=== PATIENT | female | born 1955 | race Caucasian/White ===

== ENCOUNTER 2020-09-05 09:43 | Outpatient (REF) | payer MEDICARE, SELFPAY ==
[2020-09-05 12:10] LABS: Alanine Aminotransferase 17 U/L (0-31); Albumin Level 4.6 g/dL (3.5-5.0); Alkaline Phosphatase 70 U/L (39-117); Anion Gap 14 (12-20); Aspartate Amino Transferase 24 U/L (5-31); Bilirubin Total 0.5 mg/dL (0.0-1.0); Blood Urea Nitrogen 14 mg/dL (9-16); Calcium 9.6 mg/dL (8.4-10.2); Carbon Dioxide 28 mmol/L (22-29); Chloride 104 mmol/L (96-108); Cholesterol 216 mg/dL; Estimated Glomerular Filt Rate > 60; Glucose Fasting 95 mg/dL (60-99); HDL Cholesterol 79 mg/dL; LDL Cholesterol Calculated 109 mg/dl; Potassium 4.9 mmol/L (3.3-5.1); Sodium 141 mmol/L (135-145); Total Protein 7.3 g/dL (6.5-8.0); Triglycerides 140 mg/dL
[2020-09-05 12:33] LABS: TSH reflex Free T4 1.23 uIU/mL (0.32-4.0); Vitamin D 25-OH Total 34.9 ng/mL (>30)
== END 2020-09-05 09:44 | disposition home or self-care (01) ==
LOC: HO.HMGCLDS 09:43
PROVIDERS: PCP Nurse Practitioner Family; Visit Provider Nurse Practitioner Family
DX: Z00.00 Encounter for general adult medical examination without abnormal findings (principal); Z78.0 Asymptomatic menopausal state
CPT/HCPCS: 36415; 80053; 80061; 82306; 84443

== ENCOUNTER 2020-09-08 07:20 | Outpatient (REF) | payer MEDICARE, SELFPAY ==
--- NOTE | ~2020-09-08 | MM_ITS ---
EXAMINATION: MM SCREENING DIGITAL BREAST TOMOSYNTHESIS, BILATERAL CLINICAL INFORMATION: Screening. Asymptomatic. Prior history right breast biopsy 2:00 and 3:00 position 05/07/2007 (sclerotic fibroadenoma and fibrocystic changes, respectively). No clips placed. The lifetime risk of breast cancer based on the Tyrer-Cuzick Model is 4%. COMPARISON: Mammography: 10/26/2018, 06/26/2016 TECHNIQUE: Digital breast tomosynthesis is performed in both the craniocaudal and mediolateral oblique views along with computer-aided detection (CAD). Synthesized 2D images are generated from the tomosynthesis. Additional left MLO view is provided. FINDINGS: The breasts are heterogeneously dense, which may obscure small masses (ACR BI-RADS breast composition Category c). There are no significant masses, abnormal calcifications, or other abnormalities. The previously sampled fibroadenoma mid 3:00 right breast is stable from prior studies (no clip placed). There is a dermal lesion overlying the upper left breast, marked with skin mole marker. The axilla are unremarkable. There are no significant changes from prior studies. MM/MM tomosynthesis screening BI IMPRESSION: 1. No mammographic evidence of malignancy. 2. 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 ASSESSMENT: BI-RADS 2: Benign RECOMMENDATION: Routine annual mammography screening. This patient's information was entered into a reminder system with a target due date for their next mammogram.
== END 2020-09-08 07:21 | disposition home or self-care (01) ==
LOC: HO.MAMMO 07:20
PROVIDERS: PCP Internal Medicine; Visit Provider Internal Medicine
DX: Z12.31 Encounter for screening mammogram for malignant neoplasm of breast (principal)
CPT/HCPCS: 77063; 77067

== ENCOUNTER 2020-09-11 08:06 | Outpatient (REF) | payer MEDICARE, SELFPAY ==
--- NOTE | ~2020-09-11 | MM_ITS ---
EXAMINATION: BONE DENSITOMETRY CLINICAL INDICATION: Asymptomatic menopausal state. COMPARISON: None (current study represents initial baseline exam). TECHNIQUE: Using a [employer] DXA System (software version: 13.1) manufactured by [employer], dual-energy x-ray absorptiometry was performed of the lumbar spine and left hip. The images are of good technical quality. Summary results are attached. FINDINGS: AP SPINE L1-L4: BMD 0.990 g/cm2, Z-score -0.7, T-score -1.6, osteopenia. LEFT FEMUR, NECK: BMD 0.747 g/cm2, Z-score -1.0, T-score -2.1, osteopenia. LEFT FEMUR, TOTAL: BMD 0.845 g/cm2, Z-score -0.5, T-score -1.3, osteopenia. IDENTIFIED RISK FACTORS: Height loss, hysterectomy, menopause. HISTORY OF FRACTURE: None listed. MEDICATIONS: Multivitamin. MM/XR DEXA axial skeleton IMPRESSION: 1. DIAGNOSIS: Osteopenia based on the lowest T-score value of -2.1 in the femoral neck applying World Health Organization criteria. 2. 10-YEAR FRACTURE RISK PREDICTION, FRAX: Major osteoporotic fracture (clinical spine, forearm, hip or shoulder) 11.0%. Hip fracture 1.9%. 3. Treatment Recommendations: NOF guidelines recommend consideration for treatment in postmenopausal women and men age 50 and older presenting with the following: -A hip or vertebral (clinical or morphometric) fracture. -T-score less than or equal to -2.5 at the femoral neck or spine after appropriate evaluation to exclude secondary causes. -Low bone mass at the hip or spine and a 10-year fracture probability by FRAX of greater than or equal to 3% for hip fracture or greater than or equal to 20% for major osteoporotic fracture based on the [place] adapted WHO algorithm. 4. Other Recommendations: All treatment decisions require clinical judgment and consideration of individual patient factors, including patient preferences, comorbidities, previous drug use, risk factors not captured in the FRAX model (e.g. frailty, falls, vitamin D deficiency, increased bone turnover, interval significant decline in bone density) and possible under or overestimation of fracture risk by FRAX. Additional medical evaluation for secondary cause of low bone mineral density may be appropriate. FUTURE SCAN RECOMMENDATION: People with diagnosed cases of osteoporosis or at high risk for fracture should have regular bone mineral density tests. For patients eligible for Medicare, routine testing is allowed once every 2 years. The testing frequency can be increased to one year for patients who have rapidly progressing disease, those who are receiving or discontinuing medical therapy to restore bone mass, or have additional risk factors.
== END 2020-09-11 08:07 | disposition home or self-care (01) ==
LOC: HO.MAMMO 08:06
PROVIDERS: PCP Nurse Practitioner Family; Visit Provider Nurse Practitioner Family
DX: Z13.820 Encounter for screening for osteoporosis (principal); Z78.0 Asymptomatic menopausal state
CPT/HCPCS: 77080

== ENCOUNTER 2020-11-12 07:27 | Outpatient (REF) | payer MEDICARE, SELFPAY ==
[2020-11-12 11:46] LABS: Cholesterol 203 mg/dL; HDL Cholesterol 68 mg/dL; LDL Cholesterol Calculated 107 mg/dl; Triglycerides 142 mg/dL
== END 2020-11-12 07:28 | disposition home or self-care (01) ==
LOC: HO.HMGCLDS 07:27
PROVIDERS: PCP Nurse Practitioner Family; Visit Provider Nurse Practitioner Family
DX: E78.5 Hyperlipidemia, unspecified (principal)
CPT/HCPCS: 36415; 80061

== ENCOUNTER 2021-03-15 07:00 | Outpatient (REF) | payer MEDICARE, SELFPAY ==
[2021-03-15 12:26] LABS: Alanine Aminotransferase 19 U/L (0-31); Albumin Level 4.4 g/dL (3.5-5.0); Alkaline Phosphatase 72 U/L (39-117); Anion Gap 14 (12-20); Aspartate Amino Transferase 26 U/L (5-31); Bilirubin Total 0.6 mg/dL (0.0-1.0); Blood Urea Nitrogen 12 mg/dL (9-16); Calcium 9.9 mg/dL (8.4-10.2); Carbon Dioxide 30 mmol/L (22-29); Chloride 103 mmol/L (96-108); Cholesterol 212 mg/dL; Estimated Glomerular Filt Rate > 60; Glucose Fasting 93 mg/dL (60-99); HDL Cholesterol 76 mg/dL; LDL Cholesterol Calculated 111 mg/dl; Potassium 4.7 mmol/L (3.3-5.1); Sodium 142 mmol/L (135-145); Total Protein 7.2 g/dL (6.5-8.0); Triglycerides 128 mg/dL
[2021-03-15 12:46] LABS: TSH reflex Free T4 3.97 uIU/mL (0.32-4.0)
== END 2021-03-15 07:01 | disposition home or self-care (01) ==
LOC: HO.HMGCLDS 07:00
PROVIDERS: PCP Nurse Practitioner Family; Visit Provider Nurse Practitioner Family
DX: E78.5 Hyperlipidemia, unspecified (principal)
CPT/HCPCS: 36415; 80053; 80061; 84443

== ENCOUNTER 2021-05-28 08:20 | Outpatient (REF) | payer MEDICARE, SELFPAY ==
[2021-05-28 12:02] LABS: Cholesterol 206 mg/dL; HDL Cholesterol 74 mg/dL; LDL Cholesterol Calculated 107 mg/dl; Triglycerides 129 mg/dL
== END 2021-05-28 08:21 | disposition home or self-care (01) ==
LOC: HO.HMGCLDS 08:20
PROVIDERS: PCP Internal Medicine; Visit Provider Nurse Practitioner Family
DX: E78.5 Hyperlipidemia, unspecified (principal)
CPT/HCPCS: 36415; 80061

== ENCOUNTER 2021-09-14 07:22 | Outpatient (REF) | payer MEDICARE, SELFPAY ==
--- NOTE | ~2021-09-14 | MM_ITS ---
EXAMINATION: MM SCREENING DIGITAL BREAST TOMOSYNTHESIS, BILATERAL CLINICAL INFORMATION: Screening. Asymptomatic. Prior history right breast biopsy 2:00 and 3:00 position 05/07/2007 (sclerotic fibroadenoma and fibrocystic changes, respectively). No clips placed. The lifetime risk of breast cancer based on the Tyrer-Cuzick Model is 4%. COMPARISON: Mammography: 09/08/2020, 10/26/2018, 06/26/2016 TECHNIQUE: Digital breast tomosynthesis is performed in both the craniocaudal and mediolateral oblique views along with computer-aided detection (CAD). Synthesized 2D images are generated from the tomosynthesis. FINDINGS: The breasts are heterogeneously dense, which may obscure small masses (ACR BI-RADS breast composition Category c). Breast tissue composition borders on average fibroglandular. There is no significant mass or architectural abnormality. Left breast shows no abnormal calcifications. Right breast has a stable macrolobulated nodule mid 3:00 right breast likely corresponding to prior biopsy proven fibroadenoma (no clips placed). Right breast has interval grouped calcifications central 12:00 position, 7-8 cm from nipple, representing change from prior study. Patient will be recalled for additional imaging. MM/MM tomosynthesis screening BI IMPRESSION: Right: -Grouped calcifications mid posterior central 12:00 position. Left: -No mammographic evidence of malignancy. ASSESSMENT: BI-RADS 0: Incomplete - Need Additional Imaging Evaluation RECOMMENDATION: 1. Additional views of the right breast (magnification CC, magnification ML). 2. Radiology department staff will contact the patient for additional imaging. This patient's information was entered into a reminder system with a target due date for their next mammogram.
== END 2021-09-14 07:23 | disposition home or self-care (01) ==
LOC: HO.MAMMO 07:22
PROVIDERS: Visit Provider Internal Medicine
DX: Z12.31 Encounter for screening mammogram for malignant neoplasm of breast (principal)
CPT/HCPCS: 77063; 77067

== ENCOUNTER 2021-09-18 09:20 | Outpatient (REF) | payer MEDICARE, SELFPAY ==
--- NOTE | ~2021-09-18 | MM_ITS ---
EXAMINATION: MM DIAGNOSTIC DIGITAL MAMMOGRAPHY, RIGHT CLINICAL INFORMATION: Recall from screening for grouped calcifications mid posterior central 12:00 right breast. COMPARISON: Mammography: 09/14/2021, 09/08/2020, 10/26/2018 TECHNIQUE: Digital mammography is performed in the following views: Magnification CC, magnification ML x2. FINDINGS: The breasts are heterogeneously dense, which may obscure small masses (ACR BI-RADS breast composition Category c). The additional magnification views confirm numerous loosely grouped fine calcifications central 11:30 position. Calcifications vary in shape and attenuation in size. This represents change from prior studies. Stereotactic sampling is recommended. Results are discussed with the patient at time of visit. MM/MM added views RT IMPRESSION: Grouped pleomorphic calcifications central upper right breast. ASSESSMENT: BI-RADS 4: Suspicious RECOMMENDATION: Stereotactic sampling right breast calcifications. This patient's information was entered into a reminder system with a target due date for their next mammogram.
== END 2021-09-18 09:21 | disposition home or self-care (01) ==
LOC: HO.MAMMO 09:20
PROVIDERS: Visit Provider Internal Medicine
DX: R92.1 Mammographic calcification found on diagnostic imaging of breast (principal)
CPT/HCPCS: 77065

== ENCOUNTER 2021-09-20 09:05 | Outpatient (REF) | payer MEDICARE, SELFPAY ==
--- NOTE | ~2021-09-20 | MM_ITS ---
EXAMINATION: STEREOTACTIC TOMOSYNTHESIS-GUIDED VACUUM-ASSISTED BREAST BIOPSY, RIGHT SPECIMEN RADIOGRAPH, RIGHT POST PROCEDURE DIGITAL MAMMOGRAM, RIGHT CLINICAL INFORMATION: Loosely grouped pleomorphic calcifications central 12:00 right breast. COMPARISON: Mammography 09/14/2021, 09/18/2021. TECHNIQUE/PROCEDURE: Informed consent was obtained from the patient after discussion of the benefits, risks, and alternatives to biopsy today. Patient appeared to understand. Gave opportunity for questions. Patient signed consent form. BIOPSY TABLE: [employer] Affirm Prone Biopsy System. LESION: Loosely grouped pleomorphic calcifications mid central 12:00. LOCAL ANESTHESIA: 10 mL carbonated 1% lidocaine; 10 mL 1% lidocaine with epinephrine. DERMATOTOMY: Single skin lucy dermatotomy performed. NEEDLE: Neov[employer] 9-gauge vacuum assisted core biopsy device. APPROACH: Craniocaudal. TARGETING: Combination of digital breast tomosynthesis and stereotactic digital mammography used for targeting. CORES: 14. CLIP: [employer] T-shaped marker. SPECIMEN RADIOGRAPH: Specimen radiograph is taken in separate room using digital mammography. The index calcifications are in the excised cores. There are at least 9 calcifications in the cores. POST PROCEDURE UNILATERAL DIGITAL MAMMOGRAM: The post biopsy mammogram is performed in separate room using separate digital mammography equipment from the biopsy procedure. CC and ML views are obtained. The breasts are heterogeneously dense, which may obscure small masses (breast composition category: c). The clip marker is in position. The calcifications are decreased at the biopsy site. No gross hematoma. The patient tolerated the procedure well. No immediate complications. Home instructions reviewed with the patient. Final pathology results are pending. MM/MM stereotactic biopsy RT IMPRESSION: 1. Digital tomosynthesis-guided core biopsy right breast with clip placement. 2. Specimen radiograph taken and post procedure mammogram. There is satisfactory positioning of the biopsy clip. 3. Final pathology results pending. An addendum report will be issued.
[2021-09-20] MEDS: Lidocaine HCl 1 % 20 ML VIAL 10 ML SUBCUT (10:37)
[2021-09-20] MEDS: Sodium Bicarbonate 8.4% 50 MEQ/50 ML VIAL SUBCUT (10:38)
== END 2021-09-20 09:06 | disposition home or self-care (01) ==
LOC: HO.MAMMO 09:05
PROVIDERS: PCP Internal Medicine; Visit Provider Surgery
DX: R92.8 Other abnormal and inconclusive findings on diagnostic imaging of breast (principal)
CPT/HCPCS: 19081; 88305; 88360; 99202; A4648

== ENCOUNTER → 2021-09-26 08:45 | Outpatient (BNVA) | payer MEDICARE, SELFPAY | PROVIDERS: PCP Internal Medicine; Visit Provider Surgery | DX: C50.811 Malignant neoplasm of overlapping sites of right female breast (principal); Z17.0 Estrogen receptor positive status [ER+] | CPT/HCPCS: 99212 ==

== ENCOUNTER 2021-10-02 08:49 | Day surgery (SDC) | payer MEDICARE, SELFPAY ==
--- NOTE | 2021-09-30 | ECG_ITS ---
Test Reason : PREOP Blood Pressure : / mmHG Vent. Rate : 085 BPM Atrial Rate : 085 BPM P-R Int : 172 ms QRS Dur : 150 ms QT Int : 402 ms P-R-T Axes : 063 -47 102 degrees QTc Int : 478 ms Normal sinus rhythm Left axis deviation Left bundle branch block Abnormal ECG When compared with ECG of 03-JUL-2016 10:22, No significant change was found Referred By: Earnestine Diane Electronically Signed By:TRUMAN CROWE
[2021-09-30 12:15] VITALS: BP 143/86; PULSE 95; RESP 20; O2SAT 97; BMI 34.2
--- NOTE | 2021-09-30 12:26 | P.CONAN_ITS ---
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) Past Medical History Medical History Arthritis COVID-19 vaccine series completed Elevated cholesterol Family history of anesthesia complication LBBB (left bundle branch block) Family History Family History Mother Melanoma Maternal Aunt Vocal cord cancer Maternal Aunt Uterine cancer Maternal Aunt Comer Syndrome Family history of problems with anesthesia: No Surgical History Surgical History History of bilateral breast biopsy History of hysterectomy History of tonsillectomy and adenoidectomy History of Problems with Anesthesia: No Social History Social History Housing: House Are you a primary home visit field care manager to a significant other at home: No Do you presently have visiting nurse or other home services: No Alcohol intake: current Alcohol intake frequency: holidays/special occasions only Patient Tobacco Use Status: Former Tobacco user Quit Date: 1980 Tobacco use type: Cigarette Years Smoked: 5 e-Cigarette/Vaping Use: Never Used Second Hand Smoke Exposure: No Use of substances other than those prescribed or required for medical reasons: No Have you been hit, kicked, punched, or otherwise hurt by someone within the past year? If so, by whom?: No Are you DNR?: No Advance Directives: Yes ( Swapnil) Advance Directives Information Provided: Yes (copy on chart) Advance Directives on File: Yes Advance Directives Date on File: 09/30/21 Recently lost weight without trying: No Nutrition Risks: No Nutritional Risk Poor oral hygiene: No service: No Current occupational status: retired Narrative Narrative: No recent illness No CP/SOB with >4 mets Meds Allergies Allergy/AdvReac Type Severity Reaction Status Date / Time amoxicillin [AMOXICILLIN] Allergy Mild flushing/sw Verified 09/30/21 12:14 elling/rash Home Medications Medication Instructions Recorded Confirmed Last Taken Type acetaminophen 500 mg capsule 1,000 mg PO Q12H PRN Pain 09/05/20 09/30/21 Unknown History calcium carbonate 500 mg calcium 1,000 mg PO DAILY 09/05/20 09/30/21 Unknown H istory (1,250 mg) chewable tablet docusate sodium 100 mg capsule 300 mg PO QPM 09/05/20 09/30/21 Unknown History (Colace) fluticasone propionate 50 1 spray intranasal Q12H PRN 09/05/20 09/30/21 Unknown History mcg/actuation nasal Allergy Symptoms spray,suspension magnesium 200 mg tablet 400 mg PO DAILY 09/05/20 09/30/21 Unknown History vit A 7,160 unit-vit C 113 mg-vit 1 tab PO DAILY 09/05/20 09/30/21 Unknown History E 100 uvvm-pmxh-ahknjk tablet cetirizine 10 mg tablet 10 mg PO DAILY PRN Allergy Symptoms 03/13/21 09/30/21 Unknown History cholecalciferol (vitamin D3) 125 125 mcg PO DAILY 03/13/21 09/30/21 Unknown History mcg (5,000 unit) capsule atorvastatin 40 mg tablet 40 mg PO QAM 09/30/21 09/30/21 Unknown History flaxseed oil 1,000 mg capsule 1,000 mg PO DAILY 09/30/21 09/30/21 Unknown History kgwudhpk-die-gqexb ac 400 1 tab PO DAILY 09/30/21 09/30/21 Unknown History mcg-calcium carb 500 mg-vit K1 20 mcg tablet Exam Exam Date and Time: September 30, 2021 1226 Height,Weight and Vital Signs: Height 5 ft 5 in Weight 93.5 kg Last Vital Signs Pulse 95 09/30/21 12:15 Resp 20 09/30/21 12:15 BP 143/86 H 09/30/21 12:15 Pulse Ox 97 09/30/21 12:15 O2 Del Method 09/30/21 12:15 Pertinent Lab Results Pertinent Lab Results: Laboratory Tests 09/30/21 09/30/21 12:56 12:56 WBC 8.0 Hgb 13.4 Hct 40.8 Plt Count 327 Sodium 142 Potassium 5.2 H Chloride 105 Carbon Dioxide 29 BUN 12 Creatinine 0.92 Narrative Narrative: EKG 09/2021 Vent. Rate : 085 BPM ? ? Atrial Rate : 085 BPM ?? P-R Int : 172 ms? QRS Dur : 150 ms ? ? QT Int : 402 ms ? ? ? P-R-T Axes : 063 -47 102 degrees ?? QTc Int : 478 ms ? Normal sinus rhythm Left axis deviation Left bundle branch block Abnormal ECG When compared with ECG of 03-JUL-2016 10:22, No significant change was found Airway Mallampati Class: I TM Dist: >3cm Neck ROM: Full Loose/Missing/Broken Teeth: No Heart: RRR Lungs: CTAB Assessment and Plan Assessment Anesthesia Assessment: Anesthesia Plan Discussed and PAT Visit Final Anesthetic Review Family History of Problems with Anesthesia: No History of Problems with Anesthesia: No Documented by User: Jason Zimmerman MD 10/02/21 10:55 PMFSH Past Medical History Medical History Arthritis COVID-19 vaccine series completed Elevated cholesterol Family history of anesthesia complication LBBB (left bundle branch block) Family History Family History Mother Melanoma Maternal Aunt Vocal cord cancer Maternal Aunt Uterine cancer Maternal Aunt Comer Syndrome Surgical History Surgical History History of bilateral breast biopsy History of hysterectomy History of tonsillectomy and adenoidectomy Social History Social History Housing: House Are you a primary home visit field care manager to a significant other at home: No Do you presently have visiting nurse or other home services: No Alcohol intake: current Alcohol intake frequency: holidays/special occasions only Patient Tobacco Use Status: Former Tobacco user Quit Date: 1980 Tobacco use type: Cigarette Years Smoked: 5 e-Cigarette/Vaping Use: Never Used Second Hand Smoke Exposure: No Use of substances other than those prescribed or required for medical reasons: No Have you been hit, kicked, punched, or otherwise hurt by someone within the past year? If so, by whom?: No Are you DNR?: No Advance Directives: Yes ( Swapnil) Advance Directives Information Provided: Yes (copy on chart) Advance Directives on File: Yes Advance Directives Date on File: 09/30/21 Recently lost weight without trying: No Nutrition Risks: No Nutritional Risk Poor oral hygiene: No service: No Current occupational status: retired [employer] Allergies Allergy/AdvReac Type Severity Reaction Status Date / Time amoxicillin [AMOXICILLIN] Allergy Mild flushing/sw Verified 09/30/21 12:14 elling/rash Home Medications Medication Instructions Recorded Confirmed Last Taken Type acetaminophen 500 mg capsule 1,000 mg PO Q12H PRN Pain 09/05/20 09/30/21 Unknown History calcium carbonate 500 mg calcium 1,000 mg PO DAILY 09/05/20 09/30/21 Unknown History (1,250 mg) chewable tablet docusate sodium 100 mg capsule 300 mg PO QPM 09/05/20 09/30/21 Unknown History (Colace) fluticasone propionate 50 1 spray intranasal Q12H PRN 09/05/20 09/30/21 Unknown History mcg/actuation nasal Allergy Symptoms spray,suspension magnesium 200 mg tablet 400 mg PO DAILY 09/05/20 09/30/21 Unknown History vit A 7,160 unit-vit C 113 mg-vit 1 tab PO DAILY 09/05/20 09/30/21 Unknown History E 100 nzko-nvzw-ybqiae tablet cetirizine 10 mg tablet 10 mg PO DAILY PRN Allergy Symptoms 03/13/21 09/30/21 Unknown History cholecalciferol (vitamin D3) 125 125 mcg PO DAILY 03/13/21 09/30/21 Unknown History mcg (5,000 unit) capsule atorvastatin 40 mg tablet 40 mg PO QAM 09/30/21 09/30/21 Unknown History flaxseed oil 1,000 mg capsule 1,000 mg PO DAILY 09/30/21 09/30/21 Unknown History wjgttgxa-heb-kcsap ac 400 1 tab PO DAILY 09/30/21 09/30/21 Unknown History mcg-calcium carb 500 mg-vit K1 20 mcg tablet Exam Airway Mallampati Class: II Assessment and Plan Final Anesthetic Review NPO: Yes ASA Class: II Final Preanesthetic Review: No Changes in Pt Med Stat, Meds/Allgs Chart Reviewed, Consent Obtained/Reviewed and Anes Risks/Benef Reviewed Patient Risk: Intermediate Procedure Risk: Low Anesthetic Plan Anesthetic Plan: GA Disposition: Standard PACU
[2021-09-30 13:04] LABS: Hematocrit 40.8 % (37.0-47.0); Hemoglobin 13.4 g/dl (12.0-16.0); Mean Corpuscular HGB Conc 32.8 g/dl (31.0-35.0); Mean Corpuscular Hemoglobin 30.7 pg (27.0-33.0); Mean Corpuscular Volume 93.4 fL (80.0-98.0); Mean Platelet Volume 9.9 fL (9.4-12.3); Platelet Count 327 X10*3/uL (160-400); Red Blood Count 4.37 X10*6/uL (4.20-5.50); Red Cell Distribution Width 13.7 % (11.0-16.0)
[2021-09-30 14:38] LABS: Anion Gap 13 (12-20); Blood Urea Nitrogen 12 mg/dL (9-16); Calcium 10.2 mg/dL (8.4-10.2); Carbon Dioxide 29 mmol/L (22-29); Chloride 105 mmol/L (96-108); Creatinine Clr Calc Pharmacy 66.1; Estimated Glomerular Filt Rate > 60; Glucose Random 96 mg/dL (60-115); Potassium 5.2 mmol/L (3.3-5.1); Sodium 142 mmol/L (135-145)
[2021-10-02] VITALS (7 sets, daily range): BP systolic 129–138; BP diastolic 65–70; PULSE 62–73; RESP 16–18; TEMP 36.3–36.8; O2SAT 97–100; BMI 33.6
--- NOTE | ~2021-10-02 | NM_ITS ---
PROCEDURE: NM LYMPH SCINTIGRAPHY CLINICAL INFORMATION: Right breast cancer. COMPARISON: None TECHNIQUE: The right breast was injected with 4 separate aliquots of 0.125 mCi technetium 99m labeled Lymphoseek for total dose of 0.5 mCi of the 12, 3, 6 and 9 o'clock axes of the right breast at the skin nipple interface. Imaging of the chest in the anterior VEGA and right lateral projections was performed at 20 minutes. FINDINGS: There is adequate radiotracer uptake at the skin nipple interface. There is positive sentinel node activity in the right axilla. NM/NM sentinel node w imaging IMPRESSION: Positive sentinel node activity in the right axilla.
--- NOTE | ~2021-10-02 | MM_ITS ---
EXAMINATION: MM MAMMOGRAM GUIDED NEEDLE LOCALIZATION BREAST, RIGHT MM NEEDLE LOCALIZATION SPECIMEN FROM THE RIGHT BREAST CLINICAL INFORMATION: Invasive ductal cancer with DCIS right breast 12:00. COMPARISON: Mammography 09/14/2021, 09/18/2021, 09/20/2021 TECHNIQUE NEEDLE LOC: Proper informed consent is obtained from the patient for both the needle localization and nuclear sentinel lymph node mapping after discussion of the procedure, potential risks and complications, and alternatives including declining the procedure today. Patient was given an opportunity for questions. The patient appeared to understand. The patient consented to the procedure and signed the consent form. GUIDANCE: Digital mammography. APPROACH: Cranio-caudal. TARGET: Biopsy clip marker with surrounding calcifications. ANESTHESIA: Carbonated lidocaine 1%: 7 mL. LOCALIZATION MARKER: [place] Mamma[employer]. 10 cm length. The skin is prepped and local anesthesia administered. The needle is positioned and position assessed with mammography. The wire is hooked into position. [place] needle protector placed. The patient tolerated the procedure well and had no immediate complication. Following the procedure, 4% lidocaine ointment was administered to the left areola and covered with Tegaderm in anticipation of nuclear lymphoscintigraphy injection for sentinel lymph node mapping, separate report. Procedure findings called to certified medical assistant (Lennie) for Dr. Tobin on 10/02/2021. TECHNIQUE SPECIMEN RADIOGRAPH: Imaging of the excised specimen is performed using digital mammography in 1 view. FINDINGS SPECIMEN RADIOGRAPH: The specimen shows the distal needle and distal hookwire are delivered intact. The biopsy clip marker and numerous index calcifications are identified in the specimen. Results were called to Dr. Candido Tobin in the operating room at the time of imaging. MM/MM needle loc RT IMPRESSION: 1. Status post right breast needle localization with wire hooked into position. 2. Post operative specimen radiograph obtained.
[2021-10-02] MEDS: Lactated Ringers 1,000 ML 100 ML IVCONT (09:22)
--- NOTE | 2021-10-02 10:10 | PC.NURSE ---
to radiology with lidocaine for biopsy/localization
--- NOTE | 2021-10-02 10:17 | MHC.SHP ---
Pre-Procedural Eval Section A Date of Service: 10/02/21 The patient is an INPATIENT: No Changes since office visit: Yes Patient answered all questions; No Cold of Flu in the past 2 weeks, No New Medical Problems and No Changes in Medication The History & Physical has been completed within 30 days and I have reviewed it.: Yes Section B Chief Complaint: malignant neoplasm breast Allergies: Allergies Allergy/AdvReac Type Severity Reaction Status Date / Time amoxicillin [AMOXICILLIN] Allergy Mild flushing/sw Verified 09/30/21 12:14 elling/rash Plan Diagnosis/Plan: Unchanged I have reviewed the history and physical and performed a pertinent physical examination on my patient. No changes have occurred unless specified.
--- NOTE | 2021-10-02 10:36 | P.CONAN_ITS ---
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) Past Medical History Medical History (Updated 09/30/21 @ 12:25 by Elyse Smith RN) Arthritis COVID-19 vaccine series completed Elevated cholesterol Family history of anesthesia complication LBBB (left bundle branch block) Family History Family History Mother Melanoma Maternal Aunt Vocal cord cancer Maternal Aunt Uterine cancer Maternal Aunt Comer Syndrome Family history of problems with anesthesia: No Surgical History Surgical History (Updated 09/30/21 @ 12:10 by Elyse Smith RN) History of bilateral breast biopsy History of hysterectomy History of tonsillectomy and adenoidectomy History of Problems with Anesthesia: No Social History Social History Housing: House Are you a primary director of managed care to a significant other at home: No Do you presently have visiting nurse or other home services: No Alcohol intake: current Alcohol intake frequency: holidays/special occasions only Patient Tobacco Use Status: Former Tobacco user Quit Date: 1980 Tobacco use type: Cigarette Years Smoked: 5 e-Cigarette/Vaping Use: Never Used Second Hand Smoke Exposure: No Use of substances other than those prescribed or required for medical reasons: No Have you been hit, kicked, punched, or otherwise hurt by someone within the past year? If so, by whom?: No Are you DNR?: No Advance Directives: Yes ( Swapnil) Advance Directives Information Provided: Yes (copy on chart) Advance Directives on File: Yes Advance Directives Date on File: 09/30/21 Recently lost weight without trying: No Nutrition Risks: No Nutritional Risk Poor oral hygiene: No service: No Current occupational status: retired [employer] Allergies Allergy/AdvReac Type Severity Reaction Status Date / Time amoxicillin [AMOXICILLIN] Allergy Mild flushing/sw Verified 09/30/21 12:14 elling/rash Active Medications: Current Medications Fentanyl (Fentanyl Citrate/Pf 100 Mcg/2 Ml Vial) 25 mcg IVPUSH Q5M PRN; Protocol PRN Reason: Pain, Moderate (Pain Scale 4-6 Lactated Ringer's (Lr) 1,000 mls @ 100 mls/hr IVCONT .Q10H MAGNUS Last Admin: 10/02/21 09:22 Dose: 100 mls/hr Vancomycin HCl 1,500 mg/ (Sodium Chloride) 500 mls @ 333.333 mls/hr IV PREOP ONE Stop: 10/02/21 10:44 Ondansetron HCl (Ondansetron Hcl 4 Mg/2 Ml Vial) 4 mg IVPUSH ONCE PRN PRN Reason: Nausea and Vomiting Pharmacy Consult (Consult Rx Vancomycin Dosing) 1 each MISCELLANE DAILY PRN PRN Reason: Consult order Home Medications Medication Instructions Recorded Confirmed Last Taken Type acetaminophen 500 mg capsule 1,000 mg PO Q12H PRN Pain 09/05/20 09/30/21 Unknown History calcium carbonate 500 mg calcium 1,000 mg PO DAILY 09/05/20 09/30/21 Unknown History (1,250 mg) chewable tablet docusate sodium 100 mg capsule 300 mg PO QPM 09/05/20 09/30/21 Unknown History (Colace) fluticasone propionate 50 1 spray intranasal Q12H PRN 09/05/20 09/30/21 Unknown History mcg/actuation nasal Allergy Symptoms spray,suspension magnesium 200 mg tablet 400 mg PO DAILY 09/05/20 09/30/21 Unknown History vit A 7,160 unit-vit C 113 mg-vit 1 tab PO DAILY 09/05/20 09/30/21 Unknown History E 100 gihm-vymv-svoziu tablet cetirizine 10 mg tablet 10 mg PO DAILY PRN Allergy Symptoms 03/13/21 09/30/21 Unknown History cholecalciferol (vitamin D3) 125 125 mcg PO DAILY 03/13/21 09/30/21 Unknown History mcg (5,000 unit) capsule atorvastatin 40 mg tablet 40 mg PO QAM 09/30/21 09/30/21 Unknown History flaxseed oil 1,000 mg capsule 1,000 mg PO DAILY 09/30/21 09/30/21 Unknown History vbiglygi-qla-nlbkk ac 400 1 tab PO DAILY 09/30/21 09/30/21 Unknown History mcg-calcium carb 500 mg-vit K1 20 mcg tablet Exam Exam Date and Time: October 02, 2021 1036 Height,Weight and Vital Signs: Height 5 ft 5 in Weight 91.626 kg Last Vital Signs Pulse 95 09/30/21 12:15 Resp 20 09/30/21 12:15 BP 143/86 H 09/30/21 12:15 Pulse Ox 97 09/30/21 12:15 O2 Del Method 09/30/21 12:15 Pertinent Lab Results Pertinent Lab Results: Laboratory Tests 09/30/21 09/30/21 12:56 12:56 WBC 8.0 RBC 4.37 Hgb 13.4 Hct 40.8 MCV 93.4 MCH 30.7 MCHC 32.8 RDW 13.7 Plt Count 327 MPV 9.9 Absolute Nucleated RBC 0.000 Nucleated RBC % (auto) 0.0 Sodium 142 Potassium 5.2 H Chloride 105 Carbon Dioxide 29 Anion Gap 13 BUN 12 Creatinine 0.92 Estim Creat Clear Calc 66.1 Estimated GFR > 60 Random Glucose 96 Calcium 10.2 Assessment and Plan Final Anesthetic Review Family History of Problems with Anesthesia: No History of Problems with Anesthesia: No NPO: Yes
[2021-10-02] MEDS: vancomycin HCL 1,500 MG in 0.9 % Sodium Chloride 500 ML 333.33 MG IV (11:01)
--- NOTE | 2021-10-02 11:07 | PC.NURSE ---
to nuclear medicine with vancomycin running
[2021-10-02] MEDS: Lidocaine HCl 1 % 20 ML VIAL 9 ML SUBCUT (11:11)
[2021-10-02] MEDS: Sodium Bicarbonate 8.4% 50 MEQ/50 ML VIAL SUBCUT (11:11)
--- NOTE | 2021-10-02 13:55 | P.OP_ITS ---
Operative Note Operative Note Date of Service: 10/02/21 Narrative: Preoperative diagnosis: Right breast invasive ductal carcinoma Postoperative diagnosis: same Procedure: right breast lumpectomy with needle localization right axillary sentinel node biopsy Surgeon: Candido Tobin MD Repeat Chief: DIANE Torres, DIANE Reis Anesthesia:General LMA Indications for procedure: 66-year-old female patient presenting with a recent mammogram with a cluster of classifications at the 12:00 o'clock location right breast. Subsequent stereotactic guided core biopsy confirmed invasive ductal carcinoma. She presents now for right breast lumpectomy with needle localizati on, right axillary sentinel node biopsy. Operative findings: Specimen x-ray confirmed the marking clip within the specimen. Gross pathology confirmed grossly negative margins. Specimen: Right breast lumpectomy, right axillary sentinel nodes 1 through 5 Estimated blood loss: 10 mL Complications: none Procedure details: patient was brought to the OR placed in a supine position. After administering general anesthesia the patient's right breast was prepped with ChloraPrep and draped in a sterile fashion . A surgical time-out was called the consent confirmed. Patient received preoperative antibiotics and Venodyne boots were in place. Local anesthesia consisting of 0.5% Sensorcaine without infiltrated around the localizing wire. A transverse incision was made between the wire entrance site and the nipple-areolar complex and carried out through subcutaneous tissue. Superior inferior skin flaps were then created. The superior flap was continued up to the localizing wire. The inferior was continued down around the tip of the wire. Medial and lateral margins were then excised with a combination of electrocautery and sharp dissection with curved Grey scissors. The posterior margin was then excised over the chest wall. Lesion was completely removed and sent to pathology for further examination. Specimen x-ray confirmed the marking clip within the specimen. Wounds were checked for hemostasis, irrigated with saline solution and suctioned dry. Deep breast tissue was then reapproximated using interrupted 3-0 Polysorb sutures. Superficial breast tissue and dermis were reapproximated using interrupted 3-0 Polysorb sutures. Skin was closed using a running subcuticular 4-0 Polysorb suture. Attention was then directed to the axilla on the right side. Using the gamma probe an area of increased activity was identified in the mid axilla. A curvilinear incision was made over this location carried out through subcutaneous tissue. The incision was carried into the clavipectoral fascia into the axillary compartment. Using the gamma probe approximately 5 sentinel nodes were identified and excised using electrocautery. Hemostasis was assured using electrocautery. Each was sent as a separate specimen. The wounds were irrigated with saline solution and suctioned dry. Clavipectoral fascia was then reapproximated using interrupted 3-0 Polysorb sutures. Dermis was reapproximated using interrupted 3-0 Polysorb sutures. Skin was then closed using a running subcuticular 4-0 Polysorb suture. Steri-Strips 2 x 2 gauze and Tegaderm were then applied to both incisions. The patient tolerated the procedure well. Sponge, instrument, needle counts reported as correct. Patient was transferred to PACU in stable condition. Breast [place] Node Biopsy Substrate(s) used for sentinel node biopsy in the non-neoadjuvant setting: Radiotracer Substrate(s) used for sentinel node biopsy in the neoadjuvant setting: N/A All colored nodes or non-colored nodes present at the end of a dye filled lymphatic channel were removed, if dye was used as the substrate for loca lization: N/A All significantly radioactive nodes were removed, if radionuclide was used as the substrate for localization: Yes All palpably suspicious nodes were removed, if present: Yes If clips were placed in pathology-involved nodes, those nodes were identified and removed: N/A General Surg. - Synoptic Notes Breast [place] Node Biopsy Substrate(s) used for sentinel node biopsy in the non-neoadjuvant setting: Radiotracer Substrate(s) used for sentinel node biopsy in the neoadjuvant setting: N/A All colored nodes or non-colored nodes present at the end of a dye filled lymphatic channel were removed, if dye was used as the substrate for localization: N/A All significantly radioactive nodes were removed, if radionuclide was used as the substrate for localization: Yes All palpably suspicious nodes were removed, if present: Yes If clips were placed in pathology-involved nodes, those nodes were identified and removed: N/A
[2021-10-02] MEDS: ondansetron HCL 4 MG/2 ML VIAL IVPUSH (14:18)
[2021-10-02] MEDS: oxyCODONE HCl Immed Release 5 MG TABLET PO (14:28)
== END 2021-10-02 15:45 | disposition home or self-care (01) ==
PROVIDERS: Nurse Practitioner; PCP Internal Medicine; Visit Provider Surgery
PROC: (CPT 19301; principal; 2021-10-02 12:50)
PROC: (CPT 19301; 2021-10-02 12:50)
DX: C50.811 Malignant neoplasm of overlapping sites of right female breast (principal); C77.3 Secondary and unspecified malignant neoplasm of axilla and upper limb lymph nodes; Z17.0 Estrogen receptor positive status [ER+]; I44.7 Left bundle-branch block, unspecified; E78.5 Hyperlipidemia, unspecified; Z79.899 Other long term (current) drug therapy; Z88.1 Allergy status to other antibiotic agents
CPT/HCPCS: 19301; 38525; 19281; 36415; 78195; 80048; 85027; 88304; 88305; 88307; 88329; 88342; 93005; A4648; A9520; J1100; J1885; J2250; J2405; J3010; J3370

== ENCOUNTER → 2021-10-21 14:49 | Outpatient (BNV) | payer MEDICARE, SELFPAY | PROVIDERS: PCP Internal Medicine; Visit Provider Internal Medicine | DX: C50.911 Malignant neoplasm of unspecified site of right female breast (principal) | CPT/HCPCS: 99205; 99213; 99214; 99215; G2211 ==

== ENCOUNTER 2021-12-05 07:36 | Outpatient (REF) | payer MEDICARE, SELFPAY ==
[2021-12-05 11:36] LABS: MANUAL DIFF FLAG NO
[2021-12-05 11:42] LABS: Basophils Percent Auto 0.6 % (0-2); Eosinophils Absolute Auto 0.2 X10*3/uL (0.0-0.4); Eosinophils Percent Auto 2.9 % (0-4); Hematocrit 39.5 % (37.0-47.0); Hemoglobin 13.1 g/dl (12.0-16.0); Imm Gran Abs Auto 0.03 X10*3/uL (0.00-0.03); Imm Gran Pct Auto 0.4 % (0.0-0.4); Lymphocytes Absolute Auto 2.1 X10*3/uL (1.2-4.9); Lymphocytes Percent Auto 30.1 % (20-40); Mean Corpuscular HGB Conc 33.2 g/dl (31.0-35.0); Mean Corpuscular Volume 93.6 fL (80.0-98.0); Mean Platelet Volume 10.9 fL (9.4-12.3); Monocytes Absolute Auto 0.5 X10*3/uL (0.1-1.2); Monocytes Percent Auto 7.1 % (2-11); Neutrophils Absolute Auto 4.1 x10*3/uL (2.0-8.3); Neutrophils Percent Auto 58.9 % (45-73); Platelet Count 284 X10*3/uL (160-400); Red Blood Count 4.22 X10*6/uL (4.20-5.50); Red Cell Distribution Width 13.2 % (11.0-16.0)
[2021-12-05 12:06] LABS: Alanine Aminotransferase 16 U/L (0-31); Albumin Level 4.2 g/dL (3.5-5.0); Alkaline Phosphatase 70 U/L (39-117); Anion Gap 16 (12-20); Aspartate Amino Transferase 21 U/L (5-31); Bilirubin Total 0.3 mg/dL (0.0-1.0); Blood Urea Nitrogen 10 mg/dL (9-16); Calcium 9.3 mg/dL (8.4-10.2); Carbon Dioxide 26 mmol/L (22-29); Chloride 106 mmol/L (96-108); Cholesterol 219 mg/dL; Estimated Glomerular Filt Rate > 60; Glucose Fasting 95 mg/dL (60-99); HDL Cholesterol 70 mg/dL; LDL Cholesterol Calculated 112 mg/dl; Potassium 4.8 mmol/L (3.3-5.1); Sodium 143 mmol/L (135-145); Total Protein 6.8 g/dL (6.5-8.0); Triglycerides 187 mg/dL
[2021-12-05 12:13] LABS: TSH reflex Free T4 2.13 uIU/mL (0.32-4.0)
[2021-12-05 13:31] LABS: Appearance Urine Clear; Color Urine Yellow; Glucose Urine UA Negative (Negative); Leukocyte Esterase Urine Negative (Negative); Nitrite Urine Negative (Negative); Urine Blood Negative (Negative); Urine Ketones Negative (Negative); Urine Protein Negative (Neg-Trace)
== END 2021-12-05 07:37 | disposition home or self-care (01) ==
LOC: HO.HMGCLDS 07:36
PROVIDERS: PCP Nurse Practitioner Family; Visit Provider Nurse Practitioner Family
DX: Z00.00 Encounter for general adult medical examination without abnormal findings (principal)
CPT/HCPCS: 36415; 80053; 80061; 81003; 84443; 85025

== ENCOUNTER 2022-02-17 07:22 | Outpatient (REF) | payer MEDICARE, SELFPAY ==
[2022-02-17 12:17] LABS: Alanine Aminotransferase 26 U/L (0-31); Albumin Level 4.4 g/dL (3.5-5.0); Alkaline Phosphatase 95 U/L (39-117); Anion Gap 16 (12-20); Aspartate Amino Transferase 33 U/L (5-31); Bilirubin Total 0.5 mg/dL (0.0-1.0); Blood Urea Nitrogen 11 mg/dL (9-16); Calcium 9.5 mg/dL (8.4-10.2); Carbon Dioxide 26 mmol/L (22-29); Chloride 104 mmol/L (96-108); Cholesterol 176 mg/dL; Estimated Glomerular Filt Rate > 60; Glucose Fasting 97 mg/dL (60-99); HDL Cholesterol 64 mg/dL; LDL Cholesterol Calculated 78 mg/dl; Potassium 4.2 mmol/L (3.3-5.1); Sodium 142 mmol/L (135-145); Total Protein 7.1 g/dL (6.5-8.0); Triglycerides 174 mg/dL
== END 2022-02-17 07:23 | disposition home or self-care (01) ==
LOC: HO.HMGCLDS 07:22
PROVIDERS: PCP Nurse Practitioner Family; Visit Provider Nurse Practitioner Family
DX: E78.5 Hyperlipidemia, unspecified (principal)
CPT/HCPCS: 36415; 80053; 80061

== ENCOUNTER → 2022-02-18 10:23 | Outpatient (BNVA) | payer MEDICARE, SELFPAY | PROVIDERS: PCP Nurse Practitioner Family; Visit Provider Surgery | DX: C50.911 Malignant neoplasm of unspecified site of right female breast (principal); C77.9 Secondary and unspecified malignant neoplasm of lymph node, unspecified | CPT/HCPCS: 99212 ==

== ENCOUNTER → 2022-05-23 08:45 | Outpatient (BNVA) | payer MEDICARE, SELFPAY | PROVIDERS: PCP Nurse Practitioner Family; Visit Provider Surgery | DX: R92.1 Mammographic calcification found on diagnostic imaging of breast (principal); C50.911 Malignant neoplasm of unspecified site of right female breast; L59.9 Disorder of the skin and subcutaneous tissue related to radiation, unspecified; Z86.000 Personal history of in-situ neoplasm of breast; Z17.0 Estrogen receptor positive status [ER+]; Z92.3 Personal history of irradiation | CPT/HCPCS: 99212 ==

== ENCOUNTER 2022-09-03 07:12 | Outpatient (REF) | payer MEDICARE, SELFPAY ==
[2022-09-03 11:10] LABS: MANUAL DIFF FLAG NO
[2022-09-03 11:23] LABS: Appearance Urine Clear; Color Urine Yellow; Glucose Urine UA Negative (Negative); Leukocyte Esterase Urine Large (3+) (Negative); Nitrite Urine Negative (Negative); PH 7.5 (5.0-9.0); Specific Gravity - Urine 1.015 (1.005-1.025); UMIC TRIGGER UACC YES; Urine Blood Negative (Negative); Urine Ketones Negative (Negative); Urine Protein Negative (Neg-Trace)
[2022-09-03 11:31] LABS: Bacteria Urine Trace (None Seen); Hyaline Casts Urine 0-2 /LPF (0-2); RBC Urine 0-2 /HPF (0-2); UACC Culture Trigger YES; WBC Urine 21-50 /HPF (0-5)
[2022-09-03 11:39] LABS: Basophils Percent Auto 0.8 % (0-2); Eosinophils Absolute Auto 0.1 X10*3/uL (0.0-0.4); Eosinophils Percent Auto 3.7 % (0-4); Hematocrit 37.5 % (37.0-47.0); Hemoglobin 12.2 g/dl (12.0-16.0); Imm Gran Abs Auto 0.01 X10*3/uL (0.00-0.03); Imm Gran Pct Auto 0.3 % (0.0-0.4); Lymphocytes Absolute Auto 1.2 X10*3/uL (1.2-4.9); Lymphocytes Percent Auto 30.9 % (20-40); Mean Corpuscular HGB Conc 32.5 g/dl (31.0-35.0); Mean Corpuscular Hemoglobin 32.4 pg (27.0-33.0); Mean Corpuscular Volume 99.7 fL (80.0-98.0); Mean Platelet Volume 10.3 fL (9.4-12.3); Monocytes Absolute Auto 0.5 X10*3/uL (0.1-1.2); Neutrophils Percent Auto 52.3 % (45-73); Platelet Count 235 X10*3/uL (160-400); Red Blood Count 3.76 X10*6/uL (4.20-5.50); Red Cell Distribution Width 14.8 % (11.0-16.0); White Blood Count 3.8 X10*3/uL (4.8-10.8)
[2022-09-03 11:48] LABS: Alanine Aminotransferase 17 U/L (0-31); Albumin Level 4.2 g/dL (3.5-5.0); Alkaline Phosphatase 98 U/L (39-117); Anion Gap 12 (12-20); Aspartate Amino Transferase 26 U/L (5-31); Bilirubin Total 0.5 mg/dL (0.0-1.0); Blood Urea Nitrogen 14 mg/dL (9-16); Calcium 9.7 mg/dL (8.4-10.2); Carbon Dioxide 29 mmol/L (22-29); Chloride 106 mmol/L (96-108); Cholesterol 154 mg/dL; Estimated Glomerular Filt Rate 55; Glucose Fasting 95 mg/dL (60-99); HDL Cholesterol 58 mg/dL; LDL Cholesterol Calculated 68 mg/dl; Potassium 4.4 mmol/L (3.3-5.1); Sodium 143 mmol/L (135-145); Total Protein 6.8 g/dL (6.5-8.0); Triglycerides 140 mg/dL
== END 2022-09-03 07:13 | disposition home or self-care (01) ==
LOC: HO.HMGCLDS 07:12
PROVIDERS: PCP Nurse Practitioner Family; Visit Provider Nurse Practitioner Family
DX: E78.5 Hyperlipidemia, unspecified (principal); R82.90 Unspecified abnormal findings in urine
CPT/HCPCS: 36415; 80053; 80061; 81001; 84443; 85025; 87086

== ENCOUNTER 2022-09-20 07:16 | Outpatient (REF) | payer MEDICARE, SELFPAY | END 2022-09-20 07:17 | disposition home or self-care (01) | LOC: HO.MAMMO 07:16 | PROVIDERS: PCP Nurse Practitioner Family; Visit Provider Nurse Practitioner Family | DX: Z13.89 Encounter for screening for other disorder (principal) ==

== ENCOUNTER 2022-09-29 13:44 | Outpatient (REF) | payer MEDICARE, SELFPAY ==
--- NOTE | ~2022-09-29 | MM_ITS ---
EXAMINATION: MM DIAGNOSTIC DIGITAL BREAST TOMOSYNTHESIS, BILATERAL CLINICAL INFORMATION: Right IDC and DCIS status post lumpectomy 10/02/2021. Due for yearly. COMPARISON: Mammography: 10/02/2021, 09/20/2021, 09/18/2021, 09/14/2021, 09/08/2020, 10/26/2018 TECHNIQUE: Digital breast tomosynthesis is performed in both the craniocaudal and mediolateral oblique views along with computer-aided detection (CAD). Synthesized 2D images are generated from the tomosynthesis. Additional magnification right CC and magnification right ML views are obtained. FINDINGS: The breasts are heterogeneously dense, which may obscure small masses (ACR BI-RADS breast composition Category c). Left breast parenchymal pattern is similar to prior studies and there is no developing density or interval mass or architectural abnormality. No abnormal calcifications. The axilla and skin contours are unremarkable. Right breast has post therapy changes since prior imaging with reduced breast size and scarring and smooth skin thickening. No abnormal calcifications. The axilla is unremarkable. Results are provided to the patient at time of visit by the technologist. MM/MM tomosynthesis diagnostic BI IMPRESSION: Right: -Post therapy changes. Left: -No mammographic evidence of malignancy. ASSESSMENT: BI-RADS 3: Probably Benign RECOMMENDATION: Diagnostic right mammography in 6 months to follow-up postsurgical changes. This patient's information was entered into a reminder system with a target due date for their next mammogram.
== END 2022-09-29 13:45 | disposition home or self-care (01) ==
LOC: HO.MAMMO 13:44
PROVIDERS: PCP Nurse Practitioner Family; Visit Provider Nurse Practitioner Family
DX: Z85.3 Personal history of malignant neoplasm of breast (principal)
CPT/HCPCS: 77062; 77066

== ENCOUNTER 2022-10-14 08:58 | Outpatient (AMB) | payer MEDICARE, SELFPAY ==
--- NOTE | 2022-10-14 09:13 | A.OFFVIS_ITS ---
Intake Vital Signs 10/14/22 09:20 Height 5 ft 5 in Weight 207 lb 8 oz BMI 34.5 BP 141/79 H Blood Pressure Location Lt brachial Position Sitting Pulse 97 Intake Visit Reasons: 4 MTH BREAST EXAM Intake Note: Patient is seen in office for 4 month follow up visit, breast exam. Patient c/o: right breast in tender, had a recent mammogram done and was told is scar tissue, has to repeat it in 6 months, denies any other concerns Desolderer Required: No Accompanied by: Self / Same As Patient Allergies amoxicillin [AMOXICILLIN] Allergy (Mild, Verified 10/14/22 09:15) flushing/swelling/rash Medication List - Last Reconciled 10/14/22 by Candido Tobin MD acetaminophen 1,000 mg PO Q12H PRN anastrozole 1 mg PO DAILY calcium carbonate 1,000 mg PO DAILY cholecalciferol (vitamin D3) 125 mcg PO DAILY coenzyme Q10 100 mg PO DAILY docusate sodium (Colace) 300 mg PO QPM famotidine 10 mg PO DAILY flaxseed oil 1,000 mg PO DAILY fluticasone propionate 50 mcg/actuation 1 spray intranasal Q12H PRN levocetirizine (Xyzal) 5 mg PO DAILY magnesium 500 mg PO DAILY metoprolol succinate ER (Toprol XL) 12.5 mg (1/2 x 25 mg) PO DAILY 90 days rd-tti-npilg-calcium carb-K1 400 mcg-500 mg calcium-20 mcg 1 tab PO DAILY ondansetron 4 mg PO Q6H PRN rosuvastatin (Crestor) 20 mg PO BEDTIME 90 days trazodone 50 mg PO BEDTIME PRN vit A-vit C-vit [id number] [id number] 1 tab PO DAILY HPI HPI Comments History of Present Illness Details 67-year-old female patient presenting with a cluster of microcalcifications in the right breast felt to be suspicious for malignancy. Patient reports a prior history of an ultrasound-guided core biopsy in 2007 which was benign but is unsure with side this procedure was performed. Her family history is negative for breast cancer, as far she knows. She is 1 para 1 and did not breast feed her child. She denies a previous history of breast infections or breast surgery. She underwent right breast stereotactic guided core biopsy and pathology revealed: Invasive ductal carcinoma, MSBR grade 3.; DCIS, high nuclear grade, cribriform type with comedonecrosis and microcalcifications. Lymphovascular invasion not identified. ER/GA positive, HER2 Mesfin negative, Ki-67 expression high. 10/02/2021: Right breast lumpectomy with needle localization, right axillary sentinel node biopsy. She returns today to review pathology results which revealed: A.? Breast, right, lumpectomy with needle localization: - Invasive ductal carcinoma, MSBR grade 3. - Ductal carcinoma in situ, high nuclear grade, cribriform type with comedonecrosis and microcalcifications. - Lymphovascular invasion identified. - Resection margins are negative for invasive carcinoma (> 5 mm from all margins). - DCIS is present 1.5 mm from closest inferior margin; remainder margins are widely negative (> 4 mm). - Previous biopsy site changes and focal atypical lobular hyperplasia identified. - AJCC staging (8th edition):? [id number] B.? [place] lymph node #[id number], excision:? One lymph node involved by?metastatic carcinoma?(04/06). C.? [place] lymph node #[id number], excision:? One lymph node involved by?metastatic carcinoma?(04/06). D.? Additional soft tissue, excision:? Fibroadipose tissue, negative for lymph node tissue or malignancy. E.? [place] lymph node, excision:? Four lymph nodes, negative for malignancy (0/4). F.? [place] lymph node #[id number], excision:? One lymph node, negative for malignancy (0/1). She was evaluated by Dr. Kay and started on anastrozole with Abemaciclib. She was unable to tolerate the Abemaciclib due to severe changes in her mood and appetite. She reported no quality of life while on the medication. This is subsequently markedly improved after stopping the medication. She underwent radiation therapy at [facility] (Dr. Morris) and reports skin burn in the right shoulder from the axillary boost. She continues to have pain in the axilla especially when carrying her pocketbook. She underwent a bilateral mammogram on 09/29/2022. This revealed post therapy changes in the right breast with reduced breast size and scarring and smooth skin thickening. No abnormal calcifications were identified. Findings were felt to be low suspicion for kelin gnancy (BI-RADS 3) and six-month follow-up diagnostic right breast mammogram was recommended. This is scheduled at the [facility] on 04/08/2023. [facility] Medical History Arthritis COVID-19 vaccine series completed Elevated cholesterol Family history of anesthesia complication LBBB (left bundle branch block) Surgical History History of bilateral breast biopsy History of hysterectomy History of lumpectomy of right breast (10/02/21) History of tonsillectomy and adenoidectomy Family History Mother Melanoma Maternal Aunt Vocal cord cancer Maternal Aunt Uterine cancer Maternal Aunt Comer Syndrome Social History Household Members: Spouse Housing: House Are you a primary primary health care nurse to a significant other at home: No Do you presently have visiting nurse or other home services: No Alcohol intake: current Alcohol intake frequency: holidays/special occasions only Patient Tobacco Use Status: Former Tobacco user Quit Date: 1980 Tobacco use type: Cigarette Years Smoked: 5 e-Cigarette/Vaping Use: Never Used Second Hand Smoke Exposure: No Advance Directives Date on File: 09/30/21 service: No Current occupational status: retired Cognitive needs: No Hearing needs: No Vision needs: No Review of Systems Const Denies chills, Denies fever(s), Denies headache(s) and Denies poor appetite ENT Denies dizziness and Denies headache(s) Card Denies chest pain, Denies rapid heart rate, Denies palpitations and Denies slow heart rate Resp Denies chest congestion, Denies cough, Denies pain on inspiration and Denies wheezing GI Denies abdominal pain, Denies bloating, Denies change in stool character, Denies constipation, Denies diarrhea, Denies nausea, Denies vomiting and Denies hematemesis Denies nipple discharge Musc Denies back pain, Denies arthralgias, Denies joint swelling and Denies numbness Skin/Breast Reports breast skin changes, Reports breast pain, Denies breast mass, Denies change in pigmentation, Denies nipple discharge, Denies erythema and Denies rash Neuro Denies dizziness, Denies headache(s) and Denies numbness Psych Denies anxiety and Denies depression Endo Denies palpitations Titus/Lymph Denies easy bleeding, Denies easy bruising and Denies lymphadenopathy Aller/Immun Denies wheezing Physical Exam Vital Signs: Last Vital Signs Pulse 97 10/14/22 09:20 BP 141/79 H 10/14/22 09:20 BMI result Body Mass Index 34.5 Const General: comfortable and no acute distress Nutritional Appearance: well nourished Orientation/consciousness: patient oriented x3 Limitations: no limitations HEENT Head: Yes normocephalic and Yes atraumatic Chest Other: Right breast with residual radiation change extending down lower chest wall. There is loss of breast volume and thickening of breast tissue. No discrete masses appreciated. No new skin changes, nipple discharge or enlarged lymph nodes appreciated. Left breast with no palpable mass, nipple discharge, skin change, or enlarged lymph nodes. Resp Effort & Inspection: normal respiratory effort Back/Spine/Pelvis Other: Radiation change noted in right upper back with no ulceration or skin lesion. Skin Other: Warm, dry, no rash Neuro General: patient oriented x3 Extrem Other: No edema General: Yes no clubbing, cyanosis or edema Assessment & Plan Assessment & Plan (1) Invasive ductal carcinoma of right breast: Code(s): C50.911 - Malignant neoplasm of unspecified site of right female breast (2) Ductal carcinoma in situ of right breast: Code(s): D05.11 - Intraductal carcinoma in situ of right breast Plan Patient returns following right breast lumpectomy with needle localization, right axillary sentinel node biopsy. Pathology reveals negative margins however DCIS is focally within 2 mm. In addition 2/7 sentinel lymph nodes revealed metastatic disease. She has been evaluated both by Dr. Kay and [facility] and no wider excision is required at this time. She completed radiation therapy and tolerated this fairly well. She did have some skin burn in the supraclavicular region. This is now much improved. She continues on anastrozole 1 mg p.o. daily is tolerating this well. Her most recent mammogram of 10/02/2022 revealed a low suspicion changes of the right breast for which a six-month follow-up mammogram is recommended, scheduled for 04/08/2023. Examination today revealed no suspicious findings in either breast with the expected postoperative and radiation change to the right breast. She will follow-up in 6 months but is welcome to call sooner for any new concerns. Coding Level of Care Code Est Pt Level 3 (48115) Diagnoses Invasive ductal carcinoma of right breast C50.911 Ductal carcinoma in situ of right breast D05.11
[2022-10-14 09:20] VITALS: BP 141/79; PULSE 97; BMI 34.5
== END 2022-10-14 09:34 | disposition home or self-care (01) ==
PROVIDERS: PCP Nurse Practitioner Family; Visit Provider Surgery
DX: C50.911 Malignant neoplasm of unspecified site of right female breast (principal)
CPT/HCPCS: 99213

== ENCOUNTER → 2022-10-14 08:58 | Outpatient (BNVA) | payer MEDICARE, SELFPAY | PROVIDERS: PCP Nurse Practitioner Family; Visit Provider Surgery | DX: C50.911 Malignant neoplasm of unspecified site of right female breast (principal); Z79.811 Long term (current) use of aromatase inhibitors | CPT/HCPCS: 99212 ==

== ENCOUNTER 2022-10-15 15:06 | Inpatient (IN) | payer MEDICARE, SELFPAY ==
[2022-10-15] VITALS (10 sets, daily range): BP systolic 119–144; BP diastolic 58–77; PULSE 87–115; RESP 16–20; TEMP 35.7–37.5; O2SAT 94–98; BMI 36.2
--- NOTE | 2022-10-15 | ECG_ITS ---
Test Reason : ABDOMINAL PAIN Blood Pressure : / mmHG Vent. Rate : 112 BPM Atrial Rate : 112 BPM P-R Int : 170 ms QRS Dur : 144 ms QT Int : 360 ms P-R-T Axes : 040 -17 129 degrees QTc Int : 491 ms Sinus tachycardia Left bundle branch block Abnormal ECG When compared with ECG of 30-SEP-2021 12:58, No significant change was found Referred By: Gagan Snell Electronically Signed By:PAMELLA MCNALLY MD
--- NOTE | ~2022-10-15 | CT_ITS ---
EXAMINATION: CT ABDOMEN AND PELVIS WITH CONTRAST CLINICAL INFORMATION: Abdominal pain COMPARISON: None available. TECHNIQUE: Multidetector volumetric images were obtained from the superior aspect of the liver through the pubic symphysis following administration 85 mL of Omnipaque 350 intravenous contrast. Sagittal and coronal reformatted images were obtained on the technologist's workstation. Oral contrast: No This CT examination was performed using dose optimization techniques as appropriate, variously including the following: *Automated exposure control *Adjustment of mA and/or kV according to patient size (this includes techniques or standardized protocols for targeted exams where dose is matched to indication/reason for exam; i.e. extremities or head) *Use of iterative reconstruction technique DLP: 737 mGy-cm FINDINGS: LUNG BASES: The visualized lung bases are unremarkable. LIVER, GALLBLADDER, AND BILIARY TREE: Multiple hepatic cysts. No suspicious hepatic lesion. No intrahepatic bile duct dilatation. The gallbladder is unremarkable with no evidence of radiopaque gallstones, gallbladder wall thickening, or obvious pericholecystic inflammatory changes. PANCREAS: Unremarkable. SPLEEN: Unremarkable. ADRENAL GLANDS: Unremarkable. KIDNEYS AND URETERS: The kidneys are normal in size, shape, and attenuation. No hydronephrosis, hydroureter, or calculi seen. No perinephric stranding. BLADDER: Unremarkable. GASTROINTESTINAL TRACT: Numerous diverticula sigmoid colon. There is focal bowel wall thickening and pericolonic edema consistent with a diverticulitis of the sigmoid colon. Moderate volume of free air in the peritoneal cavity. Findings likely due to a perforated diverticulitis of the sigmoid colon. No abscess. There is no bowel obstruction. No abnormally dilated bowel loop. ABDOMINAL WALL: No significant hernia is appreciated. LYMPH NODES: Normal. VASCULAR: Unremarkable. PELVIC VISCERA: Uterus is absent. OSSEOUS STRUCTURES: Unremarkable. CT/CT abdomen pelvis w IV con IMPRESSION: Perforated diverticulitis of the sigmoid colon. Fleischner guidelines were followed. This critical result was discussed with Dr. Estes on 10/15/2022, 5:00 PM and it was ascertained that the content and urgency of the report was understood at the time of direct communication.
--- NOTE | ~2022-10-15 | CT_ITS ---
PROCEDURE: CT GUIDED ABSCESS DRAINAGE CLINICAL INFORMATION: 67-year-old female status post Celi pouch creation complicated by intra-abdominal abscess formation. COMPARISON: CT of the abdomen dated 10/22/2022. TECHNIQUE: The patient was positioned supine on the CT examination table. Preliminary CT scan confirms the presence of the midline intra-abdominal fluid collection that did not appear contiguous with bowel. This was selected for drainage. The overlying skin was prepped and draped. 1% lidocaine was injected subcutaneously and extended to the peritoneum. A very small incision was made in the skin with a #11 blade. Through the incision and under progressive CT guidance, a OnForce needle catheter was advanced into the collection. The needle was removed and through the catheter a Lopez wire was coiled within the collection. Over the wire, serial dilatation was performed until a 10 [place] pigtail drainage catheter could be placed. CT guidance confirmed proper drain placement. A 10 mL specimen was obtained and sent to the laboratory for analysis. It was connected to KOBE bulb suction and sutured at the exit site. An overlying sterile dressing was placed. This CT examination was performed using dose optimization techniques as appropriate, variously including the following: *Automated exposure control *Adjustment of mA and/or kV according to patient size (this includes techniques or standardized protocols for targeted exams where dose is matched to indication/reason for exam; i.e. extremities or head) *Use of iterative reconstruction technique DLP: 388 mGy-cm FINDINGS: Intra-abdominal abscess CT/CT guided drainage IMPRESSION: Successful CT-guided drainage of intra-abdominal abscess as described. Criteria for maintaining the drain conclude absence of fever, normalization of white count, and less than 10 mL of drainage per 24-hour period.
--- NOTE | ~2022-10-15 | CT_ITS ---
EXAMINATION: CT ABDOMEN AND PELVIS WITH CONTRAST CLINICAL INFORMATION: Perforated sigmoid: Post Celi procedure. Rule out abscess. COMPARISON: Previous CT of the abdomen and pelvis 10/15/2022 TECHNIQUE: Multidetector volumetric images were obtained from the superior aspect of the liver through the pubic symphysis following administration 85 mL of Omnipaque 350 intravenous contrast. Sagittal and coronal reformatted images were obtained on the technologist's workstation. Oral contrast: Yes This CT examination was performed using dose optimization techniques as appropriate, variously including the following: *Automated exposure control *Adjustment of mA and/or kV according to patient size (this includes techniques or standardized protocols for targeted exams where dose is matched to indication/reason for exam; i.e. extremities or head) *Use of iterative reconstruction technique DLP: 681 mGy-cm FINDINGS: LUNG BASES: Small bilateral pleural effusions and bilateral lower lobe atelectasis/consolidation. This is increased from previous exam. LIVER, GALLBLADDER, AND BILIARY TREE: Stable low-attenuation liver lesions suggestive of cysts. Largest measures 3 cm in the central liver. Upper normal-size gallbladder with fluid fluid level probably representing sludge. No biliary duct dilatation. PANCREAS: Unremarkable. SPLEEN: Unremarkable. ADRENAL GLANDS: Unremarkable. KIDNEYS AND URETERS: The kidneys are normal in size, shape, and attenuation. No hydronephrosis, hydroureter, or calculi seen. No perinephric stranding. Bilateral small renal cysts. No imaging follow-up recommended. BLADDER: Small amount of air in the bladder. This may be related to recent Mauricio catheter. Clinical correlation recommended. GASTROINTESTINAL TRACT: New postsurgical changes following left lower quadrant colostomy and Celi pouch. There is a drainage catheter in the pelvis just above the bladder. There is an air-fluid level in the upper midline abdomen just inferior to the stomach and superior to the transverse colon suggestive of an abscess. This measures 7.6 x 5 cm in AP and transverse dimension and 6 cm in longitudinal dimension axial image 43 series 3 and sagittal reconstructed image 49 and coronal reconstructed image 28. There is a question of a second adjacent abscess measuring 3 x 6 cm in transverse and AP dimension axial image 44 series 3. It is uncertain whether these 2 abscesses communicate. There is significant surrounding fat stranding and stranding of the bowel mesentery. There is trace free ascites. No free air is seen. ABDOMINAL WALL: Postsurgical changes to the anterior abdominal wall. Small umbilical hernia containing fat. LYMPH NODES: Normal. VASCULAR: Unremarkable. PELVIC VISCERA: Uterus appears to have been removed. No pelvic mass. OSSEOUS STRUCTURES: Unremarkable. CT/CT abdomen pelvis w IV con IMPRESSION: New postsurgical changes following left lower quadrant colostomy and Celi pouch. Pelvic drainage catheter superior to the bladder. No surrounding fluid collection. Air-fluid level in the upper midline abdomen inferior to the stomach and superior to the transverse colon suggestive of an abscess and probable smaller adjacent abscess to the right. It is uncertain whether these 2 abscesses communicate. Liver cysts. Small amount of air in the bladder. This may be related to recent Mauricio catheter. Clinical correlation recommended. Bilateral lower lobe atelectasis/consolidation and pleural effusions. 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 Fleischner guidelines were followed.
--- NOTE | 2022-10-15 15:15 | ED_ITS ---
HPI - Abdominal Pain General Chief Complaint: Abdominal Pain Stated Complaint: ABD PAIN History of Present Illness HPI narrative: Patient is a 66-year-old female presents today with having abdominal pain. Started last night. After a bowel movement. Patient never had any history of diverticulitis. No history of abdominal surgery in the past. Positive history of breast cancer currently on hormonal treatment. Patient denies any fever chills. Denies any coughing congestion upper respiratory symptoms. Denies any pain on urination. Never had a kidney stone. The pain is worse over the lower abdomen both sides. Worse on the left. Patient never had similar pain in the past. Related Data Home Medications Medication Instructions Recorded Confirmed acetaminophen 500 mg capsule 1,000 mg PO Q12H PRN Pain 09/05/20 10/14/22 calcium carbonate 500 mg calcium 1,000 mg PO DAILY 09/05/20 10/14/22 (1,250 mg) chewable tablet docusate sodium 100 mg capsule 300 mg PO QPM 09/05/20 10/14/22 (Colace) fluticasone propionate 50 1 spray intranasal Q12H PRN 09/05/20 10/14/22 mcg/actuation nasal Allergy Symptoms spray,suspension magnesium 200 mg tablet 500 mg PO DAILY 09/05/20 10/14/22 vit A 7,160 unit-vit C 113 mg-vit 1 tab PO DAILY 09/05/20 10/14/22 E 100 zmzf-ewws-ppqkfm tablet cholecalciferol (vitamin D3) 125 125 mcg PO DAILY 03/13/21 10/14/22 mcg (5,000 unit) capsule flaxseed oil 1,000 mg capsule 1,000 mg PO DAILY 09/30/21 10/14/22 aotbhpwd-ljd-yqoph ac 400 1 tab PO DAILY 09/30/21 10/14/22 mcg-calcium carb 500 mg-vit K1 20 mcg tablet famotidine 10 mg tablet 10 mg PO DAILY 09/09/22 10/14/22 levocetirizine 5 mg tablet (Xyzal) 5 mg PO DAILY 09/09/22 10/14/22 Previous Rx's Medication Instructions Recorded anastrozole 1 mg tablet 1 mg PO DAILY #30 tabs 06/04/22 ondansetron 4 mg disintegrating 4 mg PO Q6H PRN Nausea #30 tabs 06/04/22 tablet coenzyme Q10 100 mg capsule 100 mg PO DAILY #90 caps 07/05/22 trazodone 50 mg tablet 50 mg PO BEDTIME PRN sleep #30 tabs 07/15/22 metoprolol succinate 25 mg 12.5 mg PO DAILY 90 days #45 tabs 08/18/22 tablet,extended release 24 hr (Toprol XL) rosuvastatin 20 mg tablet (Crestor) 20 mg PO BEDTIME 90 days #90 tabs 08/29/22 Allergies Allergy/AdvReac Type Severity Reaction Status Date / Time amoxicillin [AMOXICILLIN] Allergy Mild flushing/sw Verified 10/15/22 15:14 elling/rash Review of Systems Review of Systems Positive abdominal pain Yes all other systems are reviewed and are negative PMFSH Past Medical History Attestation statement: The following information was validated with the patient. Medical History Arthritis COVID-19 vaccine series completed Elevated cholesterol Family history of anesthesia complication LBBB (left bundle branch block) Perforation of sigmoid colon due to diverticulitis Surgical History History of bilateral breast biopsy History of hysterectomy History of lumpectomy of right breast (10/02/21) History of tonsillectomy and adenoidectomy Family History Family History Mother Melanoma Maternal Aunt Vocal cord cancer Maternal Aunt Uterine cancer Maternal Aunt Comer Syndrome Social History Social History Household Members: Spouse Housing: House Are you a primary palliative care nurse to a significant other at home: No Do you presently have visiting nurse or other home services: No Alcohol intake: current Alcohol intake frequency: holidays/special occasions only Patient Tobacco Use Status: Former Tobacco user Quit Date: 1980 Tobacco use type: Cigarette Years Smoked: 5 e-Cigarette/Vaping Use: Never Used Second Hand Smoke Exposure: No Advance Directives: Yes Advance Directives on File: Yes Advance Directives Date on File: 09/30/21 Nutrition Risks: No Nutritional Risk service: No Current occupational status: retired Cognitive needs: No Hearing needs: No Vision needs: No Physical Exam ED Vital Signs: Vital Signs - 24 hr 10/15/22 15:14 10/15/22 15:23 10/15/22 16:44 Temperature 98.1 F Pulse Rate 112 H 100 Respiratory Rate 18 16 16 Blood Pressure 119/77 127/68 Pulse Oximetry 98 97 Oxygen Delivery Method Nasal Cannula Room Air BMI result Body Mass Index 36.2 Appearance: Alert. Oriented X3. No acute distress. Eyes: Pupils equal, round and reactive to light. ENT: Pharynx normal. Neck: Normal inspection. Neck supple. No lymph nodes noted. No crepitus CVS: Normal heart rate and rhythm. Pulses normal. Normal S1 and S2 Respiratory: No respiratory distress. Breath sounds normal. No Wheezing. No rales Abdomen: Soft and nontender. No rigidity. No distention. good BS x4 Skin: Skin warm and dry. Normal skin color. Normal skin turgor. Extremities: No lower extremity edema. Neurovascular intact to all extremities. No Lacerations. No Rash Neuro: Oriented X 3. No motor deficit. No sensory deficit. Moving all extermities. No slurred speech Medical Decision Making Medical Decision Making [facility] Narrative: Positive abdominal pain. Worse over the left lower quadrant. Extreme pain. History of breast cancer. No other abdominal surgery in the past. CT scan positive for perforated diverticulitis. Cultures obtained. Antibiotics started. Case consulted by surgery. Patient to be admitted. Differential Diagnosis Differential Diagnoses: The differential diagnosis associated with the presentation includes Perforated diverticulitis, diverticulitis, obstruction, abscess, perforation, kidney stone Admission/Observation Consideration of admission/observation: Escalation of care including admiss ion/observation considered Consult Healthcare Provider Management of the patient was discussed with: Geotechnical Laboratory Technician Surgery Lab Data [facility] Lab Attestation statement: I reviewed the patient's lab results. 10/15/22 15:42 10/15/22 15:42 Labs: Lab Results 10/15/22 10/15/22 10/15/22 Range/Units 15:42 15:42 17:16 WBC 7.8 (4.8-10.8) X10*3/uL RBC 3.67 L (4.20-5.50) X10*6/uL Hgb 11.9 L (12.0-16.0) g/dl Hct 35.7 L (37.0-47.0) % MCV 97.3 (80.0-98.0) fL MCH 32.4 (27.0-33.0) pg MCHC 33.3 (31.0-35.0) g/dl RDW 12.4 (11.0-16.0) % Plt Count 205 (160-400) X10*3/uL MPV 10.0 (9.4-12.3) fL Immature Gran % (Auto) 0.3 (0.0-0.4) % Neut % (Auto) 89.2 H (45-73) % Lymph % (Auto) 5.1 L (20-40) % Hooker % (Auto) 5.3 (2-11) % Eos % (Auto) 0.0 (0-4) % Baso % (Auto) 0.1 (0-2) % Lymph # (Auto) 0.4 L (1.2-4.9) X10*3/uL Hooker # (Auto) 0.4 (0.1-1.2) X10*3/uL Eos # (Auto) 0.0 (0.0-0.4) X10*3/uL Baso # (Auto) 0.0 (0.0-0.2) X10*3/uL Abs Immat Gran (auto) 0.02 (0.00-0.03) X10*3/uL Absolute Neuts (auto) 6.9 (2.0-8.3) x10*3/uL Absolute Nucleated RBC 0.000 (0.0-0.012) X10*3/uL Nucleated RBC % (auto) 0.0 (0.0-0.2) /100WBC Sodium 139 (135-145) mmol/L Potassium 4.0 (3.3-5.1) mmol/L Chloride 108 (96-108) mmol/L Carbon Dioxide 21 L (22-29) mmol/L Anion Gap 14 (12-20) BUN 16 (9-16) mg/dL Creatinine 0.80 (0.5-1.4) mg/dL Estim Creat Clear Calc 77.2 Estimated GFR > 60 Random Glucose 145 H (60-115) mg/dL Lactic Acid 2.0 (0.5-2.0) mmol/L Calcium 9.6 (8.4-10.2) mg/dL Total Bilirubin 0.7 (0.0-1.0) mg/dL Direct Bilirubin 0.3 (0.0-0.5) mg/dL AST 23 (5-31) U/L ALT 20 (0-31) U/L Alkaline Phosphatase 73 (39-117) U/L Total Protein 6.4 L (6.5-8.0) g/dL Albumin 3.9 (3.5-5.0) g/dL Lipase 11 (8-78) U/L Independent Interpretation I performed an independent interpretation of an: CT Scan Interpretation: Perforated diverticulitis Radiology Impression Discussion of test interpretation with radiology: I have reviewed the radiologist's reading. External Record Review External record reviewed: Office record Chronic Conditions Breast cancer, hypercholesterolemia Medications Administered Generic Name Dose Route Start Last Admin Trade Name Freq PRN Reason Stop Dose Admin Levofloxacin 500 mg in 100 mls @ 100 mls/hr 10/15/22 17:03 10/15/22 17:27 Levaquin IV 10/15/22 18:02 100 mls/hr ONCE ONE Administration Discontinued Medications Generic Name Dose Route Start Last Admin Trade Name Freq PRN Reason Stop Dose Admin Hydromorphone HCl 0.5 mg 10/15/22 15:13 10/15/22 15:23 Hydromorphone Hcl 0.5 Mg/0.5 Ml Syringe IVPUSH 10/15/22 15:14 0.5 mg ONCE ONE Administration Protocol Sodium Chloride 1,000 mls @ 999 mls/hr 10/15/22 15:15 10/15/22 16:25 Ns IV 10/15/22 16:15 Infused .Q1H1M MAGNUS Infusion Iohexol 100 ml 10/15/22 16:18 10/15/22 16:18 Iohexol 350 Mg/Ml 100 Ml Infus..Btl IV 10/15/22 16:19 85 ml ONCE ONE Administration Ondansetron HCl 4 mg 10/15/22 15:13 10/15/22 15:23 Ondansetron Hcl 4 Mg/2 Ml Vial IVPUSH 10/15/22 15:14 4 mg ONCE ONE Administration Discharge Plan Discharge Clinical Impression: Perforation of sigmoid colon due to diverticulitis Patient Disposition: Admitted As Inpatient Prescriptions: No Action coenzyme Q10 100 mg capsule 100 mg PO DAILY Qty: 90 1RF trazodone 50 mg tablet 50 mg PO BEDTIME PRN (Reason: sleep) Qty: 30 5RF metoprolol succinate [Toprol XL] 25 mg tablet extended release 24 hr 12.5 mg PO DAILY 90 Days Qty: 45 1RF rosuvastatin [Crestor] 20 mg tablet 20 mg PO BEDTIME 90 Days Qty: 90 1RF flaxseed oil 1,000 mg Capsule 1,000 mg PO DAILY Rx Instructions: administer with a meal [id number]-del-fhdce-calcium carb-K1 400 mcg-500 mg calcium-20 mcg Tablet 1 tab PO DAILY anastrozole 1 mg Tablet 1 mg PO DAILY Qty: 30 6RF ondansetron 4 mg Tablet,Disintegrating 4 mg PO Q6H PRN (Reason: Nausea) Qty: 30 3RF cholecalciferol (vitamin D3) 125 mcg (5,000 unit) capsule 125 mcg PO DAILY docusate sodium [Colace] 100 mg capsule 300 mg PO QPM magnesium 200 mg tablet 500 mg PO DAILY fluticasone propionate 50 mcg/actuation spray,suspension 1 spray intranasal Q12H PRN (Reason: Allergy Symptoms) Rx Instructions: administer into each nostril calcium carbonate 500 mg calcium (1,250 mg) tablet,chewable 1,000 mg PO DAILY acetaminophen 500 mg capsule 1,000 mg PO Q12H PRN (Reason: Pain) vit A-vit C-vit [id number]-izvwwe 7,160-113-100 iwrf-th-mskb tablet 1 tab PO DAILY levocetirizine [Xyzal] 5 mg tablet 5 mg PO DAILY famotidine 10 mg tablet 10 mg PO DAILY
[2022-10-15] MEDS: ondansetron HCL 4 MG/2 ML VIAL IVPUSH ×2 (15:23→22:00)
[2022-10-15] MEDS: HYDROmorphone HCl 0.5 MG/0.5 ML SYRINGE IVPUSH (15:23)
[2022-10-15] MEDS: 0.9 % Sodium Chloride 1,000 ML 999 ML IV (15:23)
[2022-10-15 15:46] LABS: MANUAL DIFF FLAG NO
[2022-10-15 15:54] LABS: Basophils Percent Auto 0.1 % (0-2); Hematocrit 35.7 % (37.0-47.0); Hemoglobin 11.9 g/dl (12.0-16.0); Imm Gran Abs Auto 0.02 X10*3/uL (0.00-0.03); Imm Gran Pct Auto 0.3 % (0.0-0.4); Lymphocytes Absolute Auto 0.4 X10*3/uL (1.2-4.9); Lymphocytes Percent Auto 5.1 % (20-40); Mean Corpuscular HGB Conc 33.3 g/dl (31.0-35.0); Mean Corpuscular Hemoglobin 32.4 pg (27.0-33.0); Mean Corpuscular Volume 97.3 fL (80.0-98.0); Monocytes Absolute Auto 0.4 X10*3/uL (0.1-1.2); Monocytes Percent Auto 5.3 % (2-11); Neutrophils Absolute Auto 6.9 x10*3/uL (2.0-8.3); Neutrophils Percent Auto 89.2 % (45-73); Platelet Count 205 X10*3/uL (160-400); Red Blood Count 3.67 X10*6/uL (4.20-5.50); Red Cell Distribution Width 12.4 % (11.0-16.0); White Blood Count 7.8 X10*3/uL (4.8-10.8)
[2022-10-15 16:05] LABS: Alanine Aminotransferase 20 U/L (0-31); Albumin Level 3.9 g/dL (3.5-5.0); Alkaline Phosphatase 73 U/L (39-117); Anion Gap 14 (12-20); Aspartate Amino Transferase 23 U/L (5-31); Bilirubin Direct 0.3 mg/dL (0.0-0.5); Bilirubin Total 0.7 mg/dL (0.0-1.0); Blood Urea Nitrogen 16 mg/dL (9-16); Calcium 9.6 mg/dL (8.4-10.2); Carbon Dioxide 21 mmol/L (22-29); Chloride 108 mmol/L (96-108); Creatinine Clr Calc Pharmacy 77.2; Estimated Glomerular Filt Rate > 60; Glucose Random 145 mg/dL (60-115); Lipase 11 U/L (8-78); Sodium 139 mmol/L (135-145); Total Protein 6.4 g/dL (6.5-8.0)
[2022-10-15] MEDS: iohexoL 350 MG/ML 100 ML INFUS..BTL IV (16:18)
--- NOTE | 2022-10-15 17:26 | PM.HPGS ---
History of Present Illness History of Present Illness Date of Service: 10/21/22 Chief complaint: Perforated Diverticulitis Narrative: Lilibeth Bardales is a 67 year old female here in the ER for abdominal pain. She says this started after dinner last night. She says this was mostly on the lower abdomen. This persisted throughout the night. She describes some nausea and vomiting as well She says that she noticed the pain to be worsening this after no should she eventually decided to come to the ER. Her CAT scan shows pneumoperitoneum from what appears to be perforated diverticulitis. She has never had any colonoscopy in the past. She says she was scheduled to have a colonoscopy about 3 years ago but this was canceled during onset of COVID. She also was diagnosed to have breast cancer last year and she underwent right breast lumpectomy a needle localization and sentinel node biopsy. She is on hormonal treatment at this time. She admits to a long hx of chronic constipation. She says she has a bowel movement once every 3 days and needs to take laxatives and stool softeners all the time. Review of Systems Constitutional: Constitutional: Denies chills and Denies fever(s) Cardiovascular: Cardiovascular: Denies chest pain, Denies dyspnea and Denies dyspnea on exertion Respiratory: Respiratory: Denies cough, Denies dyspnea and Denies dyspnea on exertion Gastrointestinal: Gastrointestinal: Denies hematochezia and Denies change in bowel habits Genitourinary: Genitourinary: Denies hematuria Musculoskeletal: Musculoskeletal: Denies back pain and Denies limited range of motion Neurologic: Denies focal weakness and Denies convulsions Psychiatric: Psychiatric: Denies depression and Denies mood swings [facility] Past Medical History Medical History Arthritis COVID-19 vaccine series completed Elevated cholesterol Family history of anesthesia complication LBBB (left bundle branch block) Perforation of sigmoid colon due to diverticulitis Family History Family History Mother Melanoma Maternal Aunt Vocal cord cancer Maternal Aunt Uterine cancer Maternal Aunt Comer Syndrome Surgical History Surgical History History of bilateral breast biopsy History of hysterectomy History of lumpectomy of right breast (10/02/21) History of tonsillectomy and adenoidectomy Social History Social History Household Members: Family Housing: House Are you a primary director of healthcare systems to a significant other at home: No Do you presently have visiting nurse or other home services: No Unable to assess alcohol history related to: Unknown Alcohol intake: current Alcohol intake frequency: holidays/special occasions only Patient Tobacco Use Status: Former Tobacco user Quit Date: 1980 Tobacco use type: Cigarette Years Smoked: 5 e-Cigarette/Vaping Use: Never Used Second Hand Smoke Exposure: No Use of substances other than those prescribed or required for medical reasons: No Currently Displaying Signs/Symptoms of Drug Intoxication Withdrawal: No Advance Directives: Yes Advance Directives on File: Yes Advance Directives Date on File: 09/30/21 Do you have thoughts of harming others: None Do you have a plan to hurt others: No Plan Nutrition Risks: No Nutritional Risk Patient : No : No Poor oral hygiene: No service: No Current occupational status: retired Cognitive needs: No Hearing needs: No Vision needs: No Meds Allergies Allergy/AdvReac Type Severity Reaction Status Date / Time amoxicillin [AMOXICILLIN] Allergy Mild flushing/sw Verified 10/15/22 15:14 elling/rash Active Medications: Current Medications Levofloxacin (Levaquin) 500 mg in 100 mls @ 100 mls/hr IV ONCE ONE Stop: 10/15/22 18:02 Home Medications Medication Instructions Recorded Confirmed Last Taken Type acetaminophen 500 mg capsule 1,000 mg PO Q12H PRN Pain 09/05/20 10/15/22 Unknown History calcium carbonate 500 mg calcium 1,500 mg PO DAILY INDEGESTION 09/05/20 10/15/22 Unknown History (1,250 mg) chewable tablet docusate sodium 100 mg capsule 300 mg PO BEDTIME PRN Constipation 09/05/20 10/15/22 Unknown History (Colace) fluticasone propionate 50 1 spray intranasal Q12H PRN 09/05/20 10/15/22 Unknown History mcg/actuation nasal Allergy Symptoms spray,suspension magnesium 200 mg tablet 400 mg PO DAILY 09/05/20 10/15/22 Unknown History vit A 7,160 unit-vit C 113 mg-vit 1 tab PO DAILY 09/05/20 10/15/22 Unknown History E 100 hgzv-obeg-xgchng tablet cholecalciferol (vitamin D3) 125 125 mcg PO DAILY 03/13/21 10/15/22 Unknown History mcg (5,000 unit) capsule flaxseed oil 1,000 mg capsule 1,000 mg PO DAILY 09/30/21 10/15/22 Unknown History xbwyxfsb-fhc-slxqz ac 400 1 tab PO DAILY 09/30/21 10/15/22 Unknown History mcg-calcium carb 500 mg-vit K1 20 mcg tablet famotidine 10 mg tablet 10 mg PO DAILY 09/09/22 10/15/22 Unknown History levocetirizine 5 mg tablet (Xyzal) 5 mg PO DAILY 09/09/22 10/15/22 Unknown History Physical Exam Vital Signs: Vital Signs: Last Vital Signs Temp 98.1 F 10/15/22 15:14 Pulse 100 10/15/22 16:44 Resp 16 10/15/22 16:44 BP 127/68 10/15/22 16:44 Pulse Ox 97 10/15/22 16:44 O2 Del Method Room Air 10/15/22 16:44 Oxygen Flow Rate 2 10/15/22 15:14 BMI result Body Mass Index 36.2 Const: Other: Appears uncomfortable General: no acute distress Orientation/consciousness: patient oriented x3 Neck: Neck: Yes no lymphadenopathy Resp: Auscultation: clear to auscultation bilaterally Cardio: Rhythm: regular rhythm GI: Other: Diffusely tender, mostly on the lower abdomen Palpation (GI): Soft to palpation, Tenderness to palpation present (GI) and no guarding Neuro: General: patient oriented x3 Results Results Labs: Short CBC 10/15/22 Range/Units 15:42 WBC 7.8 (4.8-10.8) X10*3/uL Hgb 11.9 L (12.0-16.0) g/dl Hct 35.7 L (37.0-47.0) % Plt Count 205 (160-400) X10*3/uL BMP 10/15/22 15:42 Sodium 139 Potassium 4.0 Chloride 108 Carbon Dioxide 21 L BUN 16 Creatinine 0.80 Calcium 9.6 Liver Function 10/15/22 Range/Units 15:42 Total Bilirubin 0.7 (0.0-1.0) mg/dL Direct Bilirubin 0.3 (0.0-0.5) mg/dL AST 23 (5-31) U/L ALT 20 (0-31) U/L Alkaline Phosphatase 73 (39-117) U/L Albumin 3.9 (3.5-5.0) g/dL Additional studies: Laboratory Results WBC 7.8 X10*3/uL (4.8-10.8) 10/15/22 15:42 RBC 3.67 X10*6/uL (4.20-5.50) L 10/15/22 15:42 Hgb 11.9 g/dl (12.0-16.0) L 10/15/22 15:42 Hct 35.7 % (37.0-47.0) L 10/15/22 15:42 MCV 97.3 fL (80.0-98.0) 10/15/22 15:42 MCH 32.4 pg (27.0-33.0) 10/15/22 15:42 MCHC 33.3 g/dl (31.0-35.0) 10/15/22 15:42 RDW 12.4 % (11.0-16.0) 10/15/22 15:42 Plt Count 205 X10*3/uL (160-400) 10/15/22 15:42 MPV 10.0 fL (9.4-12.3) 10/15/22 15:42 Immature Gran % (Auto) 0.3 % (0.0-0.4) 10/15/22 15:42 Neut % (Auto) 89.2 % (45-73) H 10/15/22 15:42 Lymph % (Auto) 5.1 % (20-40) L 10/15/22 15:42 Gilliam % (Auto) 5.3 % (2-11) 10/15/22 15:42 Eos % (Auto) 0.0 % (0-4) 10/15/22 15:42 Baso % (Auto) 0.1 % (0-2) 10/15/22 15:42 Lymph # (Auto) 0.4 X10*3/uL (1.2-4.9) L 10/15/22 15:42 Gilliam # (Auto) 0.4 X10*3/uL (0.1-1.2) 10/15/22 15:42 Eos # (Auto) 0.0 X10*3/uL (0.0-0.4) 10/15/22 15:42 Baso # (Auto) 0.0 X10*3/uL (0.0-0.2) 10/15/22 15:42 Abs Immat Gran (auto) 0.02 X10*3/uL (0.00-0.03) 10/15/22 15:42 Absolute Neuts (auto) 6.9 x10*3/uL (2.0-8.3) 10/15/22 15:42 Absolute Nucleated RBC 0.000 X10*3/uL (0.0-0.012) 10/15/22 15:42 Nucleated RBC % (auto) 0.0 /100WBC (0.0-0.2) 10/15/22 15:42 Sodium 139 mmol/L (135-145) 10/15/22 15:42 Potassium 4.0 mmol/L (3.3-5.1) 10/15/22 15:42 Chloride 108 mmol/L (96-108) 10/15/22 15:42 Carbon Dioxide 21 mmol/L (22-29) L 10/15/22 15:42 Anion Gap 14 (12-20) 10/15/22 15:42 BUN 16 mg/dL (9-16) 10/15/22 15:42 Creatinine 0.80 mg/dL (0.5-1.4) 10/15/22 15:42 Estim Creat Clear Calc 77.2 10/15/22 15:42 Estimated GFR > 60 10/15/22 15:42 Random Glucose 145 mg/dL (60-115) H 10/15/22 15:42 Calcium 9.6 mg/dL (8.4-10.2) 10/15/22 15:42 Total Bilirubin 0.7 mg/dL (0.0-1.0) 10/15/22 15:42 Direct Bilirubin 0.3 mg/dL (0.0-0.5) 10/15/22 15:42 AST 23 U/L (5-31) 10/15/22 15:42 ALT 20 U/L (0-31) 10/15/22 15:42 Alkaline Phosphatase 73 U/L (39-117) 10/15/22 15:42 Total Protein 6.4 g/dL (6.5-8.0) L 10/15/22 15:42 Albumin 3.9 g/dL (3.5-5.0) 10/15/22 15:42 Lipase 11 U/L (8-78) 10/15/22 15:42 Impressions Abdomen/Pelvis CT 10/15/22 16:22 IMPRESSION: Perforated diverticulitis of the sigmoid colon. Fleischner guidelines were followed. This critical result was discussed with Dr. Estes on 10/15/2022, 5:00 PM and it was ascertained that the content and urgency of the report was understood at the time of direct communication. Assessment and Plan (1) Perforation of sigmoid colon due to diverticulitis: Status: Acute She has had lower abdominal pain, mostly on the lower abdomen since last night. She had a CAT scan here in the ER showing large amounts of pneumoperitoneum along with inflammatory changes in the sigmoid consistent with perforated diverticulitis. She does have large amounts of stool as well throughout the colon and has a long history of chronic constipation. I therefore explained to her that we need to proceed with laparotomy and likely sigmoid resection and colostomy. I discussed with the technique of this procedure. I had a long discussion with her about the risks including but not limited to bleeding, infections, injury to bowel, urinary tract, other organs, as well as the benefits and alternatives. I explained to her what to expect postoperatively. She has agreed to proceed Her family including her daughter and her spouse was with her during the discussion in the ED. We will do her laparotomy tonight. Time Spent With Patient Time: Total time managing care of this patient today ____ minutes. Quality Stroke Does the patient have a stroke diagnosis?: No VTE Prior VTE?: No VTE Risk Level:: Medical - moderate - high VTE Device Contraindication: N/A - Device Ordered VTE Drug Contraindication: N/A - Med Ordered Procedures Date of Service Date of Service: 10/21/22
[2022-10-15] MEDS: levoFLOXacin/D5W 500 MG/100 ML PIGGYBACK 100 MG IV (17:27)
--- NOTE | 2022-10-15 17:50 | P.CONAN_ITS ---
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) Past Medical History Medical History Arthritis COVID-19 vaccine series completed Elevated cholesterol Family history of anesthesia complication LBBB (left bundle branch block) Perforation of sigmoid colon due to diverticulitis Functional capacity: independent ambulation Patient : No Family History Family History Mother Melanoma Maternal Aunt Vocal cord cancer Maternal Aunt Uterine cancer Maternal Aunt Comer Syndrome Family history of problems with anesthesia: No Surgical History Surgical History History of bilateral breast biopsy History of hysterectomy History of lumpectomy of right breast (10/02/21) History of tonsillectomy and adenoidectomy History of Problems with Anesthesia: No Social History Social History Household Members: Spouse Housing: House Are you a primary physician primary care sports medicine to a significant other at home: No Do you presently have visiting nurse or other home services: No Alcohol intake: current Alcohol intake frequency: holidays/special occasions only Patient Tobacco Use Status: Former Tobacco user Quit Date: 1980 Tobacco use type: Cigarette Years Smoked: 5 e-Cigarette/Vaping Use: Never Used Second Hand Smoke Exposure: No Advance Directives Date on File: 09/30/21 service: No Current occupational status: retired Cognitive needs: No Hearing needs: No Vision needs: No Meds Allergies Allergy/AdvReac Type Severity Reaction Status Date / Time amoxicillin [AMOXICILLIN] Allergy Mild flushing/sw Verified 10/15/22 15:14 elling/rash Active Medications: Current Medications Heparin Sodium (Porcine) (Heparin Sodium,Porcine 5,000 Unit/Ml Vial) 5,000 unit SUBCUT Q8H MAGNUS Levofloxacin (Levaquin) 500 mg in 100 mls @ 100 mls/hr IV ONCE ONE Stop: 10/15/22 18:02 Last Admin: 10/15/22 17:27 Dose: 100 mls/hr Cefotetan Disodium 2 gm/ (Sodium Chloride) 50 mls @ 100 mls/hr IV PREOP ONE Stop: 10/15/22 18:00 Lactated Ringer's (Lr) 1,000 mls @ 100 mls/hr IVCONT .Q10H [facility] Sodium Chloride (0.9 % Sodium Chloride Flush 3 Ml Syringe) 3 ml IVFLUSH QSHIFT [facility] Home Medications Medication Instructions Recorded Confirmed Last Taken Type acetaminophen 500 mg capsule 1,000 mg PO Q12H PRN Pain 09/05/20 10/14/22 Unknown History calcium carbonate 500 mg calcium 1,000 mg PO DAILY 09/05/20 10/14/22 Unknown History (1,250 mg) chewable tablet docusate sodium 100 mg capsule 300 mg PO QPM 09/05/20 10/14/22 Unknown History (Colace) fluticasone propionate 50 1 spray intranasal Q12H PRN 09/05/20 10/14/22 Unknown History mcg/actuation nasal Allergy Symptoms spray,suspension magnesium 200 mg tablet 500 mg PO DAILY 09/05/20 10/14/22 Unknown History vit A 7,160 unit-vit C 113 mg-vit 1 tab PO DAILY 09/05/20 10/14/22 Unknown History E 100 [id number] tablet cholecalciferol (vitamin D3) 125 125 mcg PO DAILY 03/13/21 10/14/22 Unknown History mcg (5,000 unit) capsule flaxseed oil 1,000 mg capsule 1,000 mg PO DAILY 09/30/21 10/14/22 Unknown History pdiyugyi-dmy-opbah ac 400 1 tab PO DAILY 09/30/21 10/14/22 Unknown History mcg-calcium carb 500 mg-vit K1 20 mcg tablet famotidine 10 mg tablet 10 mg PO DAILY 09/09/22 10/14/22 Unknown History levocetirizine 5 mg tablet (Xyzal) 5 mg PO DAILY 09/09/22 10/14/22 Unknown History Exam Exam Date and Time: October 15, 2022 1750 Height,Weight and Vital Signs: Height 5 ft 5 in Weight 98.7 kg Last Vital Signs Temp 98.1 F 10/15/22 15:14 Pulse 100 10/15/22 16:44 Resp 16 10/15/22 16:44 BP 127/68 10/15/22 16:44 Pulse Ox 97 10/15/22 16:44 O2 Del Method Room Air 10/15/22 16:44 Oxygen Flow Rate 2 10/15/22 15:14 Pertinent Lab Results Pertinent Lab Results: Laboratory Tests 10/15/22 10/15/22 10/15/22 15:42 15:42 17:16 WBC 7.8 RBC 3.67 L Hgb 11.9 L Hct 35.7 L MCV 97.3 MCH 32.4 MCHC 33.3 RDW 12.4 Plt Count 205 MPV 10.0 Immature Gran % (Auto) 0.3 Neut % (Auto) 89.2 H Lymph % (Auto) 5.1 L [place] % (Auto) 5.3 Eos % (Auto) 0.0 Baso % (Auto) 0.1 Lymph # (Auto) 0.4 L [place] # (Auto) 0.4 Eos # (Auto) 0.0 Baso # (Auto) 0.0 Abs Immat Gran (auto) 0.02 Absolute Neuts (auto) 6.9 Absolute Nucleated RBC 0.000 Nucleated RBC % (auto) 0.0 Sodium 139 Potassium 4.0 Chloride 108 Carbon Dioxide 21 L Anion Gap 14 BUN 16 Creatinine 0.80 Estim Creat Clear Calc 77.2 Estimated GFR > 60 Random Glucose 145 H Lactic Acid 2.0 Calcium 9.6 Total Bilirubin 0.7 Direct Bilirubin 0.3 AST 23 ALT 20 Alkaline Phosphatase 73 Total Protein 6.4 L Albumin 3.9 Lipase 11 Airway Mallampati Class: Patient Non-Cooperative TM Dist: >3cm Neck ROM: Full Heart: RRR Lungs: CTA Assessment and Plan Final Anesthetic Review Family History of Problems with Anesthesia: No History of Problems with Anesthesia: No ASA Class: II and Emergency Final Preanesthetic Review: Meds/Allgs Chart Reviewed, Consent Obtained/Reviewed and Anes Risks/Benef Reviewed Patient Risk: Intermediate Procedure Risk: Intermediate Anesthetic Plan Anesthetic Plan: GA Disposition: Standard PACU
--- NOTE | 2022-10-15 20:15 | W.PM.OPN ---
Operative Note Operative Note Date of Service: 10/15/22 Narrative: Preop diagnosis: Perforated viscus Postop diagnosis: Perforated sigmoid, possibly stercoral in etiology versus secondary to acute diverticulitis Procedure: Laparotomy, sigmoid resection, end colostomy, intra-abdominal washout Surgeon: Gagan Snell MD The patient is a 67 year female admitted for abdominal pain with a CAT scan showing amounts of free air with what appeared to be a perforation of the sigmoid colon. She understood the technique of laparotomy with resection and colostomy. She was aware of the risks, benefits, and alternatives. FINDINGS: The transverse colon, left colon, and sigmoid had a very high fecal load with very hard rock like stools; there was a perforation in the mid sigmoid area with note of stools extraluminally, and surrounding peritonitis; etiology may therefore be stercoral versus acute diverticulitis. Procedure: The patient was brought to the operating room and placed supine under general anesthesia via endotracheal tube. A Mauricio catheter was inserted. The abdomen was prepped and draped usual sterile fashion. A surgical time-out was done. The patient received Levaquin and Flagyl as ordered earlier preoperatively A low midline incision was made on the skin using blade 10. And this was carried down through the full-thickness of the skin and subcutaneous fat. Please note the patient had a thick amount of subcutaneous fat in view of her obesity. I reached the fascia and expose this. I incised the fascia with electrocautery and the peritoneum was entered. I lengthened the fascial incision to optimize the skin incision. There was no free fluid but was note of significant erythema of bowel loops. I retracted the small bowel loops away from the pelvis. After this was done, there was note of fecal spillage surrounding this area. I was able to visualize the sigmoid. I followed this proximally and distally. In the mid sigmoid was note of a large perforation with note of surrounding stool particles. Some of the stools outside the sigmoid were noted to be pebble like in size. There was note of large amounts of hard stools in the sigmoid, left colon as well as the transverse colon. The stools were rock hard in consistency. The perforation measured about 2 cm in diameter. It is possible that the perforation secondary to stercoral colitis in view of the hard stools throughout the colon. I was able to mobilize more of the sigmoid and the left colon by dividing the ligamentous attachments at the white line of [place] with electrocautery.. It appeared that we have enough length of adequately mobilize sigmoid. I chose my point of dissection proximal and distal and created a mesenteric window on each point. I divided the sigmoid colon proximal and distal to this perforation using the JESI 60 mm stapler. I transected the attached mesentery using the LigaSure and this segment of sigmoid with the perforation was sent for pathology. The proximal and distal staple lines appeared viable without any evidence of any ischemia. I mobilized more of the proximal stump by dividing the rest of peritoneal attachments. I created my discoid excision on the skin on the left lower quadrant that had been previously marked and divided through the thick subcutaneous fat down to the fascia. I incised the anterior fascia and did muscle-splitting to create my stoma opening. I was able to pull up the proximal sigmoid through this stoma opening. The stoma was matured by opening the staple line and applying a circumferential row of Polysorb 3-0 simple after sutures full-thickness to the bowel wall and to the subdermal layer. The stoma appeared viable without any signs of ischemia. I then proceeded to copiously irrigate the peritoneal cavity. I examined the distal rectal stump. The staple line was intact. I applied a blue colored stitch to the peritoneum on the left side to the rectosigmoid stump to secure this in place and make it easier to identify with reversal. I examined the surrounding small bowel loops and these appeared to be viable without any injury but with some peritonitis on adjacent bowel loops. I did more copiious irrigation to remove any other stool particles. I observed for hemostasis. Once hemostasis was confirmed, I proceeded to then position a KOBE drain to the pelvis and this was brought out through an exit site on the right lower quadrant. This was secured to the skin with a nylon 3-0 anchoring stitch. I closed the fascia with a running Maxon 1 stitch. Skin closure was achieved loosely with skin lali. I applied Iodoform packings in between the lali through the thick subcutaneous fat . I then applied a stoma appliance. Dressings were placed. The procedure was completed. I infiltrated the incisions with Marcaine 0.5% for postop analgesia. The patient tolerated the procedure well. There were no immediate complications. Initial and final counts of sponges and instruments were correct. Estimated blood loss was about 100 cc. The patient was extubated without difficulty and transferred to the recovery room with stable vital signs.
[2022-10-15] MEDS: Acetaminophen 1,000 MG/100 ML PIGGYBACK 400 MG IV (20:39)
--- NOTE | 2022-10-15 21:03 | PHA.MEDREC ---
Pharmacy Consult ? Medication Reconciliation Pharmacy has completed the medication reconciliation. SPOKE TO DAUGHTER WHO HAS LIST LUKE
[2022-10-15] MEDS: metroNIDAZOLE/NS 500 MG/100 ML PIGGYBACK 100 MG IV (21:51)
[2022-10-15] MEDS: Lactated Ringers 1,000 ML 100 ML IVCONT (21:51)
[2022-10-15] MEDS: Docusate Sodium 100 MG CAPSULE PO (22:00)
[2022-10-15] MEDS: Morphine Sulfate 4 MG/ML CARTRIDGE IVPUSH (22:00)
[2022-10-16] MEDS: Ketorolac Tromethamine 15 MG/ML VIAL IVPUSH ×4 (01:08→19:36)
[2022-10-16] MEDS: Acetaminophen 1,000 MG/100 ML PIGGYBACK 400 MG IV ×4 (01:09→19:37)
[2022-10-16 03:42] VITALS: BP 128/74; PULSE 91; RESP 18; TEMP 36.6; O2SAT 96
[2022-10-16] MEDS: metroNIDAZOLE/NS 500 MG/100 ML PIGGYBACK 100 MG IV ×3 (04:48→21:23)
[2022-10-16] MEDS: Morphine Sulfate 4 MG/ML CARTRIDGE IVPUSH ×2 (04:50→11:40)
[2022-10-16 06:54] LABS: Hematocrit 35.8 % (37.0-47.0); Hemoglobin 11.7 g/dl (12.0-16.0); Mean Corpuscular HGB Conc 32.7 g/dl (31.0-35.0); Mean Corpuscular Volume 97.8 fL (80.0-98.0); Mean Platelet Volume 10.4 fL (9.4-12.3); Platelet Count 187 X10*3/uL (160-400); Red Blood Count 3.66 X10*6/uL (4.20-5.50); Red Cell Distribution Width 12.5 % (11.0-16.0); White Blood Count 5.2 X10*3/uL (4.8-10.8)
[2022-10-16 07:25] LABS: Anion Gap 11 (12-20); Blood Urea Nitrogen 16 mg/dL (9-16); Calcium 9.5 mg/dL (8.4-10.2); Carbon Dioxide 22 mmol/L (22-29); Chloride 109 mmol/L (96-108); Creatinine Clr Calc Pharmacy 78.1; Estimated Glomerular Filt Rate > 60; Glucose Random 135 mg/dL (60-115); Potassium 4.2 mmol/L (3.3-5.1); Sodium 138 mmol/L (135-145)
[2022-10-16 07:43] VITALS: BP 119/58; PULSE 86; RESP 20; TEMP 36.4; O2SAT 95
--- NOTE | 2022-10-16 08:11 | P.PNGS_ITS ---
Subjective Subjective Date of Service: 10/16/22 <Mary Thornton PA-C - Last Filed: 10/16/22 08:16> 10/16/22 <Gagan Snell MD - Last Filed: 10/16/22 08:40> Interval history: Feels fairly well this morning. Tolerating sips of renae monique. Pain well controlled. Has not been OOB yet. <Mary Thornton PA-C - Last Filed: 10/16/22 08:16> Physical Exam Vital Signs: Vital Signs: Last Vital Signs Temp 97.6 F 10/16/22 07:43 Pulse 86 10/16/22 07:43 Resp 20 10/16/22 07:43 BP 119/58 L 10/16/22 07:43 Pulse Ox 95 10/16/22 07:43 O2 Del Method Nasal Cannula 10/16/22 07:43 O2 Flow Rate 3 10/16/22 07:43 Oxygen Flow Rate 2 10/15/22 15:14 BMI result Body Mass Index 36.2 <Mary Thornton PA-C - Last Filed: 10/16/22 08:16> Const: General: comfortable, no acute distress and alert <Mary Thornton PA-C - Last Filed: 10/16/22 08:16> Orientation/consciousness: patient oriented x3 <Mary Thornton PA-C - Last Filed: 10/16/22 08:16> Resp: Effort & Inspection: normal respiratory effort <Mary Thornton PA-C - Last Filed: 10/16/22 08:16> GI: Other: KOBE drain dark sanguineous output colostomy with some clots, no output <Mary Thornton PA-C - Last Filed: 10/16/22 08:16> Inspection: No distended and Yes incision (dressing intact ) <MICHELE Pendleton Last Filed: 10/16/22 08:16> Skin: General skin exam: no rashes or lesions noted <MICHELE Pendleton Last Filed: 10/16/22 08:16> Neuro: General: patient oriented x3 and moves all extremities <MICHELE Pendleton Last Filed: 10/16/22 08:16> Objective Data Active Medications Docusate Sodium (Docusate Sodium 100 Mg Capsule) 100 mg PO BID [facility] Last Admin: 10/15/22 22:00 Dose: 100 mg Documented By: LINETTE Fentanyl (Fentanyl Citrate/Pf 100 Mcg/2 Ml Vial) 25 mcg IVPUSH Q5M PRN; Protocol PRN Reason: Pain, Moderate(Pain Scale 4-6) Heparin Sodium (Porcine) (Heparin Sodium,Porcine 5,000 Unit/Ml Vial) 5,000 unit SUBCUT Q8H [facility] Lactated Ringer's (Lr) 1,000 mls @ 100 mls/hr IVCONT .Q10H [facility] Last Admin: 10/16/22 03:17 Dose: Not Given Documented By: LINETTE Non-Admin Reason: IV Running Levofloxacin (Levaquin) 500 mg in 100 mls @ 100 mls/hr IV Q24H [facility] Metronidazole (Flagyl) 500 mg in 100 mls @ 100 mls/hr IV Q8H [facility] Last Infusion: 10/16/22 06:30 Dose: 0 mls/hr Documented By: LINETTE Acetaminophen (Ofirmev) 1,000 mg in 100 mls @ 400 mls/hr IV Q6H [facility] Last Infusion: 10/16/22 01:54 Dose: 0 mls/hr Documented By: LINETTE Ketorolac Tromethamine (Ketorolac Tromethamine 15 Mg/Ml Vial) 15 mg IVPUSH Q6H [facility] Last Admin: 10/16/22 06:59 Dose: 15 mg Documented By: LINETTE Metoprolol Succinate (Metoprolol Succinate Er 25 Mg Tab.Er.24h) 25 mg PO DAILY [facility]; Protocol Morphine Sulfate (Morphine Sulfate 4 Mg/Ml Cartridge) 4 mg IVPUSH Q3H PRN; Protocol PRN Reason: Pain, Severe (Pain Scale 7-10) Last Admin: 10/16/22 04:50 Dose: 4 mg Documented By: LINETTE Ondansetron HCl (Ondansetron Hcl 4 Mg/2 Ml Vial) 4 mg IVPUSH Q8H PRN PRN Reason: nausea Polyethylene Glycol (Polyethylene Glycol 3350 17 Gm Powd.Pack) 17 gm PO DAILY PRN PRN Reason: Constipation Sodium Chloride (0.9 % Sodium Chloride Flush 3 Ml Syringe) 3 ml IVFLUSH QSHIFT [facility] Last Admin: 10/16/22 01:20 Dose: Not Given Documented By: LINETTE Non-Admin Reason: Previously Administered <Mary Thornton PA-C - Last Filed: 10/16/22 08:16> Labs CBC & Chem 7: 10/16/22 06:17 10/16/22 06:17 <Mary Thornton PA-C - Last Filed: 10/16/22 08:16> Labs: Laboratory Results - last 24 hr 10/15/22 10/15/22 10/15/22 15:42 15:42 17:16 MCV 97.3 MCH 32.4 MCHC 33.3 RDW 12.4 Plt Count 205 MPV 10.0 Immature Gran % (Auto) 0.3 Neut % (Auto) 89.2 H Lymph % (Auto) 5.1 L [place] % (Auto) 5.3 Eos % (Auto) 0.0 Baso % (Auto) 0.1 Lymph # (Auto) 0.4 L [place] # (Auto) 0.4 Eos # (Auto) 0.0 Baso # (Auto) 0.0 Abs Immat Gran (auto) 0.02 Absolute Neuts (auto) 6.9 Absolute Nucleated RBC 0.000 Nucleated RBC % (auto) 0.0 Anion Gap 14 Estim Creat Clear Calc 77.2 Estimated GFR > 60 Random Glucose 145 H Lactic Acid 2.0 Calcium 9.6 Magnesium Total Bilirubin 0.7 Direct Bilirubin 0.3 AST 23 ALT 20 Alkaline Phosphatase 73 Total Protein 6.4 L Albumin 3.9 Lipase 11 Blood Type Antibody Screen 10/15/22 10/16/22 10/16/22 17:24 06:17 06:17 MCV 97.8 MCH 32.0 MCHC 32.7 RDW 12.5 Plt Count 187 MPV 10.4 Immature Gran % (Auto) Neut % (Auto) Lymph % (Auto) [place] % (Auto) Eos % (Auto) Baso % (Auto) Lymph # (Auto) [place] # (Auto) Eos # (Auto) Baso # (Auto) Abs Immat Gran (auto) Absolute Neuts (auto) Absolute Nucleated RBC 0.000 Nucleated RBC % (auto) 0.0 Anion Gap 11 L Estim Creat Clear Calc 78.1 Estimated GFR > 60 Random Glucose 135 H Lactic Acid Calcium 9.5 Magnesium 2.0 Total Bilirubin Direct Bilirubin AST ALT Alkaline Phosphatase Total Protein Albumin Lipase Blood Type A Positive Antibody Screen NEGATIVE <Mary Thornton PA-C - Last Filed: 10/16/22 08:16> Procedures Date of Service Date of Service: 10/16/22 <Mary Thornton PA-C - Last Filed: 10/16/22 08:16> 10/16/22 <Gagan Snell MD - Last Filed: 10/16/22 08:40> Progress Note: A&P Assessment and plan (1) Perforated sigmoid colon: Status: Acute <Mary Thornton PA-C - Last Filed: 10/16/22 08:16> Assessment and Plan: States she feels much better this morning compared to yesterday preop Pain seems to be well controlled Good urine output Stoma without output yet; viable although edematous IV antibiotics Clear liquids Await stoma function Out of bed Seen and examined independently <Gagan Snell MD - Last Filed: 10/16/22 08:40> (2) Status post Celi procedure: Status: Acute <Mary Thornton PA-C - Last Filed: 10/16/22 08:16> Assessment and Plan: 67 year old female admitted with perforated viscus now POD # 1 s/p laparotomy, sigmoid resection, end colostomy, intra-abdominal washout. Found to have perforated sigmoid intraop. Transverse colon, left colon, and sigmoid with very high fecal load with very hard rock like stools with note of? stools extraluminally and surrounding peritonitis. Etiology stercoral versus acute diverticulitis. Doing fairly well post op. VSS. Abd exam benign with dressing intact, KOBE with old bloody drainage. Colostomy viable appearing. Labs reviewed. Cont clear liquids for now. Await colostomy output. Cont IV abx. Encouraged OOB/ambulation and IS use. Dc montero today. Await pathology. Will need good bowel regimen. <Mary Thornton PA-C - Last Filed: 10/16/22 08:16> Time Spent With Patient Time: Total time managing care of this patient today ____ minutes. <Mary Thornton PA-C - Last Filed: 10/16/22 08:16> Quality Stroke Does the patient have a stroke diagnosis?: No <Mary Thornton PA-C - Last Filed: 10/16/22 08:16> VTE Prior VTE?: No <Mary Thornton PA-C - Last Filed: 10/16/22 08:16> VTE Risk Level:: Medical - moderate - high <Mary Thornton PA-C - Last Filed: 10/16/22 08:16> VTE Device Contraindication: N/A - Device Ordered <Mary Thornton PA-C - Last Filed: 10/16/22 08:16> VTE Drug Contraindication: N/A - Med Ordered <Mary Thornton PA-C - Last Filed: 10/16/22 08:16>
--- NOTE | 2022-10-16 08:19 | MHC.CM.PN ---
CM met with Patient at bedside and addressed IMM with her, providing Patient with the original and placing a copy on the chart. Patient lives in a house with her /HCP and she uses a cane PRN. Home/self care is the goal and CM has initiated and will follow for dc planning. Patient has received covid vax x2 and her PCP is Dr. Candido Clark.
[2022-10-16] MEDS: Metoprolol Succinate ER 25 MG TAB.ER.24H PO (09:39)
[2022-10-16] MEDS: Heparin Sodium,Porcine 5,000 UNIT/ML VIAL 5000 UNIT SUBCUT ×2 (09:40→17:16)
[2022-10-16] MEDS: Docusate Sodium 100 MG CAPSULE PO ×2 (09:40→21:24)
[2022-10-16] MEDS: Lactated Ringers 1,000 ML 100 ML IVCONT ×2 (09:50→21:27)
[2022-10-16 11:18] VITALS: BP 113/61; PULSE 80; RESP 20; TEMP 36.6; O2SAT 97
--- NOTE | 2022-10-16 11:35 | HO.PM.IMCN ---
History of Present Illness Data of Consult Service Date: 10/16/22 Primary Care Provider: Candido Clark, [facility]- HPI Reason for consult: Medical management Pt is a 67-year-old female with a PMH significant for?breast cancer, HLD, HTN, GERD, and seasonal allergies who is admitted to the hospital under general surgery for perforated diverticulitis of the sigmoid colon. Pt is POD #1 s/p laparotomy, sigmoid resection, end colostomy, and intra-abdominal washout. Hospitalist consult for medical management. Pt complains of occasional abdominal pain usually associated with movement. Reasonably controlled with current pain management. Small amount of serosanguineous output. No gas or fecal output as of yet. KOBE drains in place with small amount of serosanguineous output. Patient's diet has been advanced to clears and she has been tolerating this well. Patient started heparin anticoagulation this morning and still with pneumatic boots in place, complains of bilateral ankle swelling. Pt otherwise has no acute medical complaints at this time. Denies chest pain/pressure, palpitations. No shortness of breath or difficulty breathing. Denies fever, chills, nausea, vomiting, diarrhea. Labs today significant for stable H&H of 11.7/35.8, otherwise grossly unremarkable. Review of Systems Review of Systems: Intermittent abdominal pain Ankle swelling bilaterally Otherwise patient has no acute medical complaints at this time Yes all other systems are reviewed and are negative [facility] Medical History Arthritis COVID-19 vaccine series completed Elevated cholesterol Family history of anesthesia complication LBBB (left bundle branch block) Perforation of sigmoid colon due to diverticulitis Functional capacity: independent ambulation Family History Mother Melanoma Maternal Aunt Vocal cord cancer Maternal Aunt Uterine cancer Maternal Aunt Comer Syndrome Surgical History History of bilateral breast biopsy History of hysterectomy History of lumpectomy of right breast (10/02/21) History of tonsillectomy and adenoidectomy Social History Household Members: Family Housing: House Are you a primary care advocate to a significant other at home: No Do you presently have visiting nurse or other home services: No Unable to assess alcohol history related to: Unknown Alcohol intake: current Alcohol intake frequency: holidays/special occasions only Patient Tobacco Use Status: Former Tobacco user Quit Date: 1980 Tobacco use type: Cigarette Years Smoked: 5 e-Cigarette/Vaping Use: Never Used Second Hand Smoke Exposure: No Use of substances other than those prescribed or required for medical reasons: No Currently Displaying Signs/Symptoms of Drug Intoxication Withdrawal: No Advance Directives: Yes Advance Directives on File: Yes Advance Directives Date on File: 09/30/21 Do you have thoughts of harming others: None Do you have a plan to hurt others: No Plan Nutrition Risks: No Nutritional Risk Patient : No : No Poor oral hygiene: No service: No Current occupational status: retired Cognitive needs: No Hearing needs: No Vision needs: No Meds Allergies Allergy/AdvReac Type Severity Reaction Status Date / Time amoxicillin [AMOXICILLIN] Allergy Mild flushing/sw Verified 10/15/22 15:14 elling/rash Active Medications: Current Medications Docusate Sodium (Docusate Sodium 100 Mg Capsule) 100 mg PO BID [facility] Last Admin: 10/16/22 09:40 Dose: 100 mg Fentanyl (Fentanyl Citrate/Pf 100 Mcg/2 Ml Vial) 25 mcg IVPUSH Q5M PRN; Protocol PRN Reason: Pain, Moderate(Pain Scale 4-6) Heparin Sodium (Porcine) (Heparin Sodium,Porcine 5,000 Unit/Ml Vial) 5,000 unit SUBCUT Q8H [facility] Last Admin: 10/16/22 09:40 Dose: 5,000 unit Lactated Ringer's (Lr) 1,000 mls @ 100 mls/hr IVCONT .Q10H [facility] Last Admin: 10/16/22 09:50 Dose: 100 mls/hr Levofloxacin (Levaquin) 500 mg in 100 mls @ 100 mls/hr IV Q24H [facility] Metronidazole (Flagyl) 500 mg in 100 mls @ 100 mls/hr IV Q8H [facility] Last Infusion: 10/16/22 06:30 Dose: Infused Acetaminophen (Ofirmev) 1,000 mg in 100 mls @ 400 mls/hr IV Q6H [facility] Last Infusion: 10/16/22 10:04 Dose: Infused Ketorolac Tromethamine (Ketorolac Tromethamine 15 Mg/Ml Vial) 15 mg IVPUSH Q6H [facility] Last Admin: 10/16/22 06:59 Dose: 15 mg Metoprolol Succinate (Metoprolol Succinate Er 25 Mg Tab.Er.24h) 25 mg PO DAILY [facility]; Protocol Last Admin: 10/16/22 09:39 Dose: 25 mg Morphine Sulfate (Morphine Sulfate 4 Mg/Ml Cartridge) 4 mg IVPUSH Q3H PRN; Protocol PRN Reason: Pain, Severe (Pain Scale 7-10) Last Admin: 10/16/22 04:50 Dose: 4 mg Ondansetron HCl (Ondansetron Hcl 4 Mg/2 Ml Vial) 4 mg IVPUSH Q8H PRN PRN Reason: nausea Polyethylene Glycol (Polyethylene Glycol 3350 17 Gm Powd.Pack) 17 gm PO DAILY PRN PRN Reason: Constipation Sodium Chloride (0.9 % Sodium Chloride Flush 3 Ml Syringe) 3 ml IVFLUSH QSHIFT [facility] Last Admin: 10/16/22 09:41 Dose: Not Given Home Medications Medication Instructions Recorded Confirmed Last Taken Type acetaminophen 500 mg capsule 1,000 mg PO Q12H PRN Pain 09/05/20 10/15/22 Unknown History calcium carbonate 500 mg calcium 1,500 mg PO DAILY INDEGESTION 09/05/20 10/15/22 Unknown History (1,250 mg) chewable tablet docusate sodium 100 mg capsule 300 mg PO BEDTIME PRN Constipation 09/05/20 10/15/22 Unknown History (Colace) fluticasone propionate 50 1 spray intranasal Q12H PRN 09/05/20 10/15/22 Unknown History mcg/actuation nasal Allergy Symptoms spray,suspension magnesium 200 mg tablet 400 mg PO DAILY 09/05/20 10/15/22 Unknown History vit A 7,160 unit-vit C 113 mg-vit 1 tab PO DAILY 09/05/20 10/15/22 Unknown History E 100 crde-vpcm-oglvad tablet cholecalciferol (vitamin D3) 125 125 mcg PO DAILY 03/13/21 10/15/22 Unknown History mcg (5,000 unit) capsule flaxseed oil 1,000 mg capsule 1,000 mg PO DAILY 09/30/21 10/15/22 Unknown History krnfixge-asi-pyaip ac 400 1 tab PO DAILY 09/30/21 10/15/22 Unknown History mcg-calcium carb 500 mg-vit K1 20 mcg tablet famotidine 10 mg tablet 10 mg PO DAILY 09/09/22 10/15/22 Unknown History levocetirizine 5 mg tablet (Xyzal) 5 mg PO DAILY 09/09/22 10/15/22 Unknown History Physical Exam Vital Signs and Narrative: Vital Signs: Last Vital Signs Temp 97.8 F 10/16/22 11:18 Pulse 80 10/16/22 11:18 Resp 20 10/16/22 11:18 BP 113/61 10/16/22 11:18 Pulse Ox 97 10/16/22 11:18 O2 Del Method Nasal Cannula 10/16/22 11:18 O2 Flow Rate 3 10/16/22 11:18 Oxygen Flow Rate 2 10/15/22 15:14 BMI result Body Mass Index 36.2 General: AOx3, no acute distress Resp: CTA bilaterally CVS: S1, S2, RRR GI: +BS, no distention, diffusely tender. KOBE drain in place with serosanguineous output. Ostomy in place with small amount of serosanguineous output. Skin: No rash Neuro: Cranial nerves II-XII grossly intact bilaterally. Motor grossly intact bilaterally Extremities: Mild nonpitting edema ankles bilaterally Psych: Appropriate affect Results Labs 10/16/22 06:17 10/16/22 06:17 Labs: Laboratory Results - last 24 hr 10/15/22 10/15/22 10/15/22 15:42 15:42 17:16 MCV 97.3 MCH 32.4 MCHC 33.3 RDW 12.4 Plt Count 205 MPV 10.0 Immature Gran % (Auto) 0.3 Neut % (Auto) 89.2 H Lymph % (Auto) 5.1 L [place] % (Auto) 5.3 Eos % (Auto) 0.0 Baso % (Auto) 0.1 Lymph # (Auto) 0.4 L [place] # (Auto) 0.4 Eos # (Auto) 0.0 Baso # (Auto) 0.0 Abs Immat Gran (auto) 0.02 Absolute Neuts (auto) 6.9 Absolute Nucleated RBC 0.000 Nucleated RBC % (auto) 0.0 Anion Gap 14 Estim Creat Clear Calc 77.2 Estimated GFR > 60 Random Glucose 145 H Lactic Acid 2.0 Calcium 9.6 Magnesium Total Bilirubin 0.7 Direct Bilirubin 0.3 AST 23 ALT 20 Alkaline Phosphatase 73 Total Protein 6.4 L Albumin 3.9 Lipase 11 Blood Type Antibody Screen 10/15/22 10/16/22 10/16/22 17:24 06:17 06:17 MCV 97.8 MCH 32.0 MCHC 32.7 RDW 12.5 Plt Count 187 MPV 10.4 Immature Gran % (Auto) Neut % (Auto) Lymph % (Auto) [place] % (Auto) Eos % (Auto) Baso % (Auto) Lymph # (Auto) [place] # (Auto) Eos # (Auto) Baso # (Auto) Abs Immat Gran (auto) Absolute Neuts (auto) Absolute Nucleated RBC 0.000 Nucleated RBC % (auto) 0.0 Anion Gap 11 L Estim Creat Clear Calc 78.1 Estimated GFR > 60 Random Glucose 135 H Lactic Acid Calcium 9.5 Magnesium 2.0 Total Bilirubin Direct Bilirubin AST ALT Alkaline Phosphatase Total Protein Albumin Lipase Blood Type A Positive Antibody Screen NEGATIVE Imaging Radiologist's Impressions: Impressions Abdomen/Pelvis CT 10/15/22 16:22 IMPRESSION: Perforated diverticulitis of the sigmoid colon. Fleischner guidelines were followed. This critical result was discussed with Dr. Estes on 10/15/2022, 5:00 PM and it was ascertained that the content and urgency of the report was understood at the time of direct communication. Assessment and Plan (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 (2) Perforated sigmoid colon: Status: Acute Plan Pt is a 67-year-old female with a PMH significant for?breast cancer, HLD, HTN, GERD, and seasonal allergies who is admitted to the hospital under general surgery for perforated diverticulitis of the sigmoid colon. Pt is POD #1 s/p laparotomy, sigmoid resection, end colostomy, and intra-abdominal washout. Hospitalist consult for medical management. Perforated sigmoid colon Plan as per General Surgery Hx of breast cancer Continue anastrozole HTN Continue metoprolol Patient's dosage has been updated to 12.5 mg daily HLD Continue statin Lower leg ankle edema Most likely secondary to IVF and limited mobility Pt on heparin anticoagulation and with pneumatic boots in place Showed reduce with ambulation Seasonal allergies Continue home meds Thank you for allowing us to participate in the care of this patient. Signing off at this time. Please let us know if there are any acute complaints or questions. Time Spent With Patient Time: Total time managing care of this patient today ____ minutes.
[2022-10-16] MEDS: Famotidine 20 MG TABLET 10 MG PO (12:50)
[2022-10-16] MEDS: Anastrozole 1 MG TABLET PO (14:08)
[2022-10-16 15:00] VITALS: BP 109/58; PULSE 92; RESP 18; TEMP 36.7; O2SAT 96
--- NOTE | 2022-10-16 15:27 | PC.NURSE ---
Received order to d/c montero catheter. Catheter removed at 1415 patient tolerated procedure well, due to void by 2014
--- NOTE | 2022-10-16 16:39 | HO.POSTANES ---
Post Anesthesia Evaluation Post Anesthesia Evaluation Date of Service: 10/16/22 Vital Signs: Vital Signs Temp Pulse Resp BP Pulse Ox O2 Del Method O2 Flow Rate 10/16/22 15:00 98.0 F 92 18 109/58 L 96 Nasal Cannula 3 10/16/22 11:18 97.8 F 80 20 113/61 97 Nasal Cannula 3 10/16/22 07:43 97.6 F 86 20 119/58 L 95 Nasal Cannula 3 Anesthesia: General Endotracheal-GETA Mental Status: Awake Pain Control: Satisfactory Nausea/Vomiting: None Hydration: Adequate Anesthesia-Related Issues: No Anes. Related Issues
[2022-10-16] MEDS: levoFLOXacin/D5W 500 MG/100 ML PIGGYBACK 100 MG IV (17:16)
[2022-10-16 18:00] VITALS: O2SAT 97
[2022-10-16 19:24] VITALS: BP 128/69; PULSE 98; RESP 14; TEMP 36.1; O2SAT 94
[2022-10-16] MEDS: ondansetron HCL 4 MG/2 ML VIAL IVPUSH (19:36)
[2022-10-16] MEDS: 0.9 % Sodium Chloride Flush 3 ML SYRINGE IVFLUSH (19:40)
[2022-10-16] MEDS: Atorvastatin Calcium 80 MG TABLET PO (21:24)
[2022-10-16] MEDS: traZODone HCL 50 MG TABLET PO (21:27)
[2022-10-17] VITALS (8 sets, daily range): BP systolic 102–132; BP diastolic 57–65; PULSE 88–100; RESP 14–20; TEMP 36.3–36.9; O2SAT 91–98
[2022-10-17] MEDS: Heparin Sodium,Porcine 5,000 UNIT/ML VIAL 5000 UNIT SUBCUT ×3 (01:16→14:47)
[2022-10-17] MEDS: Ketorolac Tromethamine 15 MG/ML VIAL IVPUSH ×4 (01:17→18:20)
[2022-10-17] MEDS: Acetaminophen 1,000 MG/100 ML PIGGYBACK 400 MG IV ×3 (01:17→20:09)
[2022-10-17] MEDS: metroNIDAZOLE/NS 500 MG/100 ML PIGGYBACK 100 MG IV ×3 (04:58→20:12)
[2022-10-17] MEDS: Morphine Sulfate 4 MG/ML CARTRIDGE IVPUSH ×2 (04:59→09:06)
[2022-10-17] MEDS: 0.9 % Sodium Chloride Flush 3 ML SYRINGE IVFLUSH ×3 (07:42→20:08)
[2022-10-17] MEDS: Famotidine 20 MG TABLET 10 MG PO (07:47)
[2022-10-17] MEDS: Cholecalciferol (Vitamin D3) 25 MCG TABLET 125 MCG PO (07:47)
[2022-10-17] MEDS: Metoprolol Succinate ER 12.5 MG HALFTAB.ER.24H PO (07:49)
[2022-10-17] MEDS: Magnesium Oxide 400 MG TABLET PO (07:49)
[2022-10-17] MEDS: Loratadine 10 MG TABLET PO (07:49)
[2022-10-17] MEDS: Docusate Sodium 100 MG CAPSULE PO ×2 (07:49→20:07)
[2022-10-17] MEDS: Anastrozole 1 MG TABLET PO (07:49)
--- NOTE | 2022-10-17 08:57 | P.PNGS_ITS ---
Subjective Subjective Date of Service: 10/17/22 <Mary Thornton PA-C - Last Filed: 10/17/22 09:01> 10/17/22 <Gagan Snell MD - Last Filed: 10/17/22 14:02> Interval history: Feels ok this morning, pain improving. Tolerating clear liquids. Passing flatus from ostomy. Dangled legs from bed yesterday. <Mary Thornton PA-C - Last Filed: 10/17/22 09:01> Physical Exam Vital Signs: Vital Signs: Last Vital Signs Temp 98.0 F 10/17/22 07:31 Pulse 90 10/17/22 07:31 Resp 20 10/17/22 07:31 BP 102/62 10/17/22 07:31 Pulse Ox 97 10/17/22 07:31 O2 Del Method Nasal Cannula 10/17/22 07:31 O2 Flow Rate 3 10/17/22 07:31 Oxygen Flow Rate 2 10/16/22 18:00 BMI result Body Mass Index 36.2 <Mary Thornton PA-C - Last Filed: 10/17/22 09:01> Const: General: comfortable, no acute distress and alert <Mary Thornton PA-C - Last Filed: 10/17/22 09:01> Orientation/consciousness: patient oriented x3 <Mary Thornton PA-C - Last Filed: 10/17/22 09:01> Resp: Effort & Inspection: normal respiratory effort <Mary Thornton PA-C - Last Filed: 10/17/22 09:01> GI: Other: ostomy pink, no output in appliance KOBE drain with serosanguineous drainage <Mary Thornton PA-C - Last Filed: 10/17/22 09:01> Inspection: No distended and Yes incision (clean appearing, wound abad removed) <MICHELE Pendleton Last Filed: 10/17/22 09:01> Palpation (GI): Soft to palpation, Tenderness to palpation present (GI) (incisional), no guarding and not rigid <MICHELE Pendleton Last Filed: 10/17/22 09:01> Percussion: Yes normal to percussion <Mary Thornton PA-C - Last Filed: 10/17/22 09:01> Skin: General skin exam: no rashes or lesions noted <Mary Thornton PA-C - Last Filed: 10/17/22 09:01> Neuro: General: patient oriented x3 and moves all extremities <Mary Thornton PA-C - Last Filed: 10/17/22 09:01> Objective Data Active Medications Anastrozole (Anastrozole 1 Mg Tablet) 1 mg PO DAILY [facility] Last Admin: 10/17/22 07:49 Dose: 1 mg Documented By: VÍCTOR Atorvastatin Calcium (Atorvastatin Calcium 80 Mg Tablet) 80 mg PO BEDTIME [facility] Last Admin: 10/16/22 21:24 Dose: 80 mg Documented By: YAN Docusate Sodium (Docusate Sodium 100 Mg Capsule) 100 mg PO BID [facility] Last Admin: 10/17/22 07:49 Dose: 100 mg Documented By: VÍCTOR Famotidine (Famotidine 20 Mg Tablet) 10 mg PO DAILY [facility] Last Admin: 10/17/22 07:47 Dose: 10 mg Documented By: VÍCTOR Fentanyl (Fentanyl Citrate/Pf 100 Mcg/2 Ml Vial) 25 mcg IVPUSH Q5M PRN; Protocol PRN Reason: Pain, Moderate(Pain Scale 4-6) Fluticasone Propionate (Fluticasone Propionate Nasal 16 Gm [place]) 1 spray NOSTRIL-B Q12H PRN PRN Reason: Allergy Symptoms Heparin Sodium (Porcine) (Heparin Sodium,Porcine 5,000 Unit/Ml Vial) 5,000 unit SUBCUT Q8H [facility] Last Admin: 10/17/22 07:46 Dose: 5,000 unit Documented By: VÍCTOR Lactated Ringer's (Lr) 1,000 mls @ 100 mls/hr IVCONT .Q10H [facility] Last Admin: 10/16/22 21:27 Dose: 100 mls/hr Documented By: YAN Levofloxacin (Levaquin) 500 mg in 100 mls @ 100 mls/hr IV Q24H [facility] Last Infusion: 10/16/22 18:21 Dose: 0 mls/hr Documented By: YASMIN Metronidazole (Flagyl) 500 mg in 100 mls @ 100 mls/hr IV Q8H [facility] Last Infusion: 10/17/22 06:33 Dose: 0 mls/hr Documented By: YAN Acetaminophen (Ofirmev) 1,000 mg in 100 mls @ 400 mls/hr IV Q6H [facility] Last Infusion: 10/17/22 01:35 Dose: 0 mls/hr Documented By: YAN Ketorolac Tromethamine (Ketorolac Tromethamine 15 Mg/Ml Vial) 15 mg IVPUSH Q6H [facility] Last Admin: 10/17/22 07:42 Dose: 15 mg Documented By: VÍCTOR Loratadine (Loratadine 10 Mg Tablet) 10 mg PO DAILY [facility] Last Admin: 10/17/22 07:49 Dose: 10 mg Documented By: VÍCTOR Magnesium Oxide (Magnesium Oxide 400 Mg Tablet) 400 mg PO DAILY [facility] Last Admin: 10/17/22 07:49 Dose: 400 mg Documented By: VÍCTOR Metoprolol Succinate (Metoprolol Succinate Er 12.5 Mg Halftab.Er.24h) 12.5 mg PO DAILY [facility]; Protocol Last Admin: 10/17/22 07:49 Dose: 12.5 mg Documented By: VÍCTOR Morphine Sulfate (Morphine Sulfate 4 Mg/Ml Cartridge) 4 mg IVPUSH Q3H PRN; Prot ocol PRN Reason: Pain, Severe (Pain Scale 7-10) Last Admin: 10/17/22 04:59 Dose: 4 mg Documented By: YAN Ondansetron HCl (Ondansetron Hcl 4 Mg/2 Ml Vial) 4 mg IVPUSH Q8H PRN PRN Reason: nausea Last Admin: 10/16/22 19:36 Dose: 4 mg Documented By: YAN Polyethylene Glycol (Polyethylene Glycol 3350 17 Gm Powd.Pack) 17 gm PO DAILY PRN PRN Reason: Constipation Sodium Chloride (0.9 % Sodium Chloride Flush 3 Ml Syringe) 3 ml IVFLUSH QSHIFT [facility] Last Admin: 10/17/22 07:42 Dose: 3 ml Documented By: VÍCTOR Trazodone HCl (Trazodone Hcl 50 Mg Tablet) 50 mg PO BEDTIME PRN PRN Reason: sleep Last Admin: 10/16/22 21:27 Dose: 50 mg Documented By: YAN Vitamin D (Cholecalciferol (Vitamin D3) 25 Mcg Tablet) 125 mcg PO DAILY [facility] Last Admin: 10/17/22 07:47 Dose: 125 mcg Documented By: VÍCTOR <Mary Thornton PA-C - Last Filed: 10/17/22 09:01> Labs CBC & Chem 7: 10/16/22 06:17 10/16/22 06:17 <Mary Thornton PA-C - Last Filed: 10/17/22 09:01> Microbiology Microbiology Results: Microbiology 10/15/22 17:24 Blood Culture - Preliminary Blood - Venous No growth after 24 hours. 10/15/22 17:16 Blood Culture - Preliminary Blood - Venous No growth after 24 hours. <Mary Thornton PA-C - Last Filed: 10/17/22 09:01> Procedures Date of Service Date of Service: 10/17/22 <Mary Thornton PA-C - Last Filed: 10/17/22 09:01> 10/17/22 <Gagan Snell MD - Last Filed: 10/17/22 14:02> Progress Note: A&P Assessment and plan (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 <Mary Thornton PA-C - Last Filed: 10/17/22 09:01> Assessment and Plan: doing well postoperatively passing flatus through her colostomy pain well controlled tolerating clear liquids well has chronic constipation advance diet slowly await return of GI function on Colace b.i.d. MiraLax p.r.n. out of bed to chair looks well packings remove had stoma education today seen and examined independently <Gagan Snell MD - Last Filed: 10/17/22 14:02> (2) Perforated sigmoid colon: Status: Acute <Mary Thornton PA-C - Last Filed: 10/17/22 09:01> Assessment and Plan: 67 year old female admitted with perforated viscus now POD # 2 s/p lapar otomy, sigmoid resection, end colostomy, intra-abdominal washout. Found to have perforated sigmoid intraop. Transverse colon, left colon, and sigmoid with very high fecal load with very hard rock like stools with note of? stools extraluminally and surrounding peritonitis. Etiology stercoral versus acute diverticulitis. Continues to do well post op, with some evidence of GI function today. VSS. Abd exam benign with appropriate post op tenderness, incision clean and wound abad removed. KOBE with serosanguineous drainage. Colostomy viable appearing. Will advance to full liquids. Await colostomy output. Cont IV abx. Encouraged OOB/ambulation today and IS use. Await pathology. Will need good bowel regimen. Colostomy education. <Mary Thornton PA-C - Last Filed: 10/17/22 09:01> Time Spent With Patient Time: Total time managing care of this patient today ____ minutes. <MICHELE Pendleton Last Filed: 10/17/22 09:01> Quality Stroke Does the patient have a stroke diagnosis?: No <MICHELE Pendleton Last Filed: 10/17/22 09:01> VTE Prior VTE?: No <Mary Thornton PA-C - Last Filed: 10/17/22 09:01> VTE Risk Level:: Medical - moderate - high <MICHELE Pendleton Last Filed: 10/17/22 09:01> VTE Device Contraindication: N/A - Device Ordered <MICHELE Pendleton Last Filed: 10/17/22 09:01> VTE Drug Contraindication: N/A - Med Ordered <MICHELE Pendleton Last Filed: 10/17/22 09:01>
[2022-10-17] MEDS: Lactated Ringers 1,000 ML 100 ML IVCONT (09:01)
--- NOTE | 2022-10-17 14:57 | MHC.CM.PN ---
EMR reviewed and pt is not medically cleared for D/C as she is s/p new colostomy and is awaiting colostomy output. CM will continue to follow.
[2022-10-17] MEDS: levoFLOXacin/D5W 500 MG/100 ML PIGGYBACK 100 MG IV (18:20)
[2022-10-17] MEDS: Atorvastatin Calcium 80 MG TABLET PO (20:07)
[2022-10-18] MEDS: Ketorolac Tromethamine 15 MG/ML VIAL IVPUSH ×4 (02:42→18:06)
[2022-10-18] MEDS: Heparin Sodium,Porcine 5,000 UNIT/ML VIAL 5000 UNIT SUBCUT ×3 (02:42→18:06)
[2022-10-18] MEDS: Acetaminophen 1,000 MG/100 ML PIGGYBACK 400 MG IV ×4 (02:43→22:09)
[2022-10-18 04:00] VITALS: BP 137/63; PULSE 83; RESP 18; TEMP 37.1; O2SAT 98
[2022-10-18] MEDS: metroNIDAZOLE/NS 500 MG/100 ML PIGGYBACK 100 MG IV ×3 (04:25→22:00)
[2022-10-18 07:56] VITALS: BP 142/75; PULSE 94; RESP 20; TEMP 37.2; O2SAT 96
[2022-10-18] MEDS: ondansetron HCL 4 MG/2 ML VIAL IVPUSH (08:25)
[2022-10-18] MEDS: Famotidine 20 MG TABLET 10 MG PO (08:25)
[2022-10-18] MEDS: Docusate Sodium 100 MG CAPSULE PO ×2 (08:27→21:58)
[2022-10-18] MEDS: Cholecalciferol (Vitamin D3) 25 MCG TABLET 125 MCG PO (08:27)
[2022-10-18] MEDS: Anastrozole 1 MG TABLET PO (08:27)
[2022-10-18] MEDS: 0.9 % Sodium Chloride Flush 3 ML SYRINGE IVFLUSH ×2 (08:28→18:06)
[2022-10-18] MEDS: Metoprolol Succinate ER 12.5 MG HALFTAB.ER.24H PO (08:28)
[2022-10-18] MEDS: Loratadine 10 MG TABLET PO (08:28)
[2022-10-18] MEDS: Magnesium Oxide 400 MG TABLET PO (08:28)
[2022-10-18 11:30] VITALS: BP 126/59; PULSE 86; RESP 20; TEMP 36.6; O2SAT 99
[2022-10-18] MEDS: Morphine Sulfate 4 MG/ML CARTRIDGE IVPUSH (11:39)
[2022-10-18 15:29] VITALS: BP 130/61; PULSE 85; RESP 18; TEMP 37.1; O2SAT 99
--- NOTE | 2022-10-18 17:00 | P.PNGS_ITS ---
Subjective Subjective Date of Service: 10/18/22 Interval history: pt is feeling well, passing some stool material in bag, no nausea, pain is good sats wee a little low so needing .5L on n/c oxygen Physical Exam Vital Signs: Vital Signs: Last Vital Signs Temp 98.8 F 10/18/22 15:29 Pulse 85 10/18/22 15:29 Resp 18 10/18/22 15:29 BP 130/61 10/18/22 15:29 Pulse Ox 99 10/18/22 15:29 O2 Del Method Nasal Cannula 10/18/22 15:29 O2 Flow Rate 0.5 10/18/22 15: Oxygen Flow Rate 1 10/17/22 18:00 BMI result Body Mass Index 36.2 Const: General: cooperative and healthy appearing Chest: Chest palpation & inspection: normal inspection of the chest Resp: Effort & Inspection: normal respiratory effort Auscultation: clear to auscultation bilaterally (little decreased at bases) Cardio: Rate: regular rate Rhythm: regular rhythm GI: Other: abdo- soft nontender nondistended, ostomy looks good, bandages intact Extrem: General: Yes normal to inspection Psych: Appearance: grossly normal Objective Data Active Medications Anastrozole (Anastrozole 1 Mg Tablet) 1 mg PO DAILY [facility] Last Admin: 10/18/22 08:27 Dose: 1 mg Documented By: ALBINO Atorvastatin Calcium (Atorvastatin Calcium 80 Mg Tablet) 80 mg PO BEDTIME [facility] Last Admin: 10/17/22 20:07 Dose: 80 mg Documented By: DREW Docusate Sodium (Docusate Sodium 100 Mg Capsule) 100 mg PO BID [facility] Last Admin: 10/18/22 08:27 Dose: 100 mg Documented By: ALBINO Famotidine (Famotidine 20 Mg Tablet) 10 mg PO DAILY [facility] Last Admin: 10/18/22 08:25 Dose: 10 mg Documented By: ALBINO Fentanyl (Fentanyl Citrate/Pf 100 Mcg/2 Ml Vial) 25 mcg IVPUSH Q5M PRN; Protocol PRN Reason: Pain, Moderate(Pain Scale 4-6) Fluticasone Propionate (Fluticasone Propionate Nasal 16 Gm [place]) 1 spray NOSTRIL-B Q12H PRN PRN Reason: Allergy Symptoms Heparin Sodium (Porcine) (Heparin Sodium,Porcine 5,000 Unit/Ml Vial) 5,000 unit SUBCUT Q8H [facility] Last Admin: 10/18/22 08:25 Dose: 5,000 unit Documented By: ALBINO Levofloxacin (Levaquin) 500 mg in 100 mls @ 100 mls/hr IV Q24H [facility] Last Infusion: 10/17/22 20:21 Dose: 0 mls/hr Documented By: DREW Metronidazole (Flagyl) 500 mg in 100 mls @ 100 mls/hr IV Q8H [facility] Last Infusion: 10/18/22 12:47 Dose: 0 mls/hr Documented By: ALBINO Acetaminophen (Ofirmev) 1,000 mg in 100 mls @ 400 mls/hr IV Q6H [facility] Last Infusion: 10/18/22 14:08 Dose: 0 mls/hr Documented By: ALBINO Ketorolac Tromethamine (Ketorolac Tromethamine 15 Mg/Ml Vial) 15 mg IVPUSH Q6H [facility] Last Admin: 10/18/22 13:48 Dose: 15 mg Documented By: ALBINO Loratadine (Loratadine 10 Mg Tablet) 10 mg PO DAILY [facility] Last Admin: 10/18/22 08:28 Dose: 10 mg Documented By: ALBINO Magnesium Oxide (Magnesium Oxide 400 Mg Tablet) 400 mg PO DAILY [facility] Last Admin: 10/18/22 08:28 Dose: 400 mg Documented By: ALBINO Metoprolol Succinate (Metoprolol Succinate Er 12.5 Mg Halftab.Er.24h) 12.5 mg PO DAILY [facility]; Protocol Last Admin: 10/18/22 08:28 Dose: 12.5 mg Documented By: ALBINO Morphine Sulfate (Morphine Sulfate 4 Mg/Ml Cartridge) 4 mg IVPUSH Q3H PRN; Protocol PRN Reason: Pain, Severe (Pain Scale 7-10) Last Admin: 10/18/22 11:39 Dose: 4 mg Documented By: ALBINO Ondansetron HCl (Ondansetron Hcl 4 Mg/2 Ml Vial) 4 mg IVPUSH Q8H PRN PRN Reason: nausea Last Admin: 10/18/22 08:25 Dose: 4 mg Documented By: ALBINO Polyethylene Glycol (Polyethylene Glycol 3350 17 Gm Powd.Pack) 17 gm PO DAILY PRN PRN Reason: Constipation Sodium Chloride (0.9 % Sodium Chloride Flush 3 Ml Syringe) 3 ml IVFLUSH QSHIFT [facility] Last Admin: 10/18/22 08:28 Dose: 3 ml Documented By: ALBINO Trazodone HCl (Trazodone Hcl 50 Mg Tablet) 50 mg PO BEDTIME PRN PRN Reason: sleep Last Admin: 10/16/22 21:27 Dose: 50 mg Documented By: YAN Vitamin D (Cholecalciferol (Vitamin D3) 25 Mcg Tablet) 125 mcg PO DAILY [facility] Last Admin: 10/18/22 08:27 Dose: 125 mcg Documented By: ALBINO Labs 10/16/22 06:17 10/16/22 06:17 Microbiology Microbiology Results: Microbiology 10/15/22 17:24 Blood Culture - Preliminary Blood - Venous No growth after 48 hours. 10/15/22 17:16 Blood Culture - Preliminary Blood - Venous No growth after 48 hours. Procedures Date of Service Date of Service: 10/18/22 Progress Note: A&P Assessment and plan (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 Plan pod#3 s/p lang procedure for perf divertics - doing well, tolerating po liqui d, iv antibx, ostomy starting to function a bit keep on clears, ambulate incentive spirometer and wean off oxygen advance diet as ostomy progresses with function Time Spent With Patient Time: Total time managing care of this patient today ____ minutes. Quality Stroke Does the patient have a stroke diagnosis?: No VTE Prior VTE?: No VTE Risk Level:: Medical - moderate - high VTE Device Contraindication: N/A - Device Ordered VTE Drug Contraindication: N/A - Med Ordered
[2022-10-18 18:00] VITALS: O2SAT 96
[2022-10-18] MEDS: polyethylene glycoL 3350 17 GM POWD.PACK PO (18:05)
[2022-10-18] MEDS: levoFLOXacin/D5W 500 MG/100 ML PIGGYBACK 100 MG IV (18:06)
[2022-10-18 19:14] VITALS: BP 147/70; PULSE 98; RESP 20; TEMP 37; O2SAT 97
[2022-10-18 19:55] LABS: Appearance Urine Clear; Color Urine Dark Yellow; Glucose Urine UA Negative (Negative); Leukocyte Esterase Urine Trace (Negative); Nitrite Urine Negative (Negative); Specific Gravity - Urine 1.025 (1.005-1.025); UMIC TRIGGER UACC YES; Urine Blood Negative (Negative); Urine Ketones Trace mg/dL (Negative); Urine Protein 30 (1+) mg/dL (Neg-Trace)
[2022-10-18 20:01] LABS: Bacteria Urine None Seen (None Seen); Hyaline Casts Urine 0-2 /LPF (0-2); RBC Urine 0-2 /HPF (0-2); Squamous Epithelial Cell Urine 0-2 /HPF (0-2); WBC Urine 0-5 /HPF (0-5)
[2022-10-18] MEDS: Atorvastatin Calcium 80 MG TABLET PO (21:58)
[2022-10-19] VITALS (7 sets, daily range): BP systolic 126–144; BP diastolic 62–81; PULSE 74–106; RESP 16–20; TEMP 36.4–37.1; O2SAT 92–96
[2022-10-19] MEDS: Ketorolac Tromethamine 15 MG/ML VIAL IVPUSH ×4 (01:04→19:54)
[2022-10-19] MEDS: Heparin Sodium,Porcine 5,000 UNIT/ML VIAL 5000 UNIT SUBCUT ×3 (01:04→14:23)
[2022-10-19] MEDS: 0.9 % Sodium Chloride Flush 3 ML SYRINGE IVFLUSH ×2 (01:05→08:41)
[2022-10-19] MEDS: Acetaminophen 1,000 MG/100 ML PIGGYBACK 400 MG IV (01:05)
[2022-10-19] MEDS: metroNIDAZOLE/NS 500 MG/100 ML PIGGYBACK 100 MG IV ×3 (05:15→19:42)
[2022-10-19] MEDS: Cholecalciferol (Vitamin D3) 25 MCG TABLET 125 MCG PO (08:35)
[2022-10-19] MEDS: ondansetron HCL 4 MG/2 ML VIAL IVPUSH (08:35)
[2022-10-19] MEDS: Metoprolol Succinate ER 12.5 MG HALFTAB.ER.24H PO (08:36)
[2022-10-19] MEDS: Anastrozole 1 MG TABLET PO (08:36)
[2022-10-19] MEDS: Docusate Sodium 100 MG CAPSULE PO ×2 (08:37→19:55)
[2022-10-19] MEDS: Famotidine 20 MG TABLET 10 MG PO (08:37)
[2022-10-19] MEDS: Magnesium Oxide 400 MG TABLET PO (08:37)
[2022-10-19] MEDS: Loratadine 10 MG TABLET PO (08:37)
[2022-10-19 14:11] LABS: Hematocrit 32.4 % (37.0-47.0); Hemoglobin 10.7 g/dl (12.0-16.0); Mean Platelet Volume 10.4 fL (9.4-12.3); Platelet Count 245 X10*3/uL (160-400); Red Blood Count 3.34 X10*6/uL (4.20-5.50); Red Cell Distribution Width 12.7 % (11.0-16.0); White Blood Count 9.8 X10*3/uL (4.8-10.8)
[2022-10-19 14:16] LABS: Anion Gap 15 (12-20); Blood Urea Nitrogen 18 mg/dL (9-16); Calcium 9.6 mg/dL (8.4-10.2); Carbon Dioxide 22 mmol/L (22-29); Chloride 105 mmol/L (96-108); Creatinine Clr Calc Pharmacy 79.1; Estimated Glomerular Filt Rate > 60; Glucose Random 94 mg/dL (60-115); Potassium 4.3 mmol/L (3.3-5.1); Sodium 138 mmol/L (135-145)
[2022-10-19 14:24] LABS: Band Neutrophils Percent 0 % (3-5); Eosinophils Absolute Manual 0.1 X10*3/uL (0.0-0.4); Eosinophils Percent Manual 1 % (0-4); Lymphocytes Absolute Manual 1.1 X10*3/uL (1.2-4.9); Lymphocytes Percent Manual 11 % (20-40); Monocytes Absolute Manual 0.4 X10*3/uL (0.1-1.2); Monocytes Percent Manual 4 % (2-11); Myelocytes Absolute 0.1 X10*/uL; Myelocytes Percent 1 %; Neutrophils Absolute Manual 8.1 X10*3/uL (2.0-8.3); Neutrophils Percent Manual 83 % (45-73)
[2022-10-19 14:25] LABS: Burr Cells 2+ (3-5) /OIF; Platelet Estimate NORMAL (NORMAL); Platelet Morphology Comment NORMAL; RBC Morphology NORMAL
[2022-10-19] MEDS: Dextrose 5 % and 0.9 % NaCl 1,000 ML 120 ML IVCONT ×2 (15:43→23:59)
--- NOTE | 2022-10-19 17:21 | PM.PNGS ---
Subjective Subjective Date of Service: 10/19/22 Interval history: TODAY FEELING A LITTLE NAUSeated did not throw up but not tolerating diet as before, ostomy has more stool and some gas thinks her urine looks more concentrated Physical Exam Vital Signs: Vital Signs: Last Vital Signs Temp 98.7 F 10/19/22 15:21 Pulse 106 H 10/19/22 15:21 Resp 20 10/19/22 15:21 BP 128/62 10/19/22 15:21 Pulse Ox 94 10/19/22 15:21 O2 Del Method Room Air 10/19/22 15:21 O2 Flow Rate 3 10/19/22 11:12 Oxygen Flow Rate 1 10/18/22 18:00 BMI result Body Mass Index 36.2 Const: General: cooperative, healthy appearing, comfortable and no acute distress Resp: Effort & Inspection: normal respiratory effort Auscultation: clear to auscultation bilaterally Cardio: Rate: regular rate Rhythm: regular rhythm GI: Other: abdo soft nontender incision looks good ostomy working with gas and stool bs still little quiet but present Objective Data Active Medications Anastrozole (Anastrozole 1 Mg Tablet) 1 mg PO DAILY [facility] Last Admin: 10/19/22 08:36 Dose: 1 mg Documented By: KEKE Atorvastatin Calcium (Atorvastatin Calcium 80 Mg Tablet) 80 mg PO BEDTIME [facility] Last Admin: 10/18/22 21:58 Dose: 80 mg Documented By: DREW Docusate Sodium (Docusate Sodium 100 Mg Capsule) 100 mg PO BID [facility] Last Admin: 10/19/22 08:37 Dose: 100 mg Documented By: KEKE Famotidine (Famotidine 20 Mg Tablet) 10 mg PO DAILY [facility] Last Admin: 10/19/22 08:37 Dose: 10 mg Documented By: KEKE Fentanyl (Fentanyl Citrate/Pf 100 Mcg/2 Ml Vial) 25 mcg IVPUSH Q5M PRN; Protocol PRN Reason: Pain, Moderate(Pain Scale 4-6) Fluticasone Propionate (Fluticasone Propionate Nasal 16 Gm [place]) 1 spray NOSTRIL-B Q12H PRN PRN Reason: Allergy Symptoms Heparin Sodium (Porcine) (Heparin Sodium,Porcine 5,000 Unit/Ml Vial) 5,000 unit SUBCUT Q8H [facility] Last Admin: 10/19/22 14:23 Dose: 5,000 unit Documented By: KEKE Levofloxacin (Levaquin) 500 mg in 100 mls @ 100 mls/hr IV Q24H [facility] Last Infusion: 10/18/22 19:34 Dose: 0 mls/hr Documented By: ALBINO Metronidazole (Flagyl) 500 mg in 100 mls @ 100 mls/hr IV Q8H [facility] Last Infusion: 10/19/22 15:44 Dose: 0 mls/hr Documented By: KEKE Dextrose/Sodium Chloride (D5ns) 1,000 mls @ 120 mls/hr IVCONT .Q8H20M [facility] Last Admin: 10/19/22 15:43 Dose: 120 mls/hr Documented By: KEKE Ketorolac Tromethamine (Ketorolac Tromethamine 15 Mg/Ml Vial) 15 mg IVPUSH Q6H [facility] Last Admin: 10/19/22 14:22 Dose: 15 mg Documented By: KEKE Loratadine (Loratadine 10 Mg Tablet) 10 mg PO DAILY [facility] Last Admin: 10/19/22 08:37 Dose: 10 mg Documented By: KEKE Magnesium Oxide (Magnesium Oxide 400 Mg Tablet) 400 mg PO DAILY [facility] Last Admin: 10/19/22 08:37 Dose: 400 mg Documented By: KEKE Metoprolol Succinate (Metoprolol Succinate Er 12.5 Mg Halftab.Er.24h) 12.5 mg PO DAILY [facility]; Protocol Last Admin: 10/19/22 08:36 Dose: 12.5 mg Documented By: KEKE Morphine Sulfate (Morphine Sulfate 4 Mg/Ml Cartridge) 4 mg IVPUSH Q3H PRN; Protocol PRN Reason: Pain, Severe (Pain Scale 7-10) Last Admin: 10/18/22 11:39 Dose: 4 mg Documented By: ALBINO Ondansetron HCl (Ondansetron Hcl 4 Mg/2 Ml Vial) 4 mg IVPUSH Q8H PRN PRN Reason: nausea Last Admin: 10/19/22 08:35 Dose: 4 mg Documented By: KEKE Polyethylene Glycol (Polyethylene Glycol 3350 17 Gm Powd.Pack) 17 gm PO DAILY PRN PRN Reason: Constipation Last Admin: 10/18/22 18:05 Dose: 17 gm Documented By: ALBINO Sodium Chloride (0.9 % Sodium Chloride Flush 3 Ml Syringe) 3 ml IVFLUSH QSHIFT [facility] Last Admin: 10/19/22 16:03 Dose: Not Given Documented By: KEKE Non-Admin Reason: IV Running Trazodone HCl (Trazodone Hcl 50 Mg Tablet) 50 mg PO BEDTIME PRN PRN Reason: sleep Last Admin: 10/16/22 21:27 Dose: 50 mg Documented By: YAN Vitamin D (Cholecalciferol (Vitamin D3) 25 Mcg Tablet) 125 mcg PO DAILY [facility] Last Admin: 10/19/22 08:35 Dose: 125 mcg Documented By: KEKE Labs 10/19/22 13:42 10/19/22 13:42 Labs: Laboratory Results - last 24 hr 10/18/22 10/19/22 10/19/22 19:30 13:42 13:42 MCV 97.0 MCH 32.0 MCHC 33.0 RDW 12.7 Plt Count 245 D MPV 10.4 Immature Gran % (Auto) Cancelled Neut % (Auto) Cancelled Lymph % (Auto) Cancelled Richardson % (Auto) Cancelled Eos % (Auto) Cancelled Baso % (Auto) Cancelled Lymph # (Auto) Cancelled Richardson # (Auto) Cancelled Eos # (Auto) Cancelled Baso # (Auto) Cancelled Abs Immat Gran (auto) Cancelled Absolute Neuts (auto) Cancelled Absolute Nucleated RBC 0.000 Nucleated RBC % (auto) 0.0 Neutrophils % (Manual) 83 H Band Neutrophils % 0 L Lymphocytes % (Manual) 11 L Monocytes % (Manual) 4 Eosinophils % (Manual) 1 Myelocytes % 1 Abs Neuts (Manual) 8.1 Lymphocytes # (Manual) 1.1 L Monocytes # (Manual) 0.4 Eosinophils # (Manual) 0.1 Myelocytes # 0.1 Platelet Estimate NORMAL Plt Morphology Comment NORMAL RBC Morphology NORMAL Julian Cells 2+ (3-5) Anion Gap 15 Estim Creat Clear Calc 79.1 Estimated GFR > 60 Random Glucose 94 Calcium 9.6 Urine Color Dark Yellow Urine Appearance Clear Urine pH 6.0 Ur Specific Enders 1.025 Urine Protein 30 (1+) H Urine Glucose (UA) Negative Urine Ketones Trace Urine Blood Negative Urine Nitrite Negative Ur Leukocyte Esterase Trace H Urine RBC 0-2 Urine WBC 0-5 Ur Squamous Epith Cells 0-2 Urine Bacteria None Seen Hyaline Casts 0-2 Procedures Date of Service Date of Service: 10/19/22 Progress Note: A&P Assessment and plan (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 Assessment and Plan: pt is pod#4 sp Celi- doing ok but maybe a little ileus - slow down po intake to sips of clear liquids, resume ivf, check labs, ambulate she understands and agrees with the plan cont with drain - not much output Time Spent With Patient Time: Total time managing care of this patient today ____ minutes. Quality Stroke Does the patient have a stroke diagnosis?: No VTE Prior VTE?: No VTE Risk Level:: Medical - moderate - high VTE Device Contraindication: N/A - Device Ordered VTE Drug Contraindication: N/A - Med Ordered
[2022-10-19] MEDS: levoFLOXacin/D5W 500 MG/100 ML PIGGYBACK 100 MG IV (18:29)
[2022-10-19] MEDS: polyethylene glycoL 3350 17 GM POWD.PACK PO (18:31)
[2022-10-19] MEDS: Atorvastatin Calcium 80 MG TABLET PO (19:55)
[2022-10-20] VITALS (7 sets, daily range): BP systolic 135–147; BP diastolic 55–80; PULSE 95–107; RESP 14–20; TEMP 36.8–37.4; O2SAT 90–92
[2022-10-20] MEDS: Heparin Sodium,Porcine 5,000 UNIT/ML VIAL 5000 UNIT SUBCUT ×3 (00:02→18:39)
[2022-10-20] MEDS: Ketorolac Tromethamine 15 MG/ML VIAL IVPUSH ×2 (00:42→06:02)
[2022-10-20] MEDS: metroNIDAZOLE/NS 500 MG/100 ML PIGGYBACK 100 MG IV ×3 (04:41→21:30)
[2022-10-20] MEDS: ondansetron HCL 4 MG/2 ML VIAL IVPUSH (05:56)
[2022-10-20] MEDS: Dextrose 5 % and 0.9 % NaCl 1,000 ML 120 ML IVCONT ×2 (09:36→21:42)
--- NOTE | 2022-10-20 10:02 | PM.PNGS ---
Subjective Subjective Date of Service: 10/20/22 <Mary Thornton PA-C - Last Filed: 10/20/22 10:11> 10/20/22 <Gagan Snell MD - Last Filed: 10/20/22 11:25> Interval history: More nausea this morning, improved with zofran. Ostomy having solid stool output. OOB and ambulating halls. <Mary Thornton PA-C - Last Filed: 10/20/22 10:11> Physical Exam Vital Signs: Vital Signs: Last Vital Signs Temp 98.9 F 10/20/22 08:00 Pulse 95 10/20/22 08:00 Resp 19 10/20/22 08:00 BP 135/64 10/20/22 08:00 Pulse Ox 90 L 10/20/22 08:00 O2 Del Method Room Air 10/20/22 08:00 O2 Flow Rate 3 10/19/22 11:12 Oxygen Flow Rate 5 10/19/22 18:00 BMI result Body Mass Index 36.2 <Mary Thornton PA-C - Last Filed: 10/20/22 10:11> Const: General: comfortable, no acute distress and alert <Mray Thornton PA-C - Last Filed: 10/20/22 10:11> Orientation/consciousness: patient oriented x3 <Mary Thornton PA-C - Last Filed: 10/20/22 10:11> Resp: Effort & Inspection: normal respiratory effort <Mary Thornton PA-C - Last Filed: 10/20/22 10:11> Cardio: Rate: regular rate <Mary Thornton PA-C - Last Filed: 10/20/22 10:11> GI: Other: ostomy pink; soft brown stool in appliance KOBE drain with serosanguineous output <MICHELE Pendleton Last Filed: 10/20/22 10:11> Inspection: No distended and Yes incision (clean) <MICHELE Pendleton Last Filed: 10/20/22 10:11> Palpation (GI): Soft to palpation, Tenderness to palpation present (GI) (incisional), no guarding and not rigid <MICHELE Pendleton Last Filed: 10/20/22 10:11> Skin: General skin exam: no rashes or lesions noted <Mary Thornton PA-C - Last Filed: 10/20/22 10:11> Neuro: General: patient oriented x3 and moves all extremities <Mary Thornton PA-C - Last Filed: 10/20/22 10:11> Objective Data Active Medications Anastrozole (Anastrozole 1 Mg Tablet) 1 mg PO DAILY [facility] Last Admin: 10/19/22 08:36 Dose: 1 mg Documented By: KEKE Atorvastatin Calcium (Atorvastatin Calcium 80 Mg Tablet) 80 mg PO BEDTIME [facility] Last Admin: 10/19/22 19:55 Dose: 80 mg Documented By: EBEN Docusate Sodium (Docusate Sodium 100 Mg Capsule) 100 mg PO BID [facility] Last Admin: 10/19/22 19:55 Dose: 100 mg Documented By: EBEN Famotidine (Famotidine 20 Mg Tablet) 10 mg PO DAILY [facility] Last Admin: 10/19/22 08:37 Dose: 10 mg Documented By: EKKE Fluticasone Propionate (Fluticasone Propionate Nasal 16 Gm [place]) 1 spray NOSTRIL-B Q12H PRN PRN Reason: Allergy Symptoms Heparin Sodium (Porcine) (Heparin Sodium,Porcine 5,000 Unit/Ml Vial) 5,000 unit SUBCUT Q8H [facility] Last Admin: 10/20/22 09:47 Dose: 5,000 unit Documented By: KEKE Levofloxacin (Levaquin) 500 mg in 100 mls @ 100 mls/hr IV Q24H [facility] Last Infusion: 10/19/22 19:35 Dose: 0 mls/hr Documented By: KEKE Metronidazole (Flagyl) 500 mg in 100 mls @ 100 mls/hr IV Q8H [facility] Last Infusion: 10/20/22 05:49 Dose: 0 mls/hr Documented By: EBEN Dextrose/Sodium Chloride (D5ns) 1,000 mls @ 120 mls/hr IVCONT .Q8H20M [facility] Last Admin: 10/20/22 09:36 Dose: 120 mls/hr Documented By: KEKE Ketorolac Tromethamine (Ketorolac Tromethamine 15 Mg/Ml Vial) 15 mg IVPUSH Q6H [facility] Last Admin: 10/20/22 06:02 Dose: 15 mg Documented By: EBEN Loratadine (Loratadine 10 Mg Tablet) 10 mg PO DAILY [facility] Last Admin: 10/19/22 08:37 Dose: 10 mg Documented By: KEKE Magnesium Oxide (Magnesium Oxide 400 Mg Tablet) 400 mg PO DAILY [facility] Last Admin: 10/19/22 08:37 Dose: 400 mg Documented By: KEKE Metoprolol Succinate (Metoprolol Succinate Er 12.5 Mg Halftab.Er.24h) 12.5 mg PO DAILY [facility]; Protocol Last Admin: 10/19/22 08:36 Dose: 12.5 mg Documented By: KEKE Morphine Sulfate (Morphine Sulfate 4 Mg/Ml Cartridge) 4 mg IVPUSH Q3H PRN; Protocol PRN Reason: Pain, Severe (Pain Scale 7-10) Last Admin: 10/18/22 11:39 Dose: 4 mg Documented By: ALBINO Ondansetron HCl (Ondansetron Hcl 4 Mg/2 Ml Vial) 4 mg IVPUSH Q8H PRN PRN Reason: nausea Last Admin: 10/20/22 05:56 Dose: 4 mg Documented By: EBEN Polyethylene Glycol (Polyethylene Glycol 3350 17 Gm Powd.Pack) 17 gm PO DAILY [facility] Last Admin: 10/19/22 18:31 Dose: 17 gm Documented By: KEKE Sodium Chloride (0.9 % Sodium Chloride Flush 3 Ml Syringe) 3 ml IVFLUSH QSHIFT [facility] Last Admin: 10/20/22 00:00 Dose: Not Given Documented By: EBEN Non-Admin Reason: IV Running Trazodone HCl (Trazodone Hcl 50 Mg Tablet) 50 mg PO BEDTIME PRN PRN Reason: sleep Last Admin: 10/16/22 21:27 Dose: 50 mg Documented By: YAN Vitamin D (Cholecalciferol (Vitamin D3) 25 Mcg Tablet) 125 mcg PO DAILY [facility] Last Admin: 10/19/22 08:35 Dose: 125 mcg Documented By: KEKE <Mary Thornton PA-C - Last Filed: 10/20/22 10:11> Labs CBC & Chem 7: 10/19/22 13:42 10/19/22 13:42 <Mary Thornton PA-C - Last Filed: 10/20/22 10:11> Labs: Laboratory Results - last 24 hr 10/19/22 10/19/22 13:42 13:42 MCV 97.0 MCH 32.0 MCHC 33.0 RDW 12.7 Plt Count 245 D MPV 10.4 Immature Gran % (Auto) Cancelled Neut % (Auto) Cancelled Lymph % (Auto) Cancelled [place] % (Auto) Cancelled Eos % (Auto) Cancelled Baso % (Auto) Cancelled Lymph # (Auto) Cancelled [place] # (Auto) Cancelled Eos # (Auto) Cancelled Baso # (Auto) Cancelled Abs Immat Gran (auto) Cancelled Absolute Neuts (auto) Cancelled Absolute Nucleated RBC 0.000 Nucleated RBC % (auto) 0.0 Neutrophils % (Manual) 83 H Band Neutrophils % 0 L Lymphocytes % (Manual) 11 L Monocytes % (Manual) 4 Eosinophils % (Manual) 1 Myelocytes % 1 Abs Neuts (Manual) 8.1 Lymphocytes # (Manual) 1.1 L Monocytes # (Manual) 0.4 Eosinophils # (Manual) 0.1 Myelocytes # 0.1 Platelet Estimate NORMAL Plt Morphology Comment NORMAL RBC Morphology NORMAL [place] Cells 2+ (3-5) Anion Gap 15 Estim Creat Clear Calc 79.1 Estimated GFR > 60 Random Glucose 94 Calcium 9.6 <Mary Thornton PA-C - Last Filed: 10/20/22 10:11> Procedures Date of Service Date of Service: 10/20/22 <Mary Thornton PA-C - Last Filed: 10/20/22 10:11> 10/20/22 <Gagan Snell MD - Last Filed: 10/20/22 11:25> Progress Note: A&P Assessment and plan (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 <Mary Thornton PA-C - Last Filed: 10/20/22 10:11> (2) Perforated sigmoid colon: Status: Acute <MICHELE Pendleton Last Filed: 10/20/22 10:11> (3) Stercoral colitis: Status: Acute <Mary Thornton PA-C - Last Filed: 10/20/22 10:11> Assessment and Plan: stoma functioning pt with nausea, no vomitting KOBE scanty, serosanguinous output dressings changed - some bloody staining; no pus or cellulitis likely with some ileus looks well exam benign ambulate path report noted- perforation likely stercoral in etiology seen and examined independently <Gagan Snell MD - Last Filed: 10/20/22 11:25> Assessment and Plan: 67 year old female admitted with perforated viscus now s/p laparotomy, sigmoid resection, end colostomy, intra-abdominal washout. Found to have perforated sigmoid intraop. Transverse colon, left colon, and sigmoid with very high fecal load with very hard rock like stools with note of stools extraluminally and surrounding peritonitis. Pathology consistent with a stercoral ulcer. Developed ileus over the weekend- will continue sips of liquids only. Cont IVF. Abd exam is benign with clean incision and colostomy with good stool output. Cont IV abx. Encouraged OOB/ambulation today and IS use. Will need good bowel regimen once ileus resolved. Continue colostomy education. <Mary Thornton PA-C - Last Filed: 10/20/22 10:11> Time Spent With Patient Time: Total time managing care of this patient today ____ minutes. <Mary Thornton PA-C - Last Filed: 10/20/22 10:11> Quality Stroke Does the patient have a stroke diagnosis?: No <Mary Thornton PA-C - Last Filed: 10/20/22 10:11> VTE Prior VTE?: No <Mary Thornton PA-C - Last Filed: 10/20/22 10:11> VTE Risk Level:: Medical - moderate - high <Mary Thornton PA-C - Last Filed: 10/20/22 10:11> VTE Device Contraindication: N/A - Device Ordered <Mary Thornton PA-C - Last Filed: 10/20/22 10:11> VTE Drug Contraindication: N/A - Med Ordered <MICHELE Pendleton Last Filed: 10/20/22 10:11>
[2022-10-20] MEDS: Cholecalciferol (Vitamin D3) 25 MCG TABLET 125 MCG PO (10:22)
[2022-10-20] MEDS: 0.9 % Sodium Chloride Flush 3 ML SYRINGE IVFLUSH ×2 (10:22→18:40)
[2022-10-20] MEDS: Famotidine 20 MG TABLET 10 MG PO (10:22)
[2022-10-20] MEDS: Magnesium Oxide 400 MG TABLET PO (10:23)
[2022-10-20] MEDS: Metoprolol Succinate ER 12.5 MG HALFTAB.ER.24H PO (10:23)
[2022-10-20] MEDS: Docusate Sodium 100 MG CAPSULE PO ×2 (10:24→21:29)
[2022-10-20] MEDS: Loratadine 10 MG TABLET PO (10:24)
[2022-10-20] MEDS: Anastrozole 1 MG TABLET PO (10:26)
--- NOTE | 2022-10-20 14:56 | PM.EVENT ---
Event Note Date of Service: 10/20/22 Event Note: Seen on afternoon rounds She feels better Nausea improved Stoma continues to function well Keep on clear liquids today Encouraged to ambulate and get out of bed Abdomen soft and benign She looks well overall Family at bedside Time Spent With Patient Time: Total time managing care of this patient today ____ minutes.
--- NOTE | 2022-10-20 15:13 | MHC.CM.PN ---
EMR reviewed and pt is not medically cleared for D/C, she developed an ileus over the weekend and continued on IV abx. CM will continue to follow.
[2022-10-20] MEDS: levoFLOXacin/D5W 500 MG/100 ML PIGGYBACK 100 MG IV (18:39)
[2022-10-20] MEDS: Morphine Sulfate 4 MG/ML CARTRIDGE 2 MG IVPUSH (21:27)
[2022-10-20] MEDS: Atorvastatin Calcium 80 MG TABLET PO (21:29)
[2022-10-21 04:00] VITALS: BP 131/76; PULSE 103; RESP 20; TEMP 36.9; O2SAT 92
[2022-10-21] MEDS: Dextrose 5 % and 0.9 % NaCl 1,000 ML 120 ML IVCONT (06:19)
[2022-10-21] MEDS: metroNIDAZOLE/NS 500 MG/100 ML PIGGYBACK 100 MG IV ×3 (06:22→20:18)
[2022-10-21] MEDS: Morphine Sulfate 4 MG/ML CARTRIDGE 2 MG IVPUSH (06:58)
[2022-10-21 07:45] VITALS: BP 131/69; PULSE 97; RESP 20; TEMP 36.9; O2SAT 94
--- NOTE | 2022-10-21 08:40 | PC.NURSE ---
pt abdominal dressings saturated with BRB and clots. Dressing changed and bleeding/oozing noted at 7 O'clock at [facility]. MD and surgical team aware. Dresssing partially saturated and changed again at 0600. smaller amt bleeding noted. pressure dressing again applied as tolerated.
--- NOTE | 2022-10-21 09:28 | PM.PNGS ---
Subjective Subjective Date of Service: 10/22/22 Interval history: some nausea this morning stoma with good output - hard stools no vomitting oozing from upper part of midline incision overnight - with blood Physical Exam Vital Signs: Vital Signs: Last Vital Signs Temp 98.4 F 10/21/22 07:45 Pulse 97 10/21/22 07:45 Resp 20 10/21/22 07:45 BP 131/69 10/21/22 07:45 Pulse Ox 94 10/21/22 07:45 O2 Del Method Nasal Cannula 10/21/22 07:45 O2 Flow Rate 2 10/21/22 07:45 Oxygen Flow Rate 5 10/19/22 18:00 BMI result Body Mass Index 36.2 Const: General: comfortable and no acute distress Resp: Effort & Inspection: normal respiratory effort Cardio: Rate: regular rate GI: Other: stoma with large amounts of hard stools incision - oozing, bright blood on upper part, with hematoma Palpation (GI): Soft to palpation, not firm and no guarding Objective Data Active Medications Anastrozole (Anastrozole 1 Mg Tablet) 1 mg PO DAILY [facility] Last Admin: 10/20/22 10:26 Dose: 1 mg Documented By: KEKE Atorvastatin Calcium (Atorvastatin Calcium 80 Mg Tablet) 80 mg PO BEDTIME [facility] Last Admin: 10/20/22 21:29 Dose: 80 mg Documented By: DEEJAY Docusate Sodium (Docusate Sodium 100 Mg Capsule) 100 mg PO BID [facility] Last Admin: 10/20/22 21:29 Dose: 100 mg Documented By: DEEJAY Famotidine (Famotidine 20 Mg Tablet) 10 mg PO DAILY [facility] Last Admin: 10/20/22 10:22 Dose: 10 mg Documented By: KEKE Fluticasone Propionate (Fluticasone Propionate Nasal 16 Gm [place]) 1 spray NOSTRIL-B Q12H PRN PRN Reason: Allergy Symptoms Heparin Sodium (Porcine) (Heparin Sodium,Porcine 5,000 Unit/Ml Vial) 5,000 unit SUBCUT Q8H [facility] Last Admin: 10/21/22 01:07 Dose: Not Given Documented By: DEEJAY Non-Admin Reason: bleeding this shift, aware, boots on Levofloxacin (Levaquin) 500 mg in 100 mls @ 100 mls/hr IV Q24H [facility] Last Infusion: 10/20/22 19:47 Dose: 0 mls/hr Documented By: KEKE Metronidazole (Flagyl) 500 mg in 100 mls @ 100 mls/hr IV Q8H [facility] Last Admin: 10/21/22 06:22 Dose: 100 mls/hr Documented By: DEEJAY Dextrose/Sodium Chloride (D5ns) 1,000 mls @ 80 mls/hr IVCONT .[id number] [facility] Last Admin: 10/21/22 06:19 Dose: 120 mls/hr Documented By: DEEJAY Ketorolac Tromethamine (Ketorolac Tromethamine 15 Mg/Ml Vial) 15 mg IVPUSH Q6H PRN PRN Reason: Pain, Severe (Pain Scale 7-10) Loratadine (Loratadine 10 Mg Tablet) 10 mg PO DAILY [facility] Last Admin: 10/20/22 10:24 Dose: 10 mg Documented By: KEKE Magnesium Oxide (Magnesium Oxide 400 Mg Tablet) 400 mg PO DAILY [facility] Last Admin: 10/20/22 10:23 Dose: 400 mg Documented By: KEKE Metoprolol Succinate (Metoprolol Succinate Er 12.5 Mg Halftab.Er.24h) 12.5 mg PO DAILY [facility]; Protocol Last Admin: 10/20/22 10:23 Dose: 12.5 mg Documented By: KEKE Morphine Sulfate (Morphine Sulfate 4 Mg/Ml Cartridge) 2 mg IVPUSH Q3H PRN; Protocol PRN Reason: Pain, Severe (Pain Scale 7-10) Last Admin: 10/21/22 06:58 Dose: 2 mg Documented By: DEEJAY Ondansetron HCl (Ondansetron Hcl 4 Mg/2 Ml Vial) 4 mg IVPUSH Q8H PRN PRN Reason: nausea Last Admin: 10/20/22 05:56 Dose: 4 mg Documented By: EBEN Oxycodone HCl (Oxycodone Hcl Immed Release 5 Mg Tablet) 10 mg PO Q4H PRN PRN Reason: Pain, Moderate(Pain Scale 4-6) Polyethylene Glycol (Polyethylene Glycol 3350 17 Gm Powd.Pack) 17 gm PO DAILY [facility] Last Admin: 10/20/22 10:24 Dose: Not Given Documented By: KEKE Non-Admin Reason: Patient Refused Sodium Chloride (0.9 % Sodium Chloride Flush 3 Ml Syringe) 3 ml IVFLUSH QSHIFT [facility] Last Admin: 10/21/22 01:08 Dose: Not Given Documented By: DEEJAY Non-Admin Reason: Previously Administered Trazodone HCl (Trazodone Hcl 50 Mg Tablet) 50 mg PO BEDTIME PRN PRN Reason: sleep Last Admin: 10/16/22 21:27 Dose: 50 mg Documented By: YAN Vitamin D (Cholecalciferol (Vitamin D3) 25 Mcg Tablet) 125 mcg PO DAILY [facility] Last Admin: 10/20/22 10:22 Dose: 125 mcg Documented By: KEKE Labs 10/19/22 13:42 10/19/22 13:42 Microbiology Microbiology Results: Microbiology 10/15/22 17:24 Blood Culture - Final Blood - Venous No growth after 5 days. 10/15/22 17:16 Blood Culture - Final Blood - Venous No growth after 5 days. Procedures Date of Service Date of Service: 10/22/22 Progress Note: A&P Assessment and plan (1) Perforated sigmoid colon: Status: Acute Assessment and Plan: S/P Celi's procedure stoma with good output oozing from upper part of incision - dressings changed, thick gauze applied will hold subcu heparin try full liquids OOB looks well Time Spent With Patient Time: Total time managing care of this patient today ____ minutes. Quality Stroke Does the patient have a stroke diagnosis?: No VTE Prior VTE?: No VTE Risk Level:: Medical - moderate - high VTE Device Contraindication: N/A - Device Ordered VTE Drug Contraindication: N/A - Med Ordered
[2022-10-21] MEDS: Cholecalciferol (Vitamin D3) 25 MCG TABLET 125 MCG PO (10:20)
[2022-10-21] MEDS: Metoprolol Succinate ER 12.5 MG HALFTAB.ER.24H PO (10:22)
[2022-10-21] MEDS: Docusate Sodium 100 MG CAPSULE PO ×2 (10:23→20:18)
[2022-10-21] MEDS: Magnesium Oxide 400 MG TABLET PO (10:23)
[2022-10-21] MEDS: Famotidine 20 MG TABLET 10 MG PO (10:23)
[2022-10-21] MEDS: Loratadine 10 MG TABLET PO (10:24)
[2022-10-21] MEDS: 0.9 % Sodium Chloride Flush 3 ML SYRINGE IVFLUSH ×3 (10:24→20:19)
[2022-10-21] MEDS: Anastrozole 1 MG TABLET PO (10:24)
[2022-10-21] MEDS: polyethylene glycoL 3350 17 GM POWD.PACK PO (10:31)
[2022-10-21 11:07] VITALS: BP 127/67; PULSE 92; RESP 20; TEMP 36.9; O2SAT 95
[2022-10-21 15:25] VITALS: BP 124/70; PULSE 99; RESP 20; TEMP 35.8; O2SAT 96
[2022-10-21] MEDS: levoFLOXacin/D5W 500 MG/100 ML PIGGYBACK 100 MG IV (18:04)
[2022-10-21] MEDS: Dextrose 5 % and 0.9 % NaCl 1,000 ML 80 ML IVCONT (18:06)
[2022-10-21 19:06] VITALS: BP 128/77; PULSE 102; RESP 20; TEMP 36.7; O2SAT 97
[2022-10-21] MEDS: traZODone HCL 50 MG TABLET PO (20:18)
[2022-10-21] MEDS: Atorvastatin Calcium 80 MG TABLET PO (20:18)
[2022-10-21] MEDS: Ketorolac Tromethamine 15 MG/ML VIAL IVPUSH (20:28)
[2022-10-21 23:56] VITALS: BP 119/68; PULSE 97; RESP 18; TEMP 36.5; O2SAT 95
[2022-10-22 04:00] VITALS: BP 138/73; PULSE 106; RESP 20; TEMP 36.9; O2SAT 93
[2022-10-22] MEDS: metroNIDAZOLE/NS 500 MG/100 ML PIGGYBACK 100 MG IV ×3 (04:35→21:00)
--- NOTE | 2022-10-22 06:33 | PC.NURSE ---
Approx 0030, pt abdominal dressing saturated in sangeous fluid. When removing dressing large thick clot noted. Gauzed/ABD pads & tape applied. Proximal end of incision noted to be oozing blood. monitoring dressing for further bleeding.
[2022-10-22 07:48] VITALS: BP 129/69; PULSE 102; RESP 20; TEMP 37.3; O2SAT 95
[2022-10-22] MEDS: Morphine Sulfate 4 MG/ML CARTRIDGE 2 MG IVPUSH ×3 (08:55→17:21)
[2022-10-22] MEDS: ondansetron HCL 4 MG/2 ML VIAL IVPUSH (08:56)
--- NOTE | 2022-10-22 09:21 | P.PNGS_ITS ---
Subjective Subjective Date of Service: 10/22/22 <Mary Thornton PA-C - Last Filed: 10/22/22 09:27> 10/22/22 <Gagan Snell MD - Last Filed: 10/22/22 09:46> Interval history: Dressing saturated this morning. Last changed at 11pm last night. C/o nausea this morning- was able to tolerate apple sauce yesterday. Colostomy with good output- has not participated in care yet. <Mary Thornton PA-C - Last Filed: 10/22/22 09:27> Physical Exam Vital Signs: Vital Signs: Last Vital Signs Temp 99.1 F 10/22/22 07:48 Pulse 102 H 10/22/22 07:48 Resp 20 10/22/22 07:48 BP 129/69 10/22/22 07:48 Pulse Ox 95 10/22/22 07:48 O2 Del Method Room Air 10/22/22 07:48 O2 Flow Rate 2 10/21/22 19:06 Oxygen Flow Rate 5 10/19/22 18:00 BMI result Body Mass Index 36.2 <Mary Thornton PA-C - Last Filed: 10/22/22 09:27> Const: General: comfortable, no acute distress and alert <MICHELE Pendleton Last Filed: 10/22/22 09:27> Orientation/consciousness: patient oriented x3 <MICHELE Pendleton Last Filed: 10/22/22 09:27> Resp: Effort & Inspection: normal respiratory effort <MICHELE Pendleton Last Filed: 10/22/22 09:27> Cardio: Rate: tachycardic <MICHELE Pendleton Last Filed: 10/22/22 09:27> GI: Other: incision with active oozing noted from superior aspect- one staple removed and oozing noted from subcutaneous tissue which was cauterized with silver nitrate with good hemostasis achieved colostomy pink, stool in appliance KOBE drain with serous output <MICHELE Pendleton Last Filed: 10/22/22 09:27> Inspection: No distended <MICHELE Pendleton Last Filed: 10/22/22 09:27> Palpation (GI): Soft to palpation, Tenderness to palpation present (GI) (incisional), no guarding and not rigid <Mary Thornton PA-C - Last Filed: 10/22/22 09:27> Skin: General skin exam: no rashes or lesions noted <Mary Thornton PA-C - Last Filed: 10/22/22 09:27> Neuro: General: patient oriented x3 and moves all extremities <Mary Thornton PA-C - Last Filed: 10/22/22 09:27> Objective Data Active Medications Anastrozole (Anastrozole 1 Mg Tablet) 1 mg PO DAILY [facility] Last Admin: 10/21/22 10:24 Dose: 1 mg Documented By: KEKE Atorvastatin Calcium (Atorvastatin Calcium 80 Mg Tablet) 80 mg PO BEDTIME [facility] [place] Last Admin: 10/21/22 20:18 Dose: 80 mg Documented By: YAN Docusate Sodium (Docusate Sodium 100 Mg Capsule) 100 mg PO BID [facility] [place] Last Admin: 10/21/22 20:18 Dose: 100 mg Documented By: YAN Famotidine (Famotidine 20 Mg Tablet) 10 mg PO DAILY [facility] [place] Last Admin: 10/21/22 10:23 Dose: 10 mg Documented By: KEKE Fluticasone Propionate (Fluticasone Propionate Nasal 16 Gm [place]) 1 spray NOSTRIL-B Q12H PRN PRN Reason: Allergy Symptoms Levofloxacin (Levaquin) 500 mg in 100 mls @ 100 mls/hr IV Q24H [facility] [place] Last Infusion: 10/21/22 19:49 Dose: 0 mls/hr Documented By: YAN Metronidazole (Flagyl) 500 mg in 100 mls @ 100 mls/hr IV Q8H [facility] [place] Last Infusion: 10/22/22 05:45 Dose: 0 mls/hr Documented By: YAN Ketorolac Tromethamine (Ketorolac Tromethamine 15 Mg/Ml Vial) 15 mg IVPUSH Q6H PRN PRN Reason: Pain, Severe (Pain Scale 7-10) Last Admin: 10/21/22 20:28 Dose: 15 mg Documented By: YAN Loratadine (Loratadine 10 Mg Tablet) 10 mg PO DAILY [facility] [place] Last Admin: 10/21/22 10:24 Dose: 10 mg Documented By: KEKE Magnesium Oxide (Magnesium Oxide 400 Mg Tablet) 400 mg PO DAILY [facility] [place] Last Admin: 10/21/22 10:23 Dose: 400 mg Documented By: KEKE Metoprolol Succinate (Metoprolol Succinate Er 12.5 Mg Halftab.Er.24h) 12.5 mg PO DAILY [facility] [place]; Protocol Last Admin: 10/21/22 10:22 Dose: 12.5 mg Documented By: KEKE Morphine Sulfate (Morphine Sulfate 4 Mg/Ml Cartridge) 2 mg IVPUSH Q3H PRN; Protocol PRN Reason: Pain, Severe (Pain Scale 7-10) Last Admin: 10/22/22 08:55 Dose: 2 mg Documented By: FIORDALIZA Ondansetron HCl (Ondansetron Hcl 4 Mg/2 Ml Vial) 4 mg IVPUSH Q8H PRN PRN Reason: nausea Last Admin: 10/22/22 08:56 Dose: 4 mg Documented By: FIORDALIZA Oxycodone HCl (Oxycodone Hcl Immed Release 5 Mg Tablet) 10 mg PO Q4H PRN PRN Reason: Pain, Moderate(Pain Scale 4-6) Polyethylene Glycol (Polyethylene Glycol 3350 17 Gm Powd.Pack) 17 gm PO DAILY [facility] [place] Last Admin: 10/21/22 10:31 Dose: 17 gm Documented By: KEKE Sodium Chloride (0.9 % Sodium Chloride Flush 3 Ml Syringe) 3 ml IVFLUSH QSHIFT [facility] [place] Last Admin: 10/21/22 20:19 Dose: 3 ml Documented By: YAN Trazodone HCl (Trazodone Hcl 50 Mg Tablet) 50 mg PO BEDTIME PRN PRN Reason: sleep Last Admin: 10/21/22 20:18 Dose: 50 mg Documented By: YAN Vitamin D (Cholecalciferol (Vitamin D3) 25 Mcg Tablet) 125 mcg PO DAILY [facility] [place] Last Admin: 10/21/22 10:20 Dose: 125 mcg Documented By: KEKE <Mary Thornton PA-C - Last Filed: 10/22/22 09:27> Labs CBC & Chem 7: 10/19/22 13:42 10/19/22 13:42 <Mary Thornton PA-C - Last Filed: 10/22/22 09:27> Procedures Date of Service Date of Service: 10/22/22 <Mary Thornton PA-C - Last Filed: 10/22/22 09:27> 10/22/22 <Gagan Snell MD - Last Filed: 10/22/22 09:46> Progress Note: A&P Assessment and plan (1) Stercoral colitis: Status: Acute <Mary Thornton PA-C - Last Filed: 10/22/22 09:27> (2) Status post Celi procedure: Status: Acute <Mary Thornton PA-C - Last Filed: 10/22/22 09:27> Assessment and Plan: Dressings were saturated this morning Incision examined - steady oozing on the subdermal layer on the upper part of the incision on the right Controlled with silver nitrate cauterization Stoma functioning well with good output She complained of nausea this morning although she did tolerate full liquids yesterday Will not advance diet therefore Abdomen soft and benign She otherwise looks well Seen and examined independently <Gagan Snell MD - Last Filed: 10/22/22 09:46> (3) Perforated sigmoid colon: Status: Acute <Mary Thornton PA-C - Last Filed: 10/22/22 09:27> Assessment and Plan: 67 year old female admitted with perforated viscus now s/p laparotomy, sigmoid resection, end colostomy, intra-abdominal washout. Found to have perforated sigmoid intraop. Transverse colon, left colon, and sigmoid with very high fecal load with very hard rock like stools with note of stools extraluminally and surrounding peritonitis. Pathology consistent with a stercoral ulcer. Incisional bleeding as noted above- will reassess later today. Has continued nausea- will hold on advancing diet. If unable to advance diet soon may need PPN vs TPN. Will consult nutrition for recs. Cont IV abx. Will repeat labs given continued tachycardia. Encouraged OOB/ambulation today and IS use. Will need good bowel regimen upon discharge. Continue colostomy education, encouraged to participate in care. <Mary Thornton PA-C - Last Filed: 10/22/22 09:27> Time Spent With Patient Time: Total time managing care of this patient today ____ minutes. <Mary Thornton PA-C - Last Filed: 10/22/22 09:27> Quality Stroke Does the patient have a stroke diagnosis?: No <Mary Thornton PA-C - Last Filed: 10/22/22 09:27> VTE Prior VTE?: No <Mary Thornton PA-C - Last Filed: 10/22/22 09:27> VTE Risk Level:: Medical - moderate - high <Mary Thornton PA-C - Last Filed: 10/22/22 09:27> VTE Device Contraindication: N/A - Device Ordered <Mary Thronton PA-C - Last Filed: 10/22/22 09:27> VTE Drug Contraindication: N/A - Med Ordered <Mary Thornton PA-C - Last Filed: 10/22/22 09:27>
[2022-10-22] MEDS: Magnesium Oxide 400 MG TABLET PO (09:29)
[2022-10-22] MEDS: Metoprolol Succinate ER 12.5 MG HALFTAB.ER.24H PO (09:29)
[2022-10-22] MEDS: Anastrozole 1 MG TABLET PO (09:29)
[2022-10-22] MEDS: Famotidine 20 MG TABLET 10 MG PO (09:29)
[2022-10-22] MEDS: polyethylene glycoL 3350 17 GM POWD.PACK PO (09:32)
[2022-10-22] MEDS: 0.9 % Sodium Chloride Flush 3 ML SYRINGE IVFLUSH ×2 (09:37→17:28)
[2022-10-22 10:00] LABS: Hematocrit 28.3 % (37.0-47.0); Hemoglobin 9.5 g/dl (12.0-16.0); Mean Corpuscular HGB Conc 33.6 g/dl (31.0-35.0); Mean Corpuscular Hemoglobin 32.4 pg (27.0-33.0); Mean Corpuscular Volume 96.6 fL (80.0-98.0); Mean Platelet Volume 10.2 fL (9.4-12.3); Platelet Count 285 X10*3/uL (160-400); Red Blood Count 2.93 X10*6/uL (4.20-5.50); Red Cell Distribution Width 13.2 % (11.0-16.0); White Blood Count 16.3 X10*3/uL (4.8-10.8)
--- NOTE | 2022-10-22 10:16 | MHC.CM.PN ---
Patient has not yet been medically cleared for dc; Patient is likely to benefit from new VNA r/t wound care. CM will follow.
[2022-10-22 10:27] LABS: Band Neutrophils Percent 3 % (3-5); Basophils Abs Manual 0.2 X10*3/uL (0.0-0.2); Basophils Percent Manual 1 % (0-2); Eosinophils Absolute Manual 0.2 X10*3/uL (0.0-0.4); Eosinophils Percent Manual 1 % (0-4); Lymphocytes Percent Manual 6 % (20-40); Monocytes Absolute Manual 0.8 X10*3/uL (0.1-1.2); Monocytes Percent Manual 5 % (2-11); Neutrophils Absolute Manual 14.2 X10*3/uL (2.0-8.3); Neutrophils Percent Manual 84 % (45-73)
[2022-10-22 10:28] LABS: Platelet Estimate NORMAL (NORMAL); Platelet Morphology Comment NORMAL; RBC Morphology NORMAL
[2022-10-22 11:13] VITALS: BP 130/64; PULSE 103; RESP 20; TEMP 37.4; O2SAT 91
[2022-10-22] MEDS: Ketorolac Tromethamine 15 MG/ML VIAL IVPUSH ×2 (12:35→21:09)
--- NOTE | 2022-10-22 13:04 | P.EN_ITS ---
Event Note Date of Service: 10/22/22 Event Note: Dressings remained dry No further oozing from incision after cauterization with silver nitrate Stoma with good function Abdomen remained soft WBC elevated - will order for CT scan as patient is at high risk for intra- abdominal abscess from fecal spillage She continues to look well No vomiting Tolerating liquids Time Spent With Patient Time: Total time managing care of this patient today ____ minutes.
[2022-10-22] MEDS: iohexoL 350 MG/ML 100 ML INFUS..BTL IV (15:54)
[2022-10-22 16:08] VITALS: BP 126/74; PULSE 106; RESP 18; TEMP 36.1; O2SAT 91
[2022-10-22] MEDS: Mag&Al/Sim/Diphenhyd/Lidocaine 10 ML ORAL.SUSP PO (17:21)
[2022-10-22] MEDS: levoFLOXacin/D5W 500 MG/100 ML PIGGYBACK 100 MG IV (17:22)
[2022-10-22 19:26] VITALS: BP 125/69; PULSE 105; RESP 18; TEMP 36.6; O2SAT 93
[2022-10-22] MEDS: Atorvastatin Calcium 80 MG TABLET PO (21:00)
[2022-10-22] MEDS: Docusate Sodium 100 MG CAPSULE PO (21:00)
[2022-10-23] VITALS (10 sets, daily range): BP systolic 110–147; BP diastolic 56–80; PULSE 101–115; RESP 18–20; TEMP 36–38.2; O2SAT 90–96
[2022-10-23] MEDS: 0.9 % Sodium Chloride Flush 3 ML SYRINGE IVFLUSH ×2 (00:37→10:09)
[2022-10-23] MEDS: metroNIDAZOLE/NS 500 MG/100 ML PIGGYBACK 100 MG IV ×3 (04:33→20:29)
[2022-10-23] MEDS: Ketorolac Tromethamine 15 MG/ML VIAL IVPUSH (04:39)
--- NOTE | 2022-10-23 08:04 | PM.PNGS ---
Subjective Subjective Date of Service: 10/24/22 Interval history: feels well this AM says she had a restful night stoma continues to function Physical Exam Vital Signs: Vital Signs: Last Vital Signs Temp 97.8 F 10/23/22 07:28 Pulse 103 H 10/23/22 07:28 Resp 19 10/23/22 07:28 BP 138/80 10/23/22 07:28 Pulse Ox 94 10/23/22 07:28 O2 Del Method Room Air 10/23/22 07:28 O2 Flow Rate 2 10/21/22 19:06 Oxygen Flow Rate 5 10/19/22 18:00 BMI result Body Mass Index 36.2 Const: General: comfortable and no acute distress Resp: Effort & Inspection: normal respiratory effort Cardio: Rhythm: regular rhythm GI: Other: soft, stoma with good output; incision dry - no further oozing Objective Data Active Medications Anastrozole (Anastrozole 1 Mg Tablet) 1 mg PO DAILY [facility] Last Admin: 10/22/22 09:29 Dose: 1 mg Documented By: PAOLA Atorvastatin Calcium (Atorvastatin Calcium 80 Mg Tablet) 80 mg PO BEDTIME [facility] Last Admin: 10/22/22 21:00 Dose: 80 mg Documented By: KELLEN Docusate Sodium (Docusate Sodium 100 Mg Capsule) 100 mg PO BID [facility] Last Admin: 10/22/22 21:00 Dose: 100 mg Documented By: KELLEN Famotidine (Famotidine 20 Mg Tablet) 10 mg PO DAILY [facility] Last Admin: 10/22/22 09:29 Dose: 10 mg Documented By: PAOLA Fluticasone Propionate (Fluticasone Propionate Nasal 16 Gm [place]) 1 spray NOSTRIL-B Q12H PRN PRN Reason: Allergy Symptoms Levofloxacin (Levaquin) 500 mg in 100 mls @ 100 mls/hr IV Q24H [facility] Last Infusion: 10/22/22 18:28 Dose: 0 mls/hr Documented By: FIORDALIZA Metronidazole (Flagyl) 500 mg in 100 mls @ 100 mls/hr IV Q8H [facility] Last Infusion: 10/23/22 06:52 Dose: 100 mls/hr Documented By: KELLEN Lactated Ringer's (Lr) 1,000 mls @ 80 mls/hr IVCONT .[id number] [facility] Ketorolac Tromethamine (Ketorolac Tromethamine 15 Mg/Ml Vial) 15 mg IVPUSH Q6H PRN PRN Reason: Pain, Severe (Pain Scale 7-10) Last Admin: 10/23/22 04:39 Dose: 15 mg Documented By: KELLEN Lidocaine/Diphenhydr/Alum/Mg/Simeth (Mag&Al/Sim/Diphenhyd/Lidocaine 10 Ml Oral.Susp) 10 ml PO Q4H PRN; Protocol PRN Reason: Mouth Sore Pain Last Admin: 10/22/22 17:21 Dose: 10 ml Documented By: FIORDALIZA Loratadine (Loratadine 10 Mg Tablet) 10 mg PO DAILY [facility] Last Admin: 10/22/22 09:36 Dose: Not Given Documented By: PAOLA Non-Admin Reason: Patient Refused Magnesium Oxide (Magnesium Oxide 400 Mg Tablet) 400 mg PO DAILY [facility] Last Admin: 10/22/22 09:29 Dose: 400 mg Documented By: PAOLA Metoprolol Succinate (Metoprolol Succinate Er 12.5 Mg Halftab.Er.24h) 12.5 mg PO DAILY [facility]; Protocol Last Admin: 10/22/22 09:29 Dose: 12.5 mg Documented By: PAOLA Morphine Sulfate (Morphine Sulfate 4 Mg/Ml Cartridge) 2 mg IVPUSH Q3H PRN; Protocol PRN Reason: Pain, Severe (Pain Scale 7-10) Last Admin: 10/22/22 17:21 Dose: 2 mg Documented By: FIORDALIZA Ondansetron HCl (Ondansetron Hcl 4 Mg/2 Ml Vial) 4 mg IVPUSH Q8H PRN PRN Reason: nausea Last Admin: 10/22/22 08:56 Dose: 4 mg Documented By: FIORDALIZA Oxycodone HCl (Oxycodone Hcl Immed Release 5 Mg Tablet) 10 mg PO Q4H PRN PRN Reason: Pain, Moderate(Pain Scale 4-6) Polyethylene Glycol (Polyethylene Glycol 3350 17 Gm Powd.Pack) 17 gm PO DAILY [facility] Last Admin: 10/22/22 09:32 Dose: 17 gm Documented By: PAOLA Sodium Chloride (0.9 % Sodium Chloride Flush 3 Ml Syringe) [address] [facility] Last Admin: 10/23/22 00:37 Dose: 3 ml Documented By: KELLEN Trazodone HCl (Trazodone Hcl 50 Mg Tablet) 50 mg PO BEDTIME PRN PRN Reason: sleep Last Admin: 10/21/22 20:18 Dose: 50 mg Documented By: YAN Vitamin D (Cholecalciferol (Vitamin D3) 25 Mcg Tablet) 125 mcg PO DAILY [facility] Last Admin: 10/22/22 09:35 Dose: Not Given Documented By: PAOLA Non-Admin Reason: Patient Refused Labs 10/22/22 08:59 10/19/22 13:42 Labs: Laboratory Results - last 24 hr 10/22/22 08:59 MCV 96.6 MCH 32.4 MCHC 33.6 RDW 13.2 Plt Count 285 MPV 10.2 Immature Gran % (Auto) Cancelled Neut % (Auto) Cancelled Lymph % (Auto) Cancelled [place] % (Auto) Cancelled Eos % (Auto) Cancelled Baso % (Auto) Cancelled Lymph # (Auto) Cancelled [place] # (Auto) Cancelled Eos # (Auto) Cancelled Baso # (Auto) Cancelled Abs Immat Gran (auto) Cancelled Absolute Neuts (auto) Cancelled Absolute Nucleated RBC 0.000 Nucleated RBC % (auto) 0.0 Neutrophils % (Manual) 84 H Band Neutrophils % 3 Lymphocytes % (Manual) 6 L Monocytes % (Manual) 5 Eosinophils % (Manual) 1 Basophils % (Manual) 1 Abs Neuts (Manual) 14.2 H Lymphocytes # (Manual) 1.0 L Monocytes # (Manual) 0.8 Eosinophils # (Manual) 0.2 Basophils # (Manual) 0.2 Platelet Estimate NORMAL Plt Morphology Comment NORMAL RBC Morphology NORMAL Procedures Date of Service Date of Service: 10/24/22 Progress Note: A&P Assessment and plan (1) Perforated sigmoid colon: Status: Acute Assessment and Plan: looks well this AM CT yesterday - small abscess in upper abdomen will review with radiologist for poss. CT drain otherwise doing well good GI function plan to advance diet later Time Spent With Patient Time: Total time managing care of this patient today ____ minutes. Quality Stroke Does the patient have a stroke diagnosis?: No VTE Prior VTE?: No VTE Risk Level:: Medical - moderate - high VTE Device Contraindication: N/A - Device Ordered VTE Drug Contraindication: N/A - Med Ordered
[2022-10-23 09:18] LABS: INTERNATIONAL NORM RATIO 1.4 (0.9-1.1)
[2022-10-23] MEDS: Lactated Ringers 1,000 ML 80 ML IVCONT (10:08)
[2022-10-23] MEDS: Morphine Sulfate 4 MG/ML CARTRIDGE 2 MG IVPUSH ×2 (15:39→20:29)
--- NOTE | 2022-10-23 16:10 | PM.EVENT ---
Event Note Date of Service: 10/23/22 Event Note: Seen on late afternoon rounds Successful CT drainage of abscess done She complains of pain on the drainage site [place] purulent drainage noted on the bulb Stoma functioning well I will advance her diet Pain management Continue IV antibiotics Time Spent With Patient Time: Total time managing care of this patient today ____ minutes.
[2022-10-23] MEDS: levoFLOXacin/D5W 500 MG/100 ML PIGGYBACK 100 MG IV (17:08)
[2022-10-23] MEDS: ondansetron HCL 4 MG/2 ML VIAL IVPUSH (17:46)
[2022-10-23] MEDS: Acetaminophen 325 MG TABLET 650 MG PO (17:46)
[2022-10-23] MEDS: Docusate Sodium 100 MG CAPSULE PO (20:29)
[2022-10-23] MEDS: Mag&Al/Sim/Diphenhyd/Lidocaine 10 ML ORAL.SUSP PO (20:40)
[2022-10-23 21:16] LABS: Hemoglobin 8.8 g/dl (12.0-16.0); Mean Corpuscular HGB Conc 33.8 g/dl (31.0-35.0); Mean Corpuscular Hemoglobin 32.6 pg (27.0-33.0); Mean Corpuscular Volume 96.3 fL (80.0-98.0); Mean Platelet Volume 9.7 fL (9.4-12.3); NRBC Pct Auto 0.1 /100WBC (0.0-0.2); Platelet Count 343 X10*3/uL (160-400); Red Cell Distribution Width 13.3 % (11.0-16.0); White Blood Count 21.6 X10*3/uL (4.8-10.8)
[2022-10-23] MEDS: Lactated Ringers 1,000 ML 100 ML IVCONT (23:20)
[2022-10-24 03:31] VITALS: BP 133/75; PULSE 106; RESP 18; TEMP 36.9; O2SAT 95
[2022-10-24] MEDS: metroNIDAZOLE/NS 500 MG/100 ML PIGGYBACK 100 MG IV ×3 (03:51→22:07)
[2022-10-24] MEDS: Morphine Sulfate 4 MG/ML CARTRIDGE 2 MG IVPUSH ×3 (03:56→22:15)
--- NOTE | 2022-10-24 04:03 | PC.NURSE ---
KOBE drain to the R of midline incision drained 40ml of serosanguineous fluid overnight. Drain to the L of midline about 3ml of brown purulent drainage. At 1999, surgeon information operator was notified that pt had moderate bleeding from midline incision. Dressings were saturated. VS WNL except for elevated pulse (no change.) Dressing changed per surgery, who also ordered CBC, increased fluid rate, and stopped toradol. No further bleeding noted.
[2022-10-24 06:23] LABS: Hematocrit 26.9 % (37.0-47.0); Hemoglobin 8.9 g/dl (12.0-16.0); Mean Corpuscular HGB Conc 33.1 g/dl (31.0-35.0); Mean Corpuscular Hemoglobin 32.2 pg (27.0-33.0); Mean Corpuscular Volume 97.5 fL (80.0-98.0); Platelet Count 360 X10*3/uL (160-400); Red Blood Count 2.76 X10*6/uL (4.20-5.50); Red Cell Distribution Width 13.4 % (11.0-16.0); White Blood Count 19.1 X10*3/uL (4.8-10.8)
[2022-10-24 07:20] VITALS: BP 123/61; PULSE 87; RESP 20; TEMP 36.7; O2SAT 95
--- NOTE | 2022-10-24 08:34 | PM.PNGS ---
Subjective Subjective Date of Service: 10/24/22 <Mary Thornton PA-C - Last Filed: 10/24/22 08:40> 10/26/22 <Gagan Snell MD - Last Filed: 10/26/22 10:24> Interval history: Apparently was oozing from incision last night and saturated dressing. No new complaints. <Mary Thornton PA-C - Last Filed: 10/24/22 08:40> Physical Exam Vital Signs: Vital Signs: Last Vital Signs Temp 98.1 F 10/24/22 07:20 Pulse 87 10/24/22 07:20 Resp 20 10/24/22 07:20 BP 123/61 10/24/22 07:20 Pulse Ox 95 10/24/22 07:20 O2 Del Method Room Air 10/24/22 07:20 O2 Flow Rate 2 10/24/22 03:31 Oxygen Flow Rate 5 10/19/22 18:00 BMI result Body Mass Index 36.2 <Mary Thornton PA-C - Last Filed: 10/24/22 08:40> Const: General: comfortable, no acute distress and alert <Mary Thornton PA-C - Last Filed: 10/24/22 08:40> Orientation/consciousness: patient oriented x3 <MICHELE Pendleton Last Filed: 10/24/22 08:40> Resp: Effort & Inspection: normal respiratory effort <Mary Thornton PA-C - Last Filed: 10/24/22 08:40> GI: Other: ostomy with stool output incision clean, opening at superior aspect, no further oozing noted, area dry two drains in place; KOBE bulb with serous output, pigtail with scanty drainage <Mary Thornton PA-C - Last Filed: 10/24/22 08:40> Inspection: No distended <MICHELE Pendleton Last Filed: 10/24/22 08:40> Palpation (GI): Soft to palpation, Tenderness to palpation present (GI) (mild incisional ), no guarding and not rigid <MICHELE Pendleton Last Filed: 10/24/22 08:40> Skin: General skin exam: no rashes or lesions noted <Mary Thornton PA-C - Last Filed: 10/24/22 08:40> Neuro: General: patient oriented x3 and moves all extremities <Mary Thornton PA-C - Last Filed: 10/24/22 08:40> Objective Data Active Medications Acetaminophen (Acetaminophen 325 Mg Tablet) 650 mg PO Q4H PRN PRN Reason: Fever Last Admin: 10/23/22 17:46 Dose: 650 mg Documented By: JUAN Anastrozole (Anastrozole 1 Mg Tablet) 1 mg PO DAILY [facility] Last Admin: 10/23/22 10:09 Dose: Not Given Documented By: JUAN Non-Admin Reason: NPO Atorvastatin Calcium (Atorvastatin Calcium 80 Mg Tablet) 80 mg PO BEDTIME [facility] Last Admin: 10/23/22 20:36 Dose: Not Given Documented By: JHONATAN Non-Admin Reason: Patient Refused Docusate Sodium (Docusate Sodium 100 Mg Capsule) 100 mg PO BID [facility] Last Admin: 10/23/22 20:29 Dose: 100 mg Documented By: JHONATAN Famotidine (Famotidine 20 Mg Tablet) 10 mg PO DAILY [facility] Last Admin: 10/23/22 10:09 Dose: Not Given Documented By: JUAN Non-Admin Reason: NPO Fluticasone Propionate (Fluticasone Propionate Nasal 16 Gm [place]) 1 spray NOSTRIL-B Q12H PRN PRN Reason: Allergy Symptoms Levofloxacin (Levaquin) 500 mg in 100 mls @ 100 mls/hr IV Q24H [facility] Last Infusion: 10/23/22 18:16 Dose: 0 mls/hr Documented By: JUAN Metronidazole (Flagyl) 500 mg in 100 mls @ 100 mls/hr IV Q8H [facility] Last Infusion: 10/24/22 04:53 Dose: 0 mls/hr Documented By: JHONATAN Lactated Ringer's (Lr) 1,000 mls @ 100 mls/hr IVCONT .Q10H [facility] Last Admin: 10/23/22 23:20 Dose: 100 mls/hr Documented By: JHONATAN Lidocaine/Diphenhydr/Alum/Mg/Simeth (Mag&Al/Sim/Diphenhyd/Lidocaine 10 Ml Oral.Susp) 10 ml PO Q4H PRN; Protocol PRN Reason: Mouth Sore Pain Last Admin: 10/23/22 20:40 Dose: 10 ml Documented By: JHONATAN Loratadine (Loratadine 10 Mg Tablet) 10 mg PO DAILY [facility] Last Admin: 10/23/22 10:10 Dose: Not Given Documented By: JUAN Non-Admin Reason: NPO Magnesium Oxide (Magnesium Oxide 400 Mg Tablet) 400 mg PO DAILY [facility] Last Admin: 10/23/22 10:10 Dose: Not Given Documented By: JUAN Non-Admin Reason: NPO Metoprolol Succinate (Metoprolol Succinate Er 12.5 Mg Halftab.Er.24h) 12.5 mg PO DAILY [facility]; Protocol Last Admin: 10/23/22 10:10 Dose: Not Given Documented By: JUAN Non-Admin Reason: NPO Morphine Sulfate (Morphine Sulfate 4 Mg/Ml Cartridge) 2 mg IVPUSH Q3H PRN; Protocol PRN Reason: Pain, Severe (Pain Scale 7-10) Last Admin: 10/24/22 03:56 Dose: 2 mg Documented By: JHONATAN Ondansetron HCl (Ondansetron Hcl 4 Mg/2 Ml Vial) 4 mg IVPUSH Q8H PRN PRN Reason: nausea Last Admin: 10/23/22 17:46 Dose: 4 mg Documented By: JUAN Oxycodone HCl (Oxycodone Hcl Immed Release 5 Mg Tablet) 10 mg PO Q4H PRN PRN Reason: Pain, Moderate(Pain Scale 4-6) Polyethylene Glycol (Polyethylene Glycol 3350 17 Gm Powd.Pack) 17 gm PO DAILY [facility] Last Admin: 10/23/22 10:10 Dose: Not Given Documented By: JUAN Non-Admin Reason: NPO Sodium Chloride (0.9 % Sodium Chloride Flush 3 Ml Syringe) 3 ml IVFLUSH QSHIFT [facility] Last Admin: 10/23/22 23:21 Dose: Not Given Documented By: JHONATAN Non-Admin Reason: IV Running Trazodone HCl (Trazodone Hcl 50 Mg Tablet) 50 mg PO BEDTIME PRN PRN Reason: sleep Last Admin: 10/21/22 20:18 Dose: 50 mg Documented By: YAN Vitamin D (Cholecalciferol (Vitamin D3) 25 Mcg Tablet) 125 mcg PO DAILY [facility] Last Admin: 10/23/22 10:09 Dose: Not Given Documented By: JUAN Non-Admin Reason: NPO <Mary Thornton PA-C - Last Filed: 10/24/22 08:40> Labs CBC & Chem 7: 10/23/22 21:04 10/19/22 13:42 <Mary Thornton PA-C - Last Filed: 10/24/22 08:40> Labs: Laboratory Results - last 24 hr 10/23/22 10/23/22 09:02 21:04 MCV 96.3 MCH 32.6 MCHC 33.8 RDW 13.3 Plt Count 343 MPV 9.7 Absolute Nucleated RBC 0.020 H Nucleated RBC % (auto) 0.1 PT 16.0 H INR 1.4 H <Mary Thornton PA-C - Last Filed: 10/24/22 08:40> Procedures Date of Service Date of Service: 10/24/22 <Mary Thornton PA-C - Last Filed: 10/24/22 08:40> 10/26/22 <Gagan Snell MD - Last Filed: 10/26/22 10:24> Progress Note: A&P Assessment and plan (1) Stercoral colitis: Status: Acute <Mary Thornton PA-C - Last Filed: 10/24/22 08:40> Assessment and Plan: no new complaints I have changed her dressings early this AM - no further bleeding tolerating oral intake stoma functioning well she has ambulated today looks well and comfortable CT drain - scanty purulent output KOBE drain - more ascitic fluid I have discussed dc planning with case mgr - she will need VNA continue IV ab WBC down to 19 - verbal report from lab; results not showing up on Expanse seen and examined independently <Gagan Snell MD - Last Filed: 10/26/22 10:24> (2) Status post Celi procedure: Status: Acute <Mary Thornton PA-C - Last Filed: 10/24/22 08:40> (3) Perforated sigmoid colon: Status: Acute <Mayr Thornton PA-C - Last Filed: 10/24/22 08:40> Assessment and Plan: 67 year old female admitted with perforated viscus now s/p laparotomy, sigmoid resection, end colostomy, intra-abdominal washout. Found to have perforated sigmoid intraop. Transverse colon, left colon, and sigmoid with very high fecal load with very hard rock like stools with note of stools extraluminally and surrounding peritonitis. Pathology consistent with a stercoral ulcer. S/p IR drainage of intraabdominal abscess yesterday. ABD remains benign. No further fever since yesterday, HR improved this morning. Cultures pending. Remains on IV abx. WBC pending this morning. Diet as tolerated. Keep drains in place. Will need good bowel regimen upon discharge. Continue colostomy education, encouraged to participate in care. <MICHELE Pendleton Last Filed: 10/24/22 08:40> Time Spent With Patient Time: Total time managing care of this patient today ____ minutes. <MICHELE Pendleton Last Filed: 10/24/22 08:40> Quality Stroke Does the patient have a stroke diagnosis?: No <MICHELE Pendleton Last Filed: 10/24/22 08:40> VTE Prior VTE?: No <MICHELE Pendleton Last Filed: 10/24/22 08:40> VTE Risk Level:: Medical - moderate - high <MICHELE Pendleton Last Filed: 10/24/22 08:40> VTE Device Contraindication: N/A - Device Ordered <MICHELE Pendleton Last Filed: 10/24/22 08:40> VTE Drug Contraindication: N/A - Med Ordered <MICHELE Pendleton Last Filed: 10/24/22 08:40>
[2022-10-24] MEDS: Mag&Al/Sim/Diphenhyd/Lidocaine 10 ML ORAL.SUSP PO (09:14)
[2022-10-24] MEDS: Famotidine 20 MG TABLET 10 MG PO (09:22)
[2022-10-24] MEDS: Anastrozole 1 MG TABLET PO (09:22)
[2022-10-24] MEDS: Cholecalciferol (Vitamin D3) 25 MCG TABLET 125 MCG PO (09:27)
[2022-10-24] MEDS: Loratadine 10 MG TABLET PO (09:28)
[2022-10-24] MEDS: 0.9 % Sodium Chloride Flush 3 ML SYRINGE IVFLUSH ×2 (09:28→22:08)
[2022-10-24] MEDS: Magnesium Oxide 400 MG TABLET PO (09:28)
[2022-10-24] MEDS: Docusate Sodium 100 MG CAPSULE PO ×2 (09:28→22:07)
[2022-10-24] MEDS: polyethylene glycoL 3350 17 GM POWD.PACK PO (09:28)
[2022-10-24] MEDS: Metoprolol Succinate ER 12.5 MG HALFTAB.ER.24H PO (09:32)
--- NOTE | 2022-10-24 10:07 | MHC.CM.PN ---
Per Surgeon documentation, IV ABT & drains in place, Patient is not yet medically cleared for dc . Home with new VNA appears likely and CM will continue to follow.
[2022-10-24 11:37] VITALS: BP 118/63; PULSE 102; RESP 20; TEMP 36.6; O2SAT 96
[2022-10-24] MEDS: Lactated Ringers 1,000 ML 60 ML IVCONT (11:48)
[2022-10-24 15:04] VITALS: BP 123/62; PULSE 104; RESP 18; TEMP 37.3; O2SAT 93
[2022-10-24] MEDS: levoFLOXacin/D5W 500 MG/100 ML PIGGYBACK 100 MG IV (17:36)
[2022-10-24 19:32] VITALS: BP 130/66; PULSE 103; RESP 18; TEMP 36.9; O2SAT 94
[2022-10-24] MEDS: Atorvastatin Calcium 80 MG TABLET PO (22:07)
[2022-10-24 23:58] VITALS: BP 125/64; PULSE 76; RESP 18; TEMP 37.7; O2SAT 96
[2022-10-25 03:45] VITALS: BP 149/65; PULSE 104; RESP 18; TEMP 36.4; O2SAT 93
[2022-10-25] MEDS: Lactated Ringers 1,000 ML 60 ML IVCONT (06:43)
[2022-10-25] MEDS: metroNIDAZOLE/NS 500 MG/100 ML PIGGYBACK 100 MG IV ×3 (06:43→20:15)
[2022-10-25] MEDS: Morphine Sulfate 4 MG/ML CARTRIDGE 2 MG IVPUSH (07:08)
[2022-10-25 07:46] VITALS: BP 129/77; PULSE 100; RESP 16; TEMP 37.6; O2SAT 93
[2022-10-25] MEDS: Famotidine 20 MG TABLET 10 MG PO (09:19)
[2022-10-25] MEDS: Cholecalciferol (Vitamin D3) 25 MCG TABLET 125 MCG PO (09:21)
[2022-10-25] MEDS: Docusate Sodium 100 MG CAPSULE PO ×2 (09:21→20:15)
[2022-10-25] MEDS: Anastrozole 1 MG TABLET PO (09:21)
[2022-10-25] MEDS: Metoprolol Succinate ER 12.5 MG HALFTAB.ER.24H PO (09:21)
[2022-10-25] MEDS: polyethylene glycoL 3350 17 GM POWD.PACK PO (09:21)
[2022-10-25] MEDS: Magnesium Oxide 400 MG TABLET PO (09:21)
[2022-10-25] MEDS: Loratadine 10 MG TABLET PO (09:21)
[2022-10-25] MEDS: Mag&Al/Sim/Diphenhyd/Lidocaine 10 ML ORAL.SUSP PO (09:31)
--- NOTE | 2022-10-25 09:40 | PM.PNGS ---
Subjective Subjective Date of Service: 10/27/22 Interval history: tolerating diet well good stoma function says she had a good night Physical Exam Vital Signs: Vital Signs: Last Vital Signs Temp 99.7 F 10/25/22 07:46 Pulse 100 10/25/22 07:46 Resp 16 10/25/22 07:46 BP 129/77 10/25/22 07:46 Pulse Ox 93 10/25/22 07:46 O2 Del Method Nasal Cannula 10/25/22 07:46 O2 Flow Rate 2 10/25/22 07:46 Oxygen Flow Rate 5 10/19/22 18:00 BMI result Body Mass Index 36.2 Const: General: comfortable and no acute distress Resp: Effort & Inspection: normal respiratory effort Cardio: Rate: regular rate GI: Other: incision dry,s mohit with good output, CT drain scanty, purulent output; KOBE drain on right thick ascitic looking Palpation (GI): Soft to palpation, not firm and no guarding Objective Data Active Medications Acetaminophen (Acetaminophen 325 Mg Tablet) 650 mg PO Q4H PRN PRN Reason: Fever Last Admin: 10/23/22 17:46 Dose: 650 mg Documented By: JUAN Anastrozole (Anastrozole 1 Mg Tablet) 1 mg PO DAILY [facility] Last Admin: 10/25/22 09:21 Dose: 1 mg Documented By: VÍCTOR Atorvastatin Calcium (Atorvastatin Calcium 80 Mg Tablet) 80 mg PO BEDTIME [facility] Last Admin: 10/24/22 22:07 Dose: 80 mg Documented By: DEEJAY Docusate Sodium (Docusate Sodium 100 Mg Capsule) 100 mg PO BID [facility] Last Admin: 10/25/22 09:21 Dose: 100 mg Documented By: VÍCTOR Famotidine (Famotidine 20 Mg Tablet) 10 mg PO DAILY [facility] Last Admin: 10/25/22 09:19 Dose: 10 mg Documented By: VÍCTOR Fluticasone Propionate (Fluticasone Propionate Nasal 16 Gm [place]) 1 spray NOSTRIL-B Q12H PRN PRN Reason: Allergy Symptoms Levofloxacin (Levaquin) 500 mg in 100 mls @ 100 mls/hr IV Q24H [facility] Last Infusion: 10/24/22 18:42 Dose: 0 mls/hr Documented By: VÍCTOR Metronidazole (Flagyl) 500 mg in 100 mls @ 100 mls/hr IV Q8H [facility] Last Infusion: 10/25/22 09:25 Dose: 0 mls/hr Documented By: VÍCTOR Lactated Ringer's (Lr) 1,000 mls @ 60 mls/hr IVCONT .[id number] [facility] Last Admin: 10/25/22 06:43 Dose: 60 mls/hr Documented By: DEEJAY Lidocaine/Diphenhydr/Alum/Mg/Simeth (Mag&Al/Sim/Diphenhyd/Lidocaine 10 Ml Oral.Susp) 10 ml PO Q4H PRN; Protocol PRN Reason: Mouth Sore Pain Last Admin: 10/25/22 09:31 Dose: 10 ml Documented By: VÍCTOR Loratadine (Loratadine 10 Mg Tablet) 10 mg PO DAILY [facility] Last Admin: 10/25/22 09:21 Dose: 10 mg Documented By: VÍCTOR Magnesium Oxide (Magnesium Oxide 400 Mg Tablet) 400 mg PO DAILY [facility] Last Admin: 10/25/22 09:21 Dose: 400 mg Documented By: VÍCTOR Metoprolol Succinate (Metoprolol Succinate Er 12.5 Mg Halftab.Er.24h) 12.5 mg PO DAILY [facility]; Protocol Last Admin: 10/25/22 09:21 Dose: 12.5 mg Documented By: VÍCTOR Morphine Sulfate (Morphine Sulfate 4 Mg/Ml Cartridge) 2 mg IVPUSH Q3H PRN; Protocol PRN Reason: Pain, Severe (Pain Scale 7-10) Last Admin: 10/25/22 07:08 Dose: 2 mg Documented By: DEEJAY Ondansetron HCl (Ondansetron Hcl 4 Mg/2 Ml Vial) 4 mg IVPUSH Q8H PRN PRN Reason: nausea Last Admin: 10/23/22 17:46 Dose: 4 mg Documented By: JUAN Oxycodone HCl (Oxycodone Hcl Immed Release 5 Mg Tablet) 10 mg PO Q4H PRN PRN Reason: Pain, Moderate(Pain Scale 4-6) Polyethylene Glycol (Polyethylene Glycol 3350 17 Gm Powd.Pack) 17 gm PO DAILY [facility] Last Admin: 10/25/22 09:21 Dose: 17 gm Documented By: VÍCTOR Sodium Chloride (0.9 % Sodium Chloride Flush 3 Ml Syringe) 3 ml IVFLUSH QSHIFT [facility] Last Admin: 10/25/22 09:11 Dose: Not Given Documented By: VÍCTOR Non-Admin Reason: IV Running Tramadol HCl (Tramadol Hcl 50 Mg Tablet) 50 mg PO Q4H PRN PRN Reason: Pain, Moderate(Pain Scale 4-6) Trazodone HCl (Trazodone Hcl 50 Mg Tablet) 50 mg PO BEDTIME PRN PRN Reason: sleep Last Admin: 10/21/22 20:18 Dose: 50 mg Documented By: YAN Vitamin D (Cholecalciferol (Vitamin D3) 25 Mcg Tablet) 125 mcg PO DAILY [facility] Last Admin: 10/25/22 09:21 Dose: 125 mcg Documented By: VÍCTOR Labs 10/23/22 21:04 10/19/22 13:42 Microbiology Microbiology Results: Microbiology 10/23/22 19:10 Blood Culture - Preliminary Blood - Venous No growth after 24 hours. 10/23/22 14:15 Gram Stain - Final Abdominal Fluid Routine Culture - Preliminary Culture in progress. Anaerobic Culture - Preliminary Culture in progress. Procedures Date of Service Date of Service: 10/27/22 Progress Note: A&P Assessment and plan (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 Assessment and Plan: clinically doing well good GI function drain in place continue abx repeat labs in AM stoma care encouraged to ambulate more Time Spent With Patient Time: Total time managing care of this patient today ____ minutes. Quality Stroke Does the patient have a stroke diagnosis?: No VTE Prior VTE?: No VTE Risk Level:: Medical - moderate - high VTE Device Contraindication: N/A - Device Ordered VTE Drug Contraindication: N/A - Med Ordered
[2022-10-25 11:04] VITALS: BP 108/59; PULSE 95; RESP 18; TEMP 36.3; O2SAT 94
[2022-10-25] MEDS: traMADoL HCL 50 MG TABLET PO ×2 (13:47→20:17)
[2022-10-25 15:07] VITALS: BP 115/60; PULSE 98; RESP 20; TEMP 36.3; O2SAT 95
[2022-10-25] MEDS: levoFLOXacin/D5W 500 MG/100 ML PIGGYBACK 100 MG IV (17:26)
[2022-10-25 19:09] VITALS: BP 107/67; PULSE 101; RESP 20; TEMP 36.8; O2SAT 96
[2022-10-25] MEDS: Atorvastatin Calcium 80 MG TABLET PO (20:16)
[2022-10-25] MEDS: traZODone HCL 50 MG TABLET PO (20:17)
[2022-10-26] VITALS: BP 125/60; PULSE 100; RESP 20; TEMP 36.8; O2SAT 93
[2022-10-26] MEDS: Lactated Ringers 1,000 ML 60 ML IVCONT (02:45)
[2022-10-26 03:27] VITALS: BP 133/66; PULSE 99; RESP 20; TEMP 37.1; O2SAT 93
[2022-10-26] MEDS: metroNIDAZOLE/NS 500 MG/100 ML PIGGYBACK 100 MG IV ×3 (04:46→20:24)
[2022-10-26 05:42] LABS: Hematocrit 23.8 % (37.0-47.0); Mean Corpuscular HGB Conc 33.6 g/dl (31.0-35.0); Mean Corpuscular Hemoglobin 32.3 pg (27.0-33.0); Mean Platelet Volume 9.6 fL (9.4-12.3); Platelet Count 494 X10*3/uL (160-400); Red Blood Count 2.48 X10*6/uL (4.20-5.50); Red Cell Distribution Width 13.3 % (11.0-16.0); White Blood Count 11.1 X10*3/uL (4.8-10.8)
[2022-10-26] MEDS: traMADoL HCL 50 MG TABLET PO ×3 (05:53→20:37)
[2022-10-26 05:55] LABS: Anion Gap 13 (12-20); Blood Urea Nitrogen 8 mg/dL (9-16); Calcium 7.7 mg/dL (8.4-10.2); Carbon Dioxide 24 mmol/L (22-29); Chloride 103 mmol/L (96-108); Creatinine Clr Calc Pharmacy 110.2; Estimated Glomerular Filt Rate > 60; Glucose Random 94 mg/dL (60-115); Potassium 3.5 mmol/L (3.3-5.1); Sodium 136 mmol/L (135-145)
[2022-10-26 07:19] VITALS: BP 122/66; PULSE 88; RESP 20; TEMP 36.3; O2SAT 94
[2022-10-26] MEDS: Metoprolol Succinate ER 12.5 MG HALFTAB.ER.24H PO (09:24)
[2022-10-26] MEDS: Docusate Sodium 100 MG CAPSULE PO ×2 (09:24→20:23)
[2022-10-26] MEDS: Cholecalciferol (Vitamin D3) 25 MCG TABLET 125 MCG PO (09:24)
[2022-10-26] MEDS: Famotidine 20 MG TABLET 10 MG PO (09:24)
[2022-10-26] MEDS: Magnesium Oxide 400 MG TABLET PO (09:25)
[2022-10-26] MEDS: polyethylene glycoL 3350 17 GM POWD.PACK PO (09:25)
[2022-10-26] MEDS: Loratadine 10 MG TABLET PO (09:25)
--- NOTE | 2022-10-26 10:25 | P.PNGS_ITS ---
Subjective Subjective Date of Service: 10/26/22 Interval history: no new complaints tolerating regular diet stoma has been functioning well not ambulating much Physical Exam Vital Signs: Vital Signs: Last Vital Signs Temp 97.3 F 10/26/22 07:19 Pulse 88 10/26/22 07:19 Resp 20 10/26/22 07:19 BP 122/66 10/26/22 07:19 Pulse Ox 94 10/26/22 07:19 O2 Del Method Nasal Cannula 10/26/22 07:19 O2 Flow Rate 2 10/26/22 07:19 Oxygen Flow Rate 5 10/19/22 18:00 BMI result Body Mass Index 36.2 Const: General: comfortable and no acute distress Resp: Effort & Inspection: normal respiratory effort Cardio: Rate: regular rate GI: Other: incision dry, clean, CT drain - scanty purulent output, KOBE drain thick serous Palpation (GI): Soft to palpation, not firm and no guarding Objective Data Active Medications Acetaminophen (Acetaminophen 325 Mg Tablet) 650 mg PO Q4H PRN PRN Reason: Fever Last Admin: 10/23/22 17:46 Dose: 650 mg Documented By: JUAN Anastrozole (Anastrozole 1 Mg Tablet) 1 mg PO DAILY [facility] Last Admin: 10/25/22 09:21 Dose: 1 mg Documented By: VÍCTOR Atorvastatin Calcium (Atorvastatin Calcium 80 Mg Tablet) 80 mg PO BEDTIME [facility] Last Admin: 10/25/22 20:16 Dose: 80 mg Documented By: LOIDA-JOZEHamilton Docusate Sodium (Docusate Sodium 100 Mg Capsule) 100 mg PO BID [facility] Last Admin: 10/26/22 09:24 Dose: 100 mg Documented By: VÍCTOR Famotidine (Famotidine 20 Mg Tablet) 10 mg PO DAILY [facility] Last Admin: 10/26/22 09:24 Dose: 10 mg Documented By: VÍCTOR Fluticasone Propionate (Fluticasone Propionate Nasal 16 Gm [place]) 1 spray NOSTRIL-B Q12H PRN PRN Reason: Allergy Symptoms Levofloxacin (Levaquin) 500 mg in 100 mls @ 100 mls/hr IV Q24H [facility] Last Infusion: 10/25/22 18:32 Dose: 0 mls/hr Documented By: VÍCTOR Metronidazole (Flagyl) 500 mg in 100 mls @ 100 mls/hr IV Q8H [facility] Last Infusion: 10/26/22 05:51 Dose: 0 mls/hr Documented By: WALDO Lactated Ringer's (Lr) 1,000 mls @ 60 mls/hr IVCONT .[id number] [facility] Last Admin: 10/26/22 02:45 Dose: 60 mls/hr Documented By: WALDO Lidocaine/Diphenhydr/Alum/Mg/Simeth (Mag&Al/Sim/Diphenhyd/Lidocaine 10 Ml Oral.Susp) 10 ml PO Q4H PRN; Protocol PRN Reason: Mouth Sore Pain Last Admin: 10/25/22 09:31 Dose: 10 ml Documented By: VÍCTOR Loratadine (Loratadine 10 Mg Tablet) 10 mg PO DAILY [facility] Last Admin: 10/26/22 09:25 Dose: 10 mg Documented By: VÍCTOR Magnesium Oxide (Magnesium Oxide 400 Mg Tablet) 400 mg PO DAILY [facility] Last Admin: 10/26/22 09:25 Dose: 400 mg Documented By: VÍCTOR Metoprolol Succinate (Metoprolol Succinate Er 12.5 Mg Halftab.Er.24h) 12.5 mg PO DAILY [facility]; Protocol Last Admin: 10/26/22 09:24 Dose: 12.5 mg Documented By: VÍCTOR Morphine Sulfate (Morphine Sulfate 4 Mg/Ml Cartridge) 2 mg IVPUSH Q3H PRN; Protocol PRN Reason: Pain, Severe (Pain Scale 7-10) Last Admin: 10/25/22 07:08 Dose: 2 mg Documented By: DEEJAY Ondansetron HCl (Ondansetron Hcl 4 Mg/2 Ml Vial) 4 mg IVPUSH Q8H PRN PRN Reason: nausea Last Admin: 10/23/22 17:46 Dose: 4 mg Documented By: JUAN Polyethylene Glycol (Polyethylene Glycol 3350 17 Gm Powd.Pack) 17 gm PO DAILY [facility] Last Admin: 10/26/22 09:25 Dose: 17 gm Documented By: VÍCTOR Sodium Chloride (0.9 % Sodium Chloride Flush 3 Ml Syringe) 3 ml IVFLUSH QSHIFT [facility] Last Admin: 10/26/22 00:12 Dose: Not Given Documented By: WALDO Non-Admin Reason: IV Running Tramadol HCl (Tramadol Hcl 50 Mg Tablet) 50 mg PO Q4H PRN PRN Reason: Pain, Moderate(Pain Scale 4-6) Last Admin: 10/26/22 05:53 Dose: 50 mg Documented By: WALDO Trazodone HCl (Trazodone Hcl 50 Mg Tablet) 50 mg PO BEDTIME PRN PRN Reason: sleep Last Admin: 10/25/22 20:17 Dose: 50 mg Documented By: LINETTE Vitamin D (Cholecalciferol (Vitamin D3) 25 Mcg Tablet) 125 mcg PO DAILY [facility] Last Admin: 10/26/22 09:24 Dose: 125 mcg Documented By: FOSTEKR Labs 10/26/22 05:18 10/26/22 05:18 Labs: Laboratory Results - last 24 hr 10/26/22 10/26/22 05:18 05:18 MCV 96.0 MCH 32.3 MCHC 33.6 RDW 13.3 Plt Count 494 H D MPV 9.6 Absolute Nucleated RBC 0.000 Nucleated RBC % (auto) 0.0 Anion Gap 13 Estim Creat Clear Calc 110.2 Estimated GFR > 60 Random Glucose 94 Calcium 7.7 L D Microbiology Microbiology Results: Microbiology 10/23/22 19:10 Blood Culture - Preliminary Blood - Venous No growth after 48 hours. 10/23/22 14:15 Gram Stain - Final Abdominal Fluid Routine Culture - Final Anaerobic Culture - Preliminary Culture in progress. Procedures Date of Service Date of Service: 10/26/22 Progress Note: A&P Assessment and plan (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 Assessment and Plan: doing well good GI function WBC down Hg low - likely multifactorial, incl IVF will dc IVF abx pushed to ambulate more will ask PT to eval as she wants to be discharged to home eventually Time Spent With Patient Time: Total time managing care of this patient today ____ minutes. Quality Stroke Does the patient have a stroke diagnosis?: No VTE Prior VTE?: No VTE Risk Level:: Medical - moderate - high VTE Device Contraindication: N/A - Device Ordered VTE Drug Contraindication: N/A - Med Ordered
[2022-10-26 11:18] VITALS: BP 117/73; PULSE 95; RESP 18; TEMP 36.8; O2SAT 93
[2022-10-26] MEDS: Anastrozole 1 MG TABLET PO (12:22)
[2022-10-26 15:43] VITALS: BP 108/57; PULSE 94; RESP 18; TEMP 36.6; O2SAT 93
[2022-10-26 20:06] VITALS: BP 123/67; PULSE 101; RESP 18; TEMP 36.9; O2SAT 87
[2022-10-26] MEDS: Atorvastatin Calcium 80 MG TABLET PO (20:24)
[2022-10-27] VITALS: BP 119/64; PULSE 100; RESP 19; TEMP 37; O2SAT 93
[2022-10-27] MEDS: 0.9 % Sodium Chloride Flush 3 ML SYRINGE IVFLUSH (00:20)
[2022-10-27 03:47] VITALS: BP 123/59; PULSE 92; RESP 18; TEMP 37.2; O2SAT 93
[2022-10-27] MEDS: metroNIDAZOLE/NS 500 MG/100 ML PIGGYBACK 100 MG IV ×2 (05:17→12:13)
[2022-10-27 08:00] VITALS: BP 123/63; PULSE 90; RESP 20; TEMP 36.2; O2SAT 93
[2022-10-27] MEDS: Metoprolol Succinate ER 12.5 MG HALFTAB.ER.24H PO (08:44)
[2022-10-27] MEDS: Magnesium Oxide 400 MG TABLET PO (08:44)
[2022-10-27] MEDS: Cholecalciferol (Vitamin D3) 25 MCG TABLET 125 MCG PO (08:44)
[2022-10-27] MEDS: Docusate Sodium 100 MG CAPSULE PO (08:44)
[2022-10-27] MEDS: Loratadine 10 MG TABLET PO (08:44)
[2022-10-27] MEDS: Acetaminophen 325 MG TABLET 650 MG PO (08:45)
[2022-10-27] MEDS: Famotidine 20 MG TABLET 10 MG PO (08:46)
[2022-10-27] MEDS: polyethylene glycoL 3350 17 GM POWD.PACK PO (08:47)
[2022-10-27] MEDS: Anastrozole 1 MG TABLET PO (08:47)
--- NOTE | 2022-10-27 09:53 | P.PNGS_ITS ---
Subjective Subjective Date of Service: 10/27/22 Interval history: says she continues to feel stronger able to to get out of bed more yesterday tolerting diet stoma functioning well Physical Exam Vital Signs: Vital Signs: Last Vital Signs Temp 97.1 F 10/27/22 08:00 Pulse 90 10/27/22 08:00 Resp 20 10/27/22 08:00 BP 123/63 10/27/22 08:00 Pulse Ox 93 10/27/22 08:00 O2 Del Method Nasal Cannula 10/27/22 08:00 O2 Flow Rate 1 10/27/22 08:00 Oxygen Flow Rate 5 10/19/22 18:00 BMI result Body Mass Index 36.2 Const: General: comfortable and no acute distress Resp: Effort & Inspection: normal respiratory effort Cardio: Rate: regular rate GI: Other: stoma woth good output, incision clean and dry, KOBE clear serous; CT drain scanty purulent output Palpation (GI): Soft to palpation, not firm and no guarding Objective Data Active Medications Acetaminophen (Acetaminophen 325 Mg Tablet) 650 mg PO Q4H PRN PRN Reason: Fever Last Admin: 10/27/22 08:45 Dose: 650 mg Documented By: JEFERSON Anastrozole (Anastrozole 1 Mg Tablet) 1 mg PO DAILY [facility] Last Admin: 10/27/22 08:47 Dose: 1 mg Documented By: JEFERSON Atorvastatin Calcium (Atorvastatin Calcium 80 Mg Tablet) 80 mg PO BEDTIME [facility] Last Admin: 10/26/22 20:24 Dose: 80 mg Documented By: DIAZDEMango Docusate Sodium (Docusate Sodium 100 Mg Capsule) 100 mg PO BID [facility] Last Admin: 10/27/22 08:44 Dose: 100 mg Documented By: JEFERSON Famotidine (Famotidine 20 Mg Tablet) 10 mg PO DAILY [facility] Last Admin: 10/27/22 08:46 Dose: 10 mg Documented By: JEFERSON Fluticasone Propionate (Fluticasone Propionate Nasal 16 Gm [place]) 1 spray NOSTRIL-B Q12H PRN PRN Reason: Allergy Symptoms Metronidazole (Flagyl) 500 mg in 100 mls @ 100 mls/hr IV Q8H [facility] Last Infusion: 10/27/22 06:19 Dose: 0 mls/hr Documented By: ANTOIC Lidocaine/Diphenhydr/Alum/Mg/Simeth (Mag&Al/Sim/Diphenhyd/Lidocaine 10 Ml Oral.Susp) 10 ml PO Q4H PRN; Protocol PRN Reason: Mouth Sore Pain Last Admin: 10/25/22 09:31 Dose: 10 ml Documented By: VÍCTOR Loratadine (Loratadine 10 Mg Tablet) 10 mg PO DAILY [facility] Last Admin: 10/27/22 08:44 Dose: 10 mg Documented By: JEFERSON Magnesium Oxide (Magnesium Oxide 400 Mg Tablet) 400 mg PO DAILY [facility] Last Admin: 10/27/22 08:44 Dose: 400 mg Documented By: JEFERSON Metoprolol Succinate (Metoprolol Succinate Er 12.5 Mg Halftab.Er.24h) 12.5 mg PO DAILY [facility]; Protocol Last Admin: 10/27/22 08:44 Dose: 12.5 mg Documented By: JEFERSON Morphine Sulfate (Morphine Sulfate 4 Mg/Ml Cartridge) 2 mg IVPUSH Q3H PRN; Protocol PRN Reason: Pain, Severe (Pain Scale 7-10) Last Admin: 10/25/22 07:08 Dose: 2 mg Documented By: DEEJAY Ondansetron HCl (Ondansetron Hcl 4 Mg/2 Ml Vial) 4 mg IVPUSH Q8H PRN PRN Reason: nausea Last Admin: 10/23/22 17:46 Dose: 4 mg Documented By: JUAN Polyethylene Glycol (Polyethylene Glycol 3350 17 Gm Powd.Pack) 17 gm PO DAILY [facility] Last Admin: 10/27/22 08:47 Dose: 17 gm Documented By: JEFERSON Sodium Chloride (0.9 % Sodium Chloride Flush 3 Ml Syringe) 3 ml IVFLUSH QSHIFT [facility] Last Admin: 10/27/22 06:58 Dose: Not Given Documented By: JEFERSON Non-Admin Reason: See Note Tramadol HCl (Tramadol Hcl 50 Mg Tablet) 50 mg PO Q4H PRN PRN Reason: Pain, Moderate(Pain Scale 4-6) Last Admin: 10/26/22 20:37 Dose: 50 mg Documented By: ANKIT Trazodone HCl (Trazodone Hcl 50 Mg Tablet) 50 mg PO BEDTIME PRN PRN Reason: sleep Last Admin: 10/25/22 20:17 Dose: 50 mg Documented By: LINETTE Vitamin D (Cholecalciferol (Vitamin D3) 25 Mcg Tablet) 125 mcg PO DAILY [facility] Last Admin: 10/27/22 08:44 Dose: 125 mcg Documented By: GIOA Labs 10/26/22 05:18 10/26/22 05:18 Microbiology Microbiology Results: Microbiology 10/23/22 14:15 Gram Stain - Final Abdominal Fluid Routine Culture - Final Anaerobic Culture - Final Bacteroi caccae(b fragilis grp Clostridium sordellii Procedures Date of Service Date of Service: 10/27/22 Progress Note: A&P Assessment and plan (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 Assessment and Plan: continues to do well good GI function plan to dc KOBE drain PT eval for dc planning looks well to go home with CT drain (2) Intra-abdominal abscess: Status: Acute Time Spent With Patient Time: Total time managing care of this patient today ____ minutes. Quality Stroke Does the patient have a stroke diagnosis?: No VTE Prior VTE?: No VTE Risk Level:: Medical - moderate - high VTE Device Contraindication: N/A - Device Ordered VTE Drug Contraindication: N/A - Med Ordered
[2022-10-27] MEDS: traMADoL HCL 50 MG TABLET PO (10:35)
--- NOTE | 2022-10-27 10:39 | PM.PNGS ---
Subjective Subjective Date of Service: 10/29/22 Physical Exam Vital Signs: Vital Signs: Last Vital Signs Temp 97.1 F 10/27/22 08:00 Pulse 90 10/27/22 08:00 Resp 20 10/27/22 08:00 BP 123/63 10/27/22 08:00 Pulse Ox 93 10/27/22 08:00 O2 Del Method Nasal Cannula 10/27/22 08:00 O2 Flow Rate 1 10/27/22 08:00 Oxygen Flow Rate 5 10/19/22 18:00 BMI result Body Mass Index 36.2 Const: General: comfortable and no acute distress Resp: Effort & Inspection: normal respiratory effort GI: Other: Incision clean and dry, stoma functioning well Palpation (GI): Soft to palpation, not firm and nontender Objective Data Active Medications Acetaminophen (Acetaminophen 325 Mg Tablet) 650 mg PO Q4H PRN PRN Reason: Fever Last Admin: 10/27/22 08:45 Dose: 650 mg Documented By: JEFERSON Anastrozole (Anastrozole 1 Mg Tablet) 1 mg PO DAILY [facility] Last Admin: 10/27/22 08:47 Dose: 1 mg Documented By: JEFERSON Atorvastatin Calcium (Atorvastatin Calcium 80 Mg Tablet) 80 mg PO BEDTIME [facility] Last Admin: 10/26/22 20:24 Dose: 80 mg Documented By: DIAZDEMango Docusate Sodium (Docusate Sodium 100 Mg Capsule) 100 mg PO BID [facility] Last Admin: 10/27/22 08:44 Dose: 100 mg Documented By: JEFERSON Famotidine (Famotidine 20 Mg Tablet) 10 mg PO DAILY [facility] Last Admin: 10/27/22 08:46 Dose: 10 mg Documented By: JEFERSON Fluticasone Propionate (Fluticasone Propionate Nasal 16 Gm [place]) 1 spray NOSTRIL-B Q12H PRN PRN Reason: Allergy Symptoms Metronidazole (Flagyl) 500 mg in 100 mls @ 100 mls/hr IV Q8H [facility] Last Infusion: 10/27/22 06:19 Dose: 0 mls/hr Documented By: ANTOIC Lidocaine/Diphenhydr/Alum/Mg/Simeth (Mag&Al/Sim/Diphenhyd/Lidocaine 10 Ml Oral.Susp) 10 ml PO Q4H PRN; Protocol PRN Reason: Mouth Sore Pain Last Admin: 10/25/22 09:31 Dose: 10 ml Documented By: VÍCTOR Loratadine (Loratadine 10 Mg Tablet) 10 mg PO DAILY [facility] Last Admin: 10/27/22 08:44 Dose: 10 mg Documented By: JEFERSON Magnesium Oxide (Magnesium Oxide 400 Mg Tablet) 400 mg PO DAILY [facility] Last Admin: 10/27/22 08:44 Dose: 400 mg Documented By: JEFERSON Metoprolol Succinate (Metoprolol Succinate Er 12.5 Mg Halftab.Er.24h) 12.5 mg PO DAILY [facility]; Protocol Last Admin: 10/27/22 08:44 Dose: 12.5 mg Documented By: JEFERSON Morphine Sulfate (Morphine Sulfate 4 Mg/Ml Cartridge) 2 mg IVPUSH Q3H PRN; Protocol PRN Reason: Pain, Severe (Pain Scale 7-10) Last Admin: 10/25/22 07:08 Dose: 2 mg Documented By: DEEJAY Ondansetron HCl (Ondansetron Hcl 4 Mg/2 Ml Vial) 4 mg IVPUSH Q8H PRN PRN Reason: nausea Last Admin: 10/23/22 17:46 Dose: 4 mg Documented By: JUAN Polyethylene Glycol (Polyethylene Glycol 3350 17 Gm Powd.Pack) 17 gm PO DAILY [facility] Last Admin: 10/27/22 08:47 Dose: 17 gm Documented By: JEFERSON Sodium Chloride (0.9 % Sodium Chloride Flush 3 Ml Syringe) 3 ml IVFLUSH QSHIFT [facility] Last Admin: 10/27/22 06:58 Dose: Not Given Documented By: JEFERSON Non-Admin Reason: See Note Tramadol HCl (Tramadol Hcl 50 Mg Tablet) 50 mg PO Q4H PRN PRN Reason: Pain, Moderate(Pain Scale 4-6) Last Admin: 10/27/22 10:35 Dose: 50 mg Documented By: JEFERSON Trazodone HCl (Trazodone Hcl 50 Mg Tablet) 50 mg PO BEDTIME PRN PRN Reason: sleep Last Admin: 10/25/22 20:17 Dose: 50 mg Documented By: LINETTE Vitamin D (Cholecalciferol (Vitamin D3) 25 Mcg Tablet) 125 mcg PO DAILY [facility] Last Admin: 10/27/22 08:44 Dose: 125 mcg Documented By: JEFERSON Labs 10/26/22 05:18 10/26/22 05:18 Microbiology Microbiology Results: Microbiology 10/23/22 14:15 Gram Stain - Final Abdominal Fluid Routine Culture - Final Anaerobic Culture - Final Bacteroi caccae(b fragilis grp Clostridium sordellii Procedures Date of Service Date of Service: 10/29/22 Progress Note: A&P Assessment and plan (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 Assessment and Plan: Doing well well postoperatively now She is ready to be discharged Seen by Physical therapy Home PT and VNA set up She goes home with the CT drain She is scheduled for outpatient CBC to check on hemoglobin She understands the plan well Her daughter was involved with the discussions for discharge Time Spent With Patient Time: Total time managing care of this patient today ____ minutes. Quality Stroke Does the patient have a stroke diagnosis?: No VTE Prior VTE?: No VTE Risk Level:: Medical - moderate - high VTE Device Contraindication: N/A - Device Ordered VTE Drug Contraindication: N/A - Med Ordered
--- NOTE | 2022-10-27 10:49 | W.MHC.F2F ---
Service Date Service Date: 10/27/22 Encounter Date of encounter: 10/27/22 Reasons for Services Signs and symptoms assessed: pt is s/p Celi's procedure for perforated sigmoid Reason for group home: wound care Reason for physical therapy: home safety and mobility Homebound: Leaving the home is medically contraindicated at this time without the asist of a device and/or another person due th the listed conditions above and below. Reason homebound: pain with transfers and unable to drive Certification: Based on the above findings, I certify that this patient is confined to the home and needs intermittent group home care, physical therapy and/or speech therapy, or continues to need occupational therapy. The patient is under my care, and I have initiated the establishment of the plan of care. The patient will be followed by a physician who will periodically review the plan of care. Time Spent With Patient Time: Total time managing care of this patient today ____ minutes.
--- NOTE | 2022-10-27 11:17 | P.DS_ITS ---
DS: Providers Provider Date of Service: 10/27/22 Date of admission: 10/15/22 17:32 Primary care physician: LEILA Stiles Consults: 10/15/22 21:32 Consult to Hospitalist Routine Comment: Consulting Provider: Hospitalist Reason For Exam: HTN, multiple home meds DS: Diagnosis Discharge Diagnosis (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 DS: Summary Hospital Course Hospital Course: 67-year-old female who underwent urgency laparotomy and sigmoid resection and end-colostomy last 10/15/2022. This was because of a perforated sigmoid with note of significant free air in peritoneum. She has been on on Levaquin and Flagyl since then. She had been doing well postoperatively with good function of the stoma. However, she had leukocytosis on October 21. A repeat CT scan shows an intra-abdominal abscess. She underwent CT drainage on October 23, 2022. She has had a drain in place since that time. She continues to have GI function. She had some oozing from her upper part of t he incision last week and this had been cauterized with silver nitrate sticks. Otherwise, her stoma has been functioning well. She has had difficulty with ambulation so physical therapy had been consulted. She has deemed doing very well and has been afebrile since late last week She is able to ambulate and is ready to be discharged. She has good oral intake and good function of her stoma. She is set up for a visiting nurse as well as home PT. Time Spent with Patient Time attestation: Total time managing care of this patient today ____ minutes. Discharge coordination time: Greater than 30 minutes Quality: Safe Use of Opioids Does Pt have an Active Cancer Diagnosis on the Problem List?: No Quality: Stroke Does the patient have a stroke diagnosis?: No Physical Exam Vital Signs: Vital Signs: Last Vital Signs Temp 97.1 F 10/27/22 08:00 Pulse 90 10/27/22 08:00 Resp 20 10/27/22 08:00 BP 123/63 10/27/22 08:00 Pulse Ox 93 10/27/22 08:00 O2 Del Method Nasal Cannula 10/27/22 08:00 O2 Flow Rate 1 10/27/22 08:00 Oxygen Flow Rate 5 10/19/22 18:00 BMI result Body Mass Index 36.2 Const: General: comfortable and no acute distress Orientation/consciousness: patient oriented x3 Neck: Neck: Yes no lymphadenopathy Resp: Auscultation: clear to auscultation bilaterally Cardio: Rhythm: regular rhythm GI: Other: Colostomy on the left side, functioning well, CT drain on the upper abdomen; Incision clean and dry Palpation (GI): Soft to palpation, nontender and no guarding Neuro: General: patient oriented x3 DS: Data Data Completed and Pending Completed studies during hospitalization [Text1]: Pending at discharge 10/15/22 19:03 Surgical [PTH] Routine Laboratory Results WBC 11.1 X10*3/uL (4.8-10.8) H 10/26/22 05:18 RBC 2.48 X10*6/uL (4.20-5.50) L 10/26/22 05:18 Hgb 8.0 g/dl (12.0-16.0) L 10/26/22 05:18 Hct 23.8 % (37.0-47.0) L 10/26/22 05:18 MCV 96.0 fL (80.0-98.0) 10/26/22 05:18 MCH 32.3 pg (27.0-33.0) 10/26/22 05:18 MCHC 33.6 g/dl (31.0-35.0) 10/26/22 05:18 RDW 13.3 % (11.0-16.0) 10/26/22 05:18 Plt Count 494 X10*3/uL (160-400) H D 10/26/22 05:18 MPV 9.6 fL (9.4-12.3) 10/26/22 05:18 Immature Gran % (Auto) Cancelled 10/22/22 08:59 Neut % (Auto) Cancelled 10/22/22 08:59 Lymph % (Auto) Cancelled 10/22/22 08:59 [place] % (Auto) Cancelled 10/22/22 08:59 Eos % (Auto) Cancelled 10/22/22 08:59 Baso % (Auto) Cancelled 10/22/22 08:59 Lymph # (Auto) Cancelled 10/22/22 08:59 [place] # (Auto) Cancelled 10/22/22 08:59 Eos # (Auto) Cancelled 10/22/22 08:59 Baso # (Auto) Cancelled 10/22/22 08:59 Abs Immat Gran (auto) Cancelled 10/22/22 08:59 Absolute Neuts (auto) Cancelled 10/22/22 08:59 Absolute Nucleated RBC 0.000 X10*3/uL (0.0-0.012) 10/26/22 05:18 Nucleated RBC % (auto) 0.0 /100WBC (0.0-0.2) 10/26/22 05:18 Neutrophils % (Manual) 84 % (45-73) H 10/22/22 08:59 Band Neutrophils % 3 % (3-5) 10/22/22 08:59 Lymphocytes % (Manual) 6 % (20-40) L 10/22/22 08:59 Monocytes % (Manual) 5 % (2-11) 10/22/22 08:59 Eosinophils % (Manual) 1 % (0-4) 10/22/22 08:59 Basophils % (Manual) 1 % (0-2) 10/22/22 08:59 Myelocytes % 1 % 10/19/22 13:42 Abs Neuts (Manual) 14.2 X10*3/uL (2.0-8.3) H 10/22/22 08:59 Lymphocytes # (Manual) 1.0 X10*3/uL (1.2-4.9) L 10/22/22 08:59 Monocytes # (Manual) 0.8 X10*3/uL (0.1-1.2) 10/22/22 08:59 Eosinophils # (Manual) 0.2 X10*3/uL (0.0-0.4) 10/22/22 08:59 Basophils # (Manual) 0.2 X10*3/uL (0.0-0.2) 10/22/22 08:59 Myelocytes # 0.1 X10*/uL 10/19/22 13:42 Platelet Estimate NORMAL (NORMAL) 10/22/22 08:59 Plt Morphology Comment NORMAL 10/22/22 08:59 RBC Morphology NORMAL 10/22/22 08:59 Julian Cells 2+ (3-5) /OIF 10/19/22 13:42 PT 16.0 SEC (10.0-13.1) H 10/23/22 09:02 INR 1.4 (0.9-1.1) H 10/23/22 09:02 Sodium 136 mmol/L (135-145) 10/26/22 05:18 Potassium 3.5 mmol/L (3.3-5.1) 10/26/22 05:18 Chloride 103 mmol/L (96-108) 10/26/22 05:18 Carbon Dioxide 24 mmol/L (22-29) 10/26/22 05:18 Anion Gap 13 (12-20) 10/26/22 05:18 BUN 8 mg/dL (9-16) L 10/26/22 05:18 Creatinine 0.56 mg/dL (0.5-1.4) 10/26/22 05:18 Estim Creat Clear Calc 110.2 10/26/22 05:18 Estimated GFR > 60 10/26/22 05:18 Random Glucose 94 mg/dL (60-115) 10/26/22 05:18 Lactic Acid 2.0 mmol/L (0.5-2.0) 10/15/22 17:16 Calcium 7.7 mg/dL (8.4-10.2) L D 10/26/22 05:18 Magnesium 2.0 mg/dL (1.6-2.6) 10/16/22 06:17 Total Bilirubin 0.7 mg/dL (0.0-1.0) 10/15/22 15:42 Direct Bilirubin 0.3 mg/dL (0.0-0.5) 10/15/22 15:42 AST 23 U/L (5-31) 10/15/22 15:42 ALT 20 U/L (0-31) 10/15/22 15:42 Alkaline Phosphatase 73 U/L (39-117) 10/15/22 15:42 Total Protein 6.4 g/dL (6.5-8.0) L 10/15/22 15:42 Albumin 3.9 g/dL (3.5-5.0) 10/15/22 15:42 Lipase 11 U/L (8-78) 10/15/22 15:42 Urine Color Dark Yellow 10/18/22 19:30 Urine Appearance Clear 10/18/22 19:30 Urine pH 6.0 (5.0-9.0) 10/18/22 19:30 Ur Specific [place] 1.025 (1.005-1.025) 10/18/22 19:30 Urine Protein 30 (1+) mg/dL (Neg-Trace) H 10/18/22 19:30 Urine Glucose (UA) Negative mg/dL (Negative) 10/18/22 19:30 Urine Ketones Trace mg/dL (Negative) 10/18/22 19:30 Urine Blood Negative (Negative) 10/18/22 19:30 Urine Nitrite Negative (Negative) 10/18/22 19:30 Ur Leukocyte Esterase Trace (Negative) H 10/18/22 19:30 Urine RBC 0-2 /HPF (0-2) 10/18/22 19:30 Urine WBC 0-5 /HPF (0-5) 10/18/22 19:30 Ur Squamous Epith Cells 0-2 /HPF (0-2) 10/18/22 19:30 Urine Bacteria None Seen (None Seen) 10/18/22 19:30 Hyaline Casts 0-2 /LPF (0-2) 10/18/22 19:30 Blood Type A Positive 10/15/22 17:24 Antibody Screen NEGATIVE 10/15/22 17:24 Impressions Abdomen/Pelvis CT 10/22/22 16:02 IMPRESSION: New postsurgical changes following left lower quadrant colostomy and Celi pouch. Pelvic drainage catheter superior to the bladder. No surrounding fluid collection. Air-fluid level in the upper midline abdomen inferior to the stomach and superior to the transverse colon suggestive of an abscess and probable smaller adjacent abscess to the right. It is uncertain whether these 2 abscesses communicate. Liver cysts. Small amount of air in the bladder. This may be related to recent Mauricio catheter. Clinical correlation recommended. Bilateral lower lobe atelectasis/consolidation and pleural effusions. Findings will be communicated by the [place] work flow vice president of manufacturing. Fleischner guidelines were followed. Abscess Drainage CT 10/23/22 14:35 IMPRESSION: Successful CT-guided drainage of intra-abdominal abscess as described. Criteria for maintaining the drain conclude absence of fever, normalization of white count, and less than 10 mL of drainage per 24-hour period. Labs on day of discharge: Preliminary micro results at discharge 10/23/22 19:10 Blood Culture - Preliminary Blood - Venous No growth after 48 hours. Discharge Plan Discharge Anticipated Discharge Date/Time: 10/27/22 10:40 Patient Disposition: Home Health Service Discharge Diagnosis: perforated sigmoid Referrals: [facility] [Outside] - 1 Week Candido Clark FNP- [Primary Care Provider] - 1 Week Gagan Snell MD [Physician] - 1 Week Discharge Medications: New tramadol 50 mg tablet 50 mg PO Q6H PRN (Reason: pain) Qty: 20 0RF levofloxacin 500 mg tablet 500 mg PO DAILY Qty: 3 0RF metronidazole 500 mg tablet 500 mg PO BID Qty: 6 0RF Continued coenzyme Q10 100 mg capsule 100 mg PO DAILY Qty: 90 1RF trazodone 50 mg tablet 50 mg PO BEDTIME PRN (Reason: sleep) Qty: 30 5RF metoprolol succinate [Toprol XL] 25 mg tablet extended release 24 hr 12.5 mg PO DAILY 90 Days Qty: 45 1RF rosuvastatin [Crestor] 20 mg tablet 20 mg PO BEDTIME 90 Days Qty: 90 1RF flaxseed oil 1,000 mg Capsule 1,000 mg PO DAILY Rx Instructions: administer with a meal [id number]-calcium [id number] 400 mcg-500 mg calcium-20 mcg Tablet 1 tab PO DAILY anastrozole 1 mg Tablet 1 mg PO DAILY Qty: 30 6RF ondansetron 4 mg Tablet,Disintegrating 4 mg PO Q6H PRN (Reason: Nausea) Qty: 30 3RF cholecalciferol (vitamin D3) 125 mcg (5,000 unit) capsule 125 mcg PO DAILY docusate sodium [Colace] 100 mg capsule 300 mg PO BEDTIME PRN (Reason: Constipation) magnesium 200 mg tablet 400 mg PO DAILY fluticasone propionate 50 mcg/actuation spray,suspension 1 spray intranasal Q12H PRN (Reason: Allergy Symptoms) Rx Instructions: administer into each nostril calcium carbonate 500 mg calcium (1,250 mg) tablet,chewable 1,500 mg PO DAILY acetaminophen 500 mg capsule 1,000 mg PO Q12H PRN (Reason: Pain) vit A-vit C-vit [id number]-[id number] [id number] mpuv-fh-sioi tablet 1 tab PO DAILY levocetirizine [Xyzal] 5 mg tablet 5 mg PO DAILY famotidine 10 mg tablet 10 mg PO DAILY Discharge Orders: Discharge Order (Routine); Ordered 10/27/22 Ordered By: Gagan Snell Activity on Discharge: No heavy lifting Stand Alone Forms: Patient Portal Discharge page Other Ambulatory Orders: Complete Blood Count no Diff (Routine) Timeframe: 1 Week Facility: [facility] - Location: Laboratory Ordered By: Gagan Snell Activity Restrictions/Additional Instructions: dry dressings to incision and drain CBC as outpatient before ffup If the incision area is tender, you may apply an ice pack for short intervals (No more than 20 minutes on, followed by at least 20 minutes off). Do not apply heat. Do not use creams, lotions, or topical antibiotics unless instructed to do so by your surgeon. These can cause infection or allergic reaction. No lifting more than 20 lbs Okay to shower No strenuous activities Call the office for follow-up in 2 weeks - with Dr. Snell Call Your Doctor If: -Your temperature exceeds 101.5? F -You experience excessive pain or swelling -You have an unexpected reaction to medication -You have excessive bleeding -You experience continued vomiting/nausea -Your incision begins to separate -Your incision shows signs of infection such as increased redness, swelling, excessive pain, drainage (light blood or clear fluid is normal) or heat call office to ffup next week [phone] Care Plan Goals: return to baseline health Health Concerns: intraabdl abscess Plan of Treatment: oral abx drain care Assessment: doing well clinically Discharge Date/Time: 10/27/22 15:33
[2022-10-27 11:23] VITALS: BP 120/65; PULSE 93; RESP 20; TEMP 36.3; O2SAT 93
--- NOTE | 2022-10-27 11:36 | MHC.CM.PN ---
Patient has been medically cleared for dc to home today with services. [facility] has accepted Patient and they have been made aware of today's dc. IMM addressed at bedside with Patient and original has been given to her and a copy has been placed on the chart. Patient by choice will dc to home today at 2PM, via [facility].
== END 2022-10-27 15:33 | disposition home health service (06) | DRG 329 ==
LOC: HO.ED 17:52 → HO.EDOVER 18:22 → HO.IMC 20:55
PROVIDERS: Physician Assistant Surgical; Radiology Vascular & Interventional Radiology; Surgery; Admitting Provider Surgery; Emergency Provider Emergency Medicine Emergency Medical Services; PCP Nurse Practitioner Family; Visit Provider Surgery
PROC: 0DBN0ZZ Excision of Sigmoid Colon, Open Approach (ICD-10-PCS; principal; 2022-10-15 18:30)
PROC: 0W9G3ZZ Drainage of Peritoneal Cavity, Percutaneous Approach (ICD-10-PCS; principal; 2022-10-23 11:30)
DX: K63.1 Perforation of intestine (nontraumatic) (principal); K65.9 Peritonitis, unspecified; K56.7 Ileus, unspecified; T81.43XA Infection following a procedure, organ and space surgical site, initial encounter; K52.89 Other specified noninfective gastroenteritis and colitis; Y83.8 Other surgical procedures as the cause of abnormal reaction of the patient, or of later complication, without mention of misadventure at the time of the procedure; K59.09 Other constipation; C50.919 Malignant neoplasm of unspecified site of unspecified female breast; E66.9 Obesity, unspecified; Z68.36 Body mass index [BMI] 36.0-36.9, adult; Z79.811 Long term (current) use of aromatase inhibitors; Z87.891 Personal history of nicotine dependence; Z79.899 Other long term (current) drug therapy
CPT/HCPCS: 36415; 74177; 75989; 80048; 80076; 81001; 83605; 83690; 83735; 85007; 85025; 85027; 85610; 86850; 86900; 86901; 87040; 87070; 87073; 87076; 87185; 87205; 88307; 93005; 97162; 99152; 99153; 99285; C1729; C1758; J0131; J1100; J1170; J1200; J1643; J1885; J1956; J2250; J2270; J2405; J3010; Q4186; Q9967

== ENCOUNTER → 2022-10-15 17:31 | Outpatient (BNV) | payer MEDICARE, SELFPAY | PROVIDERS: Admitting Provider Surgery; Emergency Provider Emergency Medicine Emergency Medical Services; PCP Nurse Practitioner Family; Visit Provider Internal Medicine Cardiovascular Disease | DX: I44.7 Left bundle-branch block, unspecified (principal) | CPT/HCPCS: 93010 ==

== ENCOUNTER 2022-10-15 17:32 | Outpatient (BNV) | payer MEDICARE, SELFPAY | END 2022-10-23 13:50 | PROVIDERS: Admitting Provider Surgery; Emergency Provider Emergency Medicine Emergency Medical Services; PCP Nurse Practitioner Family; Visit Provider Radiology Vascular & Interventional Radiology | DX: K65.1 Peritoneal abscess (principal) | CPT/HCPCS: 49406 ==

== ENCOUNTER → 2022-10-15 17:32 | Outpatient (BNV) | payer MEDICARE, SELFPAY | PROVIDERS: Admitting Provider Surgery; Emergency Provider Emergency Medicine Emergency Medical Services; PCP Nurse Practitioner Family; Visit Provider Physician Assistant Surgical | DX: Z93.3 Colostomy status (principal); K63.1 Perforation of intestine (nontraumatic) | CPT/HCPCS: 44206; 99024; 99223; 99499; G0180 ==

== ENCOUNTER → 2022-10-15 17:32 | Outpatient (BNV) | payer MEDICARE, SELFPAY | PROVIDERS: Admitting Provider Surgery; Emergency Provider Emergency Medicine Emergency Medical Services; PCP Nurse Practitioner Family; Visit Provider Student in an Organized Health Care Education/Training Program | DX: Z93.3 Colostomy status (principal); K63.1 Perforation of intestine (nontraumatic) | CPT/HCPCS: 99222 ==

== ENCOUNTER 2022-11-03 10:30 | Outpatient (REF) | payer MEDICARE, SELFPAY ==
[2022-11-03 10:38] LABS: MANUAL DIFF FLAG NO
[2022-11-03 10:40] LABS: Basophils Percent Auto 0.4 % (0-2); Eosinophils Absolute Auto 0.1 X10*3/uL (0.0-0.4); Eosinophils Percent Auto 1.7 % (0-4); Hematocrit 31.4 % (37.0-47.0); Hemoglobin 9.8 g/dl (12.0-16.0); Imm Gran Abs Auto 0.02 X10*3/uL (0.00-0.03); Imm Gran Pct Auto 0.4 % (0.0-0.4); Lymphocytes Absolute Auto 1.1 X10*3/uL (1.2-4.9); Lymphocytes Percent Auto 20.7 % (20-40); Mean Corpuscular HGB Conc 31.2 g/dl (31.0-35.0); Mean Corpuscular Hemoglobin 31.5 pg (27.0-33.0); Mean Platelet Volume 9.4 fL (9.4-12.3); Monocytes Absolute Auto 0.6 X10*3/uL (0.1-1.2); Monocytes Percent Auto 11.7 % (2-11); Neutrophils Absolute Auto 3.4 x10*3/uL (2.0-8.3); Neutrophils Percent Auto 65.1 % (45-73); Platelet Count 553 X10*3/uL (160-400); Red Blood Count 3.11 X10*6/uL (4.20-5.50); Red Cell Distribution Width 15.1 % (11.0-16.0); White Blood Count 5.2 X10*3/uL (4.8-10.8)
== END 2022-11-03 10:31 | disposition home or self-care (01) ==
LOC: HO.LNP 10:30
PROVIDERS: Visit Provider Surgery
DX: K57.20 Diverticulitis of large intestine with perforation and abscess without bleeding (principal); K52.89 Other specified noninfective gastroenteritis and colitis; Z93.3 Colostomy status
CPT/HCPCS: 85025

== ENCOUNTER 2022-11-03 12:41 | Outpatient (AMB) | payer MEDICARE, SELFPAY ==
--- NOTE | 2022-11-03 12:55 | MHC.OFFVIS ---
Intake Vital Signs 11/03/22 13:04 Comment Unable to obtain vitals , pt in wheelchair Intake Visit Reasons: post Laparotomy, sigmoid resection, end colostomy Intake Note: This patient presents for a post-op follow-up assessment status post laparotony, sigmoid resection. Patient denies complaints at this time pertaining to surgery. Book Publisher Required: No Accompanied by: Family/Other Allergies amoxicillin [AMOXICILLIN] Allergy (Mild, Verified 11/03/22 13:02) flushing/swelling/rash HPI post Laparotomy, sigmoid resection, end colostomy HPI Details 67-year-old female here for a postop visit. She had undergone emergency Celi's procedure last 10/15/2022. She had an intra-abdominal abscess that needed to undergo CT drain the week after that. She still has her drain in place. She has had no output from her drain since she was discharged. She says she feels well overall. She has good oral intake. Her stoma has been functioning well. She has been doing more with regards to walking. She has a long history of chronic constipation and seems to have had a stercoral etiology of her sigmoid perforation. She has been on a bowel regimen with Colace, Metamucil and MiraLax every other day so she has had good output from her stoma. [facility] Medical History Arthritis COVID-19 vaccine series completed Elevated cholesterol Family history of anesthesia complication Intra-abdominal abscess LBBB (left bundle branch block) Perforation of sigmoid colon due to diverticulitis Surgical History History of bilateral breast biopsy History of hysterectomy History of lumpectomy of right breast (10/02/21) History of sigmoidoscopy (10/15/22) History of tonsillectomy and adenoidectomy Family History Mother Melanoma Maternal Aunt Vocal cord cancer Maternal Aunt Uterine cancer Maternal Aunt Comer Syndrome Social History Household Members: Family Housing: House Are you a primary career services assistant to a significant other at home: No Do you presently have visiting nurse or other home services: No Unable to assess alcohol history related to: Unknown Alcohol intake: current Alcohol intake frequency: holidays/special occasions only Patient Tobacco Use Status: Former Tobacco user Quit Date: 1980 Tobacco use type: Cigarette Years Smoked: 5 e-Cigarette/Vaping Use: Never Used Second Hand Smoke Exposure: No Advance Directives Date on File: 09/30/21 service: No Current occupational status: retired Cognitive needs: No Hearing needs: No Vision needs: No Review of Systems Const Denies chills and Denies fever(s) Card Denies chest pain, Denies dyspnea and Denies dyspnea on exertion Resp Denies cough, Denies dyspnea and Denies dyspnea on exertion GI Details: Has colostomy Denies hematuria Musc Denies back pain and Denies limited range of motion Neuro Denies focal weakness and Denies convulsions Psych Denies depression and Denies mood swings Physical Exam Const General: comfortable and no acute distress Resp Effort & Inspection: normal respiratory effort Cardio Rate: regular rate GI Other: Stoma functioning well, CT drain with no output, midline incision well healing with subcutaneous fat necrosis on the bottom Palpation (GI): Soft to palpation, not firm, nontender and no guarding Assessment & Plan Assessment & Plan (1) Status post Celi procedure: Code(s): Z93.3 - Colostomy status Plan: She is doing well postoperatively. I removed all her skin lali. I probed the lower part of her pannus to drain her subcutaneous fat necrosis. I applied dressings. I also removed her CT drain. Overall, she is doing very well. I will see her again in the office in about 2 weeks for another wound check. Hemoglobin is 9.8 on today's labs. I also advised her to see her primary care physician in view of mildly elevated platelet count. (2) Stercoral colitis: Code(s): K52.89 - Other specified noninfective gastroenteritis and colitis Plan: Etiology of her perforation is likely stercorall. She is currently on a good bowel regimen and has had good stoma function. Coding Level of Care Code Global (94694) Diagnoses Status post Celi procedure Z93.3 Stercoral colitis K52.89
== END 2022-11-03 13:34 | disposition home or self-care (01) ==
PROVIDERS: PCP Nurse Practitioner Family; Visit Provider Surgery
DX: Z93.3 Colostomy status (principal); K52.89 Other specified noninfective gastroenteritis and colitis
CPT/HCPCS: 99024

== ENCOUNTER 2022-11-17 13:27 | Outpatient (REF) | payer MEDICARE, SELFPAY ==
[2022-11-17 13:42] LABS: MANUAL DIFF FLAG NO
[2022-11-17 14:20] LABS: Basophils Percent Auto 0.6 % (0-2); Eosinophils Absolute Auto 0.1 X10*3/uL (0.0-0.4); Eosinophils Percent Auto 1.4 % (0-4); Hematocrit 37.7 % (37.0-47.0); Hemoglobin 12.1 g/dl (12.0-16.0); Imm Gran Abs Auto 0.02 X10*3/uL (0.00-0.03); Imm Gran Pct Auto 0.3 % (0.0-0.4); Lymphocytes Absolute Auto 1.6 X10*3/uL (1.2-4.9); Lymphocytes Percent Auto 23.1 % (20-40); Mean Corpuscular HGB Conc 32.1 g/dl (31.0-35.0); Mean Corpuscular Hemoglobin 31.6 pg (27.0-33.0); Mean Corpuscular Volume 98.4 fL (80.0-98.0); Mean Platelet Volume 10.7 fL (9.4-12.3); Monocytes Absolute Auto 0.5 X10*3/uL (0.1-1.2); Monocytes Percent Auto 7.3 % (2-11); Neutrophils Absolute Auto 4.7 x10*3/uL (2.0-8.3); Neutrophils Percent Auto 67.3 % (45-73); Platelet Count 353 X10*3/uL (160-400); Red Blood Count 3.83 X10*6/uL (4.20-5.50); Red Cell Distribution Width 14.2 % (11.0-16.0)
[2022-11-17 14:26] LABS: Appearance Urine Clear; Color Urine Dark Yellow; Glucose Urine UA Negative (Negative); Leukocyte Esterase Urine Trace (Negative); Nitrite Urine Negative (Negative); PH 5.5 (5.0-9.0); UMIC TRIGGER UACC YES; Urine Blood Negative (Negative); Urine Ketones Trace mg/dL (Negative); Urine Protein 100 (2+) mg/dL (Neg-Trace)
[2022-11-17 14:46] LABS: D Dimer High Sensitivity 677 NG/ML
[2022-11-17 14:53] LABS: Bacteria Urine None Seen (None Seen); Hyaline Casts Urine >20 /LPF (0-2); WBC Urine 0-5 /HPF (0-5)
[2022-11-18 02:01] LABS: Alanine Aminotransferase 23 U/L (0-31); Albumin Level 4.4 g/dL (3.5-5.0); Alkaline Phosphatase 119 U/L (39-117); Anion Gap 16 (12-20); Aspartate Amino Transferase 33 U/L (5-31); Bilirubin Total 0.3 mg/dL (0.0-1.0); Blood Urea Nitrogen 18 mg/dL (9-16); Calcium 10.1 mg/dL (8.4-10.2); Carbon Dioxide 24 mmol/L (22-29); Chloride 103 mmol/L (96-108); Estimated Glomerular Filt Rate > 60; Ferritin 124 ng/mL (10-250); Glucose Random 133 mg/dL (60-115); Iron 46 mcg/dL (30-160); Percent Iron Saturation 17 % (15-50); Potassium 4.2 mmol/L (3.3-5.1); Sodium 139 mmol/L (135-145); TSH reflex Free T4 2.06 uIU/mL (0.32-4.0); Total Iron Binding Capacity 266 mcg/dL (228-428); Unsaturated Iron Binding 220 ug/dL
== END 2022-11-17 13:28 | disposition home or self-care (01) ==
LOC: HO.LAB 13:27
PROVIDERS: Visit Provider Nurse Practitioner Family
DX: I95.9 Hypotension, unspecified (principal); R00.0 Tachycardia, unspecified; Z93.3 Colostomy status; Z87.891 Personal history of nicotine dependence; D64.9 Anemia, unspecified; R53.83 Other fatigue
CPT/HCPCS: 36415; 80053; 81001; 82728; 83540; 84443; 85025; 85379

== ENCOUNTER 2022-11-17 13:51 | Outpatient (AMB) | payer MEDICARE, SELFPAY ==
--- NOTE | 2022-11-17 13:54 | MHC.OFFVIS ---
Intake Vital Signs 11/17/22 14:02 Weight 187 lb BP 119/64 Blood Pressure Location Rt brachial Position Sitting Pulse 125 H Intake Visit Reasons: post Laparotomy, sigmoid resection, end colostomy Intake Note: This patient presents for a post-op follow-up assessment status post laparotomy, sigmoid resection and end colostomy. Patient c/o; reports no changes or complaints with the surgical site. 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 She continues do well. Her stoma has been functioning well. Her midline incision has healed. She says that she had been started on Linzess by her primary care physician. [facility] Medical History Arthritis COVID-19 vaccine series completed Elevated cholesterol Family history of anesthesia complication Intra-abdominal abscess LBBB (left bundle branch block) Perforation of sigmoid colon due to diverticulitis Surgical History History of bilateral breast biopsy History of hysterectomy History of lumpectomy of right breast (10/02/21) History of sigmoidoscopy (10/15/22) History of tonsillectomy and adenoidectomy Family History Mother Melanoma Maternal Aunt Vocal cord cancer Maternal Aunt Uterine cancer Maternal Aunt Comer Syndrome Social History Household Members: Family Housing: House Are you a primary pharmacy care coordinator to a significant other at home: No Do you presently have visiting nurse or other home services: No Unable to assess alcohol history related to: Unknown Alcohol intake: current Alcohol intake frequency: holidays/special occasions only Patient Tobacco Use Status: Former Tobacco user Quit Date: 1980 Tobacco use type: Cigarette Years Smoked: 5 e-Cigarette/Vaping Use: Never Used Second Hand Smoke Exposure: No Advance Directives Date on File: 09/30/21 service: No Current occupational status: retired Cognitive needs: No Hearing needs: No Vision needs: No Review of Systems Const Denies chills and Denies fever(s) Card Denies chest pain with activity GI Denies abdominal pain Physical Exam Vital Signs: Last Vital Signs Pulse 125 H 11/17/22 14:02 BP 119/64 11/17/22 14:02 Const Other: Ambulating General: comfortable and no acute distress Resp Effort & Inspection: normal respiratory effort GI Other: Midline incision well healed, stoma working well Palpation (GI): Soft to palpation, not firm, nontender and no guarding Assessment & Plan Assessment & Plan (1) Status post Celi procedure: Code(s): Z93.3 - Colostomy status Plan: She continues to do well. Her stoma is functioning well. She had been started on Linzess for her severe constipation . I will see her again in about a month and we are planning schedule her for a colonoscopy as she is way overdue. Coding Level of Care Code Global (25775) Diagnoses Status post Celi procedure Z93.3
[2022-11-17 14:02] VITALS: BP 119/64; PULSE 125
== END 2022-11-17 14:26 | disposition home or self-care (01) ==
PROVIDERS: PCP Nurse Practitioner Family; Visit Provider Surgery
DX: Z93.3 Colostomy status (principal)
CPT/HCPCS: 99024

== ENCOUNTER 2022-11-18 14:16 | Outpatient (REF) | payer MEDICARE, SELFPAY ==
--- NOTE | ~2022-11-18 | CT_ITS ---
EXAMINATION: CT ANGIOGRAM OF THE CHEST WITH AND WITHOUT CONTRAST (CT PULMONARY ANGIOGRAM FOR PE) CLINICAL INFORMATION: Other specified abnormal findings of blood chemistry, R79.89 COMPARISON: None available. TECHNIQUE: Prior to contrast administration, noncontrast localization images were obtained. Subsequently, multidetector volumetric imaging was performed from the thoracic inlet to below the diaphragms following the administration of 65 mL Omnipaque 350 intravenous contrast. No contrast reaction reported Sagittal, coronal, and MIP oblique sagittal reformatted images were obtained on the CT workstation, uploaded to PACS, and reviewed. This CT examination was performed using dose optimization techniques as appropriate, variously including the following: *Automated exposure control *Adjustment of mA and/or kV according to patient size (this includes techniques or standardized protocols for targeted exams where dose is matched to indication/reason for exam; i.e. extremities or head) *Use of iterative reconstruction technique Total exam dose-length product: 148 mGy-cm FINDINGS: QUALITY OF STUDY/CONTRAST BOLUS: Satisfactory. PULMONARY ARTERIES: No pulmonary emboli. THORACIC AORTA: No aneurysm. LUNG: There is atelectatic change at both lung bases associated with a small right pleural effusion. PLEURA: Small right pleural effusion. MEDIASTINUM: Normal heart size. There is a minimal pericardial effusion. No hilar or mediastinal lymphadenopathy. No evidence of septal bowing or right heart strain. CORONARY ARTERY CALCIFICATION: None visualized on this study. CHEST WALL/AXILLA: No axillary or internal mammary lymphadenopathy. OSSEOUS STRUCTURES: No acute or suspicious osseous abnormality. UPPER ABDOMEN: There is a 3.5 cm cyst right lobe of the liver. There is a subcentimeter hypodensity at the dome of the liver too small to characterize but also possibly a cyst. No reflux of contrast into the hepatic veins to suggest elevated right heart pressures. CT/CT angio chest PE protocol IMPRESSION: No evidence for pulmonary embolism. Bilateral posterior lung base atelectasis associated with a small right pleural effusion. Minimal pericardial effusion. VTE: Negative for pulmonary embolism.
[2022-11-18] MEDS: iohexoL 350 MG/ML 100 ML INFUS..BTL IV (15:40)
== END 2022-11-18 14:17 | disposition home or self-care (01) ==
LOC: HO.CT 14:16
PROVIDERS: PCP Nurse Practitioner Family; Visit Provider Nurse Practitioner Family
DX: R79.89 Other specified abnormal findings of blood chemistry (principal)
CPT/HCPCS: 71275; Q9967

== ENCOUNTER 2022-12-01 07:58 | Outpatient (AMB) | payer MEDICARE, SELFPAY ==
--- NOTE | 2022-12-01 08:03 | AM.OFFWIN_ITS ---
Intake Vital Signs 12/01/22 08:04 Weight 186 lb 6 oz BP 140/80 H Blood Pressure Location Lt brachial Position Sitting Pulse 121 H Pulse Source Pulse Oximeter Temp 98.7 F Temp Source Oral Pulse Oximetry (%) 99 Oxygen Delivery Method Room Air Intake Visit Reasons: Dizziness/was JGs 730 appt Intake Note: Pt is here for dizziness, sates she had 4 episodes of almost passing out Patient Tobacco Use Status: Former Tobacco user Quit Date: 1980 Allergies amoxicillin [AMOXICILLIN] Allergy (Mild, Verified 12/01/22 08:06) flushing/swelling/rash Do you need a note to return to daycare/school/sports/work: No HPI Dizziness/was JGs 730 appt HPI Details 67-year-old female presents to the office for a sick visit. She had a regular appointment with her primary care provider which was canceled and she decided to come to the walk-in instead. Patient reports she is having issues with fluctuating blood pressure and increased pulse rate. She was discharged from the hospital towards the end of October with a colostomy bag after a ruptured colon. Subsequently patient is having the VNA help her at home. Patient is reporting that she is having fluctuating low blood pressures with increasing heart rate. She is wondering if she should discontinue the beta-keiko. Reports normal bowel movement via the colostomy bag. Appetite is normal. Sleep patterns are normal. Walking with a cane. [facility] Medical History Arthritis COVID-19 vaccine series completed Elevated cholesterol Family history of anesthesia complication Intra-abdominal abscess LBBB (left bundle branch block) Perforation of sigmoid colon due to diverticulitis Surgical History History of bilateral breast biopsy History of hysterectomy History of lumpectomy of right breast (10/02/21) History of sigmoidoscopy (10/15/22) History of tonsillectomy and adenoidectomy Family History Mother Melanoma Maternal Aunt Vocal cord cancer Maternal Aunt Uterine cancer Maternal Aunt Comer Syndrome Social History Household Members: Family Housing: House Are you a primary healthcare business analyst to a significant other at home: No Do you presently have visiting nurse or other home services: No Unable to assess alcohol history related to: Unknown Alcohol intake: current Alcohol intake frequency: holidays/special occasions only Patient Tobacco Use Status: Former Tobacco user Quit Date: 1980 Tobacco use type: Cigarette Years Smoked: 5 e-Cigarette/Vaping Use: Never Used Second Hand Smoke Exposure: No Advance Directives Date on File: 09/30/21 service: No Current occupational status: retired Cognitive needs: No Hearing needs: No Vision needs: No Physical Exam Vital Signs: Last Vital Signs Temp 98.7 F 12/01/22 08:04 Pulse 121 H 12/01/22 08:04 BP 140/80 H 12/01/22 08:04 Pulse Ox 99 12/01/22 08:04 Oxygen Delivery Method Room Air 12/01/22 08:04 Const General: cooperative and healthy appearing Nutritional Appearance: well nourished Orientation/consciousness: patient oriented x3 Limitations: no limitations HEENT Head: Yes normal to inspection Eyes General: appearance normal, both eyes and all related structures Neck Neck: Yes normal visual inspection Chest Chest palpation & inspection: normal palpation of entire chest wall Resp Effort & Inspection: normal respiratory effort Neuro General: patient oriented x3 Assessment & Plan Assessment & Plan (1) Hypotension: Code(s): I95.9 - Hypotension, unspecified Plan: Blood pressure recorded in the clinic was 140/80. Her blood work from the past month was reviewed. Patient had anemia which has reverted. Repeat blood work has been ordered. I encouraged her to continue the metoprolol at. She does have tachycardia and this would help. Will call with the results of the blood work. 20 minutes spent in reviewing labs. Coding Level of Care Code Est Pt Level 4 (81060) Diagnoses Hypotension I95.9
[2022-12-01 08:04] VITALS: BP 140/80; PULSE 121; TEMP 37.1; O2SAT 99
== END 2022-12-01 08:57 | disposition home or self-care (01) ==
PROVIDERS: PCP Nurse Practitioner Family; Visit Provider Internal Medicine
DX: I95.9 Hypotension, unspecified (principal)
CPT/HCPCS: 99214

== ENCOUNTER 2022-12-01 08:25 | Outpatient (REF) | payer MEDICARE, SELFPAY ==
[2022-12-01 11:39] LABS: Hematocrit 38.4 % (37.0-47.0); Hemoglobin 11.9 g/dl (12.0-16.0); Mean Corpuscular Hemoglobin 30.4 pg (27.0-33.0); Mean Corpuscular Volume 98.2 fL (80.0-98.0); Mean Platelet Volume 11.3 fL (9.4-12.3); Platelet Count 297 X10*3/uL (160-400); Red Blood Count 3.91 X10*6/uL (4.20-5.50); Red Cell Distribution Width 14.2 % (11.0-16.0); White Blood Count 7.3 X10*3/uL (4.8-10.8)
[2022-12-01 12:17] LABS: Alanine Aminotransferase 16 U/L (0-31); Albumin Level 4.3 g/dL (3.5-5.0); Alkaline Phosphatase 96 U/L (39-117); Anion Gap 13 (12-20); Aspartate Amino Transferase 27 U/L (5-31); Bilirubin Direct 0.1 mg/dL (0.0-0.5); Bilirubin Total 0.3 mg/dL (0.0-1.0); Blood Urea Nitrogen 17 mg/dL (9-16); Calcium 10.2 mg/dL (8.4-10.2); Carbon Dioxide 27 mmol/L (22-29); Chloride 105 mmol/L (96-108); Cholesterol 136 mg/dL (<200); Estimated Glomerular Filt Rate > 60; Glucose Random 117 mg/dL (60-115); HDL Cholesterol 42 mg/dL (>40); LDL Cholesterol Calculated 58 mg/dL (<100); Potassium 4.2 mmol/L (3.3-5.1); Sodium 141 mmol/L (135-145); Total Protein 7.8 g/dL (6.5-8.0); Triglycerides 180 mg/dL (<150)
[2022-12-01 12:28] LABS: Thyroid Stimulating Hormone 3.44 uIU/mL (0.32-4.0)
== END 2022-12-01 08:26 | disposition home or self-care (01) ==
LOC: HO.HMGCLDS 08:25
PROVIDERS: PCP Nurse Practitioner Family; Visit Provider Internal Medicine
DX: I95.9 Hypotension, unspecified (principal)
CPT/HCPCS: 36415; 80048; 80061; 80076; 84443; 85027

== ENCOUNTER 2022-12-15 13:52 | Outpatient (AMB) | payer MEDICARE, SELFPAY ==
--- NOTE | 2022-12-15 13:54 | A.OFFVIS_ITS ---
Intake Vital Signs 12/15/22 13:59 Weight 186 lb BP 141/67 H Blood Pressure Location Rt brachial Position Sitting Pulse 92 Intake Visit Reasons: post Laparotomy, sigmoid resection, end colostomy Intake Note: This patient presents for a post-op follow-up assessment status post Laparotomy, sigmoid resection, end colostomy, intra-abdominal washout. Patient c/o; reports no complaints at this time. 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 She continues to do well. She still has frequent hard stools from her stoma. She has been started on Linzess a month ago. She also is taking fiber supplementation Otherwise, she says she is doing quite well. [facility] Medical History Intra-abdominal abscess Perforation of sigmoid colon due to diverticulitis COVID-19 vaccine series completed Family history of anesthesia complication Arthritis Elevated cholesterol LBBB (left bundle branch block) Surgical History History of sigmoidoscopy (10/15/22) History of lumpectomy of right breast (10/02/21) History of tonsillectomy and adenoidectomy History of bilateral breast biopsy History of hysterectomy Family History Mother Melanoma Maternal Aunt Vocal cord cancer Maternal Aunt Uterine cancer Maternal Aunt Comer Syndrome Social History Household Members: Family Housing: House Are you a primary care information associate to a significant other at home: No Do you presently have visiting nurse or other home services: No Unable to assess alcohol history related to: Unknown Alcohol intake: current Alcohol intake frequency: holidays/special occasions only Patient Tobacco Use Status: Former Tobacco user Quit Date: 1980 Tobacco use type: Cigarette Years Smoked: 5 e-Cigarette/Vaping Use: Never Used Second Hand Smoke Exposure: No Advance Directives Date on File: 09/30/21 service: No Current occupational status: retired Cognitive needs: No Hearing needs: No Vision needs: No Review of Systems Const Denies chills and Denies fever(s) Card Denies chest pain Resp Denies cough GI Denies abdominal pain Physical Exam Const General: comfortable and no acute distress Resp Effort & Inspection: normal respiratory effort GI Other: Midline incision is well healed, stoma functioning well Palpation (GI): Soft to palpation, not firm, nontender and no guarding Assessment & Plan Assessment & Plan (1) Status post Celi procedure: Code(s): Z93.3 - Colostomy status Plan: She continues to do well postoperatively. She does have recurrent hard stools from her colostomy I have advised her to try increasing her fiber supplementation to twice a day. Overall, she seems to have recovered well from her emergency laparotomy and sigmoid resection She understands that she is due for her colonoscopy. She is not quite mentally ready for this. I will see her again in the office in about 3 months. Coding Level of Care Code Global (52755) Diagnoses Status post Celi procedure Z93.3
[2022-12-15 13:59] VITALS: BP 141/67; PULSE 92
== END 2022-12-15 14:19 | disposition home or self-care (01) ==
PROVIDERS: PCP Nurse Practitioner Family; Visit Provider Surgery
DX: Z93.3 Colostomy status (principal)
CPT/HCPCS: 99024

== ENCOUNTER → 2022-12-15 13:52 | Outpatient (BNVA) | payer MEDICARE, SELFPAY | PROVIDERS: PCP Nurse Practitioner Family; Visit Provider Surgery ==

== ENCOUNTER 2023-01-28 11:21 | Outpatient (AMB) | payer MEDICARE, SELFPAY ==
--- NOTE | 2023-01-28 11:23 | A.OFFPC_ITS ---
Vital Signs 01/28/23 11:27 Height 5 ft 5 in Weight 188 lb BMI 31.3 BP 128/78 Blood Pressure Location Rt brachial Position Sitting Pulse 87 Pulse Source Pulse Oximeter Pulse Oximetry (%) 98 Oxygen Delivery Method Room Air Intake Visit Reasons: Adult CPE Female 50+ Allergies amoxicillin [AMOXICILLIN] Allergy (Mild, Verified 01/28/23 11:27) flushing/swelling/rash Tobacco use date assessed: 09/09/22 Fall risk assessment: No Falls in past year Last assessed Fall Risk: 01/28/23 Dental Screening Dental Screen Date: 01/28/23 Did you have a dental visit in the last 12 months?: Yes Did you have a dental problem in the last 6 months where you did not have access to dental care?: No Was dental information given to patient?: Patient has dentist HPI Encounter for routine adult health examination HPI Details Pt is here for a PE. Will order labs. Cologuard is up to date. Due for bone density, will order. Mammo is up to date. Pt is following up with general surgery ? colon screen/colostomy reversal. Pt sees hematology on a regular basis (breast Ca) [facility] Medical History Intra-abdominal abscess Perforation of sigmoid colon due to diverticulitis COVID-19 vaccine series completed Family history of anesthesia complication Arthritis Elevated cholesterol LBBB (left bundle branch block) Surgical History History of sigmoidoscopy (10/15/22) History of lumpectomy of right breast (10/02/21) History of tonsillectomy and adenoidectomy History of bilateral breast biopsy History of hysterectomy Family History Mother Melanoma Maternal Aunt Vocal cord cancer Maternal Aunt Uterine cancer Maternal Aunt Comer Syndrome Social History Household Members: Family Housing: House Are you a primary ostomy care nurse to a significant other at home: No Do you presently have visiting nurse or other home services: No Unable to assess alcohol history related to: Unknown Alcohol intake: current Alcohol intake frequency: holidays/special occasions only Patient Tobacco Use Status: Former Tobacco user Quit Date: 1980 Tobacco use type: Cigarette Years Smoked: 5 e-Cigarette/Vaping Use: Never Used Second Hand Smoke Exposure: No Advance Directives Date on File: 09/30/21 service: No Current occupational status: retired Cognitive needs: No Hearing needs: No Vision needs: No Questionnaire PHQ-9 Over the last 2 weeks, how often have you been bothered by any of the following problems? 1. Little interest or pleasure in doing things: not at all 2. Feeling down, depressed, or hopeless: not at all 3. Trouble falling or staying asleep, or sleeping too much: not at all 4. Feeling tired or having little energy: not at all 5. Poor appetite or overeating: not at all 6. Feeling bad about yourself - or that you are a failure or have let yourself or your family down: not at all 7. Trouble concentrating on things, such as reading the newspaper or watching television: not at all 8. Moving or speaking so slowly that other people could have noticed. Or the opposite - being so fidgety or restless that you have been moving around a lot more than usual: not at all 9. Thoughts that you would be better off or of hurting yourself in some way: not at all Total score: 0 Depression Screening Interpretation: Negative Depression Screening Done: Yes 05292 - PHQ-9 Billing: Yes Source: Developed by Drs. Swapnil Peraza, Haylee Hughes, Raul Benitez and colleagues, with an educational nichelle from [employer]. Thrive Questionnaire Date Thrive assessed: 10/16/22 AUDIT C Alcohol Use Questionnaire (AUDIT-C) 1. How often do you have a drink containing alcohol?: Never 3. How often do you have six or more drinks on one occasion?: Never Total Score: 0 Score Reviewed/Action Taken: No KYAODE-7 AMB Questionnaire KAYODE-7 Date KAYODE - 7 assessed: 01/28/23 Feeling nervous, anxious, or on edge: 0 = Not at all Not being able to stop or control worryin = Not at all Worrying too much about different things: 0 = Not at all Trouble relaxin = Not at all Being so restless that it is hard to sit still: 0 = Not at all Becoming easily annoyed or irritable: 0 = Not at all Feeling afraid as if something awful might happen: 0 = Not at all Total KAYODE-7 score (0-4 normal; 5-9 mild; 10-14 moderate; 15-21 severe): 0 Source: Developed by Drs. Swapnil Peraza, Haylee Hughes, Raul Benitez and colleagues, with an educational nichelle from [employer]. KAYODE-7 Assessment Billing KAYODE-7 Assessment Tool: KAYODE-7 Assessment 06869 Review of Systems Const Denies chills and Denies fever(s) Eyes Denies blurry vision ENT Denies vertigo, Denies dizziness and Denies sore throat Card Denies chest pain at rest, Denies chest pain with activity, Denies diaphoresis, Denies dyspnea and Denies dyspnea on exertion Resp Denies cough, Denies dyspnea, Denies dyspnea on exertion and Denies wheezing GI Denies abdominal pain, Denies melena, Denies hematochezia, Denies constipation, Denies diarrhea and Denies loose stools Denies hematuria Musc Denies numbness and Denies tingling Skin/Breast Denies lesions Neuro Denies vertigo, Denies dizziness, Denies numbness and Denies tingling Psych Denies anxiety, Denies depression, Denies homicidal ideation, Denies suicidal ideation and Denies other (substance abuse) Aller/Immun Denies wheezing Physical exam (Primary Care) Vital Signs: Last Vital Signs Pulse 87 01/28/23 11:27 BP 128/78 01/28/23 11:27 Pulse Ox 98 01/28/23 11:27 Oxygen Delivery Method Room Air 01/28/23 11:27 BMI result Body Mass Index 31.3 Tobacco/Smoking Status: Tobacco use Status Tobacco use date assessed 09/09/22 01/28/23 11:24 Patient Tobacco Use Status Former Tobacco user 01/28/23 11:24 Tobacco use type Cigarette 01/28/23 11:24 e-Cigarette/Vaping Use Never Used 01/28/23 11:24 Depression Screening Interpretation: Negative Thrive Assessment: Date of Thrive Assessment Date Thrive assessed 10/16/22 01/28/23 11:24 Const General: cooperative Nutritional Appearance: well nourished Orientation/consciousness: patient oriented x3 HENMT Head: Yes normal to inspection, Yes normocephalic and Yes atraumatic Ears: TM's normal bilaterally Eyes General: appearance normal, both eyes and all related structures Alignment and Position: alignment normal and position normal Neck Neck: Yes normal visual inspection and Yes no lymphadenopathy Thyroid: Thyroid normal Resp Effort & Inspection: normal respiratory effort Auscultation: clear to auscultation bilaterally Cardio Rate: regular rate Rhythm: regular rhythm Heart sounds: S1 normal heart sound present, S2 normal heart sound present and no murmurs GI Other: colostomy to LLQ, stoma intact and beefy red, soft stool noted Palpation (GI): Soft to palpation and nontender Auscultation: normal bowel sounds Skin Rashes: no rashes Neuro General: patient oriented x3, moves all extremities, no focal motor deficits and deep tendon reflexes 2+ bilaterally Romberg Test: Negative Psych Appearance: grossly normal Mental Status: mental status grossly normal Speech and movement: Normal speech and movement present Affect: normal affect Attitude: cooperative Thought process: Normal thought process present Thought content: Normal thought content present Insight: Good insight present (Psych) Judgement: Good judgement present (Psych) Immunizations pneumoc 20-olga lidia conj-dip cr(PF) 0.5 mL IM syringe Performing Provider: LEILA Salas Performing Location: [facility] Administered by: Gisell Carranza CMA on 01/28/23 11:57 Dose Route Admin Location Dispensed Lot Number Expiration Date NDC Anthropological Linguist 0.5 mL IM Left Deltoid 0.5 mL [id number] 02/04/24 [id number] [email or web address] VIS Given Date VIS Provided VIS Publication Date 01/28/23 Single Vaccine 21 Eligibility Eligibility Date Funding Source Not [facility] Eligible 01/28/23 Private Assessment and Plan Assessment & Plan (1) Encounter for routine adult health examination: Code(s): Z00.00 - Encounter for general adult medical examination without abnormal findings (2) Physical exam: Code(s): Z00.00 - Encounter for general adult medical examination without abnormal findings Plan: Labs ordered (3) Postmenopausal: Code(s): Z78.0 - Asymptomatic menopausal state Plan: Vitamin D ordered Plan The patient agreed to the use of a medical assistant dermatology for this encounter. Scribed for LEILA Keller by Leticia Jamison, medical assistant dermatology, on 01/28/2023 at 11:45 EST Orders: Orders Comprehensive [place]. Panel Fast Today Z00.00 - Encounter for general adult medical examination without abnormal findings Lipid Panel Today Z00.00 - Encounter for general adult medical examination without abnormal findings XR DEXA axial skeleton Today Z78.0 - Asymptomatic menopausal state Vitamin D 25-OH Total Today Z78.0 - Asymptomatic menopausal state Complete Blood Count Auto Diff Today Z00.00 - Encounter for general adult medical examination without abnormal findings TSH reflex Free T4 Today Z00.00 - Encounter for general adult medical examination without abnormal findings UA CC w/rflx Micro + Cult Today Z00.00 - Encounter for general adult medical examination without abnormal findings Pneumococcal 20 Immunization Today Z23 - Encounter for immunization Coding Level of Care Code Est Pt Prev Care >65y(59400) Diagnoses Encounter for routine adult health examination Z00.00 Physical exam Z00.00 Postmenopausal Z78.0 Additional Codes KAYODE-7 Assessment Billing - KAYODE-7 Assessment Tool: KAYODE-7 Assessment [id number] ([id number])
[2023-01-28 11:27] VITALS: BP 128/78; PULSE 87; O2SAT 98; BMI 31.3
== END 2023-01-28 14:35 | disposition home or self-care (01) ==
PROVIDERS: PCP Nurse Practitioner Family; Visit Provider Nurse Practitioner Family
DX: Z00.00 Encounter for general adult medical examination without abnormal findings (principal); Z78.0 Asymptomatic menopausal state; Z23 Encounter for immunization
CPT/HCPCS: 90471; 90677; 99397

== ENCOUNTER 2023-02-04 06:58 | Outpatient (REF) | payer MEDICARE, SELFPAY ==
[2023-02-04 11:36] LABS: MANUAL DIFF FLAG NO
[2023-02-04 11:41] LABS: Appearance Urine Clear; Color Urine Yellow; Glucose Urine UA Negative (Negative); Leukocyte Esterase Urine Negative (Negative); Nitrite Urine Negative (Negative); Specific Gravity - Urine 1.015 (1.005-1.025); Urine Blood Negative (Negative); Urine Ketones Negative (Negative); Urine Protein Negative (Neg-Trace)
[2023-02-04 11:48] LABS: Basophils Percent Auto 0.6 % (0-2); Eosinophils Absolute Auto 0.2 X10*3/uL (0.0-0.4); Eosinophils Percent Auto 3.2 % (0-4); Hematocrit 40.4 % (37.0-47.0); Imm Gran Abs Auto 0.02 X10*3/uL (0.00-0.03); Imm Gran Pct Auto 0.4 % (0.0-0.4); Lymphocytes Absolute Auto 1.7 X10*3/uL (1.2-4.9); Lymphocytes Percent Auto 36.5 % (20-40); Mean Corpuscular HGB Conc 32.2 g/dl (31.0-35.0); Mean Corpuscular Hemoglobin 29.8 pg (27.0-33.0); Mean Corpuscular Volume 92.7 fL (80.0-98.0); Mean Platelet Volume 10.7 fL (9.4-12.3); Monocytes Absolute Auto 0.5 X10*3/uL (0.1-1.2); Monocytes Percent Auto 9.9 % (2-11); Neutrophils Absolute Auto 2.3 x10*3/uL (2.0-8.3); Neutrophils Percent Auto 49.4 % (45-73); Platelet Count 266 X10*3/uL (160-400); Red Blood Count 4.36 X10*6/uL (4.20-5.50); Red Cell Distribution Width 14.2 % (11.0-16.0); White Blood Count 4.7 X10*3/uL (4.8-10.8)
[2023-02-04 12:07] LABS: Alanine Aminotransferase 23 U/L (0-31); Albumin Level 4.3 g/dL (3.5-5.0); Alkaline Phosphatase 115 U/L (39-117); Anion Gap 13 (12-20); Aspartate Amino Transferase 31 U/L (5-31); Bilirubin Total 0.4 mg/dL (0.0-1.0); Blood Urea Nitrogen 19 mg/dL (9-16); Calcium 10.2 mg/dL (8.4-10.2); Carbon Dioxide 28 mmol/L (22-29); Chloride 105 mmol/L (96-108); Cholesterol 175 mg/dL (<200); Estimated Glomerular Filt Rate > 60; Glucose Fasting 92 mg/dL (60-99); HDL Cholesterol 58 mg/dL (>40); LDL Cholesterol Calculated 91 mg/dL (<100); Potassium 4.3 mmol/L (3.3-5.1); Sodium 142 mmol/L (135-145); Total Protein 7.5 g/dL (6.5-8.0); Triglycerides 130 mg/dL (<150)
[2023-02-04 12:11] LABS: TSH reflex Free T4 6.06 uIU/mL (0.32-4.0); Vitamin D 25-OH Total 91.4 ng/mL (>30)
[2023-02-04 12:51] LABS: Free T4 (Free Thyroxine) 0.76 ng/dL (0.71-1.85)
== END 2023-02-04 06:59 | disposition home or self-care (01) ==
LOC: HO.HMGCLDS 06:58
PROVIDERS: PCP Nurse Practitioner Family; Visit Provider Nurse Practitioner Family
DX: Z00.00 Encounter for general adult medical examination without abnormal findings (principal); Z78.0 Asymptomatic menopausal state; R94.6 Abnormal results of thyroid function studies; E78.5 Hyperlipidemia, unspecified; R00.0 Tachycardia, unspecified; I95.9 Hypotension, unspecified; C50.911 Malignant neoplasm of unspecified site of right female breast
CPT/HCPCS: 36415; 80053; 80061; 81003; 82306; 84439; 84443; 85025

== ENCOUNTER 2023-02-19 09:35 | Outpatient (REF) | payer MEDICARE, SELFPAY ==
[2023-02-19 11:52] LABS: TSH reflex Free T4 3.26 uIU/mL (0.32-4.0)
[2023-02-20 12:24] LABS: Thyroid Peroxidase Antibodies 1 IU/mL (<9)
== END 2023-02-19 09:36 | disposition home or self-care (01) ==
LOC: HO.HMGCLDS 09:35
PROVIDERS: PCP Nurse Practitioner Family; Visit Provider Nurse Practitioner Family
DX: R94.6 Abnormal results of thyroid function studies (principal)
CPT/HCPCS: 36415; 84443; 86376

== ENCOUNTER 2023-04-08 10:13 | Outpatient (REF) | payer MEDICARE, SELFPAY | END 2023-04-08 10:14 | disposition home or self-care (01) | LOC: HO.MAMMO 10:13 | PROVIDERS: PCP Nurse Practitioner Family; Visit Provider Nurse Practitioner Family | DX: R92.1 Mammographic calcification found on diagnostic imaging of breast (principal); Z13.820 Encounter for screening for osteoporosis; Z93.3 Colostomy status; Z78.0 Asymptomatic menopausal state; Z85.3 Personal history of malignant neoplasm of breast; Z79.899 Other long term (current) drug therapy | CPT/HCPCS: 77061; 77065; 77080; 99212 ==

== ENCOUNTER → 2023-04-08 10:30 | Outpatient (BNV) | payer MEDICARE, SELFPAY | PROVIDERS: PCP Nurse Practitioner Family; Visit Provider Radiology Diagnostic Radiology | DX: Z85.3 Personal history of malignant neoplasm of breast (principal) | CPT/HCPCS: 77065; G0279 ==

== ENCOUNTER 2023-04-08 12:39 | Outpatient (AMB) | payer MEDICARE, SELFPAY ==
--- NOTE | 2023-04-08 12:52 | MHC.OFFVIS ---
Intake Vital Signs 04/08/23 12:53 Height 5 ft 5 in Weight 194 lb BMI 32.3 BP 147/67 H Blood Pressure Location Rt brachial Position Sitting Pulse 79 Intake Visit Reasons: 1 mth follow up sigmoid resection, end colostomy Intake Note: This patient presents for one month follow up sigmoid resection, end colostomy. Pt c/o; reports ? parastomal hernia, reports no problems with output. Health Promotion Educator Required: No Accompanied by: Daughter Allergies amoxicillin [AMOXICILLIN] Allergy (Mild, Verified 04/08/23 13:04) flushing/swelling/rash Medication List - Last Reconciled 04/08/23 by Gagan Snell MD acetaminophen 1,000 mg PO Q12H PRN anastrozole 1 mg PO DAILY calcium carbonate 1,500 mg PO DAILY PRN cetirizine 10 mg PO DAILY PRN cholecalciferol (vitamin D3) 125 mcg PO DAILY coenzyme Q10 100 mg PO DAILY docusate sodium (Colace) 100 mg PO BID PRN famotidine 10 mg PO DAILY flaxseed oil 1,000 mg PO DAILY fluticasone propionate 50 mcg/actuation 1 spray intranasal Q12H PRN linaclotide (Linzess) 72 mcg PO DAILY magnesium 400 mg PO DAILY metoprolol succinate ER (Toprol XL) 12.5 mg (1/2 x 25 mg) PO DAILY 90 days sq-sfd-sjgsn-calcium carb-K1 400 mcg-500 mg calcium-20 mcg 1 tab PO DAILY naproxen sodium (Aleve) 220 mg PO Q12H PRN ondansetron 4 mg PO Q6H PRN rosuvastatin (Crestor) 20 mg PO BEDTIME 90 days trazodone 50 mg PO BEDTIME PRN HPI 1 mth follow up sigmoid resection, end colostomy HPI Details She is here for follow-up after emergency Celi's procedure for perforated sigmoid from a likely stercoral colitis due to constipation last October,. She says that her colostomy has been functioning well. She does not think that her stools are as hard in consistency anymore from her stoma . Her main complaint is that she has worsening joint pains and she thinks that this is because of her antiestrogen treatment. She also describes having a parastomal hernia. She notices an asymmetry between the left and right side of her abdomen especially during the day. She denies other GI complaints. [facility] Medical History Colostomy in place Intra-abdominal abscess Perforation of sigmoid colon due to diverticulitis COVID-19 vaccine series completed Family history of anesthesia complication Arthritis Elevated cholesterol LBBB (left bundle branch block) Surgical History History of sigmoidoscopy (10/15/22) History of lumpectomy of right breast (10/02/21) History of tonsillectomy and adenoidectomy History of bilateral breast biopsy History of hysterectomy Family History Mother Melanoma Maternal Aunt Vocal cord cancer Maternal Aunt Uterine cancer Maternal Aunt Comer Syndrome Social History Household Members: Family Housing: House Are you a primary home care companion to a significant other at home: No Do you presently have visiting nurse or other home services: No Unable to assess alcohol history related to: Unknown Alcohol intake: current Alcohol intake frequency: holidays/special occasions only Patient Tobacco Use Status: Former Tobacco user Quit Date: 1980 Tobacco use type: Cigarette Years Smoked: 5 e-Cigarette/Vaping Use: Never Used Second Hand Smoke Exposure: No Advance Directives Date on File: 09/30/21 service: No Current occupational status: retired Cognitive needs: No Hearing needs: No Vision needs: No Review of Systems Const Denies chills and Denies fever(s) Card Denies chest pain GI Denies abdominal pain Denies difficulty voiding Musc Reports myalgias and Reports arthralgias Physical Exam Vital Signs: Last Vital Signs Pulse 79 04/08/23 12:53 BP 147/67 H 04/08/23 12:53 BMI result Body Mass Index 32.3 Const General: comfortable and no acute distress Resp Effort & Inspection: normal respiratory effort Cardio Rate: regular rate GI Other: Colostomy in place, abdominal wall prominent around the stoma Palpation (GI): Soft to palpation, not firm and nontender Assessment & Plan Assessment & Plan (1) Colostomy in place: Code(s): Z93.3 - Colostomy status Plan: She has the colostomy from her previous emergency Celi's procedure for perforation of the sigmoid. She is doing well overall. She may be developing a parastomal hernia. I am going to order for a CAT scan of her abdomen. She wants to hold off on her colonoscopy at this time as she is going on a cruise to the [facility] in 2 weeks. I will see her again in the office after her CT scan. Coding Level of Care Code Est Pt Level 3 (71986) Diagnoses Colostomy in place Z93.3
[2023-04-08 12:53] VITALS: BP 147/67; PULSE 79; BMI 32.3
== END 2023-04-08 13:18 | disposition home or self-care (01) ==
PROVIDERS: PCP Nurse Practitioner Family; Visit Provider Surgery
DX: Z93.3 Colostomy status (principal)
CPT/HCPCS: 99213

== ENCOUNTER 2023-04-16 09:31 | Outpatient (AMB) | payer MEDICARE, SELFPAY ==
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
[2023-04-16 09:46] VITALS: BP 143/72; PULSE 82; BMI 32.7
== END 2023-04-16 10:04 | disposition home or self-care (01) ==
PROVIDERS: PCP Nurse Practitioner Family; Visit Provider Surgery
DX: C50.911 Malignant neoplasm of unspecified site of right female breast (principal)
CPT/HCPCS: 99213

== ENCOUNTER → 2023-04-16 09:31 | Outpatient (BNVA) | payer MEDICARE, SELFPAY | PROVIDERS: PCP Nurse Practitioner Family; Visit Provider Surgery | DX: D05.11 Intraductal carcinoma in situ of right breast (principal) | CPT/HCPCS: 99212 ==

== ENCOUNTER 2023-05-14 08:13 | Outpatient (REF) | payer MEDICARE, SELFPAY ==
--- NOTE | ~2023-05-14 | CT_ITS ---
EXAMINATION: CT ABDOMEN AND PELVIS WITHOUT CONTRAST CLINICAL INFORMATION: Check colostomy. Rule out parastomal hernia. COMPARISON: Previous CT most recent October 2022 TECHNIQUE: Multidetector volumetric imaging was performed from the superior aspect of the liver through the pubic symphysis. Sagittal and coronal reformatted images were obtained on the technologist's workstation. This CT examination was performed using dose optimization techniques as appropriate, variously including the following: *Automated exposure control *Adjustment of mA and/or kV according to patient size (this includes techniques or standardized protocols for targeted exams where dose is matched to indication/reason for exam; i.e. extremities or head) *Use of iterative reconstruction technique DLP: 576 mGy-cm FINDINGS: LUNG BASES: The visualized lung bases are unremarkable. LIVER, GALLBLADDER, AND BILIARY TREE: The liver is normal in size, shape, and attenuation. Stable liver cysts. No other focal hepatic lesion or biliary ductal dilatation is present. The gallbladder is unremarkable with no evidence of radiopaque gallstones, gallbladder wall thickening, or obvious pericholecystic inflammatory changes. PANCREAS: Unremarkable. SPLEEN: Unremarkable. ADRENAL GLANDS: Unremarkable. KIDNEYS AND URETERS: The kidneys are normal in size, shape, and attenuation. No hydronephrosis, hydroureter, or calculi seen. Small 4 mm fatty lesion in the lower pole the right kidney suggestive of a benign angiomyolipoma. No perinephric stranding. BLADDER: Unremarkable. GASTROINTESTINAL TRACT: Postsurgical changes following Celi pouch and left lower quadrant colostomy. There is a large parastomal hernia containing fat and small bowel. No evidence of obstruction. Previously identified fluid collection in the mid abdomen no longer seen. Stomach is normal. Appendix is normal. ABDOMINAL WALL: Parastomal hernia described above. Small umbilical hernia containing fat. Postsurgical changes to the low anterior abdominal wall. LYMPH NODES: Normal. VASCULAR: Unremarkable. PELVIC VISCERA: Uterus appears to have been removed. No pelvic mass. OSSEOUS STRUCTURES: Unremarkable. CT/CT abdomen pelvis wo IV con IMPRESSION: Stable postsurgical changes following Celi pouch and left lower quadrant colostomy. New left parastomal hernia containing fat and small bowel. No evidence of obstruction. Small umbilical hernia containing fat. Resolved perigastric abscess. Fleischner guidelines were followed.
== END 2023-05-14 08:14 | disposition home or self-care (01) ==
LOC: HO.CT 08:13
PROVIDERS: PCP Nurse Practitioner Family; Visit Provider Surgery
DX: Z93.3 Colostomy status (principal)
CPT/HCPCS: 74176

== ENCOUNTER 2023-05-20 12:52 | Outpatient (AMB) | payer MEDICARE, SELFPAY ==
--- NOTE | 2023-05-20 12:54 | A.OFFVIS_ITS ---
Intake Vital Signs 05/20/23 13:00 Height 5 ft 4 in Weight 193 lb BMI 33.1 BP 124/76 Blood Pressure Location Lt brachial Position Sitting Intake Visit Reasons: ? parastomal hernia, CT results Intake Note: This patient presents for a follow-up assessment for ? parastomal hernia, CT results. Pt c/o; reports no complaints at this time. 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 Accompanied by: Family/Other Allergies amoxicillin [AMOXICILLIN] Allergy (Mild, Verified 05/20/23 13:00) flushing/swelling/rash Medication List - Last Reconciled 05/20/23 by Gagan Snell MD acetaminophen 1,000 mg PO Q12H PRN anastrozole 1 mg PO DAILY calcium carbonate 1,500 mg PO DAILY PRN cetirizine 10 mg PO DAILY PRN cholecalciferol (vitamin D3) 125 mcg PO DAILY coenzyme Q10 100 mg PO DAILY docusate sodium (Colace) 100 mg PO BID PRN famotidine 10 mg PO DAILY flaxseed oil 1,000 mg PO DAILY fluticasone propionate 50 mcg/actuation 1 spray intranasal Q12H PRN linaclotide (Linzess) 72 mcg PO DAILY magnesium 400 mg PO DAILY metoprolol succinate ER (Toprol XL) 12.5 mg (1/2 x 25 mg) PO DAILY 90 days ag-yso-qglco-calcium carb-K1 400 mcg-500 mg calcium-20 mcg 1 tab PO DAILY naproxen sodium (Aleve) 220 mg PO Q12H PRN ondansetron 4 mg PO Q6H PRN rosuvastatin (Crestor) 20 mg PO BEDTIME 90 days trazodone 50 mg PO BEDTIME PRN HPI ? parastomal hernia, CT results HPI Details 67-year-old female here for follow-up fo r her parastomal hernia. She had undergone an emergency Celi's procedure in October, for a perforation in the rectosigmoid likely from a stercoral ulcer. She therefore has had a colostomy since that time. She had developed this parastomal hernia. She describes discomfort with this. She states that this happens at night but seems to become more prominent again about 2 hours into the day and becomes worse the rest of the day She denies any problems with her stoma function otherwise. She does state that the presence of the parastomal hernia also makes it difficult for her to keep the appliance in place for longer periods of time. I would sent her for a CT scan to define the parastomal hernia better. She is here to review this with me as well. [facility] Medical History (Updated 05/21/23 @ 12:07 by Ascencion Hillman RN) Perforated diverticulum Parastomal hernia Colostomy in place Intra-abdominal abscess Perforation of sigmoid colon due to diverticulitis COVID-19 vaccine series completed Family history of anesthesia complication Arthritis Elevated cholesterol LBBB (left bundle branch block) Surgical History History of sigmoidoscopy (10/15/22) History of lumpectomy of right breast (10/02/21) History of tonsillectomy and adenoidectomy History of bilateral breast biopsy History of hysterectomy Family History Mother Melanoma Maternal Aunt Vocal cord cancer Maternal Aunt Uterine cancer Maternal Aunt Comer Syndrome Social History Household Members: Family Housing: House Are you a primary career development counselor to a significant other at home: No Do you presently have visiting nurse or other home services: No Unable to assess alcohol history related to: Unknown Alcohol intake: current Alcohol intake frequency: holidays/special occasions only Patient Tobacco Use Status: Former Tobacco user Quit Date: 1980 Tobacco use type: Cigarette Years Smoked: 5 e-Cigarette/Vaping Use: Never Used Second Hand Smoke Exposure: No Advance Directives Date on File: 09/30/21 service: No Current occupational status: retired Cognitive needs: No Hearing needs: No Vision needs: No Review of Systems Const Denies chills and Denies fever(s) Card Denies chest pain, Denies dyspnea and Denies dyspnea on exertion Resp Denies cough, Denies dyspnea and Denies dyspnea on exertion GI Denies hematochezia and Denies change in bowel habits Denies hematuria Musc Denies back pain and Denies limited range of motion Neuro Denies focal weakness and Denies convulsions Psych Denies depression and Denies mood swings Physical Exam Vital Signs: Last Vital Signs BP 124/76 05/20/23 13:00 BMI result Body Mass Index 33.1 Const General: comfortable and no acute distress Orientation/consciousness: patient oriented x3 Neck Neck: Yes no lymphadenopathy Resp Auscultation: clear to auscultation bilaterally Cardio Rhythm: regular rhythm GI Other: Colostomy on the left side with a large reducible parastomal hernia Palpation (GI): Soft to palpation, nontender and no guarding Neuro General: patient oriented x3 Assessment & Plan Assessment & Plan (1) Parastomal hernia: Code(s): K43.5 - Parastomal hernia without obstruction or gangrene Plan: Her CAT scan does show a parastomal hernia containing small bowel loops. She describes this to be becoming more symptomatic with discomfort. She says that this flattens when she is in bed at night but does become more prominent during the course of the day. She wants to proceed with repair of the parastomal hernia. I explained to her the technique of this procedure via a laparotomy incision. I told her that we will plan on using a mesh unless there is a lot of spillage. I reviewed the risks including but not limited to bleeding, infections, injury to bowel, recurrence, inherent risks of anesthesia, as well as the benefits and alternatives. She wants to proceed. She has never had any colonoscopy before. I told her that I would recommend proceeding with a colonoscopy by the stoma in the rectum prior to repair of her parastomal hernia. I reviewed with the technique of this procedure. I also explained the risks including but not limited to bleeding and perforation, as well as the benefits and alternatives. She also has given her consent. We will plan on doing the colonoscopy may be a week prior to her hernia repair. (2) Colostomy in place: Code(s): Z93.3 - Colostomy status Plan: She has had no problems with stoma function so far. Medications: New sodium,potassium,mag sulfates 17.5-3.13-1.6 gram (Suprep Bowel Prep Kit) DILUTE; drink full amount early evening before AND next morning at least 2 hr before procedure; follow w 960 mL water PO 354 mL 0RF Coding Level of Care Code Est Pt Level 3 (64842) Diagnoses Parastomal hernia K43.[address] Z93.3
[2023-05-20 13:00] VITALS: BP 124/76; BMI 33.1
== END 2023-05-20 13:37 | disposition home or self-care (01) ==
PROVIDERS: PCP Nurse Practitioner Family; Visit Provider Surgery
DX: K43.5 Parastomal hernia without obstruction or gangrene (principal); Z93.3 Colostomy status
CPT/HCPCS: 99213

== ENCOUNTER → 2023-05-20 12:52 | Outpatient (BNVA) | payer MEDICARE, SELFPAY | PROVIDERS: PCP Nurse Practitioner Family; Visit Provider Surgery | DX: K43.5 Parastomal hernia without obstruction or gangrene (principal); Z93.3 Colostomy status | CPT/HCPCS: 99212 ==

== ENCOUNTER 2023-05-22 12:49 | Outpatient (REF) | payer MEDICARE, SELFPAY ==
[2023-05-22 16:38] LABS: Alanine Aminotransferase 22 U/L (0-31); Albumin Level 4.4 g/dL (3.5-5.0); Alkaline Phosphatase 94 U/L (39-117); Anion Gap 12 (12-20); Aspartate Amino Transferase 28 U/L (5-31); Bilirubin Total 0.3 mg/dL (0.0-1.0); Blood Urea Nitrogen 26 mg/dL (9-16); Calcium 9.8 mg/dL (8.4-10.2); Carbon Dioxide 31 mmol/L (22-29); Chloride 102 mmol/L (96-108); Estimated Glomerular Filt Rate > 60; Glucose Random 86 mg/dL (60-115); Potassium 4.8 mmol/L (3.3-5.1); Sodium 140 mmol/L (135-145); Total Protein 7.7 g/dL (6.5-8.0)
[2023-05-22 16:56] LABS: TSH reflex Free T4 2.13 uIU/mL (0.32-4.0)
== END 2023-05-22 12:50 | disposition home or self-care (01) ==
LOC: HO.HMGCLDS 12:49
PROVIDERS: PCP Nurse Practitioner Family; Visit Provider Nurse Practitioner Family
DX: R79.89 Other specified abnormal findings of blood chemistry (principal)
CPT/HCPCS: 36415; 80053; 84443

== ENCOUNTER → 2023-07-02 12:43 | Outpatient (BNV) | payer MEDICARE, SELFPAY | PROVIDERS: PCP Nurse Practitioner Family; Visit Provider Internal Medicine Cardiovascular Disease | DX: I44.4 Left anterior fascicular block (principal); I44.7 Left bundle-branch block, unspecified | CPT/HCPCS: 93010 ==

== ENCOUNTER 2023-07-10 07:16 | Day surgery (SDC) | payer MEDICARE, SELFPAY ==
--- NOTE | 2023-07-02 | ECG_ITS ---
Test Reason : preop Blood Pressure : / mmHG Vent. Rate : 073 BPM Atrial Rate : 073 BPM P-R Int : 164 ms QRS Dur : 142 ms QT Int : 432 ms P-R-T Axes : 068 -39 111 degrees QTc Int : 475 ms Normal sinus rhythm Left axis deviation Left bundle branch block Abnormal ECG When compared with ECG of 15-OCT-2022 17:31, Vent. rate has decreased BY 39 BPM Referred By: Earnestine Diane Electronically Signed By:Julio Cesar Sharma
[2023-07-02 12:06] VITALS: BMI 34.3
[2023-07-02 12:11] VITALS: BP 142/67; PULSE 81; RESP 16; O2SAT 98
--- NOTE | 2023-07-02 12:21 | P.CONAN_ITS ---
Documented by User: Earnestine Diane NP 07/08/23 12:08 HPI - Anesthesia Eval Consult details Narrative: 67yo F for Colonoscopy with Possible Polypectomy via the stoma and anal rectum, 07/10/23 (Planned peristoma hernia repair 07/28/23) No recent illness No CP/SOB with ADLs. 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) Past Medical History Medical History (Updated 07/10/23 @ 07:57 by Leidy Pickens) HTN (hypertension) Hx of breast cancer (~2021) Mild acid reflux Arthralgia Ambulates with cane Perforated diverticulum Parastomal hernia Colostomy in place Intra-abdominal abscess Perforation of sigmoid colon due to diverticulitis COVID-19 vaccine series completed Family history of anesthesia complication Arthritis Elevated cholesterol LBBB (left bundle branch block) Family History Family History Mother Melanoma Maternal Aunt Vocal cord cancer Maternal Aunt Uterine cancer Maternal Aunt Comer Syndrome Family history of problems with anesthesia: No (Daughter long to wake) Surgical History Surgical History (Updated 07/10/23 @ 07:58 by Leidy Pickens) S/P laparotomy History of sigmoidoscopy (10/15/22) History of lumpectomy of right breast (10/02/21) History of tonsillectomy and adenoidectomy History of bilateral breast biopsy History of hysterectomy History of Problems with Anesthesia: No Social History Social History (Updated 07/02/23 @ 12:41 by Rose Reyes RN) Household Members: Family Housing: House Are you a primary care management associate to a significant other at home: No Do you presently have visiting nurse or other home services: No Unable to assess alcohol history related to: Unknown Alcohol intake: current Alcohol intake frequency: former alcohol drinker Patient Tobacco Use Status: Former Tobacco user Quit Date: 1980 Tobacco use type: Cigarette Years Smoked: 5 e-Cigarette/Vaping Use: Never Used Second Hand Smoke Exposure: No Use of substances other than those prescribed or required for medical reasons: No Have you been hit, kicked, punched, or otherwise hurt by someone within the past year? If so, by whom?: No Are you DNR?: No Advance Directives: No Advance Directives Information Provided: Yes Advance Directives on File: Yes Advance Directives Date on File: 09/30/21 Recently lost weight without trying: No Nutrition Risks: No Nutritional Risk Poor oral hygiene: No service: No Current occupational status: retired Cognitive needs: No Hearing needs: No Vision needs: No Meds Allergies Allergy/AdvReac Type Severity Reaction Status Date / Time amoxicillin [AMOXICILLIN] Allergy Intermediate flushing/sw Verified 07/10/23 07:58 elling/rash Home Medications ?Medication ?Instructions ?Recorded ?Confirmed ?Last Taken ?Type calcium carbonate 500 mg calcium 1,500 mg PO DAILY PRN INDEGESTION 09/05/20 07/02/23 Unknown History (1,250 mg) chewable tablet docusate sodium 100 mg capsule 100 mg PO BID PRN Constipation 09/05/20 07/02/23 Unknown History (Colace) fluticasone propionate 50 1 spray intranasal Q12H PRN 09/05/20 07/02/23 Unknown History mcg/actuation nasal Allergy Symptoms spray,suspension magnesium 200 mg tablet 500 mg PO DAILY 09/05/20 07/02/23 Unknown History flaxseed oil 1,000 mg capsule 1,000 mg PO DAILY 09/30/21 06/22/23 Unknown History csddhucw-xjy-xaale ac 400 1 tab PO DAILY 09/30/21 06/22/23 Unknown History mcg-calcium carb 500 mg-vit K1 20 mcg tablet famotidine 10 mg tablet 10 mg PO DAILY PRN Gastric Reflux 09/09/22 07/02/23 Unknown History cetirizine 10 mg tablet 10 mg PO DAILY PRN allergies 12/17/22 07/02/23 Unknown History naproxen sodium 220 mg capsule 220 mg PO Q12H PRN Pain (Scale 02/18/23 07/02/23 Unknown History (Micheal) Score 4-6) Metamucil 1 tbspn PO DAILY 07/02/23 07/02/23 Unknown History acetaminophen 500 mg tablet 1,000 mg PO QID PRN Pain 07/02/23 07/02/23 Unknown History cholecalciferol (vitamin D3) 50 50 mcg PO DAILY 07/02/23 07/02/23 Unknown History mcg (2,000 unit) capsule (Vitamin D3) polyethylene glycol 3350 17 17 g PO DAILY 07/02/23 07/02/23 Unknown History gram/dose oral powder (Miralax) vit A 300 mcg-C 200 mg-E 27 1 tab PO DAILY 07/02/23 07/02/23 Unknown History mg-lutein 2 mg and minerals tablet (Ocuvite with Lutein) Exam Height,Weight and Vital Signs: Height 5 ft 4 in Weight 90.718 kg Last Vital Signs Pulse 81 07/02/23 12:11 Resp 16 07/02/23 12:11 BP 142/67 H 07/02/23 12:11 Pulse Ox 98 07/02/23 12:11 O2 Del Method Room Air 07/02/23 12:11 Pertinent Lab Results Pertinent Lab Results: Laboratory Tests 06/22/23 08:50 WBC 7.8 Hgb 12.9 Hct 39.2 Plt Count 258 Sodium 141 Potassium 4.2 Chloride 105 Carbon Dioxide 28 BUN 26 H Creatinine 0.83 Narrative Narrative: EKG 06/2023 Vent. Rate : 073 BPM Atrial Rate : 073 BPM P-R Int : 164 ms QRS Dur : 142 ms QT Int : 432 ms P-R-T Axes : 068 -39 111 degrees QTc Int : 475 ms Normal sinus rhythm Left axis deviation Left bundle branch block Abnormal ECG When compared with ECG of 15-OCT-2022 17:31, Vent. rate has decreased BY 39 BPM Airway Mallampati Class: I TM Dist: >3cm Neck ROM: Full Loose/Missing/Broken Teeth: No Heart: RRR Lungs: CTAB Assessment and Plan Assessment Anesthesia Assessment: Anesthesia Plan Discussed and PAT Visit Final Anesthetic Review Family History of Problems with Anesthesia: No (Daughter long to wake) History of Problems with Anesthesia: No Documented by User: Ricky Hogan MD 07/10/23 08:43 PMFSH Past Medical History Medical History (Updated 07/10/23 @ 07:57 by Leidy Pickens) HTN (hypertension) Hx of breast cancer (~2021) Mild acid reflux Arthralgia Ambulates with cane Perforated diverticulum Parastomal hernia Colostomy in place Intra-abdominal abscess Perforation of sigmoid colon due to diverticulitis COVID-19 vaccine series completed Family history of anesthesia complication Arthritis Elevated cholesterol LBBB (left bundle branch block) Family History Family History Mother Melanoma Maternal Aunt Vocal cord cancer Maternal Aunt Uterine cancer Maternal Aunt Comer Syndrome Surgical History Surgical History (Updated 07/10/23 @ 07:58 by Leidy Pickens) S/P laparotomy History of sigmoidoscopy (10/15/22) History of lumpectomy of right breast (10/02/21) History of tonsillectomy and adenoidectomy History of bilateral breast biopsy History of hysterectomy Social History Social History (Updated 07/02/23 @ 12:41 by Rose Reyes RN) Household Members: Family Housing: House Are you a primary care management associate to a significant other at home: No Do you presently have visiting nurse or other home services: No Unable to assess alcohol history related to: Unknown Alcohol intake: current Alcohol intake frequency: former alcohol drinker Patient Tobacco Use Status: Former Tobacco user Quit Date: 1980 Tobacco use type: Cigarette Years Smoked: 5 e-Cigarette/Vaping Use: Never Used Second Hand Smoke Exposure: No Use of substances other than those prescribed or required for medical reasons: No Have you been hit, kicked, punched, or otherwise hurt by someone within the past year? If so, by whom?: No Are you DNR?: No Advance Directives: No Advance Directives Information Provided: Yes Advance Directives on File: Yes Advance Directives Date on File: 09/30/21 Recently lost weight without trying: No Nutrition Risks: No Nutritional Risk Poor oral hygiene: No service: No Current occupational status: retired Cognitive needs: No Hearing needs: No Vision needs: No Meds Allergies Allergy/AdvReac Type Severity Reaction Status Date / Time amoxicillin [AMOXICILLIN] Allergy Intermediate flushing/sw Verified 07/10/23 07:58 elling/rash Home Medications ?Medication ?Instructions ?Recorded ?Confirmed ?Last Taken ?Type calcium carbonate 500 mg calcium 1,500 mg PO DAILY PRN INDEGESTION 09/05/20 07/02/23 Unknown History (1,250 mg) chewable tablet docusate sodium 100 mg capsule 100 mg PO BID PRN Constipation 09/05/20 07/02/23 Unknown History (Colace) fluticasone propionate 50 1 spray intranasal Q12H PRN 09/05/20 07/02/23 Unknown History mcg/actuation nasal Allergy Symptoms spray,suspension magnesium 200 mg tablet 500 mg PO DAILY 09/05/20 07/02/23 Unknown History flaxseed oil 1,000 mg capsule 1,000 mg PO DAILY 09/30/21 06/22/23 Unknown History uwzzxiyl-gqr-iuwpl ac 400 1 tab PO DAILY 09/30/21 06/22/23 Unknown History mcg-calcium carb 500 mg-vit K1 20 mcg tablet famotidine 10 mg tablet 10 mg PO DAILY PRN Gastric Reflux 09/09/22 07/02/23 Unknown History cetirizine 10 mg tablet 10 mg PO DAILY PRN allergies 12/17/22 07/02/23 Unknown History naproxen sodium 220 mg capsule 220 mg PO Q12H PRN Pain (Scale 02/18/23 07/02/23 Unknown History (Aleve) Score 4-6) Metamucil 1 tbspn PO DAILY 07/02/23 07/02/23 Unknown History acetaminophen 500 mg tablet 1,000 mg PO QID PRN Pain 07/02/23 07/02/23 Unknown History cholecalciferol (vitamin D3) 50 50 mcg PO DAILY 07/02/23 07/02/23 Unknown History mcg (2,000 unit) capsule (Vitamin D3) polyethylene glycol 3350 17 17 g PO DAILY 07/02/23 07/02/23 Unknown History gram/dose oral powder (Miralax) vit A 300 mcg-C 200 mg-E 27 1 tab PO DAILY 07/02/23 07/02/23 Unknown History mg-lutein 2 mg and minerals tablet (Ocuvite with Lutein) Assessment and Plan Assessment Anesthesia Assessment: Chart Reviewed Final Anesthetic Review NPO: Yes ASA Class: III Final Preanesthetic Review: No Changes in Pt Med Stat, Meds/Allgs Chart Reviewe d, Consent Obtained/Reviewed and Anes Risks/Benef Reviewed Patient Risk: Intermediate Procedure Risk: Low Anesthetic Plan Anesthetic Plan: MAC: and Agree w/ Assess. and Plan Disposition: Standard PACU
--- NOTE | 2023-07-10 07:28 | MHC.SHP ---
Pre-Procedural Eval Section A - 24 Hr Update-Section A only Date of Service: 07/10/23 Section B - Complete if H&P > 30 days Chief Complaint: Parastomal hernia without obstruction,colostomy Details of Present Illness: has never had colonoscopy; Celi's procedure in October 2022 for perforated sigmoid from stercoral ulcer Relevant Family History (Specify if Yes): No Relevant Social History: None Present Medications: see Short Stay Collaborative assessment Medical History: Significant History (hx of DCIS asnd invasive ductal ca, high BMI) Allergies: Allergies Allergy/AdvReac Type Severity Reaction Status Date / Time amoxicillin [AMOXICILLIN] Allergy Intermediate flushing/sw Verified 07/02/23 11:58 elling/rash Review of Systems Sugical H&P ROS: Negative: Constitution, Cardiovascular, Respiratory, Neurological, Psychiatric, Hem-Onc, Allergic/Immunologic, Gastrointestinal, Genitourinary, Musculoskeletal, Integumentary, Endocrine and Eyes/Ears/Nose/Throat Exam Surgical H&P Exam: Normal: HEENT, Normal: Heart, Normal: Lungs, Normal: Extremities, Normal: Skin and Normal: Neurological and Significant Findings: Abdomen (colostomy on left side) Plan Diagnosis/Plan: Unchanged I have reviewed the history and physical and performed a pertinent physical examination on my patient. No changes have occurred unless specified. Time Spent With Patient Time: Total time managing care of this patient today ____ minutes.
[2023-07-10 07:59] VITALS: BP 138/84; PULSE 88; RESP 16; TEMP 36.7; O2SAT 96
[2023-07-10] MEDS: Lactated Ringers 1,000 ML 100 ML IVCONT (08:30)
--- NOTE | 2023-07-10 08:53 | W.PM.OPN ---
Operative Note Operative Note Date of Service: 07/10/23 Narrative: Preop diagnosis: Screening colonoscopy, status post Celi's procedure Postop diagnosis: Diverticulosis in the remaining left colon, rectal stump stump about 15 cm long Procedure: Colonoscopy via the stoma in the rectum Surgeon: Gagan Snell MD The patient is a 67-year-old female with an end-colostomy from a previous rectosigmoid perforation from a stercoral ulcer. She had never had any colonoscopy in the past. She understood the technique of this planned procedure as well as the risks, benefits, and alternatives She was brought to the operating room. She was placed in left lateral decubitus position under monitored anesthesia care. A surgical time-out was done. I did a rectal exam and there were no palpable anal lesions seen. I then started the Olympus colonoscope through the anal orifice and this was gently advanced with some inflation and irrigation all the way to the end the stump. The stump was about 15 cm long. There were no lesions seen. I continued to withdraw the scope all the way outside of the anal orifice. The anal canal and the anal shelf were unremarkable We proceeded to place the patient in supine position. I gently inserted the scope through the end-colostomy. This was advanced slowly with insufflation all the way to the cecum. The cecum was intubated. The cecum was identified via visualization of the ileocecal valve and the appendiceal orifice. The cecal mucosa was unremarkable. The scope was gradually withdrawn with careful examination of the rest of the colonic mucosa being done with scope withdrawal. She had adequate bowel prep and it was unlikely that any lesion may have been missed. There was note of occasional diverticula in the left colon. The scope was then withdrawn completely with desufflation The patient tolerated procedure well. There were no immediate complications. She can have a colonoscopy every 10 years as she appears to be an average risk for colon cancer.
[2023-07-10 09:04] VITALS: BP 111/65; PULSE 74; RESP 18; TEMP 36.2; O2SAT 97
[2023-07-10 09:19] VITALS: BP 133/67; PULSE 70; RESP 18; TEMP 36.4; O2SAT 97
== END 2023-07-10 09:57 | disposition home or self-care (01) ==
PROVIDERS: PCP Nurse Practitioner Family; Visit Provider Surgery
PROC: 0DBE8ZZ Excision of Large Intestine, Via Natural or Artificial Opening Endoscopic (ICD-10-PCS; CPT 44388; principal; 2023-07-10 08:50)
DX: Z12.11 Encounter for screening for malignant neoplasm of colon (principal); Z93.3 Colostomy status; K43.5 Parastomal hernia without obstruction or gangrene; K57.30 Diverticulosis of large intestine without perforation or abscess without bleeding; Z87.19 Personal history of other diseases of the digestive system; I44.7 Left bundle-branch block, unspecified; K21.9 Gastro-esophageal reflux disease without esophagitis; Z85.3 Personal history of malignant neoplasm of breast; Z99.89 Dependence on other enabling machines and devices; Z79.899 Other long term (current) drug therapy; Z79.1 Long term (current) use of non-steroidal anti-inflammatories (NSAID); Z88.1 Allergy status to other antibiotic agents; Z98.890 Other specified postprocedural states; Z87.891 Personal history of nicotine dependence
CPT/HCPCS: 44388; 45330; 93005; J2704

== ENCOUNTER → 2023-07-10 07:16 | Outpatient (BNV) | payer MEDICARE, SELFPAY | PROVIDERS: PCP Nurse Practitioner Family; Visit Provider Surgery | DX: K57.90 Diverticulosis of intestine, part unspecified, without perforation or abscess without bleeding (principal); Z93.3 Colostomy status | CPT/HCPCS: 44388; 45330 ==

== ENCOUNTER 2023-07-28 07:15 | Day surgery (SDC) | payer MEDICARE, SELFPAY ==
[2023-07-24 13:51] VITALS: BMI 33.1
--- NOTE | 2023-07-27 10:13 | P.CONAN_ITS ---
HPI - Anesthesia Eval Consult details Narrative: 67yo F for Repair of Parastomal Hernia with possible mesh s/p colo 07/2023 No recent illness No CP/SOB with ADLs. 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) Abnormal mammogram of right breast (Acute) Dyslipidemia (Acute) Parastomal hernia (Acute) Colostomy in place (Acute) Past Medical History Medical History HTN (hypertension) Hx of breast cancer (~2021) Mild acid reflux Arthralgia Ambulates with cane Perforated diverticulum Parastomal hernia Colostomy in place Intra-abdominal abscess Perforation of sigmoid colon due to diverticulitis COVID-19 vaccine series completed Family history of anesthesia complication Arthritis Elevated cholesterol LBBB (left bundle branch block) Family History Family History Mother Melanoma Maternal Aunt Vocal cord cancer Maternal Aunt Uterine cancer Maternal Aunt Comer Syndrome Family history of problems with anesthesia: No (Daughter long to wake) Surgical History Surgical History S/P laparotomy History of sigmoidoscopy (10/15/22) History of lumpectomy of right breast (10/02/21) History of tonsillectomy and adenoidectomy History of bilateral breast biopsy History of hysterectomy History of Problems with Anesthesia: No Social History Social History Household Members: None Housing: House Are you a primary child day care teacher to a significant other at home: No Do you presently have visiting nurse or other home services: No Unable to assess alcohol history related to: Unknown Alcohol intake: current Alcohol intake frequency: former alcohol drinker Patient Tobacco Use Status: Former Tobacco user Quit Date: 1980 Tobacco use type: Cigarette Years Smoked: 5 e-Cigarette/Vaping Use: Never Used Second Hand Smoke Exposure: No Advance Directives Date on File: 09/30/21 service: No Current occupational status: retired Cognitive needs: No Hearing needs: No Vision needs: No Meds Allergies Allergy/AdvReac Type Severity Reaction Status Date / Time amoxicillin [AMOXICILLIN] Allergy Intermediate flushing/sw Verified 07/28/23 06:24 elling/rash Home Medications ?Medication ?Instructions ?Recorded ?Confirmed ?Last Taken ?Type calcium carbonate 1,500 mg PO DAILY PRN INDEGESTION 09/05/20 07/28/23 Unknown History docusate sodium 100 mg capsule 100 mg PO BID PRN Constipation 09/05/20 07/28/23 Unknown History (Colace) fluticasone propionate 50 1 spray intranasal Q12H PRN 09/05/20 07/28/23 Unknown History mcg/actuation nasal Allergy Symptoms spray,suspension magnesium 200 mg tablet 500 mg PO DAILY 09/05/20 07/28/23 Unknown History rshepyth-mer-ycyow ac 400 1 tab PO DAILY 09/30/21 07/28/23 Unknown History mcg-calcium carb 500 mg-vit K1 20 mcg tablet famotidine 10 mg tablet 10 mg PO DAILY PRN Gastric Reflux 09/09/22 07/28/23 07/28/23 History cetirizine 10 mg tablet 10 mg PO DAILY PRN allergies 12/17/22 07/28/23 Unknown History naproxen sodium 220 mg capsule 220 mg PO Q12H PRN Pain (Scale 02/18/23 07/28/23 Unknown History (Aleve) Score 4-6) Metamucil 1 tbspn PO DAILY 07/02/23 07/28/23 Unknown History acetaminophen 500 mg tablet 1,000 mg PO QID PRN Pain 07/02/23 07/28/23 Unknown History cholecalciferol (vitamin D3) 50 50 mcg PO DAILY 07/02/23 07/28/23 Unknown History mcg (2,000 unit) capsule (Vitamin D3) vit A 300 mcg-C 200 mg-E 27 1 tab PO DAILY 07/02/23 07/28/23 Unknown History mg-lutein 2 mg and minerals tablet (Ocuvite with Lutein) Exam Height,Weight and Vital Signs: Height 5 ft 4 in Weight 87.543 kg Pertinent Lab Results Pertinent Lab Results: Laboratory Tests 06/22/23 08:50 WBC 7.8 Hgb 12.9 Hct 39.2 Plt Count 258 Sodium 141 Potassium 4.2 Chloride 105 Carbon Dioxide 28 BUN 26 H Creatinine 0.83 Narrative Narrative: EKG 06/2023 Vent. Rate : 073 BPM Atrial Rate : 073 BPM P-R Int : 164 ms QRS Dur : 142 ms QT Int : 432 ms P-R-T Axes : 068 -39 111 degrees QTc Int : 475 ms Normal sinus rhythm Left axis deviation Left bundle branch block Abnormal ECG When compared with ECG of 15-OCT-2022 17:31, Vent. rate has decreased BY 39 BPM Airway Mallampati Class: I TM Dist: >3cm Neck ROM: Full Loose/Missing/Broken Teeth: No Heart: RRR Lungs: CTAB Assessment and Plan Assessment Anesthesia Assessment: Chart Reviewed (Seen in PAT prior to colonoscopy 07/2023) Final Anesthetic Review Family History of Problems with Anesthesia: No (Daughter long to wake) History of Problems with Anesthesia: No
[2023-07-28] VITALS (15 sets, daily range): BP systolic 116–155; BP diastolic 59–71; PULSE 60–88; RESP 16–20; TEMP 36.2–36.7; O2SAT 94–100; BMI 34.2; BMI 36.7
[2023-07-28] MEDS: Lactated Ringers 1,000 ML 100 ML IVCONT (06:18)
--- NOTE | 2023-07-28 07:17 | MHC.SHP ---
Pre-Procedural Eval Section A - 24 Hr Update-Section A only Date of Service: 07/28/23 Section B - Complete if H&P > 30 days Chief Complaint: Parastomal hernia without obstruction,colostomy Details of Present Illness: has parastomal hernia with symptoms; hx of leo's procedure for perf stercoral ulcer in rectosigmoid Relevant Family History (Specify if Yes): No Relevant Social History: None Present Medications: see Short Stay Collaborative assessment Medical History: Significant History (hx of breast cancer, dyslipidemia) History of Previous Operations: Relevant previous surgery/procedure and date(s) (leo's procedure) Allergies: Allergies Allergy/AdvReac Type Severity Reaction Status Date / Time amoxicillin [AMOXICILLIN] Allergy Intermediate flushing/sw Verified 07/28/23 06:24 elling/rash Review of Systems Sugical H&P ROS: Negative: Constitution, Cardiovascular, Respiratory, Neurological, Psychiatric, Hem-Onc, Allergic/Immunologic, Gastrointestinal, Genitourinary, Musculoskeletal, Integumentary, Endocrine and Eyes/Ears/Nose/Throat Exam Surgical H&P Exam: Normal: HEENT, Normal: Heart, Normal: Lungs, Normal: Extremities, Normal: Skin and Normal: Neurological and Significant Findings: Abdomen (colostomy, with parastomal hernia) Plan Diagnosis/Plan: Unchanged I have reviewed the history and physical and performed a pertinent physical examination on my patient. No changes have occurred unless specified. Time Spent With Patient Time: Total time managing care of this patient today ____ minutes.
--- NOTE | 2023-07-28 07:28 | P.CONAN_ITS ---
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) Abnormal mammogram of right breast (Acute) Dyslipidemia (Acute) Parastomal hernia (Acute) Colostomy in place (Acute) Past Medical History Medical History HTN (hypertension) Hx of breast cancer (~2021) Mild acid reflux Arthralgia Ambulates with cane Perforated diverticulum Parastomal hernia Colostomy in place Intra-abdominal abscess Perforation of sigmoid colon due to diverticulitis COVID-19 vaccine series completed Family history of anesthesia complication Arthritis Elevated cholesterol LBBB (left bundle branch block) Functional capacity: uses cane/walker Patient : No Family History Family History Mother Melanoma Maternal Aunt Vocal cord cancer Maternal Aunt Uterine cancer Maternal Aunt Comer Syndrome Family history of problems with anesthesia: No (Daughter long to wake) Surgical History Surgical History S/P laparotomy History of sigmoidoscopy (10/15/22) History of lumpectomy of right breast (10/02/21) History of tonsillectomy and adenoidectomy History of bilateral breast biopsy History of hysterectomy History of Problems with Anesthesia: No Social History Social History Household Members: Family Housing: House Are you a primary care manager to a significant other at home: No Do you presently have visiting nurse or other home services: No Unable to assess alcohol history related to: Unknown Alcohol intake: current Alcohol intake frequency: former alcohol drinker Patient Tobacco Use Status: Former Tobacco user Quit Date: 1980 Tobacco use type: Cigarette Years Smoked: 5 e-Cigarette/Vaping Use: Never Used Second Hand Smoke Exposure: No Are you DNR?: No Advance Directives: Yes Advance Directives on File: Yes Advance Directives Date on File: 09/30/21 Nutrition Risks: No Nutritional Risk service: No Current occupational status: retired Cognitive needs: No Hearing needs: No Vision needs: No Meds Allergies Allergy/AdvReac Type Severity Reaction Status Date / Time amoxicillin [AMOXICILLIN] Allergy Intermediate flushing/sw Verified 07/28/23 06:24 elling/rash Active Medications: Current Medications Heparin Sodium (Porcine) (Heparin Sodium,Porcine 5,000 Unit/Ml Vial) 5,000 unit SUBCUT Q8H [facility] Lactated Ringer's (Lr) 1,000 mls @ 100 mls/hr IVCONT .Q10H [facility] Last Admin: 07/28/23 06:18 Dose: 100 mls/hr Sodium Chloride (0.9 % Sodium Chloride Flush 3 Ml Syringe) 3 ml IVFLUSH QSHIFT [facility] Home Medications ?Medication ?Instructions ?Recorded ?Confirmed ?Last Taken ?Type calcium carbonate 500 mg calcium 1,500 mg PO DAILY PRN INDEGESTION 09/05/20 07/28/23 Unknown History (1,250 mg) chewable tablet docusate sodium 100 mg capsule 100 mg PO BID PRN Constipation 09/05/20 07/28/23 Unknown History (Colace) fluticasone propionate 50 1 spray intranasal Q12H PRN 09/05/20 07/28/23 Unknown History mcg/actuation nasal Allergy Symptoms spray,suspension magnesium 200 mg tablet 500 mg PO DAILY 09/05/20 07/28/23 Unknown History yfnilxju-[id number] ac 400 1 tab PO DAILY 09/30/21 07/28/23 Unknown History mcg-calcium carb 500 mg-vit K1 20 mcg tablet famotidine 10 mg tablet 10 mg PO DAILY PRN Gastric Reflux 09/09/22 07/28/23 07/28/23 History cetirizine 10 mg tablet 10 mg PO DAILY PRN allergies 12/17/22 07/28/23 Unknown History naproxen sodium 220 mg capsule 220 mg PO Q12H PRN Pain (Scale 02/18/23 07/28/23 Unknown History (Aleve) Score 4-6) Metamucil 1 tbspn PO DAILY 07/02/23 07/28/23 Unknown History acetaminophen 500 mg tablet 1,000 mg PO QID PRN Pain 07/02/23 07/28/23 Unknown History cholecalciferol (vitamin D3) 50 50 mcg PO DAILY 07/02/23 07/28/23 Unknown History mcg (2,000 unit) capsule (Vitamin D3) vit A 300 mcg-C 200 mg-E 27 1 tab PO DAILY 07/02/23 07/28/23 Unknown History mg-lutein 2 mg and minerals tablet (Ocuvite with Lutein) Exam Height,Weight and Vital Signs: Height 5 ft 4 in Weight 90.401 kg Last Vital Signs Temp 97.9 F 07/28/23 06:29 Pulse 88 07/28/23 06:29 Resp 18 07/28/23 06:29 BP 155/71 H 07/28/23 06:29 Pulse Ox 97 07/28/23 06:29 O2 Del Method Room Air 07/28/23 06:29 Airway Mallampati Class: II TM Dist: >3cm Neck ROM: Full Heart: RRR Lungs: CTA Assessment and Plan Assessment Anesthesia Assessment: Anesthesia Plan Discussed Final Anesthetic Review Family History of Problems with Anesthesia: No (Daughter long to wake) History of Problems with Anesthesia: No ASA Class: III Final Preanesthetic Review: Meds/Allgs Chart Reviewed, Consent Obtained/Reviewed and Anes Risks/Benef Reviewed Patient Risk: Intermediate Procedure Risk: Intermediate Anesthetic Plan Anesthetic Plan: GA Disposition: Standard PACU
--- NOTE | 2023-07-28 08:06 | P.CONAN_ITS ---
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 of right breast (Chronic) Abnormal mammogram of right breast (Acute) Dyslipidemia (Acute) Parastomal hernia (Acute) Colostomy in place (Acute) Past Medical History Medical History HTN (hypertension) Hx of breast cancer (~2021) Mild acid reflux Arthralgia Ambulates with cane Perforated diverticulum Parastomal hernia Colostomy in place Intra-abdominal abscess Perforation of sigmoid colon due to diverticulitis COVID-19 vaccine series completed Family history of anesthesia complication Arthritis Elevated cholesterol LBBB (left bundle branch block) Functional capacity: uses cane/walker Family History Family History Mother Melanoma Maternal Aunt Vocal cord cancer Maternal Aunt Uterine cancer Maternal Aunt Comer Syndrome Family history of problems with anesthesia: No (Daughter long to wake) Surgical History Surgical History S/P laparotomy History of sigmoidoscopy (10/15/22) History of lumpectomy of right breast (10/02/21) History of tonsillectomy and adenoidectomy History of bilateral breast biopsy History of hysterectomy History of Problems with Anesthesia: No Social History Social History Household Members: Family Housing: House Are you a primary college and career counselor to a significant other at home: No Do you presently have visiting nurse or other home services: No Unable to assess alcohol history related to: Unknown Alcohol intake: current Alcohol intake frequency: former alcohol drinker Patient Tobacco Use Status: Former Tobacco user Quit Date: 1980 Tobacco use type: Cigarette Years Smoked: 5 e-Cigarette/Vaping Use: Never Used Second Hand Smoke Exposure: No Are you DNR?: No Advance Directives: Yes Advance Directives on File: Yes Advance Directives Date on File: 09/30/21 Nutrition Risks: No Nutritional Risk service: No Current occupational status: retired Cognitive needs: No Hearing needs: No Vision needs: No Meds Allergies Allergy/AdvReac Type Severity Reaction Status Date / Time amoxicillin [AMOXICILLIN] Allergy Intermediate flushing/sw Verified 07/28/23 06:24 elling/rash Active Medications: Current Medications Heparin Sodium (Porcine) (Heparin Sodium,Porcine 5,000 Unit/Ml Vial) 5,000 unit SUBCUT Q8H [facility] Lactated Ringer's (Lr) 1,000 mls @ 100 mls/hr IVCONT .Q10H [facility] Last Admin: 07/28/23 06:18 Dose: 100 mls/hr Sodium Chloride (0.9 % Sodium Chloride Flush 3 Ml Syringe) 3 ml IVFLUSH QSHIFT [facility] Home Medications ?Medication ?Instructions ?Recorded ?Confirmed ?Last Taken ?Type calcium carbonate 500 mg calcium 1,500 mg PO DAILY PRN INDEGESTION 09/05/20 07/28/23 Unknown History (1,250 mg) chewable tablet docusate sodium 100 mg capsule 100 mg PO BID PRN Constipation 09/05/20 07/28/23 Unknown History (Colace) fluticasone propionate 50 1 spray intranasal Q12H PRN 09/05/20 07/28/23 Unknown History mcg/actuation nasal Allergy Symptoms spray,suspension magnesium 200 mg tablet 500 mg PO DAILY 09/05/20 07/28/23 Unknown History hmimtyir-htv-uhfrp ac 400 1 tab PO DAILY 09/30/21 07/28/23 Unknown History mcg-calcium carb 500 mg-vit K1 20 mcg tablet famotidine 10 mg tablet 10 mg PO DAILY PRN Gastric Reflux 09/09/22 07/28/23 07/28/23 History cetirizine 10 mg tablet 10 mg PO DAILY PRN allergies 12/17/22 07/28/23 Unknown History naproxen sodium 220 mg capsule 220 mg PO Q12H PRN Pain (Scale 02/18/23 07/28/23 Unknown History (Aleve) Score 4-6) Metamucil 1 tbspn PO DAILY 07/02/23 07/28/23 Unknown History acetaminophen 500 mg tablet 1,000 mg PO QID PRN Pain 07/02/23 07/28/23 Unknown History cholecalciferol (vitamin D3) 50 50 mcg PO DAILY 07/02/23 07/28/23 Unknown History mcg (2,000 unit) capsule (Vitamin D3) vit A 300 mcg-C 200 mg-E 27 1 tab PO DAILY 07/02/23 07/28/23 Unknown History mg-lutein 2 mg and minerals tablet (Ocuvite with Lutein) Exam Height,Weight and Vital Signs: Height 5 ft 4 in Weight 90.401 kg Last Vital Signs Temp 97.9 F 07/28/23 06:29 Pulse 88 07/28/23 06:29 Resp 18 07/28/23 06:29 BP 155/71 H 07/28/23 06:29 Pulse Ox 97 07/28/23 06:29 O2 Del Method Room Air 07/28/23 06:29 Airway Mallampati Class: II TM Dist: >3cm Neck ROM: Full Heart: RRR Lungs: CTA Assessment and Plan Assessment Anesthesia Assessment: Anesthesia Plan Discussed Final Anesthetic Review Family History of Problems with Anesthesia: No (Daughter long to wake) History of Problems with Anesthesia: No ASA Class: III Final Preanesthetic Review: Meds/Allgs Chart Reviewed, Consent Obtained/Reviewed and Anes Risks/Benef Reviewed Patient Risk: Intermediate Procedure Risk: Intermediate Anesthetic Plan Anesthetic Plan: GA Disposition: Standard PACU
--- NOTE | 2023-07-28 09:14 | P.OP_ITS ---
Operative Note Operative Note Date of Service: 07/28/23 Narrative: Preop diagnosis: Parastomal hernia, reducible Postop diagnosis: The same Procedure: Open repair of a parastomal hernia using biologic mesh, Sugarbaker technique, via a low midline incision Surgeon: Gagan Snell MD medical practice assistant: ED Thornton The patient is a 67-year-old female who had previously undergone an emergency Celi's procedure, and had developed a parastomal hernia. She wanted to pro ceed with repair. She understood the technique of repair with mesh and was aware of the risks, benefits, and alternatives She was brought to the operating room and placed supine under general anesthesia via endotracheal tube. The stoma was this with a running Polysorb 2-0 stitch. The entire abdomen was prepped and draped in usual sterile fashion. A Mauricio catheter was inserted. A surgical time-out was done. The patient received Cefotan 2 g IV preoperatively I then made a low midline incision on the previous laparotomy site using blade 15.This carried down with electrocautery through the full-thickness of the skin subcutaneous fat down to the fascia. The fascia was incised. The peritoneum was entered. I extended the fascial incision to optimize the length of the skin incision. There was note of some adhesions surrounding the stoma on the left. I would to do some careful lysis using electrocautery until was able to clearly expose the entire stoma and the opening. I applied multiple packs to reflect loops away from the area. This allowed me adequate exposure. Danis clamps had been applied to the fascia to expose the area as well. In view of her habitus however, we had limited direct visualization more laterally. However, as able to clearly visualize the entire stoma opening and the stoma itself. This was slightly released from the rest of the fascial edge around the stoma with gentle dissection using electrocautery. I was able to therefore visualize the entire stoma opening of the fascia. This was noted to be very large medially. I therefore applied multiple PDS 1 sutures to the posterior sheath to make this tighter around the stoma. I measured dimensions of the planned mesh placement. I chose a 10 x 6 cm biologic Ovitex mesh. I positioned the mesh to lateralize the colostomy. I used absorbable tacks to position the mesh with counter pressure placed. We made sure that there were no bowel loops caught by the tacks and that the was not too tight around the lateralized stoma. We included the area been closed with PDS 1 sutures with the mesh coverage We examined the entire area after occasional multiple tacks. The mesh appeared to be secure. There were no bowel loops stuck then the mesh nor the tacks. There was no evidence of any bowel injury as we I am and the small bowel loops. We then proceeded to close the fascia with a running Maxon 1 stitch. Skin closure was achieved with skin lali. The incision was infiltrated with Marcaine .5% for postop analgesia. Dressings were applied. The procedure was completed. Stoma appliance had been reapplied. The patient tolerated procedure well. There were no immediate complications. Initial and final counts of sponges and instruments were correct. Estimated blood loss was less than 25 cc. The patient was extubated without difficulty and transferred to the recovery room with stable vital signs.
[2023-07-28] MEDS: Acetaminophen 1,000 MG/100 ML PIGGYBACK 400 MG IV ×3 (09:17→20:28)
[2023-07-28] MEDS: fentaNYL citrate/PF 100 MCG/2 ML VIAL 25 MCG IVPUSH (09:33)
[2023-07-28] MEDS: oxyCODONE HCl Immed Release 5 MG TABLET PO (09:34)
--- NOTE | 2023-07-28 11:08 | PHA.MEDREC ---
Pharmacy Consult ? Medication Reconciliation Pharmacy has completed the medication reconciliation.PHARMACY HAS REVIEWED MED REC DONE BY NURSING
[2023-07-28] MEDS: Lactated Ringers 1,000 ML 60 ML IVCONT (12:36)
[2023-07-28] MEDS: Ketorolac Tromethamine 15 MG/ML VIAL IVPUSH ×2 (13:20→21:45)
--- NOTE | 2023-07-28 15:25 | PM.EVENT ---
Event Note Date of Service: 07/28/23 Event Note: seen on PM rounds postop says she is comfortable adequate pain control abd soft stable VS pain mgt regular diet family updated (daughter Patricia and ) Time Spent With Patient Time: Total time managing care of this patient today ____ minutes.
[2023-07-28] MEDS: 0.9 % Sodium Chloride Flush 3 ML SYRINGE IVFLUSH (20:31)
[2023-07-28] MEDS: Atorvastatin Calcium 80 MG TABLET PO (20:31)
[2023-07-28] MEDS: traZODone HCL 50 MG TABLET PO (20:46)
[2023-07-29 03:18] VITALS: BP 133/62; PULSE 66; RESP 20; TEMP 36.2; O2SAT 94
[2023-07-29] MEDS: Acetaminophen 1,000 MG/100 ML PIGGYBACK 400 MG IV ×2 (04:14→07:31)
[2023-07-29] MEDS: Ketorolac Tromethamine 15 MG/ML VIAL IVPUSH (04:29)
[2023-07-29] MEDS: Lactated Ringers 1,000 ML 60 ML IVCONT (05:02)
[2023-07-29] MEDS: polyethylene glycoL 3350 17 GM POWD.PACK PO (07:31)
[2023-07-29] MEDS: Magnesium Oxide 400 MG TABLET 200 MG PO (07:31)
[2023-07-29] MEDS: Metoprolol Succinate ER 12.5 MG HALFTAB.ER.24H PO (07:32)
[2023-07-29] MEDS: 0.9 % Sodium Chloride Flush 3 ML SYRINGE IVFLUSH ×3 (07:32→20:59)
[2023-07-29] MEDS: Heparin Sodium,Porcine 5,000 UNIT/ML VIAL 5000 UNIT SUBCUT ×2 (07:32→16:48)
[2023-07-29] MEDS: Letrozole 2.5 MG TABLET PO (07:32)
--- NOTE | 2023-07-29 07:32 | P.PNGS_ITS ---
Subjective Subjective Date of Service: 07/29/23 <Mary Thornton PA-C - Last Filed: 07/29/23 07:36> 07/29/23 <Gagan Snell MD - Last Filed: 07/29/23 08:38> Interval history: Feels well overall, only has had IV tylenol and ketorolac for pain control. Has not been OOB. Tolerating solid diet. No output from ostomy yet. <Mary Thornton PA-C - Last Filed: 07/29/23 07:36> Physical Exam Vital Signs: Vital Signs: Last Vital Signs Temp 97.2 F 07/29/23 03:18 Pulse 66 07/29/23 03:18 Resp 20 07/29/23 03:18 BP 133/62 07/29/23 03:18 Pulse Ox 94 07/29/23 03:18 O2 Del Method Room Air 07/29/23 03:18 O2 Flow Rate 4 07/28/23 09:13 BMI result Body Mass Index 36.7 <Mary Thornton PA-C - Last Filed: 07/29/23 07:36> Const: General: comfortable, no acute distress and alert <Mary Thornton PA-C - Last Filed: 07/29/23 07:36> Orientation/consciousness: patient oriented x3 <MICHELE Pendleton Last Filed: 07/29/23 07:36> Resp: Effort & Inspection: normal respiratory effort <Mary Thornton PA-C - Last Filed: 07/29/23 07:36> GI: Other: ostomy viable appearing, no output <Mary Thornton PA-C - Last Filed: 07/29/23 07:36> Inspection: No distended and Yes incision (very small area of blood staining ) <MICHELE Pendleton Last Filed: 07/29/23 07:36> Palpation (GI): Soft to palpation, Tenderness to palpation present (GI) (mild incisional) and no guarding <MICHELE Pendleton Last Filed: 07/29/23 07:36> Percussion: Yes normal to percussion <MICHELE Pendleton Last Filed: 07/29/23 07:36> Skin: General skin exam: no rashes or lesions noted <MICHELE Pendleton Last Filed: 07/29/23 07:36> Neuro: General: patient oriented x3 and moves all extremities <Mary Thornton PA-C - Last Filed: 07/29/23 07:36> Objective Data Active Medications Atorvastatin Calcium (Atorvastatin Calcium 80 Mg Tablet) 80 mg PO BEDTIME [facility] Last Admin: 07/28/23 20:31 Dose: 80 mg Documented By: DEEJAY Docusate Sodium (Docusate Sodium 100 Mg Capsule) 100 mg PO BID PRN PRN Reason: Constipation Famotidine (Famotidine 20 Mg Tablet) 10 mg PO DAILY PRN PRN Reason: Gastric Reflux Fluticasone Propionate (Fluticasone Propionate Nasal 16 Gm [place]) 1 spray NOSTRIL-B Q12H PRN PRN Reason: Allergy Symptoms Heparin Sodium (Porcine) (Heparin Sodium,Porcine 5,000 Unit/Ml Vial) 5,000 unit SUBCUT Q8H [facility] Acetaminophen (Ofirmev) 1,000 mg in 100 mls @ 400 mls/hr IV Q6H [facility] Last Infusion: 07/29/23 05:00 Dose: Infused Documented By: DEEJAY Lactated Ringer's (Lr) 1,000 mls @ 60 mls/hr IVCONT .[id number] [facility] Last Admin: 07/29/23 05:02 Dose: 60 mls/hr Documented By: DEEJAY Ketorolac Tromethamine (Ketorolac Tromethamine 15 Mg/Ml Vial) 15 mg IVPUSH Q6H PRN PRN Reason: abdominal pain Last Admin: 07/29/23 04:29 Dose: 15 mg Documented By: DEEJAY Letrozole (Letrozole 2.5 Mg Tablet) 2.5 mg PO DAILY [facility] Loratadine (Loratadine 10 Mg Tablet) 10 mg PO DAILY PRN PRN Reason: allergies Magnesium Oxide (Magnesium Oxide 400 Mg Tablet) 200 mg PO DAILY [facility] Metoprolol Succinate (Metoprolol Succinate Er 12.5 Mg Halftab.Er.24h) 12.5 mg PO DAILY [facility]; Protocol Morphine Sulfate (Morphine Sulfate 4 Mg/Ml Cartridge) 4 mg IVPUSH Q4H PRN; Protocol PRN Reason: Pain, Severe (Pain Scale 7-10) Non-Formulary Medication (Linaclotide [Linzess]) 72 mcg PO DAILY [facility] Oxycodone HCl (Oxycodone Hcl Immed Release 5 Mg Tablet) 5 mg PO Q4H PRN PRN Reason: Pain, Moderate(Pain Scale 4-6) Polyethylene Glycol (Polyethylene Glycol 3350 17 Gm Powd.Pack) 17 gm PO DAILY [facility] Sodium Chloride (0.9 % Sodium Chloride Flush 3 Ml Syringe) 3 ml IVFLUSH QSHIFT [facility] Last Admin: 07/28/23 20:31 Dose: 3 ml Documented By: DEEJAY Trazodone HCl (Trazodone Hcl 50 Mg Tablet) 50 mg PO BEDTIME PRN PRN Reason: sleep Last Admin: 07/28/23 20:46 Dose: 50 mg Documented By: DEEJAY <Mary Thornton PA-C - Last Filed: 07/29/23 07:36> Procedures Date of Service Date of Service: 07/29/23 <Mary Thornton PA-C - Last Filed: 07/29/23 07:36> 07/29/23 <Gagan Snell MD - Last Filed: 07/29/23 08:38> Progress Note: A&P Assessment and plan (1) Colostomy in place: Status: Acute <Mary Thornton PA-C - Last Filed: 07/29/23 07:36> (2) Parastomal hernia: Status: Acute <Mary Thornton PA-C - Last Filed: 07/29/23 07:36> Assessment and Plan: says she feels well adequate pain control passing flatus via stoma looks well continue pain mgt doing well overall seen and examined independently <Gagan Snell MD - Last Filed: 07/29/23 08:38> Assessment and Plan: POD #1 s/p repair of parastomal hernia with biologic mesh. Doing well post op, pain well controlled. VSS. Abd exam benign, dressing intact. Dc montero. Encouraged OOB/ambulation today. If pain remains controlled on oral analgesics, possible dc to home later today. patient comfortable with plan. <Mary Thornton PA-C - Last Filed: 07/29/23 07:36> Time Spent With Patient Time: Total time managing care of this patient today ____ minutes. <Mary Thornton PA-C - Last Filed: 07/29/23 07:36> Quality Stroke Does the patient have a stroke diagnosis?: No <Mary Thornton PA-C - Last Filed: 07/29/23 07:36> VTE Prior VTE?: No <Mary Thornton PA-C - Last Filed: 07/29/23 07:36> VTE Risk Level:: Medical - moderate - high <Mary Thornton PA-C - Last Filed: 07/29/23 07:36> VTE Device Contraindication: N/A - Device Ordered <Mary Thornton PA-C - Last Filed: 07/29/23 07:36> VTE Drug Contraindication: N/A - Med Ordered <Mary Thornton PA-C - Last Filed: 07/29/23 07:36>
[2023-07-29 07:42] VITALS: BP 118/62; PULSE 68; RESP 18; TEMP 36.6; O2SAT 94
--- NOTE | 2023-07-29 08:46 | MHC.CM.PN ---
IMM 07/28. Pt self-care, lives at home with her /HCP who will transport her home at D/C. Pt uses a cane and they have a stair lift in the home. HCP on file and verified. PCP: Dr. Candido Clark
[2023-07-29] MEDS: oxyCODONE HCl Immed Release 5 MG TABLET PO (12:30)
--- NOTE | 2023-07-29 12:35 | HO.POSTANES ---
Post Anesthesia Evaluation Post Anesthesia Evaluation Date of Service: 07/28/23 Vital Signs: Vital Signs Temp Pulse Resp BP Pulse Ox O2 Del Method 07/29/23 07:42 97.8 F 68 18 118/62 94 Room Air 07/29/23 03:18 97.2 F 66 20 133/62 94 Room Air Anesthesia: General LMA Mental Status: Awake Pain Control: Satisfactory Nausea/Vomiting: None Hydration: Adequate Anesthesia-Related Issues: No Anes. Related Issues
--- NOTE | 2023-07-29 14:43 | PM.EVENT ---
Event Note Date of Service: 07/30/23 Event Note: Feels well Says she has adequate pain control Wants to try to see if she can avoid IV pain meds Good oral intake Passing good flatus by the stoma Will try tramadol tonight and see how she does Looks well overall Time Spent With Patient Time: Total time managing care of this patient today ____ minutes.
[2023-07-29 15:10] VITALS: BP 122/58; PULSE 77; RESP 20; TEMP 36.1; O2SAT 97
[2023-07-29] MEDS: traMADoL HCL 50 MG TABLET PO ×2 (16:48→20:57)
[2023-07-29 19:12] VITALS: BP 144/65; PULSE 82; RESP 20; TEMP 36.5; O2SAT 94
[2023-07-29] MEDS: Atorvastatin Calcium 80 MG TABLET PO (20:57)
[2023-07-29] MEDS: traZODone HCL 50 MG TABLET PO (20:57)
[2023-07-30] MEDS: Heparin Sodium,Porcine 5,000 UNIT/ML VIAL 5000 UNIT SUBCUT ×2 (03:50→09:26)
[2023-07-30] MEDS: traMADoL HCL 50 MG TABLET PO ×2 (03:52→08:04)
[2023-07-30 03:58] VITALS: BP 133/67; PULSE 83; RESP 19; TEMP 36.4; O2SAT 91
[2023-07-30 07:19] VITALS: BP 120/62; PULSE 77; RESP 18; TEMP 36.3; O2SAT 95
[2023-07-30] MEDS: Metoprolol Succinate ER 12.5 MG HALFTAB.ER.24H PO (08:04)
[2023-07-30] MEDS: Letrozole 2.5 MG TABLET PO (08:04)
[2023-07-30] MEDS: polyethylene glycoL 3350 17 GM POWD.PACK PO (08:05)
[2023-07-30] MEDS: Magnesium Oxide 400 MG TABLET 200 MG PO (08:05)
[2023-07-30] MEDS: 0.9 % Sodium Chloride Flush 3 ML SYRINGE IVFLUSH (08:05)
--- NOTE | 2023-07-30 08:29 | P.PNGS_ITS ---
Subjective Subjective Date of Service: 07/30/23 Interval history: Says she had a good night Feels well Taking only oral pain meds Good p.o. intake Stoma with output, stool and gas Physical Exam Vital Signs: Vital Signs: Last Vital Signs Temp 97.4 F 07/30/23 07:19 Pulse 77 07/30/23 07:19 Resp 18 07/30/23 07:19 BP 120/62 07/30/23 07:19 Pulse Ox 95 07/30/23 07:19 O2 Del Method Room Air 07/30/23 07:19 O2 Flow Rate 4 07/28/23 09:13 BMI result Body Mass Index 36.7 Const: General: comfortable and no acute distress Resp: Effort & Inspection: normal respiratory effort Cardio: Rate: regular rate GI: Other: Incision clean, stoma with stool and gas Palpation (GI): Soft to palpation, not firm and no guarding Objective Data Active Medications Atorvastatin Calcium (Atorvastatin Calcium 80 Mg Tablet) 80 mg PO BEDTIME [facility] Last Admin: 07/29/23 20:57 Dose: 80 mg Documented By: AZAM Docusate Sodium (Docusate Sodium 100 Mg Capsule) 100 mg PO BID PRN PRN Reason: Constipation Famotidine (Famotidine 20 Mg Tablet) 10 mg PO DAILY PRN PRN Reason: Gastric Reflux Fluticasone Propionate (Fluticasone Propionate Nasal 16 Gm [place]) 1 spray NOSTRIL-B Q12H PRN PRN Reason: Allergy Symptoms Heparin Sodium (Porcine) (Heparin Sodium,Porcine 5,000 Unit/Ml Vial) 5,000 unit SUBCUT Q8H [facility] Last Admin: 07/30/23 03:50 Dose: 5,000 unit Documented By: AZAM Acetaminophen ([facility]) 1,000 mg in 100 mls @ 400 mls/hr IV Q6H PRN PRN Reason: pain, severe Stop: 07/30/23 08:59 Ketorolac Tromethamine (Ketorolac Tromethamine 15 Mg/Ml Vial) 15 mg IVPUSH Q6H PRN PRN Reason: abdominal pain Last Admin: 07/29/23 04:29 Dose: 15 mg Documented By: DEEJAY Letrozole (Letrozole 2.5 Mg Tablet) 2.5 mg PO DAILY [facility] Last Admin: 07/30/23 08:04 Dose: 2.5 mg Documented By: HONORIO Loratadine (Loratadine 10 Mg Tablet) 10 mg PO DAILY PRN PRN Reason: allergies Magnesium Oxide (Magnesium Oxide 400 Mg Tablet) 200 mg PO DAILY [facility] Last Admin: 07/30/23 08:05 Dose: 200 mg Documented By: HONORIO Metoprolol Succinate (Metoprolol Succinate Er 12.5 Mg Halftab.Er.24h) 12.5 mg PO DAILY [facility]; Protocol Last Admin: 07/30/23 08:04 Dose: 12.5 mg Documented By: HONORIO Morphine Sulfate (Morphine Sulfate 4 Mg/Ml Cartridge) 4 mg IVPUSH Q4H PRN; Protocol PRN Reason: Pain, Severe (Pain Scale 7-10) Non-Formulary Medication (Linaclotide [Linzess]) 72 mcg PO DAILY [facility] Oxycodone HCl (Oxycodone Hcl Immed Release 5 Mg Tablet) 5 mg PO Q4H PRN PRN Reason: Pain, Moderate(Pain Scale 4-6) Last Admin: 07/29/23 12:30 Dose: 5 mg Documented By: FAYE Polyethylene Glycol (Polyethylene Glycol 3350 17 Gm Powd.Pack) 17 gm PO DAILY [facility] Last Admin: 07/30/23 08:05 Dose: 17 gm Documented By: HONORIO Sodium Chloride (0.9 % Sodium Chloride Flush 3 Ml Syringe) [facility] Last Admin: 07/30/23 08:05 Dose: 3 ml Documented By: HONORIO Tramadol HCl (Tramadol Hcl 50 Mg Tablet) 50 mg PO Q4H PRN PRN Reason: Pain, Moderate(Pain Scale 4-6) Last Admin: 07/30/23 08:04 Dose: 50 mg Documented By: HONORIO Trazodone HCl (Trazodone Hcl 50 Mg Tablet) 50 mg PO BEDTIME PRN PRN Reason: sleep Last Admin: 07/29/23 20:57 Dose: 50 mg Documented By: AZAM Procedures Date of Service Date of Service: 07/30/23 Progress Note: A&P Assessment and plan (1) Parastomal hernia: Status: Acute Assessment and Plan: Status post repair with mesh Has been doing well Good pain control oral pain meds Good oral intake Has been ambulating Says she feels ready to go home Instructions reinforced Time Spent With Patient Time: Total time managing care of this patient today ____ minutes. Quality Stroke Does the patient have a stroke diagnosis?: No VTE Prior VTE?: No VTE Risk Level:: Medical - moderate - high VTE Device Contraindication: N/A - Device Ordered VTE Drug Contraindication: N/A - Med Ordered
--- NOTE | 2023-07-30 10:42 | MHC.CM.PN ---
Pt is medically cleared for D/C home self-care, pts to transport her home.
== END 2023-07-30 11:17 | disposition home or self-care (01) ==
LOC: HO.SSS 07:22 → HO.IMC 10:55
PROVIDERS: PCP Nurse Practitioner Family; Visit Provider Surgery
PROC: (CPT 49621; principal; 2023-07-28 07:30)
DX: K66.0 Peritoneal adhesions (postprocedural) (postinfection) (principal); K43.5 Parastomal hernia without obstruction or gangrene; Z93.3 Colostomy status; Z87.19 Personal history of other diseases of the digestive system; K21.9 Gastro-esophageal reflux disease without esophagitis; I10 Essential (primary) hypertension; E78.00 Pure hypercholesterolemia, unspecified; I44.7 Left bundle-branch block, unspecified; Z85.3 Personal history of malignant neoplasm of breast; Z99.89 Dependence on other enabling machines and devices; Z88.1 Allergy status to other antibiotic agents; Z87.891 Personal history of nicotine dependence; Z79.51 Long term (current) use of inhaled steroids; Z79.899 Other long term (current) drug therapy
CPT/HCPCS: 49621; C1758; C1889; C9354; J0131; J0665; J1100; J1644; J1885; J2250; J2405; J2704; J3010; J7120

== ENCOUNTER → 2023-07-28 07:15 | Outpatient (BNV) | payer MEDICARE, SELFPAY | PROVIDERS: PCP Nurse Practitioner Family; Visit Provider Surgery | DX: Z93.3 Colostomy status (principal); K43.5 Parastomal hernia without obstruction or gangrene | CPT/HCPCS: 49621; 99024; 99213; 99499 ==

== ENCOUNTER 2023-08-10 12:48 | Outpatient (AMB) | payer MEDICARE, SELFPAY ==
--- NOTE | 2023-08-10 13:04 | MHC.OFFVIS ---
Intake Visit Reasons: S/P parastomal hernia w/poss mesh Intake Note: Patient here s/p parastomal hernia. Reports incisions healing well. Patient c/o: reports no longer taking rx pain meds. SX: 07-27-22. Medical Collector Required: No Accompanied by: Spouse Allergies amoxicillin [AMOXICILLIN] Allergy (Intermediate, Verified 08/10/23 13:06) flushing/swelling/rash HPI HPI S/P parastomal hernia w/poss mesh: Details: She underwent repair of a parastomal hernia with Phasix mesh last 07/28/2023. She tolerated procedure well. She says she seems to be doing well at home. She has good oral intake. Her stoma continues to function well. She denies significant complaints. [facility] Medical History (Updated 08/10/23 @ 13:55 by Gagan Snell MD) Parastomal hernia HTN (hypertension) Hx of breast cancer (~2021) Mild acid reflux Arthralgia Ambulates with cane Perforated diverticulum Colostomy in place Intra-abdominal abscess Perforation of sigmoid colon due to diverticulitis COVID-19 vaccine series completed Family history of anesthesia complication Arthritis Elevated cholesterol LBBB (left bundle branch block) Surgical History History of hernia repair (~07/28/23) S/P laparotomy History of sigmoidoscopy (10/15/22) History of lumpectomy of right breast (10/02/21) History of tonsillectomy and adenoidectomy History of bilateral breast biopsy History of hysterectomy Family History Mother Melanoma Maternal Aunt Vocal cord cancer Maternal Aunt Uterine cancer Maternal Aunt Comer Syndrome Social History Household Members: None Housing: House Are you a primary field care advocate to a significant other at home: No Do you presently have visiting nurse or other home services: No Unable to assess alcohol history related to: Unknown Alcohol intake: current Alcohol intake frequency: former alcohol drinker Patient Tobacco Use Status: Former Tobacco user Quit Date: 1980 Tobacco use type: Cigarette Years Smoked: 5 e-Cigarette/Vaping Use: Never Used Second Hand Smoke Exposure: No Advance Directives Date on File: 09/30/21 service: No Current occupational status: retired Cognitive needs: No Hearing needs: No Vision needs: No Review of Systems Const Denies chills and Denies fever(s) Card Denies dyspnea Resp Denies cough and Denies dyspnea GI Denies abdominal pain Physical Exam Const General: comfortable and no acute distress Resp Effort & Inspection: normal respiratory effort GI Other: Incision well healed, lali intact, stoma functioning well, repair site appears to be intact Assessment & Plan Assessment & Plan (1) Parastomal hernia: Code(s): K43.5 - Parastomal hernia without obstruction or gangrene Category: Medical Plan: Status post repair with Phasix mesh. She is doing very well. Her incision is well healed. I removed all her skin lali. The hernia repair site seems intact. I advised her to avoid any lifting more than 20 lb for at least 6 weeks. I will see her again in the office in about a month to see how she is doing. Coding Level of Care Code Global (99995) Diagnoses Parastomal hernia K43.5
== END 2023-08-10 13:56 | disposition home or self-care (01) ==
PROVIDERS: PCP Nurse Practitioner Family; Visit Provider Surgery
DX: K43.5 Parastomal hernia without obstruction or gangrene (principal)
CPT/HCPCS: 99024

== ENCOUNTER → 2023-08-10 12:48 | Outpatient (BNVA) | payer MEDICARE, SELFPAY | PROVIDERS: PCP Nurse Practitioner Family; Visit Provider Surgery | DX: K43.5 Parastomal hernia without obstruction or gangrene (principal); Z93.3 Colostomy status | CPT/HCPCS: 99212 ==

== ENCOUNTER 2023-09-07 13:45 | Outpatient (AMB) | payer MEDICARE, SELFPAY ==
--- NOTE | 2023-09-07 14:08 | MHC.OFFVIS ---
Vital Signs 09/07/23 14:09 Weight 205 lb BP 134/66 Blood Pressure Location Rt brachial Position Sitting Pulse 92 Intake Visit Reasons: 1 month, s/p parastomal hernia w/poss mesh Intake Note: This patient presents for a one month follow-up status post parastomal hernia. Pt c/o; reports no complaints at this time. Senior Education Specialist Required: No Accompanied by: Other Relationship Allergies amoxicillin [AMOXICILLIN] Allergy (Intermediate, Verified 09/07/23 14:10) flushing/swelling/rash HPI HPI 1 month, s/p parastomal hernia w/poss mesh: Details: She is here for postop visit after her repair of her parastomal hernia with mesh last July,. She continues to do well. Her stoma has been functioning well. She says that she does not feel the ?grapefruit size hernia anymore. [facility] Medical History Parastomal hernia HTN (hypertension) Hx of breast cancer (~2021) Mild acid reflux Arthralgia Ambulates with cane Perforated diverticulum Colostomy in place Intra-abdominal abscess Perforation of sigmoid colon due to diverticulitis COVID-19 vaccine series completed Family history of anesthesia complication Arthritis Elevated cholesterol LBBB (left bundle branch block) Surgical History History of hernia repair (~07/28/23) S/P laparotomy History of sigmoidoscopy (10/15/22) History of lumpectomy of right breast (10/02/21) History of tonsillectomy and adenoidectomy History of bilateral breast biopsy History of hysterectomy Family History Mother Melanoma Maternal Aunt Vocal cord cancer Maternal Aunt Uterine cancer Maternal Aunt Comer Syndrome Social History Household Members: None Housing: House Are you a primary career discovery teacher to a significant other at home: No Do you presently have visiting nurse or other home services: No Unable to assess alcohol history related to: Unknown Alcohol intake: current Alcohol intake frequency: former alcohol drinker Patient Tobacco Use Status: Former Tobacco user Tobacco use type: Cigarette Years Smoked: 5 e-Cigarette/Vaping Use: Never Used Second Hand Smoke Exposure: No Advance Directives Date on File: 09/30/21 service: No Current occupational status: retired Cognitive needs: No Hearing needs: No Vision needs: No Review of Systems Const Denies chills and Denies fever(s) Card Denies chest pain, Denies dyspnea and Denies dyspnea on exertion Resp Denies cough, Denies dyspnea and Denies dyspnea on exertion GI Denies hematochezia and Denies change in bowel habits Denies hematuria Musc Denies back pain, Reports arthralgias and Reports limited range of motion Neuro Denies focal weakness and Denies convulsions Psych Denies depression and Denies mood swings Physical Exam Const General: comfortable and no acute distress Resp Effort & Inspection: normal respiratory effort GI Other: Stoma with output, no obvious parastomal hernia Palpation (GI): Soft to palpation, not firm and no guarding Assessment & Plan Assessment & Plan (1) Parastomal hernia: Code(s): K43.5 - Parastomal hernia without obstruction or gangrene Category: Medical Plan: Status post repair with mesh. She is doing well. Her incision on the midline is well healed. The parastomal hernia repair seems to be intact I advised her to avoid lifting anything more than 20 lb for another month. She is to continue to remain active with brisk walking I will see her again in the office in about 6 months. Coding Level of Care Code Global (89154) Diagnoses Parastomal hernia K43.5
[2023-09-07 14:09] VITALS: BP 134/66; PULSE 92
== END 2023-09-07 14:26 | disposition home or self-care (01) ==
PROVIDERS: PCP Nurse Practitioner Family; Visit Provider Surgery
DX: K43.5 Parastomal hernia without obstruction or gangrene (principal)
CPT/HCPCS: 99024

== ENCOUNTER → 2023-09-07 13:45 | Outpatient (BNVA) | payer MEDICARE, SELFPAY | PROVIDERS: PCP Nurse Practitioner Family; Visit Provider Surgery | DX: K43.5 Parastomal hernia without obstruction or gangrene (principal); Z93.3 Colostomy status | CPT/HCPCS: 99212 ==

== ENCOUNTER 2023-10-13 09:40 | Outpatient (AMB) | payer MEDICARE, SELFPAY ==
--- NOTE | 2023-10-13 09:45 | MHC.PC.OV ---
Vital Signs 10/13/23 09:47 Height 5 ft 4 in Weight 208 lb BMI 35.7 BP 122/80 Blood Pressure Location Rt brachial Position Sitting Pulse 92 Pulse Source Pulse Oximeter Pulse Oximetry (%) 96 Oxygen Delivery Method Room Air Intake Visit Reasons: 6 month f/u Allergies amoxicillin [AMOXICILLIN] Allergy (Intermediate, Verified 10/13/23 09:48) flushing/swelling/rash Tobacco use date assessed: 10/13/23 Fall risk assessment: No Falls in past year Last assessed Fall Risk: 10/13/23 Dental Screening Dental Screen Date: 10/13/23 Did you have a dental visit in the last 12 months?: Yes Did you have a dental problem in the last 6 months where you did not have access to dental care?: No Was dental information given to patient?: Patient has dentist HPI 6 month f/u HPI Details Dyslipidemia: Pt is taking rosuvastatin 20mg. Will order labs. Pt c/o increased insomnia. She is taking trazodone 50mg. Will increase to 100mg. Denies fever, chills, and dizziness. [facility] Medical History Parastomal hernia HTN (hypertension) Hx of breast cancer (~2021) Mild acid reflux Arthralgia Ambulates with cane Perforated diverticulum Colostomy in place Intra-abdominal abscess Perforation of sigmoid colon due to diverticulitis COVID-19 vaccine series completed Family history of anesthesia complication Arthritis Elevated cholesterol LBBB (left bundle branch block) Surgical History History of hernia repair (~07/28/23) S/P laparotomy History of sigmoidoscopy (10/15/22) History of lumpectomy of right breast (10/02/21) History of tonsillectomy and adenoidectomy History of bilateral breast biopsy History of hysterectomy Family History Mother Melanoma Maternal Aunt Vocal cord cancer Maternal Aunt Uterine cancer Maternal Aunt Comer Syndrome Social History Household Members: None Housing: House Are you a primary technical healthcare consultant to a significant other at home: No Do you presently have visiting nurse or other home services: No Unable to assess alcohol history related to: Unknown Alcohol intake: current Alcohol intake frequency: former alcohol drinker Patient Tobacco Use Status: Former Tobacco user Tobacco use type: Cigarette Years Smoked: 5 e-Cigarette/Vaping Use: Never Used Second Hand Smoke Exposure: No Advance Directives Date on File: 09/30/21 service: No Current occupational status: retired Cognitive needs: No Hearing needs: No Vision needs: No Questionnaire PHQ-9 Over the last 2 weeks, how often have you been bothered by any of the following problems? 1. Little interest or pleasure in doing things: more than half the days 2. Feeling down, depressed, or hopeless: not at all 3. Trouble falling or staying asleep, or sleeping too much: nearly every day 4. Feeling tired or having little energy: more than half the days 5. Poor appetite or overeating: nearly every day 6. Feeling bad about yourself - or that you are a failure or have let yourself or your family down: not at all 7. Trouble concentrating on things, such as reading the newspaper or watching television: not at all 8. Moving or speaking so slowly that other people could have noticed. Or the opposite - being so fidgety or restless that you have been moving around a lot more than usual: not at all 9. Thoughts that you would be better off or of hurting yourself in some way: not at all Total score: 10 Depression Screening Interpretation: Positive Depression Screening Follow-up: Existing condition and Declines treatment Depression Screening Done: Yes 49980 - PHQ-9 Billing: Yes Source: Developed by Drs. Swapnil Peraza, Haylee Hughes, Raul Benitez and colleagues, with an educational nichelle from [employer]. Thrive Questionnaire Date Thrive assessed: 07/29/23 AUDIT C Alcohol Use Questionnaire (AUDIT-C) 1. How often do you have a drink containing alcohol?: Monthly or less 2. How many drinks containing alcohol do you have on a typical day when you are drinking?: 1 or 2 3. How often do you have six or more drinks on one occasion?: Never Total Score: 1 Score Reviewed/Action Taken: No KAYODE-7 AMB Questionnaire KAYODE-7 Date KAYODE - 7 assessed: 10/13/23 Feeling nervous, anxious, or on edge: 3 = Nearly every day Not being able to stop or control worryin = Not at all Worrying too much about different things: 0 = Not at all Trouble relaxin = Several days Being so restless that it is hard to sit still: 0 = Not at all Becoming easily annoyed or irritable: 3 = Nearly every day Feeling afraid as if something awful might happen: 0 = Not at all Total KAYODE-7 score (0-4 normal; 5-9 mild; 10-14 moderate; 15-21 severe): 7 Source: Developed by Drs. Swapnil Peraza, Haylee Hughes, Raul Benitez and colleagues, with an educational nichelle from [employer]. KAYODE-7 Assessment Billing KAYODE-7 Assessment Tool: KAYODE-7 Assessment 73946 Review of Systems Const Reports as per HPI Physical exam (Primary Care) Vital Signs: Last Vital Signs Pulse 92 10/13/23 09:47 BP 122/80 10/13/23 09:47 Pulse Ox 96 10/13/23 09:47 Oxygen Delivery Method Room Air 10/13/23 09:47 BMI result Body Mass Index 35.7 Tobacco/Smoking Status: Tobacco use Status Tobacco use date assessed 10/13/23 10/13/23 09:51 Patient Tobacco Use Status Former Tobacco user 10/13/23 09:45 Tobacco use type Cigarette 10/13/23 09:45 e-Cigarette/Vaping Use Never Used 10/13/23 09:45 PHQ-9: PHQ-9 Score PHQ-9: Total score 10 10/13/23 09:59 Depression Screening Interpretation: Positive Depression Screening Follow-up: Existing condition and Declines treatment Thrive Assessment: Date of Thrive Assessment Date Thrive assessed 07/29/23 10/13/23 09:45 Const General: cooperative Nutritional Appearance: obese Orientation/consciousness: patient oriented x3 Resp Effort & Inspection: normal respiratory effort Auscultation: clear to auscultation bilaterally Cardio Rate: regular rate Rhythm: regular rhythm Heart sounds: S1 normal heart sound present and S2 normal heart sound present Neuro General: patient oriented x3 Extrem Right lower extremity: no edema Left lower extremity: no edema Psych Appearance: grossly normal Mental Status: mental status grossly normal Speech and movement: Normal speech and movement present Affect: normal affect Attitude: cooperative Thought process: Normal thought process present Thought content: Normal thought content present Insight: Good insight present (Psych) Judgement: Good judgement present (Psych) Assessment and Plan Assessment & Plan (1) Dyslipidemia: Code(s): E78.5 - Hyperlipidemia, unspecified Plan: Labs ordered, continue statin (2) Insomnia: Code(s): G47.00 - Insomnia, unspecified Plan The patient agreed to the use of a medical transcriptionist for this encounter. Scribed for LEILA Keller by Leticia Swift medical transcriptionist, on 10/13/2023 at 10:00 EST. Orders: Orders Lipid Panel Today E78.5 - Hyperlipidemia, unspecified Complete Blood Count Auto Diff Today E78.5 - Hyperlipidemia, unspecified Comprehensive [place]. Panel Fast Today E78.5 - Hyperlipidemia, unspecified TSH reflex Free T4 Today E78.5 - Hyperlipidemia, unspecified UA CC w/rflx Micro + Cult Today E78.5 - Hyperlipidemia, unspecified Medications: Changed From trazodone 50 mg PO BEDTIME PRN 90 tabs 5RF sleep To trazodone 100 mg PO BEDTIME 90 days PRN 90 tabs 5RF sleep Coding Level of Care Code Est Pt Level 3 (01867) Diagnoses Dyslipidemia E78.5 Insomnia G47.00 Additional Codes KAYODE-7 Assessment Billing - KAYODE-7 Assessment Tool: KAYODE-7 Assessment 53960 ([id number])
[2023-10-13 09:47] VITALS: BP 122/80; PULSE 92; O2SAT 96; BMI 35.7
== END 2023-10-13 10:12 | disposition home or self-care (01) ==
PROVIDERS: PCP Nurse Practitioner Family; Visit Provider Nurse Practitioner Family
DX: E78.5 Hyperlipidemia, unspecified (principal); G47.00 Insomnia, unspecified
CPT/HCPCS: 99214

== ENCOUNTER 2023-10-14 07:35 | Outpatient (REF) | payer MEDICARE, SELFPAY ==
--- NOTE | ~2023-10-14 | MM_ITS ---
EXAMINATION: MM DIAGNOSTIC DIGITAL BREAST TOMOSYNTHESIS, BILATERAL CLINICAL INFORMATION: Year 2 postop protocol right breast IDC with DCIS status post lumpectomy 09/12/2021. Due for yearly. COMPARISON: Mammography: 04/08/2023, 09/29/2022, 10/02/2021, 09/20/2021, 09/18/2021, 09/14/2021, 09/08/2020, 10/26/2018. TECHNIQUE: Digital breast tomosynthesis is performed in both the craniocaudal and mediolateral oblique views along with computer-aided detection (CAD). Synthesized 2D images are generated from the tomosynthesis. In addition, spot 2-D magnification views of the right breast lumpectomy site were obtained in the CC and ML projection. FINDINGS: The breasts are heterogeneously dense, which may obscure small masses (ACR BI-RADS breast composition Category c). The right breast is again noted to be slightly smaller than the left. Scarring in the upper central right breast has continued to retract mildly, skin thickening has again improved , and trabecular thickening and prominence has also continued to improve. No evidence of recurrence of disease. There is a stable calcified nodule in the lower outer right breast, unchanged from 2019 and most likely a calcified fibroadenoma. No new suspicious abnormalities. No new axillary abnormality. Left breast shows no suspicious masses, suspicious grouped calcifications, or areas of architectural distortion. One view asymmetry in the CC projection medially, mid one third, is unchanged from studies dating back to 2017 and benign, representing normal fibroglandular parenchyma. There are a few benign-appearing calcifications and vascular calcifications in the left breast. MM/MM tomosynthesis diagnostic BI IMPRESSION: There are no findings in either breast suspicious for malignancy. -There are improving post treatment related changes in the right breast without evidence of recurrence of disease. -There are stable benign findings otherwise as described. -Recommend one-year follow-up to complete three-year postop protocol. ASSESSMENT: BI-RADS BI-RADS 2 - Benign Findings RECOMMENDATION: 1 year F/U Results were provided to the patient at time of visit by the technologist. This patient's information was entered into a reminder system with a target due date for their next mammogram.
[2023-10-14 10:03] LABS: MANUAL DIFF FLAG NO
[2023-10-14 10:09] LABS: Appearance Urine Clear; Color Urine Yellow; Glucose Urine UA Negative (Negative); Leukocyte Esterase Urine Negative (Negative); Nitrite Urine Negative (Negative); PH 6.5 (5.0-9.0); Specific Gravity - Urine 1.015 (1.005-1.025); Urine Blood Negative (Negative); Urine Ketones Negative (Negative); Urine Protein Negative (Neg-Trace)
[2023-10-14 10:13] LABS: Basophils Absolute Auto 0.1 X10*3/uL (0.0-0.2); Eosinophils Absolute Auto 0.2 X10*3/uL (0.0-0.4); Eosinophils Percent Auto 4.2 % (0-4); Hematocrit 39.2 % (37.0-47.0); Imm Gran Abs Auto 0.01 X10*3/uL (0.00-0.03); Imm Gran Pct Auto 0.2 % (0.0-0.4); Lymphocytes Absolute Auto 1.6 X10*3/uL (1.2-4.9); Mean Corpuscular HGB Conc 33.2 g/dl (31.0-35.0); Mean Corpuscular Hemoglobin 31.3 pg (27.0-33.0); Mean Corpuscular Volume 94.2 fL (80.0-98.0); Mean Platelet Volume 10.7 fL (9.4-12.3); Monocytes Absolute Auto 0.4 X10*3/uL (0.1-1.2); Monocytes Percent Auto 8.5 % (2-11); Neutrophils Absolute Auto 2.7 x10*3/uL (2.0-8.3); Neutrophils Percent Auto 54.1 % (45-73); Platelet Count 258 X10*3/uL (160-400); Red Blood Count 4.16 X10*6/uL (4.20-5.50); Red Cell Distribution Width 13.9 % (11.0-16.0)
[2023-10-14 10:47] LABS: Alanine Aminotransferase 18 U/L (0-31); Albumin Level 4.3 g/dL (3.5-5.0); Alkaline Phosphatase 89 U/L (39-117); Anion Gap 12 (12-20); Aspartate Amino Transferase 24 U/L (5-31); Bilirubin Total 0.4 mg/dL (0.0-1.0); Blood Urea Nitrogen 21 mg/dL (9-16); Calcium 9.7 mg/dL (8.4-10.2); Carbon Dioxide 27 mmol/L (22-29); Chloride 106 mmol/L (96-108); Cholesterol 167 mg/dL (<200); Estimated Glomerular Filt Rate > 60; Glucose Fasting 94 mg/dL (60-99); HDL Cholesterol 60 mg/dL (>40); LDL Cholesterol Calculated 77 mg/dL (<100); Potassium 4.3 mmol/L (3.3-5.1); Sodium 141 mmol/L (135-145); TSH reflex Free T4 4.72 uIU/mL (0.32-4.0); Total Protein 7.3 g/dL (6.5-8.0); Triglycerides 151 mg/dL (<150)
[2023-10-14 11:19] LABS: Free T4 (Free Thyroxine) 0.74 ng/dL (0.71-1.85)
== END 2023-10-14 07:36 | disposition home or self-care (01) ==
LOC: HO.MAMMO 07:35
PROVIDERS: PCP Nurse Practitioner Family; Visit Provider Nurse Practitioner Family
DX: E78.5 Hyperlipidemia, unspecified (principal); Z85.3 Personal history of malignant neoplasm of breast
CPT/HCPCS: 36415; 77062; 77066; 80053; 80061; 81003; 84439; 84443; 85025

== ENCOUNTER → 2023-10-14 13:00 | Outpatient (BNV) | payer MEDICARE, SELFPAY | PROVIDERS: PCP Nurse Practitioner Family; Visit Provider Radiology Diagnostic Radiology | DX: Z86.000 Personal history of in-situ neoplasm of breast (principal) | CPT/HCPCS: 77066; G0279 ==

== ENCOUNTER 2023-10-23 11:05 | Outpatient (AMB) | payer MEDICARE, SELFPAY ==
--- NOTE | 2023-10-23 11:11 | MHC.OFFVIS ---
Vital Signs 10/23/23 11:16 Height 5 ft 4 in Weight 211 lb 4 oz BMI 36.3 BP 142/72 H Blood Pressure Location Lt brachial Position Sitting Pulse 71 Intake Visit Reasons: 6 month follow up breast Intake Note: Patient is seen in office for 6 month follow up visit, breast exam. Pt c/o: denies any concerns regarding the breast mm:10/14/23 State Assessed Properties Director Required: No Drilling Assistant: Drilling Assistant Present Accompanied by: Self / Same As Patient Allergies amoxicillin [AMOXICILLIN] Allergy (Intermediate, Verified 10/23/23 11:18) flushing/swelling/rash Medication List - Last Reconciled 10/23/23 by Candido Tobin MD acetaminophen 1,000 mg PO QID PRN calcium carbonate 1,500 mg PO DAILY PRN cetirizine 10 mg PO DAILY PRN cholecalciferol (vitamin D3) (Vitamin D3) 50 mcg PO DAILY coenzyme Q10 100 mg PO DAILY [colostomy bags Coloplast #[id number] As directed] docusate sodium (Colace) 100 mg PO BID PRN famotidine 10 mg PO DAILY PRN fluticasone propionate 50 mcg/actuation 1 spray intranasal Q12H PRN letrozole 2.5 mg PO DAILY linaclotide (Linzess) 72 mcg PO DAILY magnesium 500 mg PO DAILY [Metamucil 1 tbspn PO DAILY] metoprolol succinate ER (Toprol XL) 12.5 mg (1/2 x 25 mg) PO DAILY 90 days nl-lwh-tovim-calcium carb-K1 400 mcg-500 mg calcium-20 mcg 1 tab PO DAILY naproxen sodium (Aleve) 220 mg PO Q12H PRN rosuvastatin (Crestor) 20 mg PO BEDTIME 90 days trazodone 100 mg PO BEDTIME PRN 90 days venlafaxine ER 37.5 mg PO DAILY vit A,C and N-cmecfz-tfkyqrvr 300 mcg-200 mg-27 mg-2 mg (Ocuvite with Lutein) 1 tab PO DAILY HPI Comments Details: 68-year-old female patient returning for breast cancer follow-up examination. She was diagnosed with a right breast invasive ductal carcinoma, grade 3, with DCIS high-grade, cribriform type with comedonecrosis and microcalcifications. Lymphovascular invasion was not identified. ER/NM positive, HER2 Mesfin negative, Ki-67 expression high. She underwent a right breast lumpectomy with needle localization and right axillary sentinel node biopsy on 10/02/2021. Pathology confirmed invasive ductal carcinoma with DCIS, lymphovascular invasion identified, 2 of 7 sentinel lymph nodes were positive for metastatic disease (pT2 N1a). She was evaluated by Dr. Kya and started on anastrozole with Abemaciclib. She was unable to tolerate the Abemaciclib due to severe changes in her mood and appetite. She reported no quality of life while on the medication. This is subsequently markedly improved after stopping the medication. She underwent radiation therapy at [facility] (Dr. Morris). She underwent a bilateral mammogram on 09/29/2022. This revealed post therapy changes in the right breast with reduced breast size and scarring and smooth skin thickening. No abnormal calcifications were identified. Findings were felt to be low suspicion for malignancy (BI-RADS 3) and six-month follow-up diagnostic right breast mammogram was recommended. Follow-up mammogram on 04/08/2023 revealed improving post treatment related changes in the right breast without evidence of recurrent disease. Diagnostic mammogram, bilateral is due in 6 months. Her follow-up mammogram on 10/14/2023 revealed improving post therapy changes with no mammographic evidence of malignancy (BI-RADS 2). Follow-up mammogram in 1 year is recommended. [facility] Medical History Parastomal hernia HTN (hypertension) Hx of breast cancer (~2021) Mild acid reflux Arthralgia Ambulates with cane Perforated diverticulum Colostomy in place Intra-abdominal abscess Perforation of sigmoid colon due to diverticulitis COVID-19 vaccine series completed Family history of anesthesia complication Arthritis Elevated cholesterol LBBB (left bundle branch block) Surgical History History of hernia repair (~07/28/23) S/P laparotomy History of sigmoidoscopy (10/15/22) History of lumpectomy of right breast (10/02/21) History of tonsillectomy and adenoidectomy History of bilateral breast biopsy History of hysterectomy Family History Mother Melanoma Maternal Aunt Vocal cord cancer Maternal Aunt Uterine cancer Maternal Aunt Comer Syndrome Social History Household Members: None Housing: House Are you a primary child care team lead to a significant other at home: No Do you presently have visiting nurse or other home services: No Unable to assess alcohol history related to: Unknown Alcohol intake: current Alcohol intake frequency: former alcohol drinker Patient Tobacco Use Status: Former Tobacco user Tobacco use type: Cigarette Years Smoked: 5 e-Cigarette/Vaping Use: Never Used Second Hand Smoke Exposure: No Advance Directives Date on File: 09/30/21 service: No Current occupational status: retired Cognitive needs: No Hearing needs: No Vision needs: No Review of Systems Const Denies chills, Denies fever(s), Denies headache(s) and Denies poor appetite ENT Denies dizziness and Denies headache(s) Card Denies chest pain, Denies rapid heart rate, Denies palpitations and Denies slow heart rate Resp Denies chest congestion, Denies cough, Denies pain on inspiration and Denies wheezing GI Denies abdominal pain, Denies bloating, Denies change in stool character, Denies constipation, Denies diarrhea, Denies nausea, Denies vomiting and Denies hematemesis Denies nipple discharge Musc Denies back pain, Denies arthralgias, Denies joint swelling and Denies numbness Skin/Breast Reports breast skin changes, Reports breast pain, Denies breast mass, Denies change in pigmentation, Denies nipple discharge, Denies erythema and Denies rash Neuro Denies dizziness, Denies headache(s) and Denies numbness Psych Denies anxiety and Denies depression Endo Denies palpitations Titus/Lymph Denies easy bleeding, Denies easy bruising and Denies lymphadenopathy Aller/Immun Denies wheezing Physical Exam Vital Signs: Last Vital Signs Pulse 71 10/23/23 11:16 BP 142/72 H 10/23/23 11:16 BMI result Body Mass Index 36.3 Const General: comfortable and no acute distress Nutritional Appearance: well nourished Orientation/consciousness: patient oriented x3 Limitations: ambulation with cane HEENT Head: Yes normocephalic and Yes atraumatic Chest Other: Left breast: No skin change, no nipple retraction, no nipple discharge, no palpable mass, no enlarged lymph nodes. Right breast: No skin change, no nipple retraction, no nipple discharge, no palpable mass, no enlarged lymph nodes, well-healed incision in upper outer quadrant and axilla. Evidence of radiation change to the tissue however no skin changes appreciated. Resp Effort & Inspection: normal respiratory effort Back/Spine/Pelvis Other: Radiation change noted in right upper back with no ulceration or skin lesion. Skin Other: Warm, dry, no rash Neuro Other: Mobility Assessment: 1. 3 meter assessment time (seconds)6 2. Gait observations: Normal balance and gait General: patient oriented x3 Extrem Other: No edema General: Yes no clubbing, cyanosis or edema Assessment & Plan Assessment & Plan (1) Invasive ductal carcinoma of right breast: Code(s): C50.911 - Malignant neoplasm of unspecified site of right female breast Category: Medical (2) Ductal carcinoma in situ of right breast: Code(s): D05.11 - Intraductal carcinoma in situ of right breast Category: Medical Plan Patient returns following right breast lumpectomy with needle localization, right axillary sentinel node biopsy. Pathology reveals negative margins however DCIS is focally within 2 mm. In addition 2/7 sentinel lymph nodes revealed metastatic disease. She has been evaluated both by Dr. Kay and [facility]. She completed radiation therapy and tolerated this fairly well. She did have some skin burn in the supraclavicular region. This is now much improved. She continues on anastrozole 1 mg p.o. daily is tolerating this well. Her most recent mammogram of 10/14/2023 revealed improving post therapy changes and no mammographic specific evidence of malignancy (BI-RADS 2). Follow-up mammogram in 1 year is recommended. I recommended follow-up examination in 6 months. Coding Level of Care Code Est Pt Level 3 (42205) Diagnoses Invasive ductal carcinoma of right breast C50.911 Ductal carcinoma in situ of right breast D05.11
[2023-10-23 11:16] VITALS: BP 142/72; PULSE 71; BMI 36.3
== END 2023-10-23 11:31 | disposition home or self-care (01) ==
PROVIDERS: PCP Nurse Practitioner Family; Visit Provider Surgery
DX: C50.911 Malignant neoplasm of unspecified site of right female breast (principal); D05.11 Intraductal carcinoma in situ of right breast
CPT/HCPCS: 99213

== ENCOUNTER → 2023-10-23 11:05 | Outpatient (BNVA) | payer MEDICARE, SELFPAY | PROVIDERS: PCP Nurse Practitioner Family; Visit Provider Surgery | DX: C50.911 Malignant neoplasm of unspecified site of right female breast (principal) | CPT/HCPCS: 99212 ==

== ENCOUNTER 2023-12-23 11:41 | Outpatient (REF) | payer MEDICARE, SELFPAY ==
[2023-12-24 18:43] LABS: Thyroid Peroxidase Antibodies 1 IU/mL (<9)
== END 2023-12-23 11:42 | disposition home or self-care (01) ==
LOC: HO.HMGCLDS 11:41
PROVIDERS: PCP Nurse Practitioner Family; Visit Provider Nurse Practitioner Family
DX: R79.89 Other specified abnormal findings of blood chemistry (principal)
CPT/HCPCS: 36415; 84443; 86376

== ENCOUNTER 2024-03-07 14:06 | Outpatient (AMB) | payer MEDICARE, SELFPAY ==
--- NOTE | 2024-03-07 14:07 | MHC.OFFVIS ---
Vital Signs 03/07/24 14:16 Height 5 ft 5 in Weight 215 lb BMI 35.8 Intake Visit Reasons: 1 year follow-up s/p parastomal hernia w/poss mesh Intake Note: This patient presents for 1 year follow-up s/p parastomal hernia w/poss mesh. Pt c/o; reports no complaints at this time. Manager Environmental Affairs Required: No Accompanied by: Self / Same As Patient Allergies amoxicillin [AMOXICILLIN] Allergy (Intermediate, Verified 12/30/23 10:19) flushing/swelling/rash Medication List - Last Reviewed 03/07/24 by HARRIS Aguilera acetaminophen 1,000 mg PO QID PRN calcium carbonate 1,500 mg PO DAILY PRN cetirizine 10 mg PO DAILY PRN cholecalciferol (vitamin D3) (Vitamin D3) 50 mcg PO DAILY coenzyme Q10 100 mg PO DAILY [colostomy bags Coloplast #[id number] As directed] docusate sodium (Colace) 100 mg PO BID PRN famotidine 10 mg PO DAILY PRN fluticasone propionate 50 mcg/actuation 1 spray intranasal Q12H PRN letrozole 2.5 mg PO DAILY linaclotide (Linzess) 72 mcg PO DAILY magnesium 500 mg PO DAILY [Metamucil 1 tbspn PO DAILY] metoprolol succinate ER (Toprol XL) 12.5 mg (1/2 x 25 mg) PO DAILY 90 days ac-zzh-ftvne-calcium carb-K1 400 mcg-500 mg calcium-20 mcg 1 tab PO DAILY naproxen sodium (Aleve) 220 mg PO Q12H PRN rosuvastatin 20 mg PO BEDTIME 90 days trazodone 100 mg PO BEDTIME PRN 90 days venlafaxine ER 37.5 mg PO DAILY vit A,C and H-rjnuqx-rvmknvnz 300 mcg-200 mg-27 mg-2 mg (Ocuvite with Lutein) 1 tab PO DAILY HPI HPI 1 year follow-up s/p parastomal hernia w/poss mesh: Details: She is here for follow-up for her colostomy. She has had sigmoid resection in the past for a perforated stercoral ulcer. She had a repair of a parastomal hernia earlier this year. She says that her stoma has been functioning well. She says she feels well overall. She does have constipation still described as frequent hard stools but says that she has had good BMs to her stoma most of the time. She has stopped Linzess because she says this had caused some watery stools. [facility] Medical History Parastomal hernia HTN (hypertension) Hx of breast cancer (~2021) Mild acid reflux Arthralgia Ambulates with cane Perforated diverticulum Colostomy in place Intra-abdominal abscess Perforation of sigmoid colon due to diverticulitis COVID-19 vaccine series completed Family history of anesthesia complication Arthritis Elevated cholesterol LBBB (left bundle branch block) Surgical History History of hernia repair (~07/28/23) S/P laparotomy History of sigmoidoscopy (10/15/22) History of lumpectomy of right breast (10/02/21) History of tonsillectomy and adenoidectomy History of bilateral breast biopsy History of hysterectomy Family History Mother Melanoma Maternal Aunt Vocal cord cancer Maternal Aunt Uterine cancer Maternal Aunt Comer Syndrome Social History Household Members: None Housing: House Are you a primary director of primary care to a significant other at home: No Do you presently have visiting nurse or other home services: No Unable to assess alcohol history related to: Unknown Alcohol intake: current Alcohol intake frequency: former alcohol drinker Patient Tobacco Use Status: Former Tobacco user Tobacco use type: Cigarette Years Smoked: 5 e-Cigarette/Vaping Use: Never Used Second Hand Smoke Exposure: No Advance Directives Date on File: 09/30/21 service: No Current occupational status: retired Cognitive needs: No Hearing needs: No Vision needs: No Review of Systems Const Denies chills and Denies fever(s) Card Denies chest pain, Denies dyspnea and Denies dyspnea on exertion Resp Denies cough, Denies dyspnea and Denies dyspnea on exertion GI Details: Has colostomy Denies hematochezia and Denies change in bowel habits Denies hematuria Musc Reports abnormal gait, Denies back pain, Reports arthralgias and Denies limited range of motion Neuro Reports abnormal gait, Denies focal weakness and Denies convulsions Psych Denies depression and Denies mood swings Physical Exam Const Other: Uses cane General: comfortable and no acute distress Resp Effort & Inspection: normal respiratory effort Cardio Rate: regular rate GI Other: Colostomy with some prolapse but no obvious parastomal hernia Palpation (GI): Soft to palpation, not firm, nontender and no guarding Assessment & Plan Assessment & Plan (1) Colostomy in place: Code(s): Z93.3 - Colostomy status Category: Medical Plan: Her stoma is functioning well. I had advised her on increasing her unusual to twice a day because of her chronic constipation. I also told her that she probably should try taking Linzess again. Her parastomal hernia repair site is intact. She does have some degree of stomal prolapse but she says that this does not bother her. I will see her again in the office in about 6 months. Coding Level of Care Code Est Pt Level 3 (28702) Diagnoses Colostomy in place Z93.3
[2024-03-07 14:16] VITALS: BMI 35.8
== END 2024-03-07 14:29 | disposition home or self-care (01) ==
PROVIDERS: PCP Nurse Practitioner Family; Visit Provider Surgery
DX: Z93.3 Colostomy status (principal)
CPT/HCPCS: 99213

== ENCOUNTER → 2024-03-07 14:06 | Outpatient (BNVA) | payer MEDICARE, SELFPAY | PROVIDERS: PCP Nurse Practitioner Family; Visit Provider Surgery | DX: K59.09 Other constipation (principal); Z93.3 Colostomy status | CPT/HCPCS: 99212 ==

== ENCOUNTER 2024-04-26 12:47 | Outpatient (AMB) | payer MEDICARE, SELFPAY ==
--- NOTE | 2024-04-26 12:48 | MHC.OFFVIS ---
Vital Signs 04/26/24 12:57 Height 5 ft 5 in Weight 219 lb BMI 36.4 BP 150/73 H Blood Pressure Location Lt brachial Position Sitting Pulse 86 Intake Visit Reasons: 6 month follow up breast Intake Note: Patient is seen in office for 6 month follow up visit, breast exam. 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: No Lip Cutter And Scorer: Lip Cutter And Scorer Present Accompanied by: Self / Same As Patient Allergies amoxicillin [AMOXICILLIN] Allergy (Intermediate, Verified 04/26/24 12:49) flushing/swelling/rash Medication List - Last Reconciled 04/26/24 by Candido Tobin MD acetaminophen 1,000 mg PO QID PRN calcium carbonate 1,500 mg PO DAILY PRN cetirizine 10 mg PO DAILY PRN cholecalciferol (vitamin D3) (Vitamin D3) 50 mcg PO DAILY coenzyme Q10 100 mg PO DAILY [colostomy bags Coloplast #[id number] As directed] docusate sodium (Colace) 100 mg PO BID PRN famotidine 10 mg PO DAILY PRN fluticasone propionate 50 mcg/actuation 1 spray intranasal Q12H PRN letrozole 2.5 mg PO DAILY linaclotide (Linzess) 72 mcg PO DAILY magnesium 500 mg PO DAILY [Metamucil 1 tbspn PO DAILY] metoprolol succinate ER (Toprol XL) 12.5 mg (1/2 x 25 mg) PO DAILY 90 days do-bvk-wfzaa-calcium carb-K1 400 mcg-500 mg calcium-20 mcg 1 tab PO DAILY naproxen sodium (Aleve) 220 mg PO Q12H PRN rosuvastatin 20 mg PO BEDTIME 90 days trazodone 100 mg PO BEDTIME PRN 90 days venlafaxine ER 37.5 mg PO DAILY vit A,C and B-qkmxdl-tcrvkzvj 300 mcg-200 mg-27 mg-2 mg (Ocuvite with Lutein) 1 tab PO DAILY HPI Comments Details: 68-year-old female patient returning for breast cancer follow-up examination. She was diagnosed with a right breast invasive ductal carcinoma, grade 3, with DCIS high-grade, cribriform type with comedonecrosis and microcalcifications. Lymphovascular invasion was not identified. ER/GA positive, HER2 Mesfin negative, Ki-67 expression high. She underwent a right breast lumpectomy with needle localization and right axillary sentinel node biopsy on 10/02/2021. Pathology confirmed invasive ductal carcinoma with DCIS, lymphovascular invasion identified, 2 of 7 sentinel lymph nodes were positive for metastatic disease (pT2 N1a). She was evaluated by Dr. Kay and started on anastrozole with Abemaciclib. She was unable to tolerate the Abemaciclib due to severe changes in her mood and appetite. She reported no quality of life while on the medication. This is subsequently markedly improved after stopping the medication. She underwent radiation therapy at [facility] (Dr. Morris). Her follow-up mammogram on 10/14/2023 revealed improving post therapy changes with no mammographic evidence of malignancy (BI-RADS 2). Follow-up mammogram is scheduled for 10/17/2024. She reports some burning sensation in the medial upper portion of the chest wall but denies any skin changes or palpable mass. [facility] Medical History Parastomal hernia HTN (hypertension) Hx of breast cancer (~2021) Mild acid reflux Arthralgia Ambulates with cane Perforated diverticulum Colostomy in place Intra-abdominal abscess Perforation of sigmoid colon due to diverticulitis COVID-19 vaccine series completed Family history of anesthesia complication Arthritis Elevated cholesterol LBBB (left bundle branch block) Surgical History History of hernia repair (~07/28/23) S/P laparotomy History of sigmoidoscopy (10/15/22) History of lumpectomy of right breast (10/02/21) History of tonsillectomy and adenoidectomy History of bilateral breast biopsy History of hysterectomy Family History Mother Melanoma Maternal Aunt Vocal cord cancer Maternal Aunt Uterine cancer Maternal Aunt Comer Syndrome Social History Household Members: None Housing: House Are you a primary senior resident care director to a significant other at home: No Do you presently have visiting nurse or other home services: No Unable to assess alcohol history related to: Unknown Alcohol intake: current Alcohol intake frequency: former alcohol drinker Patient Tobacco Use Status: Former Tobacco user Tobacco use type: Cigarette Years Smoked: 5 e-Cigarette/Vaping Use: Never Used Second Hand Smoke Exposure: No Advance Directives Date on File: 09/30/21 service: No Current occupational status: retired Cognitive needs: No Hearing needs: No Vision needs: No Review of Systems Const Denies chills, Denies fever(s), Denies headache(s) and Denies poor appetite ENT Denies dizziness and Denies headache(s) Card Denies chest pain, Denies rapid heart rate, Denies palpitations and Denies slow heart rate Resp Denies chest congestion, Denies cough and Denies pain on inspiration GI Denies abdominal pain Denies nipple discharge Musc Denies back pain, Denies arthralgias, Denies joint swelling and Denies numbness Skin/Breast Reports breast skin changes, Reports breast pain, Denies breast mass, Denies change in pigmentation, Denies nipple discharge, Denies erythema and Denies rash Neuro Denies dizziness, Denies headache(s) and Denies numbness Psych Denies anxiety and Denies depression Endo Denies palpitations Titus/Lymph Denies easy bleeding, Denies easy bruising and Denies lymphadenopathy Physical Exam Const General: comfortable and no acute distress Nutritional Appearance: well nourished Orientation/consciousness: patient oriented x3 Limitations: ambulation with cane HEENT Head: Yes normocephalic and Yes atraumatic Chest Other: Left breast: No skin change, no nipple retraction, no nipple discharge, no palpable mass, no enlarged lymph nodes. Right breast: No skin change, no nipple retraction, no nipple discharge, no palpable mass, no enlarged lymph nodes, well-healed incision in upper outer quadrant and axilla. Evidence of radiation change to the tissue however no skin changes appreciated. Resp Effort & Inspection: normal respiratory effort Back/Spine/Pelvis Other: Radiation change noted in right upper back with no ulceration or skin lesion. Skin Other: Warm, dry, no rash Neuro Other: Mobility Assessment: 1. 3 meter assessment time (seconds) 5 2. Gait observations: Normal balance and gait General: patient oriented x3 Extrem Other: No edema General: Yes no clubbing, cyanosis or edema Assessment & Plan Assessment & Plan (1) Invasive ductal carcinoma of right breast: Code(s): C50.911 - Malignant neoplasm of unspecified site of right female breast Category: Medical (2) Ductal carcinoma in situ of right breast: Code(s): D05.11 - Intraductal carcinoma in situ of right breast Category: Medical Plan Patient returns following right breast lumpectomy with needle localization, right axillary sentinel node biopsy. Pathology reveals negative margins however DCIS is focally within 2 mm. In addition 2/7 sentinel lymph nodes revealed metastatic disease. She has been evaluated both by Dr. Kay and [facility]. She completed radiation therapy and tolerated this fairly well. She did have some skin burn in the supraclavicular region. This is now much improved. She continues on anastrozole 1 mg p.o. daily is tolerating this well. Her most recent mammogram of 10/14/2023 revealed improving post therapy changes and no mammographic specific evidence of malignancy (BI-RADS 2). Follow-up mammogram is scheduled for 10/18/2023. She will follow-up after the mammogram review the results and follow-up examination. Coding Level of Care Code Est Pt Level 3 (58181) Complex EM visit Add On G2211 Diagnoses Invasive ductal carcinoma of right breast C50.911 Ductal carcinoma in situ of right breast D05.11
[2024-04-26 12:57] VITALS: BP 150/73; PULSE 86; BMI 36.4
== END 2024-04-26 13:11 | disposition home or self-care (01) ==
PROVIDERS: PCP Nurse Practitioner Family; Visit Provider Surgery
DX: C50.911 Malignant neoplasm of unspecified site of right female breast (principal)
CPT/HCPCS: 99213; G2211

== ENCOUNTER → 2024-04-26 12:47 | Outpatient (BNVA) | payer MEDICARE, SELFPAY | PROVIDERS: PCP Nurse Practitioner Family; Visit Provider Surgery | DX: C50.911 Malignant neoplasm of unspecified site of right female breast (principal); N64.4 Mastodynia | CPT/HCPCS: 99212 ==

== ENCOUNTER 2024-08-11 11:22 | Outpatient (AMB) | payer MEDICARE, SELFPAY ==
[2024-08-11 11:25] VITALS: BP 130/70; PULSE 87; O2SAT 96; BMI 36.9
--- NOTE | 2024-08-11 11:25 | MHC.PC.OV ---
Vital Signs 08/11/24 11:25 Height 5 ft 5 in Weight 222 lb BMI 36.9 BP 130/70 Blood Pressure Location Lt brachial Position Sitting Pulse 87 Pulse Source Pulse Oximeter Pulse Oximetry (%) 96 Oxygen Delivery Method Room Air Intake Visit Reasons: 6 months follow up - see comments Junior Web Developer Required: No Accompanied by: Self / Same As Patient Allergies amoxicillin [AMOXICILLIN] Allergy (Intermediate, Verified 08/11/24 11:26) flushing/swelling/rash Tobacco use date assessed: 08/11/24 Fall risk assessment: No Falls in past year Last assessed Fall Risk: 08/11/24 Dental Screening Dental Screen Date: 08/11/24 Did you have a dental visit in the last 12 months?: Yes Did you have a dental problem in the last 6 months where you did not have access to dental care?: No Was dental information given to patient?: Patient has dentist HPI 6 months follow up - see comments HPI Details Chief Complaint Patient here for a six-month follow-up visit. History of Present Illness The patient is a 68-year-old female presenting for a routine six-month follow-up examination. She has a history of breast carcinoma and is on hormone therapy, receiving ongoing oncology care. In addition to her carcinomatous history, the patient has a colostomy which remains active and without complications. Due to gait instability, a cane is utilized consistently. She denies any recent fevers, chills, chest pains, or abdominal pain. Her blood pressure is stable, and she is vigilant about home monitoring for significant changes. 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 - Regular laboratory monitoring with oncology. - Blood pressure is stable and monitored at home. - Colon screening is current. Review of Systems - General: Denies recent fevers or chills - Cardiovascular: Denies chest pains - Respiratory: Denies shortness of breath - Gastrointestinal: Denies abdominal pain Physical Exam General: Cooperative, healthy appearing, comfortable, no acute distress and well developed, obese Orientation: Patient oriented x3 Limitations: Uses a cane for some instability Head: Normal to inspection Ears: Hearing grossly normal bilaterally Nose: Normal external nose present Face and sinus: Normal facial exam Eyes: Appearance normal, both eyes and all related structures Neck: Normal visual inspection and Yes full ROM Respiratory: Normal respiratory effort and able to speak in complete sentences. Clear to auscultation bilaterally Cardiovascular: Regular rate and rhythm. Normal S1 and S2 GI: Colostomy present, active. Skin: No rashes or lesions noted Neuro: Patient oriented x3 Extremities: Normal to inspection Results Plan The patient will maintain current management strategies, including continued hormone therapy and oncology consultations for breast carcinoma. The colostomy care seems effective as the patient reports no issues. She should continue using the cane for stability. Blood pressure is to be monitored at home, with patient awareness of the parameters for which she should contact me. Additionally, the patient will undergo further diagnostic evaluations, including a lipid panel, CMP, and vitamin D measurement. Discussion Notes I discussed the patient's stable condition during the visit. For her previous breast carcinoma, we agreed on continuing hormone therapy along with the scheduled oncology visits. The colostomy appears well-managed, and ongoing care should thus continue as it currently is. Using a cane is vital for her mobility due to the instability. I emphasized the importance of blood pressure monitoring at home and instructed her on levels warranting further contact. Additional labs were discussed and planned to evaluate overall health status. We agreed to follow up routinely to reassess her management and monitor her health status. Patient Instructions - Continue using the cane for stability. - Monitor blood pressure at home and report any significant increases. - Follow up with scheduled oncology visits. - Maintain current colostomy care. - Get labs as discussed: lipid panel, CMP, vitamin D. - Return for regular follow-up appointments. [facility] Medical History (Updated 08/11/24 @ 12:03 by FELICITY Salas-DANIEL) Parastomal hernia HTN (hypertension) Hx of breast cancer (~2021) Mild acid reflux Arthralgia Ambulates with cane Perforated diverticulum Colostomy in place Intra-abdominal abscess Perforation of sigmoid colon due to diverticulitis COVID-19 vaccine series completed Family history of anesthesia complication Arthritis Elevated cholesterol LBBB (left bundle branch block) Surgical History History of hernia repair (~07/28/23) S/P laparotomy History of sigmoidoscopy (10/15/22) History of lumpectomy of right breast (10/02/21) History of tonsillectomy and adenoidectomy History of bilateral breast biopsy History of hysterectomy Family History Mother Melanoma Maternal Aunt Vocal cord cancer Maternal Aunt Uterine cancer Maternal Aunt Comer Syndrome Social History Household Members: None Housing: House Are you a primary patient care representative to a significant other at home: No Do you presently have visiting nurse or other home services: No Unable to assess alcohol history related to: Unknown Alcohol intake: current Alcohol intake frequency: former alcohol drinker Patient Tobacco Use Status: Former Tobacco user Tobacco use type: Cigarette Years Smoked: 5 e-Cigarette/Vaping Use: Never Used Second Hand Smoke Exposure: No Advance Directives Date on File: 09/30/21 service: No Current occupational status: retired Cognitive needs: No Hearing needs: No Vision needs: No Questionnaire PHQ-9 Over the last 2 weeks, how often have you been bothered by any of the following problems? 1. Little interest or pleasure in doing things: several days 2. Feeling down, depressed, or hopeless: several days 3. Trouble falling or staying asleep, or sleeping too much: several days 4. Feeling tired or having little energy: several days 5. Poor appetite or overeating: several days 6. Feeling bad about yourself - or that you are a failure or have let yourself or your family down: not at all 7. Trouble concentrating on things, such as reading the newspaper or watching television: several days 8. Moving or speaking so slowly that other people could have noticed. Or the opposite - being so fidgety or restless that you have been moving around a lot more than usual: not at all 9. Thoughts that you would be better off or of hurting yourself in some way: not at all Total score: 6 Depression Screening Interpretation: Negative Depression Screening Done: Yes 94568 - PHQ-9 Billing: Yes Source: Developed by Drs. Swapnil Peraza, Haylee Hughes, Raul Benitez and colleagues, with an educational nichelle from [employer]. Thrive Questionnaire Date Thrive assessed: 08/11/24 I am a: Patient What is your living situation today?: I have a steady place to live Within the past 12 months, did the food you bought not last and you didn't have the money to get more?: Never true Within the past 12 months, did you worry whether your food would run out before you got money to buy more?: Never true Do you have trouble paying for medicines?: No Do you have trouble getting transportation to medical appointments?: No Do you have trouble paying your heating and electricity bill?: No Do you have trouble taking care of your child, family member or friend?: No Do you have trouble with day-to-day activities such as bathing, preparing meals, shopping, managing finances, etc.?: No Are you currently unemployed and looking for a job?: No Are you interested in more education?: No Please select the resources that you would like help with: None Currently or been in a relationship where the following occur: No concerns reported THRIVE Score: 0 AUDIT C Alcohol Use Questionnaire (AUDIT-C) 1. How often do you have a drink containing alcohol?: Monthly or less 2. How many drinks containing alcohol do you have on a typical day when you are drinking?: 1 or 2 3. How often do you have six or more drinks on one occasion?: Never Total Score: 1 Score Reviewed/Action Taken: Yes KAYODE-7 AMB Questionnaire KAYODE-7 Date KAYODE - 7 assessed: 08/11/24 Feeling nervous, anxious, or on edge: 1 = Several days Not being able to stop or control worryin = Several days Worrying too much about different things: 1 = Several days Trouble relaxin = Not at all Being so restless that it is hard to sit still: 0 = Not at all Becoming easily annoyed or irritable: 1 = Several days Feeling afraid as if something awful might happen: 1 = Several days Total KAYODE-7 score (0-4 normal; 5-9 mild; 10-14 moderate; 15-21 severe): 5 Source: Developed by Drs. Swapnil Peraza, Haylee Hughes, Raul Benitez and colleagues, with an educational nichelle from [employer]. KAYODE-7 Assessment Billing KAYODE-7 Assessment Tool: KAYODE-7 Assessment 34820 Physical exam (Primary Care) Vital Signs: Last Vital Signs Pulse 87 08/11/24 11:25 BP 130/70 08/11/24 11:25 Pulse Ox 96 05/08/25 11:25 Oxygen Delivery Method Room Air 08/11/24 11:25 BMI result Body Mass Index 36.9 Tobacco/Smoking Status: Tobacco use Status Tobacco use date assessed 08/11/24 08/11/24 11:27 Patient Tobacco Use Status Former Tobacco user 08/11/24 11:27 Tobacco use type Cigarette 08/11/24 11:27 e-Cigarette/Vaping Use Never Used 08/11/24 11:27 PHQ-9: PHQ-9 Score PHQ-9: Total score 6 08/11/24 11:27 Depression Screening Interpretation: Negative Thrive Assessment: Date of Thrive Assessment Date Thrive assessed 08/11/24 08/11/24 11:27 Currently or been in a relationship where the following occur: No concerns reported Coding Level of Care Code Est Pt Level 3 (98870) Diagnoses HTN (hypertension) I10 Dyslipidemia E78.5 Vitamin D deficiency E55.9 Additional Codes KAYODE-7 Assessment Billing - KAYODE-7 Assessment Tool: KAYODE-7 Assessment 50558 ([id number]) PHQ-9 - 58898 - PHQ-9 Billing: Yes ([id number]) Assessment & Plan Assessment & Plan (1) HTN (hypertension): Code(s): I10 - Essential (primary) hypertension Category: Medical (2) Dyslipidemia: Code(s): E78.5 - Hyperlipidemia, unspecified Category: Medical (3) Vitamin D deficiency: Code(s): E55.9 - Vitamin D deficiency, unspecified Category: Medical Plan . Orders: Orders Comprehensive [place]. Panel Fast Today E78.5 - Hyperlipidemia, unspecified UA CC w/rflx Micro + Cult Today E78.5 - Hyperlipidemia, unspecified Vitamin D 25-OH Total Today E55.9 - Vitamin D deficiency, unspecified Lipid Panel Today E78.5 - Hyperlipidemia, unspecified TSH reflex Free T4 Today E78.5 - Hyperlipidemia, unspecified
== END 2024-08-11 12:05 | disposition home or self-care (01) ==
LOC: HO.HMCC 11:23
PROVIDERS: PCP Nurse Practitioner Family; Visit Provider Nurse Practitioner Family
DX: I10 Essential (primary) hypertension (principal); E78.5 Hyperlipidemia, unspecified; E55.9 Vitamin D deficiency, unspecified

== ENCOUNTER → 2024-08-11 11:22 | Outpatient (BNVA) | payer MEDICARE, SELFPAY | PROVIDERS: PCP Nurse Practitioner Family; Visit Provider Nurse Practitioner Family | DX: I10 Essential (primary) hypertension (principal); R26.89 Other abnormalities of gait and mobility; E78.5 Hyperlipidemia, unspecified; E55.9 Vitamin D deficiency, unspecified | CPT/HCPCS: 96127; 99212 ==

== ENCOUNTER 2024-09-16 07:00 | Outpatient (REF) | payer MEDICARE, SELFPAY ==
[2024-09-16 10:52] LABS: Appearance Urine Clear; Color Urine Yellow; Glucose Urine UA Negative (Negative); Leukocyte Esterase Urine Trace (Negative); Nitrite Urine Negative (Negative); PH 6.5 (5.0-9.0); Specific Gravity - Urine 1.015 (1.005-1.025); UMIC TRIGGER UACC YES; Urine Blood Negative (Negative); Urine Ketones Negative (Negative); Urine Protein Negative (Neg-Trace)
[2024-09-16 10:59] LABS: Bacteria Urine None Seen (None Seen); Hyaline Casts Urine 0-2 /LPF (0-2); RBC Urine 0-2 /HPF (0-2); Squamous Epithelial Cell Urine 0-2 /HPF (0-2); WBC Urine 0-5 /HPF (0-5)
[2024-09-16 11:16] LABS: Alanine Aminotransferase 20 U/L (0-31); Albumin Level 4.6 g/dL (3.5-5.0); Alkaline Phosphatase 67 U/L (39-117); Anion Gap 12 (12-20); Aspartate Amino Transferase 32 U/L (5-31); Bilirubin Total 0.3 mg/dL (0.0-1.0); Blood Urea Nitrogen 18 mg/dL (9-16); Carbon Dioxide 30 mmol/L (22-29); Chloride 103 mmol/L (96-108); Cholesterol 177 mg/dL (<200); Estimated Glomerular Filt Rate > 60; Glucose Fasting 95 mg/dL (60-99); HDL Cholesterol 58 mg/dL (>40); LDL Cholesterol Calculated 81 mg/dL (<100); Potassium 4.4 mmol/L (3.3-5.1); Sodium 141 mmol/L (135-145); Total Protein 7.2 g/dL (6.5-8.0); Triglycerides 193 mg/dL (<150)
[2024-09-16 11:19] LABS: TSH reflex Free T4 5.13 uIU/mL (0.32-4.0); Vitamin D 25-OH Total 80.7 ng/mL (>30)
[2024-09-16 12:01] LABS: Free T4 (Free Thyroxine) 0.83 ng/dL (0.71-1.85)
== END 2024-09-16 07:01 | disposition home or self-care (01) ==
LOC: HO.HMGCLDS 07:00
PROVIDERS: PCP Nurse Practitioner Family; Visit Provider Nurse Practitioner Family
DX: E78.5 Hyperlipidemia, unspecified (principal); E55.9 Vitamin D deficiency, unspecified
CPT/HCPCS: 36415; 80053; 80061; 81001; 82306; 84439; 84443

== ENCOUNTER 2024-09-19 10:44 | Outpatient (AMB) | payer MEDICARE, SELFPAY ==
--- NOTE | 2024-09-19 10:47 | A.OFFVIS_ITS ---
Vital Signs 09/19/24 10:54 Height 5 ft 5 in Weight 221 lb BMI 36.8 BP 137/79 Blood Pressure Location Rt brachial Position Sitting Pulse 87 Intake Visit Reasons: 6 month follow-up s/p parastomal hernia Intake Note: Patient here 6m s/p open repair of a parastomal hernia. Patient c/o: there is a little prolapse. Denies pain, burning, bleeding. Surgery: 07-28-2023 Accompanied by: Self / Same As Patient Allergies amoxicillin [AMOXICILLIN] Allergy (Intermediate, Verified 09/19/24 10:53) flushing/swelling/rash Medication List - Last Reconciled 09/19/24 by Gagan Snell MD acetaminophen 1,000 mg PO QID PRN calcium carbonate 1,500 mg PO DAILY PRN cetirizine 10 mg PO DAILY PRN cholecalciferol (vitamin D3) (Vitamin D3) 50 mcg PO DAILY coenzyme Q10 200 mg PO DAILY [colostomy bags Coloplast #[id number] As directed] docusate sodium (Colace) 200 mg PO BID PRN famotidine 10 mg PO DAILY PRN fluticasone propionate 50 mcg/actuation 1 spray intranasal Q12H PRN gabapentin 100 mg PO Q12H letrozole 2.5 mg PO DAILY magnesium 400 mg PO DAILY [Metamucil 1 tbspn PO DAILY] metoprolol succinate ER 12.5 mg (1/2 x 25 mg) PO DAILY pu-glm-wnjae-calcium carb-K1 400 mcg-500 mg calcium-20 mcg 1 tab PO DAILY naproxen sodium (Aleve) 220 mg PO Q12H PRN rosuvastatin 20 mg PO BEDTIME 90 days trazodone 100 mg PO BEDTIME PRN 90 days venlafaxine ER 37.5 mg PO DAILY vit A,C and D-pqdpps-udbkcfys 300 mcg-200 mg-27 mg-2 mg (Ocuvite with Lutein) 1 tab PO DAILY HPI HPI 6 month follow-up s/p parastomal hernia: Details: She is here for follow-up for her end colostomy with a parastomal hernia. She says that she has been doing well with regards to this. She says she has had no problems with her colostomy. She says she denies any pain with her stoma. She has had stoma function. She is not on Linzess and says that she has had good control of her chronic constipation. She does complain of arthralgias. [facility] Medical History Parastomal hernia HTN (hypertension) Hx of breast cancer (~2021) Mild acid reflux Arthralgia Ambulates with cane Perforated diverticulum Colostomy in place Intra-abdominal abscess Perforation of sigmoid colon due to diverticulitis COVID-19 vaccine series completed Family history of anesthesia complication Arthritis Elevated cholesterol LBBB (left bundle branch block) Surgical History History of hernia repair (~07/28/23) S/P laparotomy History of sigmoidoscopy (10/15/22) History of lumpectomy of right breast (10/02/21) History of tonsillectomy and adenoidectomy History of bilateral breast biopsy History of hysterectomy Family History Mother Melanoma Maternal Aunt Vocal cord cancer Maternal Aunt Uterine cancer Maternal Aunt Comer Syndrome Social History Household Members: None Housing: House Are you a primary manager critical care to a significant other at home: No Do you presently have visiting nurse or other home services: No Unable to assess alcohol history related to: Unknown Alcohol intake: current Alcohol intake frequency: former alcohol drinker Patient Tobacco Use Status: Former Tobacco user Tobacco use type: Cigarette Years Smoked: 5 e-Cigarette/Vaping Use: Never Used Second Hand Smoke Exposure: No Advance Directives Date on File: 09/30/21 service: No Current occupational status: retired Cognitive needs: No Hearing needs: No Vision needs: No Review of Systems Const Denies chills and Denies fever(s) Card Denies chest pain and Denies dyspnea Resp Denies dyspnea GI Denies abdominal pain Musc Reports abnormal gait and Reports arthralgias Neuro Reports abnormal gait Physical Exam Vital Signs: Last Vital Signs Pulse 87 09/19/24 10:54 BP 137/79 09/19/24 10:54 BMI result Body Mass Index 36.8 Const General: comfortable and no acute distress Nutritional Appearance: obese Resp Effort & Inspection: normal respiratory effort Cardio Rate: regular rate GI Other: Colostomy functioning well, parastomal hernia reducible, nontender Palpation (GI): Soft to palpation, not firm, nontender and no guarding Assessment & Plan Assessment & Plan (1) Parastomal hernia: Code(s): K43.5 - Parastomal hernia without obstruction or gangrene Category: Medical Plan: She says she is doing well with regards to her parastomal hernia. Her colostomy has been functioning well. She has a long history of chronic constipation but she says that this has been controlled so far. She denies any symptoms with a parastomal hernia I can see her in the office in 6 months for another follow-up. She is also being followed closely by Dr. Tobin for her history of breast cancer Medications: New gabapentin 100 mg PO Q12H 60 caps 0RF Coding Level of Care Code Est Pt Level 3 (04931) Diagnoses Parastomal hernia K43.5
[2024-09-19 10:54] VITALS: BP 137/79; PULSE 87; BMI 36.8
--- OUTSIDE RECORDS SUMMARY | 2024-09-19 12:04 | XMS_ITS | Encounter Summary ---
Author Organization [facility] Address [address] [place] [id number] Care Team Providers Care Lpn Rn Name Role Phone Name, Kapil YIN Primary Care Provider Unavailabl e Encounter Details Date Type Department Care Team Description 10/20/2014 Release of Information Medical Records [address] [place] [id number] Abstract, Provider Social History Tobacco Use Types Packs/Day Years Used Date Smoking Tobacco: Former Cigarettes 0.5 4 S tarted: 04/06/1980 Comments:quit in 1980 Alcohol Use Standard Drinks/Week Comments Yes 0 (1 standard drink = 0.6 oz pur e alcohol) occasional glass of wine Sex Assigned at Date Recorded Not on file documented as of this encounter Plan of Treatment Not on file documented as of this encounter Visit Diagnoses Not on filedocumented in this encounter Care Teams Lpn Rn Relationship Specialty Start Date End Date Name, MD Kapil PCP - General Internal Medicine 10/18/14 documented as of this encounter
== END 2024-09-19 11:05 | disposition home or self-care (01) ==
LOC: HO.HGS 10:44
PROVIDERS: PCP Nurse Practitioner Family; Visit Provider Surgery
DX: K43.5 Parastomal hernia without obstruction or gangrene (principal)
CPT/HCPCS: 99213

== ENCOUNTER → 2024-09-19 10:44 | Outpatient (BNVA) | payer MEDICARE, SELFPAY | PROVIDERS: PCP Nurse Practitioner Family; Visit Provider Surgery | DX: K43.5 Parastomal hernia without obstruction or gangrene (principal) | CPT/HCPCS: 99212 ==

== ENCOUNTER 2024-10-17 08:44 | Outpatient (REF) | payer MEDICARE, SELFPAY ==
--- NOTE | ~2024-10-17 | MM_ITS ---
EXAMINATION: MM DIAGNOSTIC DIGITAL BREAST TOMOSYNTHESIS, BILATERAL CLINICAL INFORMATION: History of right breast cancer in 2021 status post lumpectomy. COMPARISON: Mammography: Comparison is made with relevant prior exams. TECHNIQUE: Digital breast mammography with tomosynthesis is performed in both the craniocaudal and mediolateral oblique views along with computer-aided detection (CAD). FINDINGS: There are scattered areas of fibroglandular density (ACR BI-RADS breast composition Category b). Right post lumpectomy changes are stable. There are no significant masses, abnormal calcifications, or other abnormalities. Results are provided to the patient at time of visit by the technologist. MM/MM tomosynthesis diagnostic BI IMPRESSION: There are no significant changes from prior study. ASSESSMENT: BI-RADS BI-RADS 2 - Benign Findings RECOMMENDATION: 1 year F/U This patient's information was entered into a reminder system with a target due date for their next mammogram. Electronically signed by: Peggy Porter DO 10/17/2024 09:21 AM EDT
== END 2024-10-17 08:45 | disposition home or self-care (01) ==
LOC: HO.MAMMO 08:44
PROVIDERS: PCP Nurse Practitioner Family; Visit Provider Surgery
DX: Z85.3 Personal history of malignant neoplasm of breast (principal)
CPT/HCPCS: 77062; 77066

== ENCOUNTER → 2024-10-17 09:00 | Outpatient (BNV) | payer MEDICARE, SELFPAY | PROVIDERS: PCP Nurse Practitioner Family; Visit Provider Internal Medicine | DX: Z85.3 Personal history of malignant neoplasm of breast (principal) | CPT/HCPCS: 77066; G0279 ==

== ENCOUNTER 2024-10-25 12:43 | Outpatient (AMB) | payer MEDICARE, SELFPAY ==
--- NOTE | 2024-10-25 12:57 | MHC.OFFVIS ---
Vital Signs 10/25/24 13:03 Height 5 ft 5 in Weight 222 lb BMI 36.9 BP 132/74 Blood Pressure Location Lt brachial Position Sitting Pulse 97 Intake Visit Reasons: 6 month follow up breast/mammo results Intake Note: Patient is seen in office for 6 month follow up visit, breast exam. Pt c/o: denies any concerns regarding the breast mm:10/17/24 Geotechnical Laboratory Technician Required: No Flattening Press Operator: Flattening Press Operator Present Accompanied by: Self / Same As Patient Allergies amoxicillin (AMOXICILLIN) Allergy (Intermediate, Verified 10/25/24 13:03) flushing/swelling/rash Medication List - Last Reconciled 10/25/24 by Candido Tobin MD acetaminophen 1,000 mg PO QID PRN calcium carbonate 1,500 mg PO DAILY PRN cetirizine 10 mg PO DAILY PRN cholecalciferol (vitamin D3) (Vitamin D3) 50 mcg PO DAILY coenzyme Q10 200 mg PO DAILY [colostomy bags Coloplast #[id number] As directed] docusate sodium (Colace) 200 mg PO BID PRN famotidine 10 mg PO DAILY PRN fluticasone propionate 50 mcg/actuation 1 spray intranasal Q12H PRN gabapentin 100 mg PO Q12H letrozole 2.5 mg PO DAILY levothyroxine (Levoxyl) 25 mcg PO DAILY magnesium 400 mg PO DAILY [Metamucil 1 tbspn PO DAILY] metoprolol succinate ER 12.5 mg (1/2 x 25 mg) PO DAILY xc-lnc-vvfxy-calcium carb-K1 400 mcg-500 mg calcium-20 mcg 1 tab PO DAILY naproxen sodium (Aleve) 220 mg PO Q12H PRN rosuvastatin 20 mg PO BEDTIME 90 days trazodone 100 mg PO BEDTIME PRN 90 days venlafaxine ER 37.5 mg PO DAILY vit A,C and F-mdjhbb-lnacnrbl 300 mcg-200 mg-27 mg-2 mg (Ocuvite with Lutein) 1 tab PO DAILY HPI Comments Details: 69-year-old female patient returning for breast cancer follow-up examination. She was diagnosed with a right breast invasive ductal carcinoma, grade 3, with DCIS high-grade, cribriform type with comedonecrosis and microcalcifications. Lymphovascular invasion was not identified. ER/PA positive, HER2 Mesfin negative, Ki-67 expression high. She underwent a right breast lumpectomy with needle localization and right axillary sentinel node biopsy on 10/02/2021. Pathology confirmed invasive ductal carcinoma with DCIS, lymphovascular invasion identified, 2 of 7 sentinel lymph nodes were positive for metastatic disease (pT2 N1a). She was evaluated by Dr. Kay and started on anastrozole with Abemaciclib. She was unable to tolerate the Abemaciclib due to severe changes in her mood and appetite. She reported no quality of life while on the medication. This is subsequently markedly improved after stopping the medication. She underwent radiation therapy at [facility] (Dr. Morris). Her follow-up mammogram on 10/17/2024 revealed no significant change from the prior mammogram with no suspicious findings (BI-RADS 2). Routine mammogram in 1 year is recommended. She feels well and denies any ongoing breast symptoms. [facility] Medical History Parastomal hernia HTN (hypertension) Hx of breast cancer (~2021) Mild acid reflux Arthralgia Ambulates with cane Perforated diverticulum Colostomy in place Intra-abdominal abscess Perforation of sigmoid colon due to diverticulitis COVID-19 vaccine series completed Family history of anesthesia complication Arthritis Elevated cholesterol LBBB (left bundle branch block) Surgical History History of hernia repair (~07/28/23) S/P laparotomy History of sigmoidoscopy (10/15/22) History of lumpectomy of right breast (10/02/21) History of tonsillectomy and adenoidectomy History of bilateral breast biopsy History of hysterectomy Family History Mother Melanoma Maternal Aunt Vocal cord cancer Maternal Aunt Uterine cancer Maternal Aunt Comer Syndrome Social History Household Members: None Housing: House Are you a primary manager care management to a significant other at home: No Do you presently have visiting nurse or other home services: No Unable to assess alcohol history related to: Unknown Alcohol intake: current Alcohol intake frequency: former alcohol drinker Patient Tobacco Use Status: Former Tobacco user Tobacco use type: Cigarette Years Smoked: 5 e-Cigarette/Vaping Use: Never Used Second Hand Smoke Exposure: No Advance Directives Date on File: 09/30/21 service: No Current occupational status: retired Cognitive needs: No Hearing needs: No Vision needs: No Review of Systems Const All systems reviewed & are unremarkable except as noted in HPI and below Physical Exam Vital Signs: Last Vital Signs Pulse 97 10/25/24 13:03 BP 132/74 10/25/24 13:03 BMI result Body Mass Index 36.9 Const General: comfortable and no acute distress Nutritional Appearance: well nourished Orientation/consciousness: patient oriented x3 Limitations: ambulation with cane HEENT Head: Yes normocephalic and Yes atraumatic Chest Other: Left breast: No skin change, no nipple retraction, no nipple discharge, no palpable mass, no enlarged lymph nodes. Right breast: No skin change, no nipple retraction, no nipple discharge, no palpable mass, no enlarged lymph nodes, well-healed incision in upper outer quadrant and axilla. Evidence of radiation change to the tissue however no skin changes appreciated. Resp Effort & Inspection: normal respiratory effort Back/Spine/Pelvis Other: Radiation change noted in right upper back with no ulceration or skin lesion. Skin Other: Warm, dry, no rash Neuro Other: Mobility Assessment: 1. 3 meter assessment time (seconds) 5 2. Gait observations: Normal balance and gait General: patient oriented x3 Extrem Other: No edema General: Yes no clubbing, cyanosis or edema Assessment & Plan Assessment & Plan (1) Invasive ductal carcinoma of right breast: Code(s): C50.911 - Malignant neoplasm of unspecified site of right female breast Category: Medical (2) Ductal carcinoma in situ of right breast: Code(s): D05.11 - Intraductal carcinoma in situ of right breast Category: Medical Plan Patient returns following right breast lumpectomy with needle localization, right axillary sentinel node biopsy. Pathology reveals negative margins however DCIS is focally within 2 mm. In addition 2/7 sentinel lymph nodes revealed metastatic disease. She has been evaluated both by Dr. Kay and [facility]. She completed radiation therapy and tolerated this fairly well. She did have some skin burn in the supraclavicular region. This is now resolved. She continues on letrozole daily is tolerating this well. Her most recent mammogram of 10/17/2024 revealed no significant change from the prior study with no mammographic evidence of malignancy (BI-RADS 2). Follow-up mammogram in 1 year is recommended. I recommended follow-up examination in 6 months, sooner PRN. Coding Level of Care Code Est Pt Level 3 (24758) Complex EM visit Add On G2211 Diagnoses Invasive ductal carcinoma of right breast C50.911 Ductal carcinoma in situ of right breast D05.11
[2024-10-25 13:03] VITALS: BP 132/74; PULSE 97; BMI 36.9
--- OUTSIDE RECORDS SUMMARY | 2024-10-25 13:45 | XMS_ITS | Encounter Summary ---
Author Organization [facility] Address [address] [place] [id number] Care Team Providers Care Educator Senior Clinical Name Role Phone Name, Kapil YIN Primary Care Provider Unavailabl e Encounter Details Date Type Department Care Team Description 10/20/2014 Release of Information Medical Records [address] [place] [id number] Abstract, Provider Social History Tobacco Use Types [...] on filedocumented in this encounter Care Teams Educator Senior Clinical Relationship Specialty Start Date End Date Name, MD Kapil PCP - General Internal Medicine 10/18/14 documented as of this encounter
--- OUTSIDE RECORDS SUMMARY | 2024-10-25 13:45 | XMS_ITS | Clinical Summary ---
Author Organization [facility] Address [address] [place] [id number] Phone Care Team Providers Care Superintendent Horticulture Name Role Phone Margaret Kay MD Unavailable [phone] Candido Clark NP Primary Care Provider + Allergies Active Allergy Reactions Criticality Noted Date Comments Amoxicillin Rash Low 11/29/2021 Medications acetaminophen (TYLENOL) 500 MG tablet Take 500 mg by mouth 2 (two) times a day as needed for pain (specific location in comments). 09/05/19 16 Active calcium carbonate 750 mg (300 mg elemental) Chew Take 750 mg by mouth 2 (two) times a day as needed. 09/05/19 16 Active cholecalciferol (VITAMIN D3) 5,000 unit tablet Take 5,000 Units by mouth daily. 10/04/19 21 Active docusate sodium (COLACE) 100 MG capsule Take 100 mg by mouth daily. 09/05/19 16 Active flaxseed oiL 1,000 mg Cap Take 1,000 mg by mouth daily. 07/12/19 22 Active fluticasone propionate (FLONASE) 50 mcg/actuation nasal spray 1 spray by Nasal route 2 (two) times a day as needed. 09/05/19 16 Active magnesium oxide 500 mg Tab Take 500 mg by mouth daily. 09/05/19 16 Active metoprolol succinate (TOPROL-XL) 25 MG 24 hr tablet Take 12.5 mg by mouth daily. 11/28/19 22 Active multivitamin-min erals-lutein (MULTIVITAMIN 50 PLUS) Tab Take 1 tablet by mouth daily. 09/05/19 Active traZODone (DESYREL) 50 MG tablet Take 50 mg by mouth nightly at bedtime as needed. 11/28/19 22 Active coenzyme Q10 100 mg capsule Take 100 mg by mouth daily. 07/12/19 22 Active vit A-vit C-vit H-zsre-xhxnln 7,160-113-100 gtce-bd-yaqp Tab Take 1 tablet by mouth daily. 09/05/19 Active rosuvastatin (CRESTOR) 20 MG tablet Take 20 mg by mouth daily. Active silver sulfADIAZINE (SILVADENE) 1 % cream [The details of the medication are not available because there are pending changes by a home health clinician.] 400 g 1 01/15/20 22 Active Additional Information Patient not taking.Reason: Patient Declined, Informant: Self, Reported on 10/28/2022 famotidine (PEPCID) 10 MG tablet Take 10 mg by mouth daily. 10/29/19 Active levocetirizine (XYZAL) 5 MG tablet Take 5 mg by mouth every evening. 10/29/19 Active anastrozole (ARIMIDEX) 1 mg tablet Take 1 mg by mouth daily. 10/29/19 23 Active ondansetron (ZOFRAN) 4 MG tablet Take 4 mg by mouth every 6 (six) hours as needed for nausea. 10/29/19 Active linaCLOtide (LINZESS) 72 mcg capsule Take 72 mcg by mouth daily. 11/20/19 Active atorvastatin (LIPITOR) 40 MG tablet Take 40 mg by mouth daily. 10/05/19 023 Discontin ued(No longer taking) Active Problems Problem Noted Date Diagnosed Date Malignant neoplasm of overla pping sites of right breast in female, estrogen receptor positive 11/05/2021 Family History Medical History Relation Comments Cancer Mother Relation Status Comments Mother Social History Tobacco Use Types Packs/Day Years Used Date Smoking Tobacco: Former Cigarettes 0.3 5 Smokeless Tobacco: Former Quit: 1980 Alcohol Use Standard Drinks/Week Comments Not Currently 0 (1 standard drink = 0.6 oz pur e alcohol) 1 drink a month at [facility] Assessment: Transportation Answer Date Recorded Lack of Transportation (Medical) No 12/05/2022 Lack of Transportation (Non-Medical) No 12/05/2022 Patient Unable or Declines to Respond No 12/05/2022 Education Answer Date Recorded Are you interested in more education? Not on daphney e 08/02/2022 Are you concerned about learning? Not on file 08/02/2022 No 08/02/2022 No 08/02/2022 Digital Access Answer Date Recorded No 08/31/2022 No 08/31/2022 No 08/31/2022 Reliable internet access at home? Not on file 08/31/2022 Device with a working camera? Not on file Comments Unknown Sex and Gender Information Value Date Recorded Sex Assigned at Not on file Legal Sex Female 8:58 AM EDT Gender Identity Not on file Sexual Orientation Not on file Last Filed Vital Signs Vital Sign Reading Time Taken Comments Blood Pressure 118/70 12/05/2022 9:48 AM EDT Pulse 56 12/05/2022 9:48 AM EDT Temperature 36.3 C (97.3 F) 11/27/2022 1:25 PM EDT Respiratory Rate 16 12/05/2022 9:48 AM EDT Oxygen Saturation 98% 12/05/2022 9:48 AM EDT Inhaled Oxygen Concentration - - Weight 84.8 kg (187 lb) 11/27/2022 1:25 PM EDT Height 165.1 cm (5' 5 ) 11/29/2021 1:05 PM EDT Body Mass Index 31.12 11/29/2021 1:05 PM EDT Plan of Treatment Health Maintenance Due Date Last Done Comments LIPID PANEL 1953 DEPRESSION SCREENING 1965 SMOKING Hx and SMOKELESS TOBACCO SCREENING 1966 HEPATITIS C SCREENING 09/14/1971 COLOGUARD 1998 COLONOSCOPY 1998 COLORECTAL CANCER SCREENING 1998 FIT TEST 1998 FOBT 1998 SIGMOIDOSCOPY 1998 VIRTUAL COLONOSCOPY 1998 ZOSTER VACCINES (1 of 2) 03/28/2016 02/01/2016 OSTEOPOROSIS SCREENING INITIAL (ONE-TIME) 2018 PNEUMOCOCCAL VACCINES (50+ years) (2 of 2 - PCV) 03/24/2020 03/24/2019 MAMMOGRAM 10/03/2023 10/02/2021, 09/04, 09/18/2021, Additional history exists COVID-19 VACCINE ( season) 2023 06/23/2020 Adult Td,Tdap Booster 10/18/2024 10/18/2014 RSV VACCINE (1 - 1-dose 75+ series) 2028 HEPATITIS A VACCINES Aged Out No long er eligible based on patient's age to complete this topic HIB VACCINES Aged Out No longer eligi ble based on patient's age to complete this topic MENINGOCOCCAL VACCINES (ACWY) Aged Out No longer eligible based on patient's age to complete this topic MENINGOCOCCAL VACCINES (B) Aged Out N o longer eligible based on patient's age to complete this topic Medical Devices Not on file Procedures Procedure Name Priority Date/Time Associated Diagnosis Comments BI MAMMOGRAM OUTSIDE (NO INTERPRETATION) Routine 10/02/2021 12:05 AM EDT from Last 3 Months or Most Recently Relevant to Health Maintenance Results * Mammogram Outside (No Interpretation) (10/02/2021 12:05 AM EDT) Other Narrative PER[facility] - 10/25/2021 10:22 AM EDT This study is for PACS storage only and not for interpretation. us Dina Ball MD IMG OUTSIDE IMAGING W/OUT INTERPRETATION Final Result [facility] from Last 3 Months or Most Recently Relevant to Health Maintenance Insurance [employer] POS PPO REPLACEMENT [employer] PPO REPLACEMENT [employer] PPO REPLACEMENT [employer] [employer] PPO REPLACEMENT [employer] [employer] POS PPO [employer]PLACEMENT [employer] [employer] PPO REPLACEMENT [employer] [place] [employer] POS PPO REPLACEMENT [employer] PPO REPLACEMENT Care Teams Superintendent Horticulture Relationship Specialty Start Date End Date Candido Clark NP [address] [place] [phone] [email or web address] PCP - General Nurse Practitioner 10/27/22 Margaret Kay MD [address] [place] [id number] [email or web address] 10/29/21 Additional Source Comments The information contained in this document represents components of the legal health record. It is not the complete legal health record.[facility]
== END 2024-10-25 13:14 | disposition home or self-care (01) ==
LOC: HO.HGS 12:44
PROVIDERS: PCP Nurse Practitioner Family; Visit Provider Surgery
DX: C50.911 Malignant neoplasm of unspecified site of right female breast (principal)
CPT/HCPCS: 99213; G2211

== ENCOUNTER → 2024-10-25 12:43 | Outpatient (BNVA) | payer MEDICARE, SELFPAY | PROVIDERS: PCP Nurse Practitioner Family; Visit Provider Surgery | DX: Z71.2 Person consulting for explanation of examination or test findings (principal); D05.11 Intraductal carcinoma in situ of right breast | CPT/HCPCS: 99212 ==

== ENCOUNTER 2024-11-03 13:29 | Outpatient (AMB) | payer MEDICARE, SELFPAY ==
[2024-11-03 13:33] VITALS: BP 130/86; PULSE 83; RESP 16; TEMP 36.9; O2SAT 96; BMI 36.8
--- NOTE | 2024-11-03 13:33 | A.OFFPC_ITS ---
Vital Signs 11/03/24 13:33 Height 5 ft 5 in Weight 221 lb BMI 36.8 BP 130/86 Blood Pressure Location Lt brachial Position Sitting Respiration 16 Pulse 83 Pulse Source Pulse Oximeter Temp 98.4 F Temp Source Oral Pulse Oximetry (%) 96 Oxygen Delivery Method Room Air Intake Visit Reasons: pe Commercial Lending Relationship Manager Required: No Accompanied by: Self / Same As Patient Allergies amoxicillin (AMOXICILLIN) Allergy (Intermediate, Verified 11/03/24 14:08) flushing/swelling/rash Medication List - Last Reconciled 11/03/24 by FREDA SalasP- acetaminophen 1,000 mg PO QID PRN calcium carbonate 1,500 mg PO DAILY PRN cetirizine 10 mg PO DAILY PRN cholecalciferol (vitamin D3) (Vitamin D3) 50 mcg PO DAILY coenzyme Q10 200 mg PO DAILY [colostomy bags Coloplast #[id number] As directed] docusate sodium (Colace) 200 mg PO BID PRN famotidine 10 mg PO DAILY PRN fluticasone propionate 50 mcg/actuation 1 spray intranasal Q12H PRN letrozole 2.5 mg PO DAILY magnesium 400 mg PO DAILY [Metamucil 1 tbspn PO DAILY] metoprolol succinate ER 12.5 mg (1/2 x 25 mg) PO DAILY gl-vvp-hciyu-calcium carb-K1 400 mcg-500 mg calcium-20 mcg 1 tab PO DAILY rosuvastatin 20 mg PO BEDTIME 90 days trazodone 100 mg PO BEDTIME PRN 90 days venlafaxine ER 37.5 mg PO DAILY vit A,C and N-gdewgj-idanwvtu 300 mcg-200 mg-27 mg-2 mg (Ocuvite with Lutein) 1 tab PO DAILY Tobacco use date assessed: 11/03/24 Fall risk assessment: No Falls in past year Last assessed Fall Risk: 11/03/24 Dental Screening Dental Screen Date: 11/03/24 Did you have a dental visit in the last 12 months?: Yes Did you have a dental problem in the last 6 months where you did not have access to dental care?: No Was dental information given to patient?: Patient has dentist HPI pe HPI Details History of Present Illness The patient is a 69-year-old female presenting for routine follow-up and management of her chronic conditions. She has a history of breast carcinoma and continues to follow up with hematology and oncology, indicating stable management of her condition. Her mammogram and colon screening are up to date, reflecting adherence to preventative care measures. The patient has a colostomy with a functioning stoma located in the left abdomen, producing soft brown stool. She denies any current abdominal pain or blood in the stool, suggesting stable colostomy function. Previously, she had a slightly elevated TSH and was prescribed 25 mcg of levothyroxine, which she discontinued due to diaphoresis. The plan is to continue monitoring her thyroid function without current medication intervention. Health Maintenance - Mammogram up to date - Colon screening up to date Social History Review of Systems - Cardiovascular: Denies chest pain or d yspnea - Gastrointestinal: Denies abdominal mildred n or blood in stool - Genitourinary: Denies urinary issues - Psychiatric: Denies suicidal or homici campos ideation Physical Exam General: Cooperative, healthy appearing, comfortable, no acute distress, well developed, and obese Orientation: Patient oriented x3 Limitations: No limitations Head: Normal to inspection Ears: Hearing grossly normal bilaterally Nose: Normal external nose present Face and sinus: Normal facial exam Eyes: Appearance normal, both eyes and all related structures Neck: Normal visual inspection and Yes full ROM Respiratory: Normal respiratory effort and able to speak in complete sentences. Clear to auscultation bilaterally Cardiovascular: Regular rate and rhythm. Normal S1 and S2 GI: Colostomy present, functioning, left abdomen, stoma pink, soft brown stool Skin: No rashes Neuro: Patient oriented x3 Extremities: Normal to inspection Results Plan The patient will continue to follow up with hematology and oncology for her history of breast carcinoma, ensuring ongoing monitoring and management. Her mammogram and colon screening are current, and she will maintain these preventative measures. The colostomy is functioning well, and no immediate interventions are required. For her thyroid function, we will continue to monitor her TSH levels, as she experienced adverse effects from levothyroxine. Discussion Notes I discussed with the patient the importance of continuing her follow-up with hematology and oncology for her breast carcinoma history. We reviewed her current mammogram and colon screening status, both of which are up to date. We also talked about her colostomy care, which is functioning well, and the plan to monitor her thyroid function due to previous adverse reactions to levothyroxine. Patient Instructions - Continue follow-up with hematology and oncology for breast cancer history. - Maintain regular mammogram and colon s creenings. - Monitor thyroid function and report an y symptoms. [facility] Medical History Parastomal hernia HTN (hypertension) Hx of breast cancer (~2021) Mild acid reflux Arthralgia Ambulates with cane Perforated diverticulum Colostomy in place Intra-abdominal abscess Perforation of sigmoid colon due to diverticulitis COVID-19 vaccine series completed Family history of anesthesia complication Arthritis Elevated cholesterol LBBB (left bundle branch block) Surgical History History of hernia repair (~07/28/23) S/P laparotomy History of sigmoidoscopy (10/15/22) History of lumpectomy of right breast (10/02/21) History of tonsillectomy and adenoidectomy History of bilateral breast biopsy History of hysterectomy Family History Mother Melanoma Maternal Aunt Vocal cord cancer Maternal Aunt Uterine cancer Maternal Aunt Comer Syndrome Social History Household Members: None Housing: House Are you a primary manager care management to a significant other at home: No Do you presently have visiting nurse or other home services: No Unable to assess alcohol history related to: Unknown Alcohol intake: current Alcohol intake frequency: former alcohol drinker Patient Tobacco Use Status: Former Tobacco user Tobacco use type: Cigarette Years Smoked: 5 e-Cigarette/Vaping Use: Never Used Second Hand Smoke Exposure: No Advance Directives Date on File: 09/30/21 service: No Current occupational status: retired Cognitive needs: No Hearing needs: No Vision needs: No Questionnaire PHQ-9 Over the last 2 weeks, how often have you been bothered by any of the following problems? 1. Little interest or pleasure in doing things: several days 2. Feeling down, depressed, or hopeless: several days 3. Trouble falling or staying asleep, or sleeping too much: several days 4. Feeling tired or having little energy: several days 5. Poor appetite or overeating: several days 6. Feeling bad about yourself - or that you are a failure or have let yourself or your family down: not at all 7. Trouble concentrating on things, such as reading the newspaper or watching television: several days 8. Moving or speaking so slowly that other people could have noticed. Or the opposite - being so fidgety or restless that you have been moving around a lot more than usual: not at all 9. Thoughts that you would be better off or of hurting yourself in some way: not at all Total score: 6 Depression Screening Interpretation: Negative Depression Screening Done: Yes 86144 - PHQ-9 Billing: Yes Source: Developed by Drs. Swapnil Peraza, Haylee Hughes, Raul Benitez and colleagues, with an educational nichelle from [employer]. Thrive Questionnaire Date Thrive assessed: 08/04/24 I am a: Patient What is your living situation today?: I have a steady place to live Within the past 12 months, did the food you bought not last and you didn't have the money to get more?: Never true Within the past 12 months, did you worry whether your food would run out before you got money to buy more?: Never true Do you have trouble paying for medicines?: No Do you have trouble getting transportation to medical appointments?: No Do you have trouble paying your heating and electricity bill?: No Do you have trouble taking care of your child, family member or friend?: No Do you have trouble with day-to-day activities such as bathing, preparing meals, shopping, managing finances, etc.?: No Are you currently unemployed and looking for a job?: No Are you interested in more education?: No Please select the resources that you would like help with: None Currently or been in a relationship where the following occur: No concerns reported THRIVE Score: 0 KAYODE-7 AMB Questionnaire KAYODE-7 Date KAYODE - 7 assessed: 08/11/24 Feeling nervous, anxious, or on edge: 1 = Several days Not being able to stop or control worryin = Several days Worrying too much about different things: 1 = Several days Trouble relaxin = Not at all Being so restless that it is hard to sit still: 0 = Not at all Becoming easily annoyed or irritable: 1 = Several days Feeling afraid as if something awful might happen: 1 = Several days Total KAYODE-7 score (0-4 normal; 5-9 mild; 10-14 moderate; 15-21 severe): 5 Source: Developed by Drs. Swapnil Peraza, Haylee Hughes, Raul yuan nd colleagues, with an educational nichelle from [employer]. KAYODE-7 Assessment Billing KAYODE-7 Assessment Tool: KAYODE-7 Assessment 17340 Physical exam (Primary Care) Vital Signs: Last Vital Signs Temp 98.4 F 11/03/24 13:33 Pulse 83 11/03/24 13:33 Resp 16 11/03/24 13:33 BP 130/86 11/03/24 13:33 Pulse Ox 96 11/03/24 13:33 Oxygen Delivery Method Room Air 11/03/24 13:33 BMI result Body Mass Index 36.8 Tobacco/Smoking Status: Tobacco use Status Tobacco use date assessed 11/03/24 11/03/24 13:42 Patient Tobacco Use Status Former Tobacco user 11/03/24 13:42 Tobacco use type Cigarette 11/03/24 13:42 e-Cigarette/Vaping Use Never Used 11/03/24 13:42 PHQ-9: PHQ-9 Score PHQ-9: Total score 6 11/03/24 13:42 Depression Screening Interpretation: Negative Thrive Assessment: Date of Thrive Assessment Date Thrive assessed 08/04/24 11/03/24 13:42 Currently or been in a relationship where the following occur: No concerns reported Coding Level of Care Code Est Pt Prev Care >65y(26477) Diagnoses Physical exam Z00. Additional Codes KAYODE-7 Assessment Billing - KAYODE-7 Assessment Tool: KAYODE-7 Assessment 46796 ([id number]) PHQ-9 - 42536 - PHQ-9 Billing: Yes ([id number]) Assessment & Plan Assessment & Plan (1) Physical exam: Code(s): Z00.00 - Encounter for general adult medical examination without abnormal findings Category: Medical Plan . Orders: Orders Complete Blood Count Auto Diff Today Z00.00 - Encounter for general adult medical examination without abnormal findings TSH reflex Free T4 Today Z00.00 - Encounter for general adult medical examination without abnormal findings UA CC w/rflx Micro + Cult Today Z00.00 - Encounter for general adult medical examination without abnormal findings Comprehensive [place]. Panel Fast Today Z00.00 - Encounter for general adult medical examination without abnormal findings Lipid Panel Today Z00.00 - Encounter for general adult medical examination without abnormal findings
--- OUTSIDE RECORDS SUMMARY | 2024-11-03 13:42 | XMS_ITS | Clinical Summary ---
Author Organization [facility] Address [address] [place] [id number] Phone Care Team Providers Care Retail Interior Designer Name Role Phone Margaret Kay MD Unavailable [phone] Candido Clark NP Primary Care Provider [...] daily. 07/12/19 22 Active vit A-vit C-vit V-iszk-urpkwi 7,160-113-100 ksso-ly-alxi Tab Take 1 tablet by mouth daily. [...] e alcohol) 1 drink a month at [facility] Assessment: Transportation Answer Date Recorded [...] [place] [employer] POS PPO REPLACEMENT Care Teams Retail Interior Designer Relationship Specialty Start Date End Date Candido Clark NP [address] [place] [id number] [email or web address] PCP - General Nurse Practitioner 10/27/22 Margaret Kay MD [address] [place] [id number] [email or web address] Medical Oncology 10/29/21 Additional Source Comments The information contained in this document represents components of the legal health record. It is not the complete legal health record.[facility]
== END 2024-11-03 14:26 | disposition home or self-care (01) ==
LOC: HO.HMCC 13:30
PROVIDERS: PCP Nurse Practitioner Family; Visit Provider Nurse Practitioner Family
DX: Z00.00 Encounter for general adult medical examination without abnormal findings (principal)

== ENCOUNTER → 2024-11-03 13:29 | Outpatient (BNVA) | payer MEDICARE, SELFPAY | PROVIDERS: PCP Nurse Practitioner Family; Visit Provider Nurse Practitioner Family | DX: Z00.00 Encounter for general adult medical examination without abnormal findings (principal); Z85.3 Personal history of malignant neoplasm of breast; Z93.3 Colostomy status | CPT/HCPCS: 96127; 99397 ==

== ENCOUNTER 2025-01-09 07:52 | Outpatient (REF) | payer MEDICARE, SELFPAY ==
--- OUTSIDE RECORDS SUMMARY | 2025-01-09 07:57 | XMS_ITS | Clinical Summary ---
Author Organization [facility] Address [address] [place] [phone] Phone Care Team Providers Care Neurodiagnostic Technician Name Role Phone Margaret Kay MD Unavailable [phone] Candido Clark NP Primary Care Provider [...] daily. 07/12/19 22 Active vit A-vit C-vit D-bqds-fnqtwa 7,160-113-100 xsrr-uh-vcgi Tab Take 1 tablet by mouth daily. [...] Take 10 mg by mouth daily. 10/29/19 23 Active levocetirizine (XYZAL) 5 MG tablet Take 5 mg by mouth every evening. 10/29/19 23 Active anastrozole (ARIMIDEX) 1 mg tablet Take [...] e alcohol) 1 drink a month at [facility] Assessment: Transportation Answer Date Recorded [...] 10/03/2023 10/02/2021, 09/04, 09/18/2021, Additional history exists Adult Td,Tdap Booster 10/18/2024 10/18/2014 INFLUENZA VACCINE (#1) 2024 , 01/20/2020, 01/13/2019, Additional history exists COVID-19 VACCINE (2 - 2024- season) 2024 06/23/2020 RSV VACCINE (1 - 1-dose 75+ series) [...] Interpretation) (10/02/2021 12:05 AM EDT) Other Narrative [facility] - 10/25/2021 10:22 AM EDT This study [...] [place] POS PPO REPLACEMENT Care Teams Neurodiagnostic Technician Relationship Specialty Start Date End Date Candido Clark NP [address] [facility] [place] [id number] PCP - General Nurse Practitioner 10/27/22 Margaret Kay MD [address] [place] [address] [email or web address] 10/29/21 Additional Source Comments The information contained in this document represents components of the legal health record. It is not the complete legal health record.[facility]
[2025-01-09 10:29] LABS: Appearance Urine Clear; Glucose Urine UA Negative (Negative); PH 7.5 (5.0-9.0); Specific Gravity - Urine 1.010 (1.005-1.025)
[2025-01-09 10:36] LABS: MANUAL DIFF FLAG NO
[2025-01-09 10:40] LABS: Hematocrit 41.0 % (37.0-47.0); Hemoglobin 13.4 g/dl (12.0-16.0); Imm Gran Abs Auto 0.01 X10*3/uL (0.00-0.03); Imm Gran Pct Auto 0.2 % (0.0-0.4); Lymphocytes Absolute Auto 1.7 X10*3/uL (1.2-4.9); Mean Corpuscular HGB Conc 32.7 g/dl (31.0-35.0); Mean Corpuscular Hemoglobin 30.7 pg (27.0-33.0); Mean Corpuscular Volume 93.8 fL (80.0-98.0); NRBC Abs Auto 0.000 X10*3/uL (0.0-0.012); NRBC Pct Auto 0.0 /100WBC (0.0-0.2); Platelet Count 243 X10*3/uL (160-400); Red Blood Count 4.37 X10*6/uL (4.20-5.50); White Blood Count 5.9 X10*3/uL (4.8-10.8)
[2025-01-09 10:52] LABS: Alanine Aminotransferase 22 U/L (0-31); Albumin Level 4.6 g/dL (3.5-5.0); Alkaline Phosphatase 54 U/L (39-117); Anion Gap 12 (12-20); Aspartate Amino Transferase 28 U/L (5-31); Blood Urea Nitrogen 18 mg/dL (9-16); Calcium 9.6 mg/dL (8.4-10.2); Carbon Dioxide 29 mmol/L (22-29); Chloride 106 mmol/L (96-108); Cholesterol 181 mg/dL (<200); Estimated Glomerular Filt Rate > 60; HDL Cholesterol 55 mg/dL (>40); Potassium 4.3 mmol/L (3.3-5.1); Sodium 143 mmol/L (135-145); Total Protein 7.4 g/dL (6.5-8.0); Triglycerides 181 mg/dL (<150)
[2025-01-09 11:40] LABS: Free T4 (Free Thyroxine) 0.82 ng/dL (0.71-1.85)
== END 2025-01-09 07:53 | disposition home or self-care (01) ==
LOC: HO.HMGCLDS 07:52
PROVIDERS: PCP Nurse Practitioner Family; Visit Provider Nurse Practitioner Family
DX: Z00.00 Encounter for general adult medical examination without abnormal findings (principal); R79.89 Other specified abnormal findings of blood chemistry; Z13.21 Encounter for screening for nutritional disorder
CPT/HCPCS: 36415; 80053; 80061; 81003; 84439; 84443; 85025

== ENCOUNTER 2025-02-22 09:40 | Outpatient (AMB) | payer MEDICARE, SELFPAY ==
--- NOTE | 2025-02-22 10:31 | A.OFFVIS_ITS ---
Vital Signs 02/22/25 10:37 Height 5 ft 5 in Weight 227 lb 6 oz BMI 37.8 Intake Visit Reasons: 6 month follow-up s/p parastomal hernia Intake Note: Patient presents for a six month follow-up status post parastomal hernia. Pt c/o;no concerns. 07/28/23- Open repair of a parastomal hernia using biologic mesh, Sugarbaker technique, via a low midline incision Knitter Hand Required: No Accompanied by: Self / Same As Patient Allergies amoxicillin (AMOXICILLIN) Allergy (Intermediate, Verified 02/22/25 10:38) flushing/swelling/rash HPI HPI 6 month follow-up s/p parastomal hernia: Details: She is here for follow-up for history of parastomal hernia, status post repair last year. She says she continues to do well. She says that she really has had no problems with her colostomy now She has good oral intake Her main problem now is that she has a lot of side effects from all her medications including arthritis. She says that she is taking thyroid medication . [facility] Medical History Parastomal hernia HTN (hypertension) Hx of breast cancer (~2021) Mild acid reflux Arthralgia Ambulates with cane Perforated diverticulum Colostomy in place Intra-abdominal abscess Perforation of sigmoid colon due to diverticulitis COVID-19 vaccine series completed Family history of anesthesia complication Arthritis Elevated cholesterol LBBB (left bundle branch block) Surgical History History of hernia repair (~07/28/23) S/P laparotomy History of sigmoidoscopy (10/15/22) History of lumpectomy of right breast (10/02/21) History of tonsillectomy and adenoidectomy History of bilateral breast biopsy History of hysterectomy Family History Mother Melanoma Maternal Aunt Vocal cord cancer Maternal Aunt Uterine cancer Maternal Aunt Comer Syndrome Social History Household Members: None Housing: House Are you a primary primary care coordinator to a significant other at home: No Do you presently have visiting nurse or other home services: No Unable to assess alcohol history related to: Unknown Alcohol intake: current Alcohol intake frequency: former alcohol drinker Patient Tobacco Use Status: Former Tobacco user Tobacco use type: Cigarette Years Smoked: 5 e-Cigarette/Vaping Use: Never Used Second Hand Smoke Exposure: No Advance Directives Date on File: 09/30/21 service: No Current occupational status: retired Cognitive needs: No Hearing needs: No Vision needs: No Review of Systems Const Denies chills and Denies fever(s) Card Denies chest pain at rest Resp Denies cough GI Denies abdominal pain Musc Reports back pain Physical Exam Vital Signs: BMI result Body Mass Index 37.8 Const Other: Walks with a cane General: comfortable and no acute distress Nutritional Appearance: obese Resp Effort & Inspection: normal respiratory effort Cardio Rate: regular rate GI Other: Colostomy in place, working well, abdomen is soft, no palpable hernia, has a thick amount of subcutaneous fat with a pannus Palpation (GI): Soft to palpation Assessment & Plan Assessment & Plan (1) Colostomy in place: Code(s): Z93.3 - Colostomy status Category: Medical Plan: She is doing very well. Her stoma is functioning well. She denies any abdominal complaints currently. She She does admit that she has gaining weight as she has difficulty with staying active in view of her arthritis I will see her again in the office in about a year to see how she is doing. Coding Level of Care Code Est Pt Level 2 (24766) Diagnoses Colostomy in place Z93.3
[2025-02-22 10:37] VITALS: BMI 37.8
== END 2025-02-22 10:53 | disposition home or self-care (01) ==
LOC: HO.HGS 09:41
PROVIDERS: PCP Nurse Practitioner Family; Visit Provider Surgery
DX: Z93.3 Colostomy status (principal)
CPT/HCPCS: 99212

== ENCOUNTER → 2025-02-22 09:40 | Outpatient (BNVA) | payer MEDICARE, SELFPAY | PROVIDERS: PCP Nurse Practitioner Family; Visit Provider Surgery | DX: Z93.3 Colostomy status (principal) | CPT/HCPCS: 99212 ==

== ENCOUNTER 2025-03-17 10:15 | Outpatient (REF) | payer MEDICARE, SELFPAY | END 2025-03-17 10:16 | disposition home or self-care (01) | LOC: HO.HMGCLDS 10:15 | PROVIDERS: PCP Nurse Practitioner Family; Visit Provider Nurse Practitioner Family | DX: R79.89 Other specified abnormal findings of blood chemistry (principal); Z13.29 Encounter for screening for other suspected endocrine disorder | CPT/HCPCS: 36415; 84443 ==